=== PATIENT | female | born 1945 | race Two or more races ===

== ENCOUNTER 2016-04-02 14:26 | Emergency (ER) | payer MEDICARE, MEDICAID ==
--- NOTE | 2016-04-02 15:18 | ER Document Report ---
ED Medical Screen (RME) - General Stated Complaint: KIDNEY ISSUES Notes: pt is ESRD in need for dialysis last dialysis treatment was on saturday family states she is switching to Saturday, Saturday and Saturday [employer] Tester- Kelby Boyd in [place] TRAVEL OUTSIDE OF THE [place] IN LAST 30 DAYS: No COUNTRY TRAVELED TO/FROM: [facility] - Related Data Allergies/Adverse Reactions: tuberculin, purified protein deriva [Tuberculin,Purif.Prot.Deriv.] Allergy ( Severe, Verified 05/28/14 16:43) Penicillins Allergy (Mild, Verified 05/16/14 17:42) Pruritis, Swelling Past Medical History - Past Medical History Cardiac Medical History: Reports: Hx Congestive Heart Failure - possibly?, Hx Hypertension Denies: Hx Coronary Artery Disease, Hx Heart Attack Pulmonary Medical History: Denies: Hx Asthma, Hx Bronchitis, Hx COPD, Hx Pneumonia Neurological Medical History: Denies: Hx Cerebrovascular Accident, Hx Seizures Endocrine Medical History: Reports: Hx Diabetes Mellitus Type 2 Renal/ Medical History: Reports: Hx End Stage Renal Disease, Hx Hemodialysis Musculoskeltal Medical History: Reports Hx Arthritis Past Surgical History: Denies: Hx Pacemaker - Immunizations Hx Diphtheria, Pertussis, Tetanus Vaccination: Yes - September
[2016-04-02 18:28] LABS: ABSOLUTE EOSINOPHILS # (AUTO) 0.3 10^3/uL (0.0-0.6); ABSOLUTE LYMPHOCYTES (AUTO) 1.1 10^3/uL (0.5-4.7); ABSOLUTE MONOCYTES (AUTO) 0.4 10^3/uL (0.1-1.4); ABSOLUTE NEUT (AUTO) 3.9 10^3/uL (1.7-8.2); BASOPHILS % (AUTO) 0.7 % (0-2); EOSINOPHILS % (AUTO) 4.7 % (0-6); HEMATOCRIT 22.7 % (36.0-47.0); HGB HCT DIFFERENCE -0.2; LYMPHOCYTES % (AUTO) 19.7 % (13-45); MEAN CORPUSCULAR HEMOGLOBIN 34.7 pg (27.0-33.4); MEAN CORPUSCULAR HGB CONC 33.2 g/dL (32.0-36.0); MEAN CORPUSCULAR VOLUME 105 fl (80-97); MONOCYTES % (AUTO) 6.8 % (3-13); RED BLOOD COUNT 2.17 10^6/uL (3.72-5.28); RED CELL DISTRIBUTION WIDTH 16.1 % (11.5-14.0); SEGMENTED NEUTROPHILS % (AUTO) 68.1 % (42-78); WHITE BLOOD COUNT 5.8 10^3/uL (4.0-10.5)
[2016-04-02 18:31] LABS: HEMOGLOBIN 7.5 g/dL (12.0-15.5)
[2016-04-02 18:46] LABS: ALANINE AMINOTRANSFERASE 23 U/L (9-52); ALBUMIN 3.9 g/dL (3.5-5.0); ALKALINE PHOSPHATASE 188 U/L (38-126); ANION GAP 17 (5-19); ASPARTATE AMINO TRANSFERASE 19 U/L (14-36); BILIRUBIN,TOTAL 0.4 mg/dL (0.2-1.3); BLOOD UREA NITROGEN 109 mg/dL (7-20); CALCIUM 8.9 mg/dL (8.4-10.2); CARBON DIOXIDE 20 mmol/L (22-30); CHLORIDE 104 mmol/L (98-107); CREATININE RESULT 9.74 mg/dL (0.52-1.25); GLUCOSE 83 mg/dL (75-110); POTASSIUM 5.7 mmol/L (3.6-5.0); SODIUM 141.4 mmol/L (137-145); TOTAL PROTEIN 6.2 g/dL (6.3-8.2)
--- NOTE | 2016-04-02 19:05 | ER Document Report ---
ED General - General Chief Complaint: Abnormal Lab Results Stated Complaint: KIDNEY ISSUES Time seen by provider: 19:01 Mode of Arrival: Ambulatory Information source: Patient Notes: This is a 70-year-old female with known end-stage renal disease (hemodialysis Saturday, , Saturday). The patient is previously been dialyzed in [place] and spent 10 months in [facility] and had been receiving her dialysis treatments there. Her last dialysis was Saturday. Patient arrived by plane today from [facility]. She was brought in by the family to get "dialysis set up". The patient's family states they called Dr. Kelby Boyd's office ) and spoken to Augustina who told them to get a chest x-ray, hepatitis B panel and "physician order for dialysis". Patient denies any chest pain or shortness of breath. She states she feels good. TRAVEL OUTSIDE OF THE U[place] IN LAST 30 DAYS: No COUNTRY TRAVELED TO/FROM: [facility] Onset: Last week Onset/Duration: Gradual Quality of pain: No pain Severity: None Pain Level: Denies Associated symptoms: denies: Chills, Fever, Shortness of breath Exacerbated by: Denies Relieved by: Denies Similar symptoms previously: Yes Recently seen / treated by doctor: Yes - Related Data Allergies/Adverse Reactions: tuberculin, purified protein deriva [Tuberculin,Purif.Prot.Deriv.] Allergy ( Severe, Verified 04/02/16 15:18) Penicillins Allergy (Mild, Verified 04/02/16 15:18) Pruritis, Swelling Past Medical History - General Information source: Patient - Social History Smoking Status: Never Smoker Cigarette use (# per day): No Chew tobacco use (# tins/day): No Frequency of alcohol use: None Drug Abuse: None Lives with: Family Family History: Reviewed & Not Pertinent Patient has suicidal ideation: No Patient has homicidal ideation: No - Past Medical History Cardiac Medical History: Reports: Hx Congestive Heart Failure - possibly?, Hx Hypertension Denies: Hx Coronary Artery Disease, Hx Heart Attack Pulmonary Medical History: Denies: Hx Asthma, Hx Bronchitis, Hx COPD, Hx Pneumonia Neurological Medical History: Denies: Hx Cerebrovascular Accident, Hx Seizures Endocrine Medical History: Reports: Hx Diabetes Mellitus Type 2 Renal/ Medical History: Reports: Hx End Stage Renal Disease, Hx Hemodialysis. Denies: Hx Peritoneal Dialysis Musculoskeltal Medical History: Reports Hx Arthritis Past Surgical History: Denies: Hx Pacemaker - Immunizations Hx Diphtheria, Pertussis, Tetanus Vaccination: Yes - September Hx Pneumococcal Vaccination: 06/05/11 Review of Systems - Review of Systems Constitutional: denies: Chills, Fever EENT: No symptoms reported Cardiovascular: No symptoms reported Respiratory: No symptoms reported Gastrointestinal: No symptoms reported Genitourinary: No symptoms reported Female Genitourinary: No symptoms reported Musculoskeletal: No symptoms reported Skin: No symptoms reported Hematologic/Lymphatic: No symptoms reported Neurological/Psychological: No symptoms reported Physical Exam - Vital signs Vitals: Temp Pulse Resp BP Pulse Ox 98.1 F 65 16 141/59 H 98 04/02/16 15:19 04/02/16 15:19 04/02/16 15:19 04/02/16 15:19 04/02/16 15:19 Notes: Physical exam: GENERAL: 70-year-old female, alert and oriented 3, no acute distress HEAD: Atraumatic, normocephalic. EYES: Pupils equal round and reactive to light, extraocular movements intact, sclera anicteric, conjunctiva are normal. ENT: Moist mucous membranes. NECK: Normal range of motion, supple without lymphadenopathy or JVD. LUNGS: Breath sounds clear to auscultation bilaterally and equal. No wheezes rales or rhonchi. HEART: Regular rate and rhythm without murmurs, rubs or gallops. ABDOMEN: Soft, nontender, normoactive bowel sounds. No guarding, no rebound. No masses appreciated. EXTREMITIES: Normal range of motion, no pitting or edema. No clubbing or cyanosis. NEUROLOGICAL: Cranial nerves II through XII grossly intact. Normal speech, normal gait. PSYCH: Normal mood, normal affect. SKIN: Warm, Dry, normal turgor, no rashes or lesions noted. Course - Re-evaluation Re-evalutation: 04/02/16 19:03 Note: I did discuss the labs with the patient. She is anemic (lower than she's been before in the past). She denies any blood in the stool or any active bleeding. She says she has a history of anemia and she is regularly gotten Epogen with dialysis. She is a Jehovah witness and has never had a transfusion 04/02/16 19:15 Note: I discussed case with Dr. Kelby Boyd (page through the ice plant operator zuly Andres [phone]): He is familiar with the patient and stated that they wanted to know where they were as far as the potassium and the fluid status because the patient had suddenly come back from [facility] without any prior notification. I did tell him that the potassium is 5.7, the patient looks good and is asymptomatic and has no shortness of breath and that the chest x-ray was clear. He recommended giving the patient some Kayexalate which we have done. He said that he would fast track the patient to get her dialysis tomorrow. I told him I would give the patient copies of today's x-ray and lab results. I did tell him that the hepatitis panel will not be back tonight (attending) and we do not do the PPD panel in the ER for sees which was originally requested. He understands and will not impact getting the patient in for dialysis. 04/02/16 19:17 - Vital Signs Vital signs: Temp Pulse Resp BP Pulse Ox 98.3 F 68 18 148/44 H 97 04/02/16 19:05 04/02/16 19:05 04/02/16 19:05 04/02/16 19:05 04/02/16 19:05 - Laboratory Result Diagrams: 04/02/16 17:50 04/02/16 17:50 Laboratory results interpreted by me: 04/02/16 04/02/16 17:50 17:50 RBC 2.17 L Hgb 7.5 L Hct 22.7 L MCV 105 H MCH 34.7 H RDW 16.1 H Potassium 5.7 H Carbon Dioxide 20 L BUN 109 H Creatinine 9.74 H Est GFR ( Amer) 5 L Est GFR (Non-Af Amer) 4 L Alkaline Phosphatase 188 H Total Protein 6.2 L 04/02/16 19:17 - Diagnostic Test Radiology reviewed: Image reviewed, Reports reviewed - Chest x-ray shows no infiltrates or effusions. Radiology results interpreted by me: 04/02/16 19:17 Discharge - Discharge Clinical Impression: end-stage renal disease Condition: Stable Disposition: HOME, SELF-CARE Additional Instructions: As we discussed: I was in contact with Dr. Kelby Boyd and he said that the dialysis center will call you at home tomorrow to arrange dialysis for tomorrow. If you have not heard from them by noon, call the dialysis center. When you do go to the dialysis center: Bring a copy of today's x-ray report and labs with you. As always, return to the emergency room for any shortness of breath, chest pain or any concerns that she might be getting worse.
[2016-04-02 19:06] VITALS: BP 148/44
[2016-04-02] MEDS ORDERED: SODIUM POLYSTYRENE SULFONATE 15 GM/60 ML PO ONE (19:10)
== END 2016-04-02 19:37 | disposition home or self-care (01) ==
LOC: ER 14:26
DX: I12.0 Hypertensive chronic kidney disease with stage 5 chronic kidney disease or end stage renal disease (principal); E11.22 Type 2 diabetes mellitus with diabetic chronic kidney disease; N18.6 End stage renal disease; Z99.2 Dependence on renal dialysis; D64.9 Anemia, unspecified; Z88.7 Allergy status to serum and vaccine; Z88.0 Allergy status to penicillin; Z79.899 Other long term (current) drug therapy
CPT/HCPCS: 36415; 71020; 80053; 85025; 86706; 87340; 99284

== ENCOUNTER → 2016-06-07 | Outpatient (CLI) | payer MEDICARE, MEDICAID ==
[~2016-06-07] MED LIST: AMINOPHYLLINE INJ/PF 250 MG/10 ML SDV IV ONE; REGADENOSON INJ 0.4 MG/5 ML DISP.SYRIN IV ONE
--- NOTE | 2016-06-07 16:08 | DRAGON STRESS TEST REPORT ---
INTRAVENOUS LEXISCAN CARDIOLITE STRESS TEST USING SINGLE PHOTON EMMISION COMPUTERIZED TOMOGRAPHIC. DATE OF PROCEDURE: June 07, 2016 INDICATION : Chest pain CARDIAC RISK FACTORS: Hypertension RESTING EKG: Sinus rhythm, no Baseline ST segment changes noted STRESS EKG: No significant changes noted with LexiScan bolus REASON FOR TERMINATION: Protocol. PROCEDURE REPORT: Baseline heart rate 61 beats per minute with blood pressure of 148/68. Patient had no significant complaints. Heart rate at 2 minutes post bolus 79 with a blood pressure of 160/60. 3 minutes post bolus heart rate 71 with blood pressure of 157/62. No significant EKG changes were noted. Patient had no significant complaints during the procedure or postprocedure. Patient injected with Aminophyllin 75 mg at 3 minutes or later after Lexiscan bolus. CONCLUSIONS: Normal EKG and hemodynamic response to IV LexiScan. NUCLEAR DATA: At rest the patient was given 9.33 millicuries of technetium 99 sestamibi injected intravenously. As per protocol rest gated SPECT images were obtained. Subsequently the patient was given intravenous LexiScan at a dose of 0.4 mg in 5 mL intravenously, followed by flush with normal saline. Subsequently the stress dose of 31.6 millicuries of technetium 99 sestamibi was injected intravenously. As per protocol stress gated images were obtained. NUCLEAR INTERPRETATION: Both raw and processed data were used for interpretation. Visual, qualitative, computer-generated quantitative data was used. There was good myocardial uptake of technetium compound. Motion artifact and soft tissue attenuations were noted. Increased visceral uptake was noted. No definitive areas of transient perfusion defect noted. No definitive areas of fixed perfusion defect or scars noted. EKG gated imaging showed LV EF at 62 %, rest and stress gated EF similar visually. T. I D. ratio was 0.98. Lung heart ratio noted to be within normal limits 0.30. No significant extracardiac and abnormal radiotracer activities were noted. RV free wall uptake was noted to be WNL. IMPRESSION: Also refer to comments under nuclear interpretation. Also test results needs to be interpreted in the context of pretest probability. 1. There is no definitive scintigraphic evidence of LexiScan induced myocardial ischemia. 2. There is no definitive scintigraphic evidence of myocardial infarction/scar. 3. EKG gated imaging shows left ejection fraction of approximately 62 %. 4. Clinical correlation requested as occasionally single vessel disease or balanced ischemia could be missed. In approximately 10% of the cases Lexiscan may not cause adequate vasodilatory stress. RECOMMENDATIONS: Aggressive risk factor modification, medical therapy. Clinical correlation with echocardiogram derived ejection fraction. Inability to exercise by itself can lead to increased cardiovascular event risks. Consider cardiology consultation and or follow-up if clinically indicated. I AM AVAILABLE FOR CARDIOLOGY CONSULTATION AND FOLLOWUP IF REQUESTED BY PMD Michael Nicholas M.D., LAURA Process Improvement Engineer database developer, Board certified in cardiovascular diseases, Nuclear cardiology, Echocardiography Cardiac CT and cardiac MRI Ph. [phone] [facility]
== END ==
LOC: RAD 08:10
PROVIDERS: ATTEND Internal Medicine Cardiovascular Disease
DX: R07.9 Chest pain, unspecified (principal); I10 Essential (primary) hypertension
CPT/HCPCS: 93017; 78452; A9500; J2785; J0280; Q9969

== ENCOUNTER 2016-06-15 10:03 | Inpatient (IN) | payer MEDICARE, MEDICAID ==
--- NOTE | 2016-06-15 10:29 | ER Document Report ---
ED Medical Screen (RME) - General Stated Complaint: CHEST PAIN Notes: Patient chooses not to use [employer]. Patient reports through photogrammetric tech she's been having chest pain since 2:00 this morning. Was relieved with nitroglycerin , but pain returns. She has had a previous OH with surgery. Patient is diabetic, has hypertension, and is on dialysis. She was supposed to be dialyzed this morning at 11 AM. Patient's doctor is Dr. Hein. Pain radiates to the arms. Patient complains of body pain. Patient also has shortness of breath. Patient complains of nausea. Patient does not produce urine. I have greeted and performed a rapid initial assessment of this patient. A comprehensive ED assessment and evaluation of the patient, analysis of test results and completion of the medical decision making process will be conducted by additional ED providers. TRAVEL OUTSIDE OF THE [place] IN LAST 30 DAYS: No [facility] Related [facility] Allergies/Adverse Reactions: tuberculin, purified protein deriva [Tuberculin,Purif.Prot.Deriv.] Allergy ( Severe, Verified 06/15/16 10:26) Penicillins Allergy (Mild, Verified 06/15/16 10:26) Pruritis, Swelling Past Medical History - Past Medical History Cardiac Medical History: Reports: Hx Congestive Heart Failure - possibly?, Hx Hypertension Denies: Hx Coronary Artery Disease, Hx Heart Attack Pulmonary Medical History: Denies: Hx Asthma, Hx Bronchitis, Hx COPD, Hx Pneumonia Neurological Medical History: Denies: Hx Cerebrovascular Accident, Hx Seizures Endocrine Medical History: Reports: Hx Diabetes Mellitus Type 2 Renal/ Medical History: Reports: Hx End Stage Renal Disease, Hx Hemodialysis. Denies: Hx Peritoneal Dialysis Musculoskeltal Medical History: Reports Hx Arthritis Past Surgical History: Denies: Hx Pacemaker - Immunizations Hx Diphtheria, Pertussis, Tetanus Vaccination: Yes - September Physical Exam - Vital signs Vitals: Temp Pulse Resp BP Pulse Ox 97.8 F 59 L 18 157/58 H 98 06/15/16 10:06/15/16 10:06/15/16 10:06/15/16 10:06/15/16 10:21 Course - Vital Signs Vital signs: Temp Pulse Resp BP Pulse Ox 97.8 F 59 L 18 157/58 H 98 06/15/16 10:06/15/16 10:06/15/16 10:21 06/15/16 10:21 06/15/16 10:21
--- NOTE | 2016-06-15 10:54 | EKG REPORT ---
SEVERITY:- NORMAL ECG - SINUS RHYTHM : Confirmed by: Michael Nicholas 15-Jun-2016 10:53:18
--- NOTE | 2016-06-15 11:24 | ER Document Report ---
ED General - General Chief Complaint: Chest Pain Stated Complaint: CHEST PAIN Mode of Arrival: Ambulatory Information source: Patient, Relative Notes: 70-year-old female history dialysis who had a stress test on Saturday presents with complaints of chest pain. Patient was given nitroglycerin by her silk screen printer machine, took nitroglycerin results or chest pain. Patient denies any fevers or chills. Patient was most have dialysis today and did not go to it. Patient last had dialysis on Saturday TRAVEL OUTSIDE OF THE [place] IN LAST 30 DAYS: No COUNTRY TRAVELED TO/FROM: [facility] Onset: Just prior to arrival Onset/Duration: Sudden Quality of pain: Pressure Severity: Mild Pain Level: 1 Associated symptoms: Chest pain Exacerbated by: Denies Relieved by: Denies Similar symptoms previously: Yes Recently seen / treated by doctor: Yes - Related Data Allergies/Adverse Reactions: tuberculin, purified protein deriva [Tuberculin,Purif.Prot.Deriv.] Allergy ( Severe, Verified 06/15/16 10:26) Penicillins Allergy (Mild, Verified 06/15/16 10:26) Pruritis, Swelling Past Medical History - Social History Smoking Status: Never Smoker Cigarette use (# per day): No Chew tobacco use (# tins/day): No Smoking Education Provided: No Frequency of alcohol use: None Drug Abuse: None Family History: Reviewed & Not Pertinent Patient has suicidal ideation: No Patient has homicidal ideation: No - Past Medical History Cardiac Medical History: Reports: Hx Congestive Heart Failure - possibly?, Hx Hypertension Denies: Hx Coronary Artery Disease, Hx Heart Attack Pulmonary Medical History: Denies: Hx Asthma, Hx Bronchitis, Hx COPD, Hx Pneumonia Neurological Medical History: Denies: Hx Cerebrovascular Accident, Hx Seizures Endocrine Medical History: Reports: Hx Diabetes Mellitus Type 2 Renal/ Medical History: Reports: Hx End Stage Renal Disease, Hx Hemodialysis. Denies: Hx Peritoneal Dialysis Musculoskeltal Medical History: Reports Hx Arthritis Past Surgical History: Denies: Hx Pacemaker - Immunizations Hx Diphtheria, Pertussis, Tetanus Vaccination: Yes - September Hx Pneumococcal Vaccination: 06/05/11 Review of Systems - Review of Systems Notes: REVIEW OF SYSTEMS: CONSTITUTIONAL : Denies fever, chills, or sweats. Denies recent illness. EENT: Denies eye, ear, throat, or mouth pain or symptoms. Denies nasal or sinus congestion or discharge. Denies throat, tongue, or mouth swelling or difficulty swallowing. CARDIOVASCULAR: Admits chest pain RESPIRATORY: Denies cough, cold, or chest congestion. Denies shortness of breath, difficulty breathing, or wheezing. GASTROINTESTINAL: Denies abdominal pain or distention. Denies nausea, vomiting , or diarrhea. Denies blood in vomitus, stools, or per rectum. Denies black, tarry stools. Denies constipation. GENITOURINARY: Denies difficulty urinating, painful urination, burning, frequency, blood in urine, or discharge. FEMALE GENITOURINARY: Denies vaginal bleeding, heavy or abnormal periods, irregular periods. Denies vaginal discharge or odor. MUSCULOSKELETAL: Denies back or neck pain or stiffness. Denies joint pain or swelling. SKIN: Denies rash, lesions or sores. HEMATOLOGIC : Denies easy bruising or bleeding. LYMPHATIC: Denies swollen, enlarged glands. NEUROLOGICAL: Denies confusion or altered mental status. Denies passing out or loss of consciousness. Denies dizziness or lightheadedness. Denies headache. Denies weakness or paralysis or loss of use of either side. Denies problems with gait or speech. Denies sensory loss, numbness, or tingling. Denies seizures. PSYCHIATRIC: Denies anxiety or stress. Denies depression, suicidal ideation, or homicidal ideation. ALL OTHER SYSTEMS REVIEWED AND NEGATIVE. Dictation was performed using [employer] voice recognition software PHYSICAL EXAMINATION: GENERAL: Well-appearing, well-nourished and in no acute distress. HEAD: Atraumatic, normocephalic. EYES: Pupils equal round and reactive to light, extraocular movements intact, conjunctiva are normal. ENT: Nares patent, oropharynx clear without exudates. Moist mucous membranes. NECK: Normal range of motion, supple without lymphadenopathy LUNGS: Breath sounds clear to auscultation bilaterally and equal. No wheezes rales or rhonchi. HEART: Regular rate and rhythm without murmurs ABDOMEN: Soft, nontender, nondistended abdomen. No guarding, no rebound. No masses appreciated. Female : deferred Musculoskeletal: Normal range of motion, no pitting or edema. No cyanosis. NEUROLOGICAL: Cranial nerves grossly intact. Normal speech, normal gait. Normal sensory, motor exams PSYCH: Normal mood, normal affect. SKIN: Warm, Dry, normal turgor, no rashes or lesions noted. Physical Exam - Vital signs Vitals: Temp Pulse Resp BP Pulse Ox 97.8 F 59 L 18 157/58 H 98 06/15/16 10:21 06/15/16 10:21 06/15/16 10:21 06/15/16 10:21 06/15/16 10:21 Course - Re-evaluation Re-evalutation: 06/15/16 11:23 Very pleasant 70-year-old female who presents with complaints of chest pain. Patient took her own nitroglycerin prior to arrival and notes she is a symptomatic at this time. I did review the stress test which noted no acute abnormalities no ischemic changes no previous scarring. 62% ejection fraction. 06/15/16 13:54 Pt noted ot have a potassium of 8, immediately ordered medications 06/15/16 14:06 Dr Ballesteros with admit, Dr Brenner to dialysis emergently 06/15/16 14:06 - Vital Signs Vital signs: Temp Pulse Resp BP Pulse Ox 97.8 F 59 L 14 141/63 H 97 06/15/16 10:21 06/15/16 10:21 06/15/16 13:17 06/15/16 13:17 06/15/16 13:17 - Laboratory Result Diagrams: 06/15/16 11:30 06/15/16 12:54 Laboratory results interpreted by me: 06/15/16 06/15/16 11:30 12:54 RDW 16.6 H Sodium 135.5 L Potassium 8.0 H* Chloride 95 L Carbon Dioxide 20 L BUN 95 H Creatinine 9.79 H Est GFR ( Amer) 5 L Est GFR (Non-Af Amer) 4 L Calcium 8.0 L Direct Bilirubin 0.5 H AST 39 H Alkaline Phosphatase 186 H - Diagnostic Test Radiology reviewed: Image reviewed, Reports reviewed - EKG Interpretation by Me EKG shows normal: Sinus rhythm, Anderson, Intervals, ST-T Waves - Peaked T waves When compared to previous EKG there are: Changes noted Critical Care Note - Critical Care Note Total time excluding time spent on procedures (mins): 41 Comments: 41 minutes of critical care time spent in direct contact evaluating and reevaluating the patient, treating symptoms, reviewing labs and studies and speaking with family and consultants excluding any procedures Discharge - Discharge Clinical Impression: Hyperkalemia, ESRD on dialysis Chest pain Qualifiers: Chest pain type: unspecified Qualified Code(s): R07.9 - Chest pain, unspecified Condition: Serious Disposition: ADMITTED INPATIENT Admitting Provider: Hospitalist Unit Admitted: ICU Referrals: STEVEN NEUMANN MD [Primary Care Provider] - Follow up as needed
[2016-06-15 12:04] LABS: ABSOLUTE BASOPHILS # (AUTO) 0.1 10^3/uL (0.0-0.2); ABSOLUTE EOSINOPHILS # (AUTO) 0.2 10^3/uL (0.0-0.6); ABSOLUTE MONOCYTES (AUTO) 0.4 10^3/uL (0.1-1.4); ABSOLUTE NEUT (AUTO) 4.5 10^3/uL (1.7-8.2); BASOPHILS % (AUTO) 0.9 % (0-2); EOSINOPHILS % (AUTO) 3.4 % (0-6); HEMATOCRIT 37.2 % (36.0-47.0); HEMOGLOBIN 12.7 g/dL (12.0-15.5); HGB HCT DIFFERENCE 0.9; LYMPHOCYTES % (AUTO) 16.2 % (13-45); MEAN CORPUSCULAR HEMOGLOBIN 31.5 pg (27.0-33.4); MEAN CORPUSCULAR HGB CONC 34.1 g/dL (32.0-36.0); MEAN CORPUSCULAR VOLUME 93 fl (80-97); RED BLOOD COUNT 4.02 10^6/uL (3.72-5.28); RED CELL DISTRIBUTION WIDTH 16.6 % (11.5-14.0); SEGMENTED NEUTROPHILS % (AUTO) 72.5 % (42-78); WHITE BLOOD COUNT 6.3 10^3/uL (4.0-10.5)
[2016-06-15 12:11] LABS: PROTHROMBIN TIME 13.3 SEC (11.4-15.4)
[2016-06-15] MEDS ORDERED: NITROGLYCERIN 0.4 MG/TAB 25 TAB/BOTTLE ONE (12:57)
[2016-06-15] MEDS ORDERED: NITROGLYCERIN 0.4 MG/TAB 25 TAB/BOTTLE SL PRN ×2 (13:08→21:45)
[2016-06-15 13:19] LABS: ALANINE AMINOTRANSFERASE 43 U/L (9-52); ALBUMIN 4.2 g/dL (3.5-5.0); ALKALINE PHOSPHATASE 186 U/L (38-126); ASPARTATE AMINO TRANSFERASE 39 U/L (14-36); BILIRUBIN,DIRECT 0.5 mg/dL (0.0-0.4); BILIRUBIN,TOTAL 0.5 mg/dL (0.2-1.3); BLOOD UREA NITROGEN 95 mg/dL (7-20); CARBON DIOXIDE 20 mmol/L (22-30); CHLORIDE 95 mmol/L (98-107); CREATINE KINASE 108 U/L (30-135); GLUCOSE 94 mg/dL (75-110); SODIUM 135.5 mmol/L (137-145); TOTAL PROTEIN 6.7 g/dL (6.3-8.2)
[2016-06-15] MEDS ORDERED: MORPHINE SULFATE 10 MG/ML INJ IV ONE (13:23)
[2016-06-15 13:25] LABS: CREATININE RESULT 9.79 mg/dL (0.52-1.25)
[2016-06-15 13:31] LABS: CREATINE KINASE MB 1.21 ng/mL (<4.55)
[2016-06-15] MEDS ORDERED: OXYCODONE-ACETAMINOPHEN 5-325 MG TABLET PO ONE (13:33)
[2016-06-15 13:42] LABS: TROPONIN I < 0.012 ng/mL
[2016-06-15] MEDS ORDERED: INSULIN REG, HUMAN 100 UNIT/ML 3 ML VIAL (PYX) IV ONE (13:52)
[2016-06-15] MEDS ORDERED: DEXTROSE 50%-WATER 25 GM/50 ML DISP.SYRIN IV ONE (13:52)
[2016-06-15] MEDS ORDERED: CALCIUM GLUCONATE 1000 MG/10 ML INJ IV ONE (13:52)
[2016-06-15] MEDS ORDERED: ALBUTEROL SULFATE 0.083% NEB 2.5 MG/3 ML AMPUL NEB ONE (13:52)
[2016-06-15 14:09] LABS: ANION GAP 21 (5-19)
[2016-06-15] MEDS ORDERED: ONDANSETRON HCL INJ/PF 4 MG/2 ML SDV IV PRN (14:30)
[2016-06-15] MEDS ORDERED: ACETAMINOPHEN 325 MG TABLET PO PRN (14:30)
[2016-06-15] MEDS ORDERED: OXYCODONE-ACETAMINOPHEN 5-325 MG TABLET PO PRN (14:30)
--- NOTE | 2016-06-15 15:09 | PDOC H&P ---
History of Present Illness Admission Date/PCP: 06/15/16 14:30 STEVEN NEUMANN MD Patient complains of: Chest pain History of Present Illness: NICO BOBO is a 70 year old female with a history of diabetes and chronic renal failure who is a dialysis patient on Wednesdays and Fridays who presents with complaints of chest pain. Patient reports that she began having chest pain yesterday evening. She describes a left-sided substernal chest pressure that did not radiate. There was no associated nausea vomiting or diaphoresis. She denies any palpitations or tachycardia. She does report having some orthopnea but no PND. The patient is and speaks minimal fingers. This interview was done with the daughter at the bedside who translated. The patient fevers or chills or night sweats. She denies any recent travel outside the [place] and denies any immobility. The patient was evaluated by cardiology and had a stress test done about 1 week ago which showed no evidence for ischemia. Patient does have a family history in that her mother from coronary artery disease. She does not smoke and she does not have elevated cholesterol. Past Medical History Cardiac Medical History: Reports: Congestive Heart Failure - possibly?, Hypertension Denies: Coronary Artery Disease, Myocardial Infarction Pulmonary Medical History: Denies: Asthma, Bronchitis, Chronic Obstructive Pulmonary Disease (COPD), Pneumonia Endocrine Medical History: Reports: Diabetes Mellitus Type 2 Renal/ Medical History: Reports: End Stage Renal Disease Musculoskeltal Medical History: Reports: Arthritis Hematology: Denies: Anemia Infectious Medical History: Reports: None Past Surgical History Past Surgical History: Reports: Thyroidectomy - Partial Denies: Pacemaker Social History Information Source: Patient - Daughter was at the bedside who translated. Lives with: Family Smoking Status: Never Smoker Frequency of Alcohol Use: None Hx Recreational Drug Use: No Drugs: None - Advance Directive Resuscitation Status: Full Code Surrogate healthcare decision maker:: Her son Jermain Rock Family History Family History: Mother at age 85 and had coronary artery disease as well as CVA. Father at age 95 and no chronic problems. Parental Family History Reviewed: Yes Children Family History Reviewed: Yes Sibling(s) Family History Reviewed.: No Medication/Allergy Home Medications: Amlodipine Besylate [Norvasc 10 mg Tablet] 10 mg PO DAILY 06/15/16 Carvedilol [Coreg 25 mg Tablet] 25 mg PO DAILY 06/15/16 Hydralazine HCl [Apresoline 25 mg Tablet] 25 mg PO DAILY 06/15/16 Levothyroxine Sodium [Synthroid 0.1 mg Tablet] 0 mg PO DAILY 06/15/16 Nitroglycerin [Nitrostat] 0.4 mg SL Q5M 06/15/16 Allergies/Adverse Reactions: tuberculin, purified protein deriva [Tuberculin,Purif.Prot.Deriv.] Allergy ( Severe, Verified 06/15/16 10:26) Penicillins Allergy (Mild, Verified 06/15/16 10:26) Pruritis, Swelling Review of Systems Constitutional: ABSENT: chills, fever(s), headache(s), weight gain, weight loss Eyes: ABSENT: visual disturbances Ears: ABSENT: hearing changes Cardiovascular: PRESENT: as per HPI Respiratory: PRESENT: dyspnea. ABSENT: cough, hemoptysis Gastrointestinal: ABSENT: abdominal pain, constipation, diarrhea, hematemesis, hematochezia, nausea, vomiting Genitourinary: PRESENT: other - Patient is on dialysis. Musculoskeletal: ABSENT: joint swelling Integumentary: ABSENT: rash, wounds Neurological: PRESENT: other - Abnormal movement at night consistent with restless leg syndrome.. ABSENT: abnormal gait, abnormal speech, confusion, dizziness, focal weakness, syncope Psychiatric: ABSENT: anxiety, depression Endocrine: ABSENT: cold intolerance, heat intolerance, polydipsia, polyuria Hematologic/Lymphatic: ABSENT: easy bleeding, easy bruising Physical Exam Vital Signs: Temp Pulse Resp BP Pulse Ox 97.8 F 59 L 19 169/60 H 93 06/15/16 10:21 06/15/16 10:21 06/15/16 14:47 06/15/16 14:47 06/15/16 14:32 General appearance: PRESENT: no acute distress, well-developed, well-nourished Head exam: PRESENT: atraumatic, normocephalic Eye exam: PRESENT: conjunctiva pink, EOMI, PERRLA. ABSENT: scleral icterus Ear exam: PRESENT: normal external ear exam Mouth exam: PRESENT: moist, tongue midline Neck exam: ABSENT: carotid bruit, JVD, lymphadenopathy, thyromegaly Respiratory exam: PRESENT: clear to auscultation rashmi. ABSENT: rales, rhonchi, wheezes Cardiovascular exam: PRESENT: RRR, systolic murmur. ABSENT: diastolic murmur, rubs GI/Abdominal exam: PRESENT: normal bowel sounds, soft. ABSENT: distended, guarding, mass, organolmegaly, rebound, tenderness Rectal exam: PRESENT: deferred Extremities exam: PRESENT: pedal edema - Trace pedal edema. ABSENT: calf tenderness, clubbing Neurological exam: PRESENT: alert, awake, oriented to person, oriented to place , oriented to time, oriented to situation, CN II-XII grossly intact. ABSENT: motor sensory deficit Psychiatric exam: PRESENT: appropriate affect Skin exam: PRESENT: dry, intact, warm. ABSENT: cyanosis, rash Results Impressions: Chest X-Ray 06/15/16 10:28 IMPRESSION: STABLE APPEARANCE OF THE CHEST. CARDIOMEGALY AND SMALL LEFT PLEURAL EFFUSION UNCHANGED. Assessment & Plan - Diagnosis (1) Chest pain Qualifiers: Chest pain type: unspecified Qualified Code(s): R07.9 - Chest pain, unspecified Is this a current diagnosis for this admission?: YesPlan: Patient has had chest pain for some time now. She had a stress test in a week ago which showed no evidence for ischemia. She does have a family history of heart disease as well as having risk factors of hypertension and diabetes. We will check serial cardiac enzymes and consult cardiology to see whether or not this patient needs to be evaluated by heart catheterization. It Could be that her pain is all related to her hypertension and we'll see how her pain does after dialysis. (2) Hyperkalemia Is this a current diagnosis for this admission?: YesPlan: This is secondary to her chronic renal failure. Patient is to get dialysis today. (3) ESRD on dialysis Is this a current diagnosis for this admission?: YesPlan: Patient normally has dialysis on Wednesdays and Fridays. (4) Diabetes Is this a current diagnosis for this admission?: YesPlan: Patient has controlled her sugars with diet alone. (5) Hypertension Is this a current diagnosis for this admission?: YesPlan: We'll continue with Coreg, Norvasc, hydralazine. (6) Hypothyroidism Is this a current diagnosis for this admission?: YesPlan: Continue with Synthroid. (7) Congestive heart failure Is this a current diagnosis for this admission?: YesPlan: Patient had a normal ejection fraction on stress test so she most likely has diastolic dysfunction. (8) Restless leg syndrome Is this a current diagnosis for this admission?: YesPlan: We'll start the patient on Requip. - Time Time Spent: 50 to 70 Minutes - Inpatient Certification Medical Necessity: Need Close Monitoring Due to Risk of Patient Decompensation - Plan Summary Plan Summary: We'll admit to the intensive care unit for emergent dialysis.
[2016-06-15 17:06] LABS: ANION GAP 18 (5-19); BLOOD UREA NITROGEN 104 mg/dL (7-20); CALCIUM 8.8 mg/dL (8.4-10.2); CARBON DIOXIDE 24 mmol/L (22-30); CHLORIDE 95 mmol/L (98-107); GLUCOSE 56 mg/dL (75-110); SODIUM 137.2 mmol/L (137-145)
[2016-06-15 17:12] LABS: CREATININE RESULT 10.01 mg/dL (0.52-1.25)
[2016-06-15 17:14] LABS: CREATINE KINASE MB 1.01 ng/mL (<4.55)
[2016-06-15 17:22] LABS: POTASSIUM 6.7 mmol/L (3.6-5.0)
[2016-06-15 17:23] LABS: TROPONIN I < 0.012 ng/mL
--- NOTE | 2016-06-15 17:39 | PDOC CONSULTATION ---
Consultation Consult Date: 06/15/16 Consult reason:: For urgent hemodialysis in the setting of severe hyperkalemia of 8+ with EKG changes. History of Present Illness Admission Date/PCP: 06/15/16 14:30 STEVEN NEUMANN MD History of Present Illness: NICO BOBO is a 70 year old female with a history of diabetes and chronic renal failure who is a dialysis patient of [facility] and Dr. Boyd , and dialyzes on Wednesdays and Fridays who presents with complaints of chest pain. Patient reports that she began having chest pain yesterday evening. She describes a left-sided substernal chest pressure that did not radiate. There was no associated nausea vomiting or diaphoresis. She denies any palpitations or tachycardia. She does report having some orthopnea but no PND. The patient is and speaks poor wolof. The patient fevers or chills or night sweats. She denies any recent travel outside the [place] and denies any immobility. The patient was evaluated by cardiology and had a stress test done about 1 week ago which showed no evidence for ischemia. Patient does have a family history in that her mother from coronary artery disease. She does not smoke and she does not have elevated cholesterol. Past Medical History Cardiac Medical History: Reports: Hypertension-primary Denies: Coronary Artery Disease, Myocardial Infarction Pulmonary Medical History: Denies: Asthma, Bronchitis, Chronic Obstructive Pulmonary Disease (COPD), Pneumonia Neurological Medical History: Denies: Seizures Endocrine Medical History: Reports: Diabetes Mellitus Type 2 Renal/ Medical History: Reports: End Stage Renal Disease Musculoskeltal Medical History: Reports: Arthritis Infectious Medical History: Reports: None Hematology Medical History: Reports Anemia of Chronic Kidney Disease Past Surgical History Past Surgical History: Reports: Thyroidectomy - Partial Denies: Pacemaker Social History Lives with: Family Smoking Status: Never Smoker Frequency of Alcohol Use: None Hx Recreational Drug Use: No Drugs: None Hx Prescription Drug Abuse: No - Advance Directive Resuscitation Status: Full Code Family History Parental Family History Reviewed: Yes Children Family History Reviewed: No Sibling(s) Family History Reviewed.: No Medication/Allergy Home Medications: Amlodipine Besylate [Norvasc 10 mg Tablet] 10 mg PO DAILY 06/15/16 Carvedilol [Coreg 25 mg Tablet] 25 mg PO DAILY 06/15/16 Hydralazine HCl [Apresoline 25 mg Tablet] 25 mg PO DAILY 06/15/16 Levothyroxine Sodium [Synthroid 0.1 mg Tablet] 0 mg PO DAILY 06/15/16 Nitroglycerin [Nitrostat] 0.4 mg SL Q5M 06/15/16 Famotidine [Pepcid 20 mg Tablet] 20 mg PO Q12 #60 tablet 06/16/16 Ropinirole HCl [Requip 0.25 mg Tablet] 0.25 mg PO QHS #30 tablet 06/16/16 Allergies/Adverse Reactions: tuberculin, purified protein deriva [Tuberculin,Purif.Prot.Deriv.] Allergy ( Severe, Verified 06/15/16 10:26) Penicillins Allergy (Mild, Verified 06/15/16 10:26) Pruritis, Swelling Review of Systems Review of Systems: Constitutional: PRESENT: as per HPI. ABSENT: chills, fever(s), headache(s), weight gain, weight loss Eyes: ABSENT: visual disturbances Ears: ABSENT: hearing changes Cardiovascular: ABSENT: edema, orthropnea, palpitations Respiratory: ABSENT: cough, hemoptysis Gastrointestinal: ABSENT: abdominal pain, constipation, diarrhea, hematemesis, hematochezia, nausea, vomiting Genitourinary: ABSENT: dysuria, hematuria Musculoskeletal: ABSENT: joint swelling Integumentary: ABSENT: rash, wounds Neurological: ABSENT: abnormal gait, abnormal speech, confusion, dizziness, focal weakness, syncope Psychiatric: ABSENT: anxiety, depression, homicidal ideation, suicidal ideation Endocrine: ABSENT: cold intolerance, heat intolerance, polydipsia, polyuria Hematologic/Lymphatic: ABSENT: easy bleeding, easy bruising, lymphadenopathy Physical Exam Vital Signs: Temp Pulse Resp BP Pulse Ox 97.8 F 59 L 15 174/65 H 93 06/15/16 10:21 06/15/16 10:21 06/15/16 15:46 06/15/16 15:31 06/15/16 15:45 Intake & Output 06/14/16 06/15/16 06/16/16 06:59 06:59 06:59 Output Total 0 Balance 0 General appearance: PRESENT: no acute distress Eye exam: PRESENT: conjunctiva pink, EOMI, PERRLA. ABSENT: nystagmus, scleral icterus Ear exam: PRESENT: normal external ear exam Neck exam: ABSENT: lymphadenopathy, meningismus, tenderness, thyromegaly, tracheal deviation Respiratory exam: PRESENT: clear to auscultation rashmi. ABSENT: crackles, rhonchi Cardiovascular exam: PRESENT: +S1, +S2, systolic murmur GI/Abdominal exam: PRESENT: soft. ABSENT: distended, firm, guarding, organomegaly, tenderness Neurological exam: PRESENT: alert, awake, oriented to person, oriented to place , oriented to time Skin exam: ABSENT: erythema, mottled, rash Results Laboratory Results: 06/15/16 16:37 06/15/16 16:37 Sodium 137.2 Potassium 6.7 H* D Chloride 95 L Carbon Dioxide 24 Anion Gap 18 BUN 104 H Creatinine 10.01 H Est GFR ( Amer) 5 L Est GFR (Non-Af Amer) 4 L Glucose 56 L Calcium 8.8 06/15/16 06/15/16 06/15/16 15:28 15:28 16:37 Creatine Kinase Cancelled 95 CK-MB (CK-2) Cancelled Troponin I Cancelled 06/15/16 16:37 Creatine Kinase CK-MB (CK-2) 1.01 Troponin I < 0.012 Impressions: Chest X-Ray 06/15/16 10:28 IMPRESSION: STABLE APPEARANCE OF THE CHEST. CARDIOMEGALY AND SMALL LEFT PLEURAL EFFUSION UNCHANGED. Assessment & Plan - Diagnosis (1) Chest pain Qualifiers: Chest pain type: unspecified Qualified Code(s): R07.9 - Chest pain, unspecified Is this a current diagnosis for this admission?: YesPlan: As per hospitalist (2) Diabetes Is this a current diagnosis for this admission?: Yes (3) Hyperkalemia Is this a current diagnosis for this admission?: YesPlan: Urgent hemodialysis being instituted for severe hyperkalemia with EKG changes. Discussed with her the ICU with the treating nurse about dietary indiscretions. We also discussed the consequences of high potassium including cardiac arrest. (4) Hypertension Is this a current diagnosis for this admission?: YesPlan: Monitor (5) ESRD on hemodialysis Plan: Urgent hemodialysis instituted because of severe hyperkalemia with EKG changes. Patient seen on hemodialysis. She is undergoing dialysis without any issues. Orders were discussed with treating nurse. She should respond well to appropriate potassium bath to remove excess potassium. Discussed with the patient through the stage settings painter about the consequences of hypertension and dietary indiscretions that she has been doing. We will try to remove 1-2 L of fluid as tolerated.
[2016-06-15] MEDS ORDERED: AMLODIPINE BESYLATE 10 MG TABLET PO ONE (22:00)
[2016-06-15] MEDS ORDERED: FAMOTIDINE 20 MG TABLET PO SCH (22:00)
[2016-06-15] MEDS: HEPARIN SOD (PORCINE) 5,000 UNIT/ML 1 ML SYRINGE SUBCUT SCH (22:00)
[2016-06-15] MEDS ORDERED: ROPINIROLE HCL 0.25 MG TABLET PO SCH (22:00)
[2016-06-15 22:59] LABS: CREATINE KINASE MB 0.89 ng/mL (<4.55); TROPONIN I < 0.012 ng/mL
[2016-06-16 05:39] LABS: HEMATOCRIT 37.9 % (36.0-47.0); HEMOGLOBIN 12.4 g/dL (12.0-15.5); HGB HCT DIFFERENCE -0.7; MEAN CORPUSCULAR HEMOGLOBIN 30.4 pg (27.0-33.4); MEAN CORPUSCULAR HGB CONC 32.8 g/dL (32.0-36.0); MEAN CORPUSCULAR VOLUME 93 fl (80-97); RED BLOOD COUNT 4.09 10^6/uL (3.72-5.28); RED CELL DISTRIBUTION WIDTH 15.9 % (11.5-14.0); WHITE BLOOD COUNT 4.7 10^3/uL (4.0-10.5)
[2016-06-16 06:04] LABS: CREATINE KINASE MB 0.46 ng/mL (<4.55); TROPONIN I 0.019 ng/mL
[2016-06-16 06:20] LABS: ALANINE AMINOTRANSFERASE 43 U/L (9-52); ALBUMIN 3.7 g/dL (3.5-5.0); ALKALINE PHOSPHATASE 175 U/L (38-126); ANION GAP 15 (5-19); ASPARTATE AMINO TRANSFERASE 36 U/L (14-36); BILIRUBIN,DIRECT 0.4 mg/dL (0.0-0.4); BILIRUBIN,TOTAL 0.5 mg/dL (0.2-1.3); CALCIUM 8.2 mg/dL (8.4-10.2); CARBON DIOXIDE 26 mmol/L (22-30); CHLORIDE 97 mmol/L (98-107); CREATININE RESULT 6.14 mg/dL (0.52-1.25); GLUCOSE 75 mg/dL (75-110); SODIUM 138.4 mmol/L (137-145); TOTAL PROTEIN 6.3 g/dL (6.3-8.2)
[2016-06-16] MEDS: HEPARIN SOD (PORCINE) 5,000 UNIT/ML 1 ML SYRINGE SUBCUT SCH (06:31)
[2016-06-16 06:46] LABS: BLOOD UREA NITROGEN 48 mg/dL (7-20); POTASSIUM 4.4 mmol/L (3.6-5.0)
[2016-06-16] MEDS ORDERED: ENOXAPARIN SODIUM INJ 30 MG/0.3 ML DISP.SYRIN SUBCUT SCH (08:00)
[2016-06-16 08:26] VITALS: BP 157/50
[2016-06-16] MEDS ORDERED: AMLODIPINE BESYLATE 10 MG TABLET PO SCH (10:00)
[2016-06-16] MEDS ORDERED: HYDRALAZINE HCL 25 MG TABLET PO SCH (10:00)
[2016-06-16] MEDS ORDERED: CARVEDILOL 12.5 MG TABLET PO SCH (10:00)
--- NOTE | 2016-06-16 11:43 | PDOC DISCHARGE SUMMARY ---
General - Admit/Disc Date/PCP Admission Date/Primary Care Provider: 06/15/16 14:30 STEVEN NEUMANN MD Discharge Date: 06/16/16 - Discharge Diagnosis (1) Chest pain Is this a current diagnosis for this admission?: YesSummary: He had negative cardiac enzymes and a negative stress test a week ago. This probably represents gastroesophageal reflux disease and she is started on Pepcid. Patient was evaluated by cardiology during this hospitalization and they felt that no further workup needed to be done. (2) Hyperkalemia Is this a current diagnosis for this admission?: YesSummary: Resolved with dialysis. (3) ESRD on dialysis Is this a current diagnosis for this admission?: YesSummary: Patient gets dialysis on Saturday (4) Diabetes Is this a current diagnosis for this admission?: YesSummary: Patient is diet control. (5) Hypertension Is this a current diagnosis for this admission?: Yes (6) Hypothyroidism Is this a current diagnosis for this admission?: Yes (7) Congestive heart failure Is this a current diagnosis for this admission?: YesSummary: Patient was euvolemic during this hospitalization. (8) Restless leg syndrome Is this a current diagnosis for this admission?: YesSummary: This is a new diagnosis for the patient. She is started on Requip daily at bedtime - Additional Information Resuscitation Status: Full Code Discharge Diet: Cardiac, Diabetic Discharge Activity: Activity As Tolerated Home Medications: Amlodipine Besylate [Norvasc 10 mg Tablet] 10 mg PO DAILY 06/15/16 Carvedilol [Coreg 25 mg Tablet] 25 mg PO DAILY 06/15/16 Hydralazine HCl [Apresoline 25 mg Tablet] 25 mg PO DAILY 06/15/16 Levothyroxine Sodium [Synthroid 0.1 mg Tablet] 0 mg PO DAILY 06/15/16 Nitroglycerin [Nitrostat] 0.4 mg SL Q5M 06/15/16 Famotidine [Pepcid 20 mg Tablet] 20 mg PO Q12 #60 tablet 06/16/16 Ropinirole HCl [Requip 0.25 mg Tablet] 0.25 mg PO QHS #30 tablet 06/16/16 History of Present Illness History of Present Illness: NICO BOBO is a 70 year old female with a history of diabetes and chronic renal failure who is a dialysis patient on Wednesdays and Fridays who presents with complaints of chest pain. Patient reports that she began having chest pain yesterday evening. She describes a left-sided substernal chest pressure that did not radiate. There was no associated nausea vomiting or diaphoresis. She denies any palpitations or tachycardia. She does report having some orthopnea but no PND. The patient is and speaks minimal fingers. This interview was done with the daughter at the bedside who translated. The patient fevers or chills or night sweats. She denies any recent travel outside the [place] and denies any immobility. The patient was evaluated by cardiology and had a stress test done about 1 week ago which showed no evidence for ischemia. Patient does have a family history in that her mother from coronary artery disease. She does not smoke and she does not have elevated cholesterol. Hospital Course Hospital Course: 70-year-old female who presented with chest pain. The patient had a stress test done 1 week prior to presentation it was normal. Patient was monitored on telemetry and had negative cardiac enzymes. Patient also had a potassium of 8 when she presented. She is a dialysis patient however did not go to dialysis the day of admission because she came to the hospital instead. She was dialyzed emergently and her potassium was corrected. Patient had no further complaints and is felt that she was stable for discharge to home. Patient did have complaints of restless leg syndrome and is started on Requip. Physical Exam Vital Signs: Temp Pulse Resp BP Pulse Ox 98.6 F 64 14 157/50 H 94 06/16/16 08:00 06/16/16 08:00 06/16/16 08:00 06/16/16 08:00 06/16/16 08:00 Intake & Output 06/15/16 06/16/16 06/17/16 06:59 06:59 06:59 Output Total 2300 0 Balance -2300 0 Weight 60 kg General appearance: PRESENT: no acute distress Eye exam: PRESENT: conjunctiva pink. ABSENT: scleral icterus Ear exam: PRESENT: normal external ear exam Mouth exam: PRESENT: moist, tongue midline Neck exam: ABSENT: carotid bruit, JVD, lymphadenopathy, thyromegaly Respiratory exam: PRESENT: clear to auscultation rashmi. ABSENT: rales, rhonchi, wheezes Cardiovascular exam: PRESENT: RRR. ABSENT: diastolic murmur, rubs, systolic murmur GI/Abdominal exam: PRESENT: normal bowel sounds, soft. ABSENT: distended, guarding, mass, organolmegaly, rebound, tenderness Extremities exam: ABSENT: calf tenderness, clubbing, pedal edema Psychiatric exam: PRESENT: appropriate affect Skin exam: PRESENT: dry, intact, warm. ABSENT: cyanosis, rash Results Laboratory Results: 06/16/16 05:07 06/16/16 05:07 06/15/16 06/16/16 06/16/16 16:37 05:07 05:07 WBC 4.7 RBC 4.09 Hgb 12.4 Hct 37.9 MCV 93 MCH 30.4 MCHC 32.8 RDW 15.9 H Plt Count 169 Sodium 137.2 138.4 Potassium 6.7 H* D 4.4 D Chloride 95 L 97 L Carbon Dioxide 24 26 Anion Gap 18 15 BUN 104 H 48 H D Creatinine 10.01 H 6.14 H Est GFR ( Amer) 5 L 8 L Est GFR (Non-Af Amer) 4 L 7 L Glucose 56 L 75 Calcium 8.8 8.2 L Total Bilirubin 0.5 AST 36 ALT 43 Alkaline Phosphatase 175 H Total Protein 6.3 Albumin 3.7 06/15/16 06/15/16 06/15/16 15:28 15:28 16:37 Creatine Kinase Cancelled 95 CK-MB (CK-2) Cancelled Troponin I Cancelled 06/15/16 06/15/16 06/15/16 16:37 22:20 22:20 Creatine Kinase 78 CK-MB (CK-2) 1.01 0.89 Troponin I < 0.012 < 0.012 06/16/16 06/16/16 05:07 05:07 Creatine Kinase 60 CK-MB (CK-2) 0.46 Troponin I 0.019 Impressions: Chest X-Ray 06/15/16 10:28 IMPRESSION: STABLE APPEARANCE OF THE CHEST. CARDIOMEGALY AND SMALL LEFT PLEURAL EFFUSION UNCHANGED. Qualifiers PATEINT BEING DISCHARGED WITH ANY OF THE FOLLOWING DIAGNOSIS?: No Plan Discharge Plan: Patient improved quicker than expected and is discharged home. Will follow up with her primary care doctor in 2 weeks. Time Spent: Less than 30 Minutes
== END 2016-06-16 09:33 | disposition home or self-care (01) | DRG 640 ==
LOC: ER 10:03 → EH 14:05 → UNDOADMIN 14:05 → EH 14:30 → ICU 16:08
PROVIDERS: ADMIT Internal Medicine; ATTEND Internal Medicine
PROC: 5A1D00Z (ICD-10-PCS; principal; 2016-06-15)
DX: E87.5 Hyperkalemia (principal); N18.6 End stage renal disease; I12.0 Hypertensive chronic kidney disease with stage 5 chronic kidney disease or end stage renal disease; K21.9 Gastro-esophageal reflux disease without esophagitis; E11.22 Type 2 diabetes mellitus with diabetic chronic kidney disease; E03.9 Hypothyroidism, unspecified; G25.81 Restless legs syndrome; M19.90 Unspecified osteoarthritis, unspecified site; D63.1 Anemia in chronic kidney disease; Z82.49 Family history of ischemic heart disease and other diseases of the circulatory system; Z99.2 Dependence on renal dialysis; Z88.0 Allergy status to penicillin
CPT/HCPCS: 36415; 71010; 80048; 80053; 82550; 82553; 84484; 85025; 85027; 85610; 93005; 93010; 94640; 96374; 99291; J0610; J1644; J1815; J3490

== ENCOUNTER 2016-07-01 22:34 | Emergency (ER) | payer MEDICARE, MEDICAID ==
--- NOTE | 2016-07-02 02:39 | ER Document Report ---
ED General - General Chief Complaint: General Weakness Stated Complaint: WEAKNESS Mode of Arrival: Ambulatory Information source: Patient TRAVEL OUTSIDE OF THE [place] IN LAST 30 DAYS: No - HPI Patient complains to provider of: swelling Notes: Patient is here with family at the bedside. Family orders are helping interpret as the patient speaks limited Portuguese. Patient is a dialysis patient. She has dialysis Saturday, Saturday, Saturday. Her last dialysis was on Saturday. She arrives today with complaints of leg swelling, chest tightness and shortness of breath when she lays flat. She also concerned that her potassium is elevated as it has been elevated in the past. She complains of some generalized weakness. She denies any chest pain currently. She denies any fevers. She denies any nausea, vomiting, diarrhea. No rash. She is due to due dialysis at 11 PM today. She denies any other complaints at this moment. - Related Data Allergies/Adverse Reactions: tuberculin, purified protein deriva [Tuberculin,Purif.Prot.Deriv.] Allergy ( Severe, Verified 06/15/16 10:26) Penicillins Allergy (Mild, Verified 06/15/16 10:26) Pruritis, Swelling Past Medical History - Social History Smoking Status: Unknown if Ever Smoked Family History: Reviewed & Not Pertinent - Past Medical History Cardiac Medical History: Reports: Hx Congestive Heart Failure - possibly?, Hx Hypertension Denies: Hx Coronary Artery Disease, Hx Heart Attack Pulmonary Medical History: Denies: Hx Asthma, Hx Bronchitis, Hx COPD, Hx Pneumonia Neurological Medical History: Denies: Hx Cerebrovascular Accident, Hx Seizures Endocrine Medical History: Reports: Hx Diabetes Mellitus Type 2 Renal/ Medical History: Reports: Hx End Stage Renal Disease, Hx Hemodialysis. Denies: Hx Peritoneal Dialysis Musculoskeltal Medical History: Reports Hx Arthritis Past Surgical History: Denies: Hx Pacemaker - Immunizations Hx Diphtheria, Pertussis, Tetanus Vaccination: Yes - September Hx Pneumococcal Vaccination: 06/05/11 Review of Systems - Review of Systems -: Yes All other systems reviewed and negative Physical Exam - Vital signs Vitals: Temp Pulse Resp BP Pulse Ox 98.5 F 69 20 142/50 H 97 07/01/16 23:19 07/01/16 23:19 07/01/16 23:19 07/01/16 23:19 07/01/16 23:19 - Notes Notes: GENERAL: alert, cooperative, nontoxic, no distress. HEAD: normocephalic, atraumatic EYES: conjunctiva pink without discharge, no external redness or swelling. EARS: no external swelling, no external redness NOSE: atraumatic, no external swelling MOUTH/THROAT: mucous membranes moist and pink, posterior pharynx without erythema, swelling, exudate. No trismus or drooling. NECK: soft, supple, full range of motion, no meningismus. CHEST: no distress, lungs clear and equal throughout. No wheezing, rales, rhonchi. CARDIAC: regular rate and rhythm, no murmur, normal capillary refill, normal pulses. +2 pitting edema to the bilateral lower extremities ABDOMEN: Soft, nontender. BACK: full range of motion, no CVA tenderness. EXTREMITIES: full range of motion of all extremities. No redness, no tenderness. NEURO: alert and oriented 3, no focal deficits, full range of motion of all extremities. PYSCH: appropriate mood, affect. Patient is cooperative. SKIN: pink, warm, dry, no rash. - Rectal Tenderness: No Stool: See lab result, Other - Done with female tech at the bedside. No tenderness. Light brown stool noted. No obvious gross blood. Course - Re-evaluation Re-evalutation: 07/02/16 04:47 Patient is nontoxic appearing with stable vitals. She is in absolutely no respiratory distress. She is oxygenating well. Patient has complaints of feeling a little short of breath when she lays flat and having increased swelling to her legs. She does have dialysis on Saturday, Saturday, Saturday. She went on Saturday. She is due to have dialysis today at 11 AM. She was also concerned that her potassium may be elevated as it has been elevated in the past. Her exam is very benign. Her lungs are clear. She is noted to have some pitting edema to the bilateral lower extremities. There is no tenderness or redness. Her labs are all unremarkable. EKG shows no acute findings. Chest x-ray shows a stable left-sided pleural effusion. At this point the patient can be discharged home so that she can go to dialysis at 11 which will certainly improve her fluid overload status at this time. Discussed this with her son who related to the patient. They have no further questions and agree with the plan. Patient will be discharged home. The patient is noted to have elevated blood pressure during today's emergency department visit. The patient was informed of this finding. The patient was instructed that this may be related to pre-hypertension and requires further evaluation with a primary care provider. The patient has no hypertensive symptoms at this time. The patient's emergency department workup and current diagnosis were explained to the patient and or family. Follow-up instructions were provided. Medications if prescribed were discussed. Instructions for when to return to the emergency department including specific worrisome symptoms were discussed with the patient and/or family. - Vital Signs Vital signs: Temp Pulse Resp BP Pulse Ox 98.5 F 69 20 142/50 H 97 07/01/16 23:19 07/01/16 23:19 07/01/16 23:19 07/01/16 23:19 07/01/16 23:19 - Laboratory Result Diagrams: 07/02/16 02:58 07/02/16 02:58 Laboratory results interpreted by me: 07/02/16 07/02/16 07/02/16 02:58 02:58 02:58 RBC 3.55 L Hgb 10.8 L Hct 32.3 L RDW 15.7 H Plt Count 146 L Chloride 96 L BUN 83 H Creatinine 9.30 H Est GFR ( Amer) 5 L Est GFR (Non-Af Amer) 4 L Direct Bilirubin 0.6 H Alkaline Phosphatase 167 H NT-Pro-B Natriuret Pep [id number] H - EKG Interpretation by Me EKG shows normal: Sinus rhythm, [place], Intervals, QRS Complexes, ST-T Waves Rate: Normal Discharge - Discharge Clinical Impression: Weakness Chronic renal failure Qualifiers: Chronic kidney disease stage: unspecified stage Qualified Code(s): N18.9 - Chronic kidney disease, unspecified Condition: Stable Disposition: HOME, SELF-CARE Instructions: Kidney Failure ([facility]) Additional Instructions: Sure to go to dialysis as scheduled at 11:00 today. Follow-up sooner if you develop any worsening chest pain, fever, significant difficulty breathing, fevers, or any further concerns. Your blood pressure was elevated during today's visit. Have this rechecked with your doctor. Forms: Elevated Blood Pressure
[2016-07-02 03:15] LABS: ABSOLUTE EOSINOPHILS # (AUTO) 0.2 10^3/uL (0.0-0.6); ABSOLUTE LYMPHOCYTES (AUTO) 1.1 10^3/uL (0.5-4.7); ABSOLUTE MONOCYTES (AUTO) 0.5 10^3/uL (0.1-1.4); ABSOLUTE NEUT (AUTO) 5.3 10^3/uL (1.7-8.2); BASOPHILS % (AUTO) 0.5 % (0-2); EOSINOPHILS % (AUTO) 2.3 % (0-6); HEMATOCRIT 32.3 % (36.0-47.0); HEMOGLOBIN 10.8 g/dL (12.0-15.5); HGB HCT DIFFERENCE 0.1; LYMPHOCYTES % (AUTO) 15.8 % (13-45); MEAN CORPUSCULAR HEMOGLOBIN 30.4 pg (27.0-33.4); MEAN CORPUSCULAR HGB CONC 33.4 g/dL (32.0-36.0); MEAN CORPUSCULAR VOLUME 91 fl (80-97); MONOCYTES % (AUTO) 6.5 % (3-13); RED BLOOD COUNT 3.55 10^6/uL (3.72-5.28); RED CELL DISTRIBUTION WIDTH 15.7 % (11.5-14.0); SEGMENTED NEUTROPHILS % (AUTO) 74.9 % (42-78); WHITE BLOOD COUNT 7.1 10^3/uL (4.0-10.5)
[2016-07-02 03:30] LABS: ALANINE AMINOTRANSFERASE 34 U/L (9-52); ALBUMIN 3.9 g/dL (3.5-5.0); ALKALINE PHOSPHATASE 167 U/L (38-126); ANION GAP 18 (5-19); ASPARTATE AMINO TRANSFERASE 27 U/L (14-36); BILIRUBIN,DIRECT 0.6 mg/dL (0.0-0.4); BILIRUBIN,TOTAL 0.7 mg/dL (0.2-1.3); BLOOD UREA NITROGEN 83 mg/dL (7-20); CALCIUM 8.4 mg/dL (8.4-10.2); CARBON DIOXIDE 25 mmol/L (22-30); CHLORIDE 96 mmol/L (98-107); GLUCOSE 91 mg/dL (75-110); POTASSIUM 4.8 mmol/L (3.6-5.0); SODIUM 138.7 mmol/L (137-145); TOTAL PROTEIN 6.5 g/dL (6.3-8.2)
[2016-07-02 03:46] LABS: TROPONIN I < 0.012 ng/mL
[2016-07-02 04:53] VITALS: BP 143/50
--- NOTE | 2016-07-02 08:41 | EKG REPORT ---
SEVERITY:- ABNORMAL ECG - SINUS RHYTHM CONSIDER LEFT VENTRICULAR HYPERTROPHY : Confirmed by: Michael Nicholas 02-Jul-2016 08:41:14
== END 2016-07-02 04:58 | disposition home or self-care (01) ==
LOC: ER 22:34
DX: R53.1 Weakness (principal); I12.0 Hypertensive chronic kidney disease with stage 5 chronic kidney disease or end stage renal disease; E11.22 Type 2 diabetes mellitus with diabetic chronic kidney disease; N18.6 End stage renal disease; Z99.2 Dependence on renal dialysis; R60.0 Localized edema; J90 Pleural effusion, not elsewhere classified; R07.89 Other chest pain; R06.02 Shortness of breath; Z88.7 Allergy status to serum and vaccine; Z88.0 Allergy status to penicillin
CPT/HCPCS: 36415; 71020; 80053; 82272; 83880; 84484; 85025; 93005; 93010; 99285

== ENCOUNTER 2016-09-22 19:30 | Inpatient (IN) | payer MEDICARE, MEDICAID ==
[2016-09-22] MEDS ORDERED: ASPIRIN 81 MG TABLET, CHEWABLE PO ONE (20:18)
[2016-09-22 20:44] LABS: ABSOLUTE BASOPHILS # (AUTO) 0.1 10^3/uL (0.0-0.2); ABSOLUTE EOSINOPHILS # (AUTO) 0.1 10^3/uL (0.0-0.6); ABSOLUTE LYMPHOCYTES (AUTO) 1.2 10^3/uL (0.5-4.7); ABSOLUTE MONOCYTES (AUTO) 1.1 10^3/uL (0.1-1.4); ABSOLUTE NEUT (AUTO) 9.5 10^3/uL (1.7-8.2); BASOPHILS % (AUTO) 0.6 % (0-2); HEMATOCRIT 34.5 % (36.0-47.0); HGB HCT DIFFERENCE -1.5; LYMPHOCYTES % (AUTO) 9.9 % (13-45); MEAN CORPUSCULAR HEMOGLOBIN 30.3 pg (27.0-33.4); MEAN CORPUSCULAR HGB CONC 31.8 g/dL (32.0-36.0); MEAN CORPUSCULAR VOLUME 95 fl (80-97); MONOCYTES % (AUTO) 9.1 % (3-13); RED BLOOD COUNT 3.63 10^6/uL (3.72-5.28); RED CELL DISTRIBUTION WIDTH 15.6 % (11.5-14.0); SEGMENTED NEUTROPHILS % (AUTO) 79.4 % (42-78); WHITE BLOOD COUNT 11.9 10^3/uL (4.0-10.5)
[2016-09-22 21:01] LABS: ALANINE AMINOTRANSFERASE 40 U/L (9-52); ALBUMIN 3.9 g/dL (3.5-5.0); ALKALINE PHOSPHATASE 140 U/L (38-126); ANION GAP 16 (5-19); ASPARTATE AMINO TRANSFERASE 28 U/L (14-36); BILIRUBIN,DIRECT 0.6 mg/dL (0.0-0.4); BILIRUBIN,TOTAL 0.6 mg/dL (0.2-1.3); BLOOD UREA NITROGEN 83 mg/dL (7-20); CALCIUM 9.7 mg/dL (8.4-10.2); CARBON DIOXIDE 25 mmol/L (22-30); CHLORIDE 93 mmol/L (98-107); CREATINE KINASE 186 U/L (30-135); CREATININE RESULT 7.71 mg/dL (0.52-1.25); GLUCOSE 146 mg/dL (75-110); SODIUM 133.9 mmol/L (137-145); TOTAL PROTEIN 7.1 g/dL (6.3-8.2)
[2016-09-22 21:03] LABS: POTASSIUM 6.7 mmol/L (3.6-5.0)
[2016-09-22 21:12] LABS: CREATINE KINASE MB 2.14 ng/mL (<4.55)
[2016-09-22 21:15] LABS: TROPONIN I 0.058 ng/mL
[2016-09-22] MEDS ORDERED: CALCIUM GLUCONATE 1000 MG/10 ML INJ IV ONE (21:15)
[2016-09-22] MEDS ORDERED: DEXTROSE 50%-WATER 25 GM/50 ML DISP.SYRIN IV ONE (21:15)
[2016-09-22] MEDS ORDERED: SODIUM POLYSTYRENE SULFONATE 15 GM/60 ML PO ONE (21:16)
--- NOTE | 2016-09-22 21:28 | ER Document Report ---
ED General - General Chief Complaint: Shortness Of Breath Stated Complaint: SHORTNESS OF BREATH Time Seen by Provider: 09/22/16 20:56 Notes: Patient is a 71-year-old female with past medical history of CHF, dialysis dependent end-stage renal disease, diabetes, who presents with 8 days of progressively worsening shortness of breath with associated generalized weakness and fatigue. Does report diffuse muscle aching in all areas but notes it is most intense over the left periscapular region. Denies a history of similar symptoms in the past. Nothing improves or worsens her symptoms. She denies any missed dialysis sessions and last had dialysis on Saturday for the full period of time. She has not seen her primary care doctor regarding today' s concerns. States she presented to the emergency department today due to her symptoms failing to resolve despite receiving dialysis on Saturday. Denies any history of pulmonary embolus and denies use of estrogen. No fever or constitutional symptoms. TRAVEL OUTSIDE OF THE [place] IN LAST 30 DAYS: No - Related Data Allergies/Adverse Reactions: tuberculin, purified protein deriva [Tuberculin,Purif.Prot.Deriv.] Allergy ( Severe, Verified 09/22/16 22:39) Penicillins Allergy (Mild, Verified 09/22/16 22:39) Pruritis, Swelling Past Medical History - General Information source: Patient - Social History Smoking Status: Never Smoker Frequency of alcohol use: None Drug Abuse: None Lives with: Family Family History: Reviewed & Not Pertinent Patient has suicidal ideation: No Patient has homicidal ideation: No - Past Medical History Cardiac Medical History: Reports: Hx Congestive Heart Failure - possibly?, Hx Hypertension Denies: Hx Coronary Artery Disease, Hx Heart Attack Pulmonary Medical History: Denies: Hx Asthma, Hx Bronchitis, Hx COPD, Hx Pneumonia Neurological Medical History: Denies: Hx Cerebrovascular Accident, Hx Seizures Endocrine Medical History: Reports: Hx Diabetes Mellitus Type 2 Renal/ Medical History: Reports: Hx End Stage Renal Disease, Hx Hemodialysis, Hx Peritoneal Dialysis Musculoskeltal Medical History: Reports Hx Arthritis Past Surgical History: Denies: Hx Pacemaker - Immunizations Hx Diphtheria, Pertussis, Tetanus Vaccination: Yes - September Hx Pneumococcal Vaccination: 06/05/11 Review of Systems - Review of Systems Notes: Constitutional: Negative for fever. HENT: Negative for sore throat. Eyes: Negative for visual changes. Cardiovascular: Negative for chest pain. Respiratory: Positive for shortness of breath. Gastrointestinal: Negative for abdominal pain, vomiting or diarrhea. Genitourinary: Negative for dysuria. Musculoskeletal: Positive for left periscapular pain Skin: Negative for rash. Neurological: Negative for headaches, weakness or numbness. 10 point ROS negative except as marked above and in HPI. Physical Exam - Vital signs Vitals: Temp Pulse Resp BP Pulse Ox 99.2 F 75 20 153/52 H 95 09/22/16 19:37 09/22/16 19:37 09/22/16 19:37 09/22/16 19:37 09/22/16 19:37 Interpretation: Hypertensive Notes: PHYSICAL EXAMINATION: GENERAL: Well-appearing, well-nourished and in no acute distress. HEAD: Atraumatic, normocephalic. EYES: Pupils equal round and reactive to light, extraocular movements intact, sclera anicteric, conjunctiva are normal. ENT: nares patent, oropharynx clear without exudates. Moist mucous membranes. NECK: Normal range of motion, supple without lymphadenopathy LUNGS: Distant breath sounds at the left base. Scattered wheezing in all lung cano. HEART: Regular rate and rhythm without murmurs ABDOMEN: Soft, nontender, normoactive bowel sounds. No guarding, no rebound. No masses appreciated. EXTREMITIES: Normal range of motion, trace edema in the bilateral lower extremities. No cyanosis. NEUROLOGICAL: No focal neurological deficits. Moves all extremities spontaneously and on command. PSYCH: Normal mood, normal affect. SKIN: Warm, Dry, normal turgor, no rashes or lesions noted. Course - Re-evaluation Re-evalutation: 09/22/16 21:28 Patient presents with 8 days of progressively worsening shortness of breath and orthopnea, found to be severely hyperkalemic at 6.7 without any significant EKG changes. Chest x-ray does demonstrate findings of mild pulmonary edema. Her troponin is noted to be in the indeterminate range at 0.058. No history of a chronically elevated troponin. She denies any active chest pain at this time although states she has been aching all over for the past 8 days. She did not make any urine. No evidence of a pneumonia on chest x-ray. Will proceed with IV insulin, dextrose, Kayexalate per nephrology protocol, calcium gluconate and reassess. She will require admission to the hospital. 09/23/16 2300 I discussed this case with the hospitalist Dr. Carroll who is agreed to admit. I also discussed with Dr. Yony Brenner the reducing salon attendant on-call who agrees the patient does not require emergent dialysis at this time and that she can be treated with Kayexalate and the plan that we have initiated here in the emergency department. - Vital Signs Vital signs: Temp Pulse Resp BP Pulse Ox 98.7 F 69 20 165/60 H 96 09/23/16 01:46 09/23/16 02:00 09/23/16 01:51 09/23/16 01:46 09/23/16 01:51 - Laboratory Result Diagrams: 09/22/16 20:30 09/22/16 20:30 Laboratory results interpreted by me: 09/22/16 09/22/16 20:30 20:30 WBC 11.9 H RBC 3.63 L Hgb 11.0 L Hct 34.5 L MCHC 31.8 L RDW 15.6 H Seg Neutrophils % 79.4 H Lymphocytes % 9.9 L Absolute Neutrophils 9.5 H Sodium 133.9 L Potassium 6.7 H* Chloride 93 L BUN 83 H Creatinine 7.71 H Est GFR ( Amer) 6 L Est GFR (Non-Af Amer) 5 L Glucose 146 H Direct Bilirubin 0.6 H Alkaline Phosphatase 140 H Creatine Kinase 186 H - Diagnostic Test Radiology reviewed: Image reviewed, Reports reviewed Radiology results interpreted by me: 09/23/16 03:16 Chest x-ray: Left pleural effusion, larger than prior x-ray. Trace pulmonary edema bilaterally. - EKG Interpretation by Me Additional EKG results interpreted by me: 09/22/16 21:29 Normal sinus rhythm. Rate 71. No ST elevations or depressions. QTC is 413. Discharge - Discharge Clinical Impression: ESRD on hemodialysis, Hyperkalemia Congestive heart failure Qualifiers: Congestive heart failure type: combined Congestive heart failure chronicity: acute on chronic Qualified Code(s): I50.43 - Acute on chronic combined systolic (congestive) and diastolic (congestive) heart failure Condition: Fair Disposition: ADMITTED INPATIENT Admitting Provider: Polo Carroll Unit Admitted: Telemetry
--- NOTE | 2016-09-22 21:40 | RADIOLOGY REPORT (SQ) ---
EXAM DESCRIPTION: CHEST SINGLE VIEW COMPLETED DATE/TIME: 09/22/2016 9:23 pm REASON FOR STUDY: dyspnea COMPARISON: 07/02/2016 EXAM PARAMETERS: NUMBER OF VIEWS: One view. TECHNIQUE: Single frontal radiographic view of the chest acquired. RADIATION DOSE: NA LIMITATIONS: None. FINDINGS: LUNGS AND PLEURA: Previously described left lung base atelectasis and pleural effusion felecia ear somewhat more conspicuous on today's examination. The lungs are otherwise clear and evenly aerat ed. No pneumothorax. MEDIASTINUM AND HILAR STRUCTURES: No masses. Contour normal. HEART AND VASCULAR STRUCTURES: Stable cardiomegaly. Normal vasculature. BONES: No acute findings. HARDWARE: Right axillary vascular stent. OTHER: No other significant finding. IMPRESSION: Increased conspicuity of chronic left lung base atelectasis and effusion. While these f indings remain nonspecific, this may represent a worsening chronic infectious process. Unilateral fi ndings would be atypical for CHF pattern. TECHNICAL DOCUMENTATION: JOB ID: [id number]
[2016-09-22] MEDS ORDERED: LACTULOSE SYRUP 20 GM/30 ML UDCUP PR ONE (23:00)
[2016-09-22] MEDS ORDERED: ACETAMINOPHEN 325 MG TABLET PO PRN (23:42)
[2016-09-23] MEDS: IPRATROPIUM/ALBUTEROL 0.5-2.5 MG/3 ML AMPUL NEB SCH ×4 (01:45→23:56)
[2016-09-23 05:41] LABS: ABSOLUTE BASOPHILS # (AUTO) 0.1 10^3/uL (0.0-0.2); ABSOLUTE EOSINOPHILS # (AUTO) 0.2 10^3/uL (0.0-0.6); ABSOLUTE LYMPHOCYTES (AUTO) 0.8 10^3/uL (0.5-4.7); ABSOLUTE MONOCYTES (AUTO) 1.1 10^3/uL (0.1-1.4); ABSOLUTE NEUT (AUTO) 9.4 10^3/uL (1.7-8.2); BASOPHILS % (AUTO) 0.5 % (0-2); EOSINOPHILS % (AUTO) 1.5 % (0-6); HEMATOCRIT 31.6 % (36.0-47.0); HEMOGLOBIN 10.2 g/dL (12.0-15.5); LYMPHOCYTES % (AUTO) 6.9 % (13-45); MEAN CORPUSCULAR HEMOGLOBIN 30.2 pg (27.0-33.4); MEAN CORPUSCULAR HGB CONC 32.1 g/dL (32.0-36.0); MEAN CORPUSCULAR VOLUME 94 fl (80-97); MONOCYTES % (AUTO) 9.8 % (3-13); RED BLOOD COUNT 3.37 10^6/uL (3.72-5.28); RED CELL DISTRIBUTION WIDTH 15.9 % (11.5-14.0); SEGMENTED NEUTROPHILS % (AUTO) 81.3 % (42-78); WHITE BLOOD COUNT 11.5 10^3/uL (4.0-10.5)
[2016-09-23 05:56] LABS: ANION GAP 18 (5-19); BLOOD UREA NITROGEN 88 mg/dL (7-20); CALCIUM 9.5 mg/dL (8.4-10.2); CARBON DIOXIDE 22 mmol/L (22-30); CHLORIDE 94 mmol/L (98-107); CREATININE RESULT 8.41 mg/dL (0.52-1.25); GLUCOSE 84 mg/dL (75-110); SODIUM 134.1 mmol/L (137-145)
[2016-09-23] MEDS: HEPARIN SOD (PORCINE) 5,000 UNIT/ML 1 ML SYRINGE SUBCUT SCH ×3 (05:58→21:47)
[2016-09-23] MEDS: SODIUM POLYSTYRENE SULFONATE 15 GM/60 ML PO SCH ×4 (05:58→23:33)
[2016-09-23 06:01] LABS: POTASSIUM 6.2 mmol/L (3.6-5.0)
--- NOTE | 2016-09-23 06:53 | PDOC H&P ---
History of Present Illness Admission Date/PCP: 09/22/16 23:42 DAPHNE JANE MD Patient complains of: Shortness of breath, chest pain and fatigue History of Present Illness: NICO BOBO is a 71 year old female who is Somali-speaking only and a history of diabetes, end-stage renal failure on hemodialysis Saturday and Saturday with Dr. Boyd. Presents after 2 days of left-sided upper chest pain exacerbated by deep breathing and sharp and shortness of breath. She denies fever chills nausea vomiting was found to have leukocytosis, left-sided pleural effusion and potassium of 6.7 without peak T waves. She started on Kayexalate and referred to the hospitalist for admission. Past Medical History Cardiac Medical History: Reports: Congestive Heart Failure - possibly?, Hypertension Denies: Coronary Artery Disease, Myocardial Infarction Pulmonary Medical History: Denies: Asthma, Bronchitis, Chronic Obstructive Pulmonary Disease (COPD), Pneumonia Neurological Medical History: Denies: Seizures Endocrine Medical History: Reports: Diabetes Mellitus Type 2 Renal/ Medical History: Reports: End Stage Renal Disease Musculoskeltal Medical History: Reports: Arthritis Psychiatric Medical History: Denies: Depression Hematology: Denies: Anemia Past Surgical History Past Surgical History: Denies: Pacemaker Social History Information Source: Patient, [facility] Records Lives with: Family Smoking Status: Never Smoker Frequency of Alcohol Use: None Hx Recreational Drug Use: No Drugs: None Hx Prescription Drug Abuse: No - Advance Directive Resuscitation Status: Full Code Family History Family History: Hypertension Parental Family History Reviewed: Yes Children Family History Reviewed: Yes Sibling(s) Family History Reviewed.: Yes Medication/Allergy Home Medications: Amlodipine Besylate [Norvasc 10 mg Tablet] 10 mg PO DAILY 06/15/16 Carvedilol [Coreg 25 mg Tablet] 25 mg PO DAILY 06/15/16 Hydralazine HCl [Apresoline 25 mg Tablet] 25 mg PO DAILY 06/15/16 Levothyroxine Sodium [Synthroid 0.1 mg Tablet] 0 mg PO DAILY 06/15/16 Nitroglycerin [Nitrostat] 0.4 mg SL Q5M 06/15/16 Famotidine [Pepcid 20 mg Tablet] 20 mg PO Q12 #60 tablet 06/16/16 Ropinirole HCl [Requip 0.25 mg Tablet] 0.25 mg PO QHS #30 tablet 06/16/16 Allergies/Adverse Reactions: tuberculin, purified protein deriva [Tuberculin,Purif.Prot.Deriv.] Allergy ( Severe, Verified 09/22/16 22:39) Penicillins Allergy (Mild, Verified 09/22/16 22:39) Pruritis, Swelling Review of Systems Constitutional: ABSENT: chills, fever(s), headache(s), weight gain, weight loss Eyes: ABSENT: visual disturbances Ears: ABSENT: hearing changes Cardiovascular: ABSENT: chest pain, dyspnea on exertion, edema, orthropnea, palpitations Respiratory: ABSENT: cough, hemoptysis Gastrointestinal: ABSENT: abdominal pain, constipation, diarrhea, hematemesis, hematochezia, nausea, vomiting Genitourinary: ABSENT: dysuria, hematuria Musculoskeletal: ABSENT: joint swelling Integumentary: ABSENT: rash, wounds Neurological: ABSENT: abnormal gait, abnormal speech, confusion, dizziness, focal weakness, syncope Psychiatric: ABSENT: anxiety, depression, homidical ideation, suicidal ideation Endocrine: ABSENT: cold intolerance, heat intolerance, polydipsia, polyuria Hematologic/Lymphatic: ABSENT: easy bleeding, easy bruising Physical Exam Vital Signs: Temp Pulse Resp BP Pulse Ox 98.7 F 69 20 165/60 H 96 09/23/16 01:46 09/23/16 02:00 09/23/16 01:51 09/23/16 01:46 09/23/16 01:51 General appearance: PRESENT: cooperative, mild distress Head exam: PRESENT: atraumatic, normocephalic Eye exam: PRESENT: conjunctiva pink, EOMI, PERRLA. ABSENT: scleral icterus Ear exam: PRESENT: normal external ear exam Mouth exam: PRESENT: moist, tongue midline Neck exam: ABSENT: carotid bruit, JVD, lymphadenopathy, thyromegaly Respiratory exam: PRESENT: decreased breath sounds, prolonged expiratory phas, tachypnea, other - Left-sided dullness at the base to percussion Cardiovascular exam: PRESENT: RRR. ABSENT: diastolic murmur, rubs, systolic murmur Pulses: PRESENT: normal dorsalis pedis pul GI/Abdominal exam: PRESENT: normal bowel sounds, soft. ABSENT: distended, guarding, mass, organolmegaly, rebound, tenderness Rectal exam: PRESENT: deferred Extremities exam: PRESENT: full ROM. ABSENT: calf tenderness, clubbing, pedal edema Neurological exam: PRESENT: alert, awake, oriented to person, oriented to place , oriented to time, oriented to situation, CN II-XII grossly intact. ABSENT: motor sensory deficit Psychiatric exam: PRESENT: appropriate affect, normal mood. ABSENT: homicidal ideation, suicidal ideation Skin exam: PRESENT: dry, intact, warm. ABSENT: cyanosis, rash Results Laboratory Results: 09/23/16 04:50 09/23/16 04:50 WBC 11.5 H RBC 3.37 L Hgb 10.2 L Hct 31.6 L MCV 94 MCH 30.2 MCHC 32.1 RDW 15.9 H Plt Count 278 Seg Neutrophils % 81.3 H Lymphocytes % 6.9 L Monocytes % 9.8 Eosinophils % 1.5 Basophils % 0.5 Absolute Neutrophils 9.4 H Absolute Lymphocytes 0.8 Absolute Monocytes 1.1 Absolute Eosinophils 0.2 Absolute Basophils 0.1 09/23/16 00:14 Troponin I 0.053 Impressions: Chest X-Ray 09/22/16 20:18 IMPRESSION: Increased conspicuity of chronic left lung base atelectasis and effusion. While these findings remain nonspecific, this may represent a worsening chronic infectious process. Unilateral findings would be atypical for CHF pattern. Assessment & Plan - Diagnosis (1) Hyperkalemia Is this a current diagnosis for this admission?: YesPlan: Patient is an anuric without peak T waves , she is received calcium gluconate, albuterol, dextrose and insulin. She is receiving Kayexalate will order lactulose reevaluate chemistry (2) Pneumonia Is this a current diagnosis for this admission?: YesPlan: Patient gives history of pleuritic chest pain nonproductive cough with leukocytosis she receives empiric antibiotics, albuterol and Atrovent follow-up CBC and consider chest x-ray. Atelectasis is in the differential diagnosis and she is receiving incentive spirometry (3) ESRD on hemodialysis Plan: Nephrology consulted for dialysis. Low potassium diet, fluid restriction avoiding volume overload (4) Chest pain Qualifiers: Chest pain type: unspecified Qualified Code(s): R07.9 - Chest pain, unspecified Is this a current diagnosis for this admission?: YesPlan: Noncardiac pleuritic in nature atelectasis versus pneumonia. Receiving treatment for pneumonia and incentive spirometry for atelectasis and symptomatic management. Consider follow-up chest x-ray - Time Time Spent: 30 to 50 Minutes - Inpatient Certification Medical Necessity: Need Close Monitoring Due to Risk of Patient Decompensation
--- NOTE | 2016-09-23 07:58 | EKG REPORT ---
SEVERITY:- ABNORMAL ECG - SINUS RHYTHM PROBABLE LEFT ATRIAL ABNORMALITY NONSPECIFIC REPOL ABNORMALITY, LATERAL LEADS : Confirmed by: Gio Santana MD 23-Sep-2016 07:58:21
--- NOTE | 2016-09-23 07:58 | EKG REPORT ---
SEVERITY:- ABNORMAL ECG - SINUS RHYTHM CONSIDER LEFT VENTRICULAR HYPERTROPHY NONSPECIFIC ST-T CHANGES LATERAL LEADS. : Confirmed by: Gio Santana MD 23-Sep-2016 07:58:10
[2016-09-23] MEDS: CEFTRIAXONE 1 GM/D5W RTU 50 ML IV SCH (09:37)
[2016-09-23] MEDS: AZITHROMYCIN 500 MG in DEXTROSE 5%-WATER 250 ML IV SCH (09:39)
[2016-09-23] MEDS: CARVEDILOL 12.5 MG TABLET PO SCH ×2 (09:40→17:36)
[2016-09-23] MEDS: DOCUSATE SODIUM 100 MG CAPSULE PO SCH ×2 (09:41→17:34)
[2016-09-23] MEDS ORDERED: HYDRALAZINE HCL 25 MG TABLET PO SCH (10:00)
[2016-09-23 14:32] LABS: ANION GAP 19 (5-19); BLOOD UREA NITROGEN 93 mg/dL (7-20); CALCIUM 8.7 mg/dL (8.4-10.2); CARBON DIOXIDE 18 mmol/L (22-30); CHLORIDE 95 mmol/L (98-107); CREATININE RESULT 8.96 mg/dL (0.52-1.25); GLUCOSE 237 mg/dL (75-110); POTASSIUM 5.7 mmol/L (3.6-5.0); SODIUM 131.6 mmol/L (137-145)
--- NOTE | 2016-09-23 16:12 | PDOC CONSULTATION ---
Consultation Consult Date: 09/23/16 Consult reason:: Severe hyperkalemia in an ESRD patient History of Present Illness Admission Date/PCP: 09/22/16 23:42 DAPHNE JANE MD History of Present Illness: NICO BOBO is a 71 year old female who is Slovak-speaking only and a history of diabetes, end-stage renal failure on hemodialysis Saturday and Saturday with Dr. Boyd of [place] [facility]. She came to the hospital with a complaint of a2 days of left-sided upper chest pain exacerbated by deep breathing and sharp and shortness of breath. She denies fever chills nausea vomiting was found to have leukocytosis, left-sided pleural effusion and potassium of 6.7 without peak T waves. She was treated with appropriate anti-hyperkalemic measures in the ER including Kayexalate and then admitted under the hospitalist. Patient has had multiple admissions for severe hyperkalemia in the past. This is in spite of numerous advices on the significance of this issues by her etymology teacher and dietitian at [facility]. Past Medical History Cardiac Medical History: Reports: Hypertension-primary Denies: Coronary Artery Disease, Myocardial Infarction Pulmonary Medical History: Denies: Asthma, Bronchitis, Chronic Obstructive Pulmonary Disease (COPD), Pneumonia Neurological Medical History: Denies: Seizures Endocrine Medical History: Reports: Diabetes Mellitus Type 2 Renal/ Medical History: Reports: End Stage Renal Disease, Renal Osteodystropy Musculoskeltal Medical History: Reports: Arthritis Psychiatric Medical History: Denies: Depression Hematology Medical History: Reports Anemia of Chronic Kidney Disease Past Surgical History Past Surgical History: Denies: Pacemaker Social History Lives with: Family Smoking Status: Never Smoker Frequency of Alcohol Use: None Hx Recreational Drug Use: No Drugs: None Hx Prescription Drug Abuse: No - Advance Directive Resuscitation Status: Full Code Family History Parental Family History Reviewed: Yes - Negative for ESRD. Children Family History Reviewed: No Sibling(s) Family History Reviewed.: No Medication/Allergy Home Medications: Amlodipine Besylate [Norvasc 10 mg Tablet] 10 mg PO DAILY 09/23/16 Carvedilol [Coreg 25 mg Tablet] 1 tab PO Q12 09/23/16 Folic Acid/Vit Bcomp,C [Renal Vitamin Tablet] 0.8 mg PO DAILY 09/23/16 Hydralazine HCl [Apresoline 25 mg Tablet] 25 mg PO Q12 09/23/16 Levothyroxine Sodium [Synthroid 0.1 mg Tablet] 0.1 mg PO DAILY 09/23/16 Allergies/Adverse Reactions: tuberculin, purified protein deriva [Tuberculin,Purif.Prot.Deriv.] Allergy ( Severe, Verified 09/22/16 22:39) Penicillins Allergy (Mild, Verified 09/22/16 22:39) Pruritis, Swelling Review of Systems Review of Systems: Constitutional: PRESENT: as per HPI. ABSENT: chills, fever(s), headache(s), weight gain, weight loss Eyes: ABSENT: visual disturbances Ears: ABSENT: hearing changes Cardiovascular: ABSENT: , edema, orthropnea, palpitations Respiratory: ABSENT: cough, hemoptysis Gastrointestinal: ABSENT: abdominal pain, constipation, diarrhea, hematemesis, hematochezia, nausea, vomiting Genitourinary: ABSENT: dysuria, hematuria Musculoskeletal: ABSENT: joint swelling Integumentary: ABSENT: rash, wounds Neurological: ABSENT: abnormal gait, abnormal speech, confusion, dizziness, focal weakness, syncope Psychiatric: ABSENT: anxiety, depression, homicidal ideation, suicidal ideation Endocrine: ABSENT: cold intolerance, heat intolerance, , polydipsia, polyuria Hematologic/Lymphatic: ABSENT: easy bleeding, easy bruising, lymphadenopathy Physical Exam Vital Signs: Temp Pulse Resp BP Pulse Ox 98.9 F 70 18 152/48 H 97 09/23/16 14:56 09/23/16 14:56 09/23/16 14:56 09/23/16 14:56 09/23/16 14:56 Intake & Output 09/22/16 09/23/16 09/24/16 06:59 06:59 06:59 Intake Total 100 Output Total 0 Balance 100 Weight 59.6 kg General appearance: PRESENT: no acute distress Eye exam: PRESENT: conjunctiva pink, EOMI, PERRLA Ear exam: PRESENT: normal external ear exam Mouth exam: PRESENT: moist Neck exam: ABSENT: lymphadenopathy, meningismus, tenderness, thyromegaly, tracheal deviation Respiratory exam: PRESENT: clear to auscultation rashmi. ABSENT: crackles, rhonchi Cardiovascular exam: PRESENT: +S1, +S2 GI/Abdominal exam: PRESENT: normal bowel sounds, soft. ABSENT: organomegaly, tenderness Extremities exam: ABSENT: pedal edema Neurological exam: PRESENT: alert, awake, oriented to person, oriented to place Skin exam: ABSENT: erythema, mottled, rash Results Laboratory Results: 09/23/16 04:50 09/23/16 14:00 09/23/16 09/23/16 09/23/16 04:50 04:50 14:00 WBC 11.5 H RBC 3.37 L Hgb 10.2 L Hct 31.6 L MCV 94 MCH 30.2 MCHC 32.1 RDW 15.9 H Plt Count 278 Seg Neutrophils % 81.3 H Lymphocytes % 6.9 L Monocytes % 9.8 Eosinophils % 1.5 Basophils % 0.5 Absolute Neutrophils 9.4 H Absolute Lymphocytes 0.8 Absolute Monocytes 1.1 Absolute Eosinophils 0.2 Absolute Basophils 0.1 Sodium 134.1 L 131.6 L Potassium 6.2 H* 5.7 H Chloride 94 L 95 L Carbon Dioxide 22 18 L Anion Gap 18 19 BUN 88 H 93 H Creatinine 8.41 H 8.96 H Est GFR ( Amer) 6 L 5 L Est GFR (Non-Af Amer) 5 L 4 L Glucose 84 237 H Calcium 9.5 8.7 09/23/16 00:14 Troponin I 0.053 Impressions: Chest X-Ray 09/22/16 20:18 IMPRESSION: Increased conspicuity of chronic left lung base atelectasis and effusion. While these findings remain nonspecific, this may represent a worsening chronic infectious process. Unilateral findings would be atypical for CHF pattern. Assessment & Plan - Diagnosis (1) ESRD on hemodialysis Plan: Patient's potassium is being appropriately treated as per discussions had done earlier with the ER physician. Patient is on every 8 Kayexalate and this morning potassium is down to 5.7. Discussed at length with the daughter and the patient about the serious consequences of hypertension. Plan for dialysis in the morning and orders have been placed. (2) Hyperkalemia Is this a current diagnosis for this admission?: YesPlan: On appropriate anti-potassium measures. Latest potassium is 5.7. Plan for dialysis while in the morning. Orders placed. Discussed consequences of hypertension including cardiac arrest with the patient and the daughter by the bedside. (3) Pneumonia Is this a current diagnosis for this admission?: YesPlan: On antibiotics and being managed by hospitalist.
[2016-09-23] MEDS: ROPINIROLE HCL 0.25 MG TABLET PO SCH (21:47)
[2016-09-24] MEDS ORDERED: NORMAL SALINE 200 ML IV PRN (05:00)
[2016-09-24 05:26] LABS: HEMATOCRIT 29.9 % (36.0-47.0); HEMOGLOBIN 9.8 g/dL (12.0-15.5); HGB HCT DIFFERENCE -0.5; MEAN CORPUSCULAR HEMOGLOBIN 30.9 pg (27.0-33.4); MEAN CORPUSCULAR HGB CONC 32.8 g/dL (32.0-36.0); MEAN CORPUSCULAR VOLUME 94 fl (80-97); RED BLOOD COUNT 3.17 10^6/uL (3.72-5.28); RED CELL DISTRIBUTION WIDTH 15.8 % (11.5-14.0); WHITE BLOOD COUNT 8.8 10^3/uL (4.0-10.5)
[2016-09-24] MEDS: HEPARIN SOD (PORCINE) 5,000 UNIT/ML 1 ML SYRINGE SUBCUT SCH ×3 (05:35→21:12)
[2016-09-24 05:43] LABS: BLOOD UREA NITROGEN 106 mg/dL (7-20); CALCIUM 8.4 mg/dL (8.4-10.2); CARBON DIOXIDE 21 mmol/L (22-30); GLUCOSE 93 mg/dL (75-110); POTASSIUM 5.1 mmol/L (3.6-5.0)
[2016-09-24 05:52] LABS: ANION GAP 18 (5-19); CHLORIDE 94 mmol/L (98-107); SODIUM 132.9 mmol/L (137-145)
[2016-09-24] MEDS: IPRATROPIUM/ALBUTEROL 0.5-2.5 MG/3 ML AMPUL NEB SCH ×2 (07:42→16:01)
[2016-09-24] MEDS ORDERED: HEPARIN SOD (PORCINE) 1,000 UNIT/ML 10 ML VIAL MC PRN (09:35)
[2016-09-24] MEDS ORDERED: EPOETIN ALFA 5,000 UNIT in SYRINGE, DISPOSABLE, 1 EACH IV PRN (09:37)
--- NOTE | 2016-09-24 09:48 | PROGRESS NOTE E ---
Progress Note NAME: NICO BOBO : 1945 AGE: 71Y DATE: 09/24/2016 ROOM: 333 SUBJECTIVE: The patient is currently on hemodialysis. Spoke with Dr. Brenner as well when seeing the patient. The patient does appear to feel better. Still a little short of breath. She denies any nausea, vomiting, diarrhea. No shortness of breath, dizziness, chest pain. Does admit to chills but no fever. Patient does not voice any other concerns at this time. REVIEW OF SYSTEMS: Rest of the review of systems negative. MEDICATIONS: Have been reviewed. OBJECTIVE: GENERAL: The patient is a 71-year-old female who is awake, alert, and oriented to person, place, time, and situation. She is verbal, conversational, and does not appear to be in acute distress. VITAL SIGNS: Temperature 98.1, pulse 86, respirations 20, blood pressure 174/57, oxygen saturation is 93% on room air. SKIN: Warm and dry. No rash. Not diaphoretic. HEENT: Pupils equal, round, reactive to light and accommodation. Conjunctivae are pink. No JVP. CARDIOVASCULAR: Heart is regular. There is no murmur or rub. CHEST: Clear, symmetrical, unlabored. ABDOMEN: Soft, nontender, nondistended. BACK: No CVA tenderness or sacral edema. EXTREMITIES: No clubbing, cyanosis, or edema. PSYCHIATRIC: Appropriate affect. Pleasant mood. DIAGNOSTICS: Lab values are as follows: Hematology obtained on 09/24/2016: WBCs are 8.8, hemoglobin is 9.8, hematocrit is 29., platelet count is 281,000. Chemistry obtained on 09/24/2016: Sodium is 132, potassium 5.1, chloride is 94, carbon dioxide 21, BUN 106, creatinine is 10.4, glucose 93, calcium is 8.4. IMPRESSION AND PLAN: 1. HYPERKALEMIA. This appears to be due to dietary indiscretion. The patient admits eating a large volume of watermelon. This has been discussed with the patient as well as Dr. Brenner. The patient is getting a low K bath. Will repeat chemistries in the a.m. and follow. 2. BACTERIAL PNEUMONIA. Will continue current antibiotic coverage. Overall the patient is much more improved. Will continue nebs as needed. 3. END-STAGE RENAL DISEASE WITH HEMODIALYSIS. The patient is dialyzing at present. Do appreciate Nephrology input with this. 4. HYPERTENSION. Blood pressures have been elevated. Will resume all home high blood pressure medications. 5. HYPOTHYROIDISM. Will continue levothyroxine. DISPOSITION: The patient is a FULL CODE. Pending patient's symptomatology and diagnostic findings, will reevaluate in the a.m. Time spent on this followup including assessment, plan, physical examination, patient education, and specialty collaboration is 18 minutes. DICTATING PHYSICIAN: WILBERTO PASTOR NP [id number] PHY#: [id number] ID: [id number] JOB#: [id number] ACCT: [id number] cc: > MTDD
[2016-09-24] MEDS ORDERED: VIT BCOMP C PO SCH (10:00)
[2016-09-24] MEDS ORDERED: (PENDING PHARMACY ID) (Carvedilol [Coreg 25 Mg Tablet] 1 TAB) PO SCH (10:00)
[2016-09-24] MEDS ORDERED: FOLIC ACID PO SCH (10:00)
--- NOTE | 2016-09-24 10:39 | PROGRESS NOTE E ---
Progress Note NAME: NICO BOBO : 1945 AGE: 71Y DATE: 09/23/2016 ROOM: 333 SUBJECTIVE: The patient is currently lying in bed. She states that she feels much better than when she came in. Her shortness of breath improved. PHYSICAL EXAMINATION: The patient denies any nausea, vomiting, diarrhea. No dizziness, chest pain, no fevers, chills. Blood pressure has been in a good range. The patient does not voice any other concerns. REVIEW OF SYSTEMS: Review of systems negative. MEDICATIONS: Medications have been reviewed. OBJECTIVE: GENERAL: The patient is a 71-year-old female who is awake, alert and oriented to person, place and time. She is verbal, conversational. Does not appear to be in any acute distress. VITAL SIGNS: Temperature is 97.8, pulse 73, respirations 18, blood pressure 177/55, oxygen saturation 95% on room air. SKIN: Warm and dry. No rashes, non diaphoretic. HEENT: Pupils equal, round, reactive to light and accommodation. Conjunctivae pink. No JVP. CVS: Heart is regular. No murmur or rub. CHEST: Clear, symmetrical, unlabored. ABDOMEN: Soft, nontender, nondistended. BACK: No CVA tenderness. EXTREMITIES: No clubbing, cyanosis, edema. PSYCHIATRIC: Appropriate. Affect pleasant mood. DIAGNOSTICS: are as follows: Hematology 09/23/2016: Hematology is WBCs of 1.5, hemoglobin is 2.2. Hematocrit is 31.6, platelet count 110. Chemistry obtained on 09/23/2016: Sodium is 134, potassium 6.2, chloride is 94, carbon dioxode BUN 88, Capillary refill time is less than 3 seconds x10. is 8.41. Glucose 84, calcium is 9.5. Magnesium is 2.0. IMPRESSION AND PLAN: 1. HYPERKALEMIA. This has trended down nicely with Kayexalate. Will repeat chemistry at noon and follow. 2. BACTERIAL PNEUMONIA. The patient has responded well to antibiotics. Will encourage pulmonary toilet, nebulizers and follow. 3. END-STAGE RENAL DISEASE with dialysis on Mondays, Wednesdays, Fridays. Do appreciate nephrology input with this. 4. HYPERTENSION. The patient's blood pressures are significantly elevated. Will resume the patient's high blood pressure medications. Follow. 5. DVT PROPHYLAXIS. Will continue subcutaneous heparin. DISPOSITION: The patient is a FULL CODE. Pending the patient's symptomatology and diagnostic findings, will reevaluate in the a.m. Time spent on this followup including assessment, plan, physical examination, patient education, and family meeting is 25 minutes. DICTATING PHYSICIAN: WILBERTO PASTOR NP [id number] PHY#: [id number] ID: [id number] JOB#: [id number] ACCT: [id number] cc: > MTDD
[2016-09-24] MEDS ORDERED: PARICALCITOL INJ/PF 5 MCG/1 ML SDV IV ONE (11:15)
[2016-09-24] MEDS: AMLODIPINE BESYLATE 10 MG TABLET PO SCH (12:42)
[2016-09-24] MEDS: FOLIC ACID/VITAMIN B COMP W-C CAPSULE PO SCH (12:42)
[2016-09-24] MEDS: LEVOTHYROXINE SODIUM 0.1 MG TABLET PO SCH (12:43)
[2016-09-24] MEDS: HYDRALAZINE HCL 25 MG TABLET PO SCH ×2 (12:43→21:12)
[2016-09-24] MEDS: CARVEDILOL 12.5 MG TABLET PO SCH ×2 (12:43→21:12)
[2016-09-24] MEDS: CEFTRIAXONE 1 GM/D5W RTU 50 ML IV SCH (12:44)
[2016-09-24] MEDS: DOCUSATE SODIUM 100 MG CAPSULE PO SCH ×2 (12:45→17:03)
[2016-09-24] MEDS: AZITHROMYCIN 500 MG in DEXTROSE 5%-WATER 250 ML IV SCH (12:45)
--- NOTE | 2016-09-24 19:24 | PDOC PROGRESS REPORT ---
Subjective Progress Note for:: 09/24/16 Subjective:: Patient was seen this morning on hemodialysis. She is undergoing dialysis without any issues. She denies any history of chest pain shortness of breath. No history of nausea vomiting. Physical Exam Vital Signs: Temp Pulse Resp BP Pulse Ox 98.9 F 76 16 139/47 H 98 09/24/16 16:00 09/24/16 16:01 09/24/16 16:01 09/24/16 16:00 09/24/16 16:01 Intake & Output 09/23/16 09/24/16 09/25/16 06:59 06:59 06:59 Intake Total 100 545 670 Output Total 0 0 2300 Balance 100 545 -1630 Weight 59.6 kg 62.2 kg General appearance: PRESENT: no acute distress Respiratory exam: PRESENT: clear to auscultation rashmi. ABSENT: rales Cardiovascular exam: PRESENT: +S1, +S2 GI/Abdominal exam: PRESENT: normal bowel sounds, soft. ABSENT: organomegaly, tenderness Neurological exam: PRESENT: alert, awake, oriented to person, oriented to place Results Laboratory Results: 09/24/16 05:15 09/24/16 05:15 09/24/16 09/24/16 05:15 05:15 WBC 8.8 RBC 3.17 L Hgb 9.8 L Hct 29.9 L MCV 94 MCH 30.9 MCHC 32.8 RDW 15.8 H Plt Count 281 Sodium 132.9 L Potassium 5.1 H Chloride 94 L Carbon Dioxide 21 L Anion Gap 18 BUN 106 H Creatinine 10.40 H Est GFR ( Amer) 4 L Est GFR (Non-Af Amer) 4 L Glucose 93 Calcium 8.4 09/23/16 00:14 Troponin I 0.053 Impressions: Chest X-Ray 09/22/16 20:18 IMPRESSION: Increased conspicuity of chronic left lung base atelectasis and effusion. While these findings remain nonspecific, this may represent a worsening chronic infectious process. Unilateral findings would be atypical for CHF pattern. Assessment & Plan - Diagnosis (1) ESRD on hemodialysis Plan: Patient undergoing dialysis without any issues. Dialysis is being monitored to ensure a safe and smooth procedure. Vital signs are stable. She is on appropriate baths to make sure that her potassium is back to normal. Orders were discussed with the treating nurse. (2) Hyperkalemia Is this a current diagnosis for this admission?: YesPlan: Potassium should correct with the dialysis today. Again reiterated about being on a low potassium and the consequences of hypertension. (3) Pneumonia Is this a current diagnosis for this admission?: YesPlan: On antibiotics and being managed by hospitalist. (4) Anemia in CKD (chronic kidney disease) Plan: Adjust erythropoietin.
[2016-09-24] MEDS: ROPINIROLE HCL 0.25 MG TABLET PO SCH (21:12)
[2016-09-25] MEDS: IPRATROPIUM/ALBUTEROL 0.5-2.5 MG/3 ML AMPUL NEB SCH ×2 (00:49→08:43)
[2016-09-25] MEDS: HEPARIN SOD (PORCINE) 5,000 UNIT/ML 1 ML SYRINGE SUBCUT SCH ×2 (05:07→14:13)
[2016-09-25 06:29] LABS: HEMATOCRIT 31.9 % (36.0-47.0); HEMOGLOBIN 10.4 g/dL (12.0-15.5); HGB HCT DIFFERENCE -0.7; MEAN CORPUSCULAR HEMOGLOBIN 30.6 pg (27.0-33.4); MEAN CORPUSCULAR HGB CONC 32.7 g/dL (32.0-36.0); MEAN CORPUSCULAR VOLUME 93 fl (80-97); RED BLOOD COUNT 3.42 10^6/uL (3.72-5.28); RED CELL DISTRIBUTION WIDTH 15.3 % (11.5-14.0); WHITE BLOOD COUNT 7.5 10^3/uL (4.0-10.5)
[2016-09-25 06:55] LABS: ANION GAP 19 (5-19); BLOOD UREA NITROGEN 67 mg/dL (7-20); CALCIUM 9.2 mg/dL (8.4-10.2); CARBON DIOXIDE 26 mmol/L (22-30); CHLORIDE 93 mmol/L (98-107); CREATININE RESULT 7.02 mg/dL (0.52-1.25); GLUCOSE 91 mg/dL (75-110); MAGNESIUM 1.7 mg/dL (1.6-2.3); POTASSIUM 4.5 mmol/L (3.6-5.0); SODIUM 138.1 mmol/L (137-145)
[2016-09-25] MEDS: CARVEDILOL 12.5 MG TABLET PO SCH (10:02)
[2016-09-25] MEDS: HYDRALAZINE HCL 25 MG TABLET PO SCH (10:04)
[2016-09-25] MEDS: LEVOTHYROXINE SODIUM 0.1 MG TABLET PO SCH (10:04)
[2016-09-25] MEDS: CEFTRIAXONE 1 GM/D5W RTU 50 ML IV SCH (10:05)
[2016-09-25] MEDS: FOLIC ACID/VITAMIN B COMP W-C CAPSULE PO SCH (10:05)
[2016-09-25] MEDS: AMLODIPINE BESYLATE 10 MG TABLET PO SCH (10:05)
[2016-09-25] MEDS: DOCUSATE SODIUM 100 MG CAPSULE PO SCH (10:08)
[2016-09-25] MEDS: AZITHROMYCIN 500 MG in DEXTROSE 5%-WATER 250 ML IV SCH (10:09)
[2016-09-25] MEDS ORDERED: AZITHROMYCIN 250 MG TABLET PO ONE (10:45)
[2016-09-25 15:08] VITALS: BP 139/47
--- NOTE | 2016-09-25 20:39 | DISCHARGE SUMMARY E ---
Discharge Summary NAME: NICO BOBO : 1945 AGE: 71Y ADMITTED: 09/22/2016 DISCHARGED: 09/25/2016 CODE STATUS: FULL CODE. CONSULTING PUMP ATTENDANT: Dr. Brenner. OUTPATIENT PUMP ATTENDANT: Dr. Boyd. PRIMARY CARE PROVIDER: Dr. Daphne Greenwood. DISCHARGE DIAGNOSES: 1. Bacterial pneumonia. 2. End-stage renal disease with hemodialysis. 3. Hyperkalemia which is resolved. 4. Hypertension. 5. Hypothyroidism. DISCHARGE MEDICATIONS: 1. Ceftin 500 mg p.o. b.i.d. 14 tablets, 0 refills. 2. Norvasc 10 mg p.o. daily. 3. Coreg 25 mg p.o. q.12 h. 4. Renal capsule 1 daily. 5. Apresoline 25 mg p.o. q.12 h. 6. Synthroid 0.1 mg p.o. daily. DIET: Low potassium, renal. ACTIVITY: As tolerated. HISTORY OF PRESENT ILLNESS: The patient is a very pleasant 71-year-old female with a past medical history of end-stage renal disease. The patient presented to the emergency department with a chief complaint of shortness of breath and fatigue. The patient's normal dialysis is with Dr. Boyd on Saturday, Saturday and Saturday. The patient presented with a 2-day history of left upper chest pain exacerbated by deep breathing and shortness of breath. The patient denied any fever or chills. Was found to have leukocytosis and a left-sided pleural effusion with evidence of pneumonia as well as a potassium of 6.7 without peaked T-waves. The patient was given Kayexalate in the emergency department and was referred to the hospitalist for admission and management. HOSPITAL COURSE: The patient was admitted to [facility]. The patient was seen and evaluated by nephrology and the patient's potassium did improve after dialysis. The patient's symptoms of shortness of breath overall did improve. The patient was treated with Rocephin and Zithromax for community-acquired pneumonia with significant improvement of symptoms. The patient's hyperkalemia was found to be most likely associated with dietary indiscretion, as the patient had consumed a large amount of watermelon prior to her presentation. The patient is oxygenating well on room air and was able to ambulate without issue and feels that she is at her baseline and is quite eager for discharge. DIAGNOSTICS: Lab values are as follows: Hematology obtained on 09/25/2016: WBCs are 7.5, hemoglobin 10.4, hematocrit 31.9, and platelet count is 331,000. Chemistry obtained on 09/25/2016: Sodium is 138, potassium 4.5, chloride 93, carbon dioxide 26, BUN 67, creatinine 7.02, glucose 91, calcium 9.2, magnesium 1.7, bilirubin 0.6, AST 28, ALT 40, alkaline phosphatase 140, CK 186, CK-MB 2.14, total protein 7.1, albumin 3.9. Chest x-ray obtained 09/22/2016 reveals increased of the left lung base, atelectasis, effusion, may represent a worsening infectious process, though unilateral findings are noted. PHYSICAL EXAMINATION: GENERAL: On examination, the patient is a well-developed, well-nourished 71-year-old female who is awake, alert and oriented to person, place, time and situation. She is verbal and conversational, and ambulatory and does not appear to be in any acute distress. VITAL SIGNS: Temperature 98.2, pulse 68, respirations 19, blood pressure 135/51, oxygen saturation is 97% on room air. SKIN: Warm and dry. No rash, not diaphoretic. HEENT: Pupils are equal, round, and reactive to light and accommodation. Conjunctivae is pink. NECK: There is no JVP. CARDIOVASCULAR: Heart is regular. There is no murmur or rub. CHEST: Clear to auscultation symmetrical and unlabored. ABDOMEN: Soft. Nontender, nondistended. BACK: No CVA tenderness or sacral edema. EXTREMITIES: No clubbing, cyanosis or edema. PSYCHIATRIC: Appropriate affect. Pleasant mood. DISCHARGE PLANNIN. The patient is advised to follow up with the primary care provider within 1-2 for hospital followup. 2. The patient is advised to follow up with dialysis tomorrow as already scheduled. Time spent on this discharge including assessment and plan, physical examination, patient education, and family meeting is 25 minutes. DICTATING PHYSICIAN: WILBERTO PASTOR NP [id number] PHY#: [id number] ID: [id number] JOB#: [id number] ACCT: [id number] cc:DAPHNE ALVARADO M.D., MICHAEL NP > KATIE
[2016-09-26] MEDS ORDERED: AZITHROMYCIN 250 MG TABLET PO SCH (10:00)
== END 2016-09-25 15:29 | disposition home or self-care (01) | DRG 193 ==
LOC: ER 19:30 → EH 23:42 → 3S 09-23 01:48
PROVIDERS: ADMIT Internal Medicine; ATTEND Internal Medicine
PROC: 3E0F73Z Introduction of Anti-inflammatory into Respiratory Tract, Via Natural or Artificial Opening (ICD-10-PCS; 2016-09-23)
PROC: 5A1D00Z (ICD-10-PCS; principal; 2016-09-24)
DX: J15.9 Unspecified bacterial pneumonia (principal); N18.6 End stage renal disease; I50.43 Acute on chronic combined systolic (congestive) and diastolic (congestive) heart failure; I13.2 Hypertensive heart and chronic kidney disease with heart failure and with stage 5 chronic kidney disease, or end stage renal disease; E87.5 Hyperkalemia; E11.22 Type 2 diabetes mellitus with diabetic chronic kidney disease; E03.9 Hypothyroidism, unspecified; M19.90 Unspecified osteoarthritis, unspecified site; D63.1 Anemia in chronic kidney disease; Z99.2 Dependence on renal dialysis; Z79.899 Other long term (current) drug therapy; Z88.0 Allergy status to penicillin; Z88.7 Allergy status to serum and vaccine; Z82.49 Family history of ischemic heart disease and other diseases of the circulatory system
CPT/HCPCS: 36415; 71010; 80048; 80053; 82550; 82553; 83735; 84484; 85025; 85027; 93005; 93010; 94640; 94799; 96365; 96372; 96375; 99285; J0456; J0610; J0696; J1644; J2501; J3490; J7060; J7620; Q4081

== ENCOUNTER 2016-10-08 20:46 | Emergency (ER) | payer MEDICARE, MEDICAID ==
--- NOTE | 2016-10-08 21:49 | RADIOLOGY REPORT (SQ) ---
EXAM DESCRIPTION: CHEST SINGLE VIEW COMPLETED DATE/TIME: 10/08/2016 9:42 pm REASON FOR STUDY: dyspnea COMPARISON: 09/22/2016 EXAM PARAMETERS: NUMBER OF VIEWS: One view. TECHNIQUE: Single frontal radiographic view of the chest acquired. RADIATION DOSE: NA LIMITATIONS: None. FINDINGS: LUNGS AND PLEURA: Left pleural effusion and basilar opacity. No improvement. MEDIASTINUM AND HILAR STRUCTURES: No masses. Contour normal. HEART AND VASCULAR STRUCTURES: Heart is enlarged. Mild vascular congestion. BONES: No acute findings. HARDWARE: Right vascular stent. OTHER: No other significant finding. IMPRESSION: No improvement in the left pleural effusion basilar opacity. Cardiac enlargement with mild vascular congestion. TECHNICAL DOCUMENTATION: JOB ID: [id number]
--- NOTE | 2016-10-08 21:51 | ER Document Report ---
ED Respiratory Problem - General TRAVEL OUTSIDE OF THE [place] IN LAST 30 DAYS: No <ROGER JACOBSEN - Last Filed: 10/09/16 06:45> <JENAECIELO - Last Filed: 10/09/16 07:53> - General Chief Complaint: Breathing Difficulty Stated Complaint: DIFFICULTY BREATHING Time Seen by Provider: 10/08/16 21:35 Notes: Patient is a 71-year-old female with a past medical history of end-stage renal disease on dialysis Saturday, diabetes, and congestive heart failure, that comes emergency department for chief complaint of lower extremity and abdominal swelling with shortness of breath. She states she did have dialysis performed earlier today but they only took off 0.8 L instead of the normal 3 L, she states that this happened last week as well, she states they took her off early because she was complaining of cramping, she states she just wanted something for pain. She denies fever, cough, chest pain, she denies any sources of pain, she just states that she is having trouble breathing and she cannot lie flat. Family members at bedside, interpreting on request by patient for patient because she is [place]-speaking. Braker Passenger Train is Dr. Boyd. (DELMARROGER) - Related Data Allergies/Adverse Reactions: tuberculin, purified protein deriva [Tuberculin,Purif.Prot.Deriv.] Allergy ( Severe, Verified 09/22/16 22:39) Penicillins Allergy (Mild, Verified 09/22/16 22:39) Pruritis, Swelling Past Medical History - General Information source: Patient, Relative - Social History Smoking Status: Never Smoker Frequency of alcohol use: None Drug Abuse: None Lives with: Family Family History: Hypertension - Past Medical History Cardiac Medical History: Reports: Hx Congestive Heart Failure - possibly?, Hx Hypertension Denies: Hx Coronary Artery Disease, Hx Heart Attack Pulmonary Medical History: Denies: Hx Asthma, Hx Bronchitis, Hx COPD, Hx Pneumonia Neurological Medical History: Denies: Hx Cerebrovascular Accident, Hx Seizures Endocrine Medical History: Reports: Hx Diabetes Mellitus Type 2 Renal/ Medical History: Reports: Hx End Stage Renal Disease, Hx Hemodialysis, Hx Peritoneal Dialysis Musculoskeltal Medical History: Reports Hx Arthritis Psychiatric Medical History: Denies: Hx Depression Past Surgical History: Denies: Hx Pacemaker - Immunizations Hx Diphtheria, Pertussis, Tetanus Vaccination: Yes - Stephanie Hx Pneumococcal Vaccination: 06/05/11 <ROGER JACOBSEN Last Filed: 10/09/16 06:45> Review of Systems - Review of Systems Constitutional: No symptoms reported EENT: No symptoms reported Cardiovascular: See HPI Respiratory: See HPI Gastrointestinal: No symptoms reported Genitourinary: See HPI Female Genitourinary: No symptoms reported Musculoskeletal: No symptoms reported Skin: No symptoms reported Hematologic/Lymphatic: No symptoms reported Neurological/Psychological: No symptoms reported <DELMARROGER Last Filed: 10/09/16 06:45> Physical Exam - Vital signs Interpretation: Normal - General General appearance: Appears well In distress: None - HEENT Head: Normocephalic, Atraumatic Eyes: Normal Conjunctiva: Normal Extraocular movements intact: Yes Eyelashes: Normal Pupils: PERRL Nasal: Normal Mouth/Lips: Normal Mucous membranes: Normal Pharynx: Normal Neck: Normal - Respiratory Respiratory status: No respiratory distress Chest status: Nontender Breath sounds: Normal. No: Decreased air movement, Wheezing Chest palpation: Normal - Cardiovascular Rhythm: Regular Heart sounds: Normal auscultation Murmur: No - Abdominal Inspection: Normal Distension: No distension Bowel sounds: Normal Tenderness: Nontender - No tenderness over the abdomen, questionable slight swelling/distention Organomegaly: No organomegaly - Back Back: Normal, Nontender - Extremities General upper extremity: Normal inspection, Nontender, Normal strength, Normal temperature General lower extremity: Normal inspection, Nontender, Edema - Bilateral 2+ pitting edema, Normal strength, Normal temperature - Neurological Neuro grossly intact: Yes Cognition: Normal Orientation: AAOx4 Miley Coma Scale Eye Opening: Spontaneous [place] Coma Scale Verbal: Oriented [place] Coma Scale Motor: Obeys Commands [place] Coma Scale Total: 15 Speech: Normal Motor strength normal: LUE, RUE, LLE, RLE Sensory: Normal - Psychological Associated symptoms: Normal affect, Normal mood - Skin Skin Temperature: Warm Skin Moisture: Dry Skin Color: Normal <DELMARROGER Filed: 10/09/16 06:45> Course - Laboratory Result Diagrams: 10/08/16 21:54 10/08/16 21:54 <DELMARROGER Last Filed: 10/09/16 06:45> - Laboratory Result Diagrams: 10/08/16 21:54 10/08/16 21:54 <GALLUPPI,CIELO - Last Filed: 10/09/16 07:53> - Re-evaluation Re-evalutation: Patient is hypertensive, however she has good lung sounds, no tachypnea, no hypoxia, she does not appear to be in distress as long as she is sitting up. When she is lying flat she starts to breathe more rapidly. EKG with no significant change from prior, no peak T waves suggesting hyperkalemia. Chest x -ray shows minimal vascular congestion and unchanged questionable effusion. CBC generally unremarkable, chemistry shows mild hyperkalemia at 5.1, generally unremarkable otherwise, cardiac enzyme indeterminate, patient does not have any pain. Patient given nitroglycerin. Spoke with Dr. Harvey. He recommends consultation with nephrology, nitroglycerin , patient does not need emergent dialysis but she does need dialysis for her symptoms of difficulty breathing, or vascular congestion, and her lower extremity edema. 10/08/16 23:[address] Brenner. Discussed the situation with patient did not receive full dialysis course, discussed symptoms and presentation, discussed history. He recommends that he will page patient's dialysis center to have her get dialysis this morning on a full course for her symptoms and current condition, recommends 2 mg of morphine for symptom management in addition to the nitroglycerin. Patient does not urinate, therefore she will not be given Lasix , this was discussed. Discussed this with family, discussed this with patient, they both state agreement with the plan. Patient will remain here pending contacting for her appointment at [facility] this morning 10/09/16 06:30 Called and spoke to nurse at [facility], she states patient has a chair further for dialysis at 11:50 AM this morning. 10/09/16 06:46 Dr. Brenner called, he recommends patient stay here until just before her appointment and that she leave and get dialysis performed. Patient and relative in agreement with this. (ROGER JACOBSEN) - Vital Signs Vital signs: Temp Pulse Resp BP Pulse Ox 98.3 F 73 16 165/62 H 99 10/08/16 21:25 10/08/16 21:25 10/09/16 07:02 10/09/16 07:02 10/09/16 07:02 - Laboratory Laboratory results interpreted by me: 10/08/16 10/08/16 21:54 21:54 RBC 3.36 L Hgb 10.6 L Hct 31.7 L RDW 15.9 H Lymphocytes % 11.0 L Sodium 136.7 L Potassium 5.1 H Chloride 96 L BUN 47 H Creatinine 5.27 H Est GFR ( Amer) 10 L Est GFR (Non-Af Amer) 8 L AST 38 H Alkaline Phosphatase 147 H Discharge <ROGER JACOBSEN - Last Filed: 10/09/16 06:45> <CIELO EMANUEL - Last Filed: 10/09/16 07:53> - Discharge Clinical Impression: Shortness of breath, ESRD on hemodialysis, Swelling of lower extremity, Pulmonary vascular congestion Condition: Stable Disposition: HOME, SELF-CARE Additional Instructions: Please go directly to [facility] dialysis for your 11:50 appointment. Return to the emergency department for any concerning symptoms. Referrals: STEVEN NEUMANN MD [Primary Care Provider] - Follow up as needed
[2016-10-08 22:04] LABS: ABSOLUTE BASOPHILS # (AUTO) 0.1 10^3/uL (0.0-0.2); ABSOLUTE EOSINOPHILS # (AUTO) 0.3 10^3/uL (0.0-0.6); ABSOLUTE LYMPHOCYTES (AUTO) 0.7 10^3/uL (0.5-4.7); ABSOLUTE MONOCYTES (AUTO) 0.4 10^3/uL (0.1-1.4); ABSOLUTE NEUT (AUTO) 4.8 10^3/uL (1.7-8.2); BASOPHILS % (AUTO) 1.2 % (0-2); EOSINOPHILS % (AUTO) 4.1 % (0-6); HEMATOCRIT 31.7 % (36.0-47.0); HEMOGLOBIN 10.6 g/dL (12.0-15.5); HGB HCT DIFFERENCE 0.1; MEAN CORPUSCULAR HEMOGLOBIN 31.6 pg (27.0-33.4); MEAN CORPUSCULAR HGB CONC 33.4 g/dL (32.0-36.0); MEAN CORPUSCULAR VOLUME 95 fl (80-97); MONOCYTES % (AUTO) 6.5 % (3-13); RED BLOOD COUNT 3.36 10^6/uL (3.72-5.28); RED CELL DISTRIBUTION WIDTH 15.9 % (11.5-14.0); SEGMENTED NEUTROPHILS % (AUTO) 77.2 % (42-78); WHITE BLOOD COUNT 6.3 10^3/uL (4.0-10.5)
[2016-10-08 22:21] LABS: ALANINE AMINOTRANSFERASE 48 U/L (9-52); ALBUMIN 4.1 g/dL (3.5-5.0); ALKALINE PHOSPHATASE 147 U/L (38-126); ANION GAP 12 (5-19); ASPARTATE AMINO TRANSFERASE 38 U/L (14-36); BILIRUBIN,DIRECT 0.4 mg/dL (0.0-0.4); BILIRUBIN,TOTAL 0.5 mg/dL (0.2-1.3); BLOOD UREA NITROGEN 47 mg/dL (7-20); CALCIUM 9.5 mg/dL (8.4-10.2); CARBON DIOXIDE 29 mmol/L (22-30); CHLORIDE 96 mmol/L (98-107); CREATINE KINASE 85 U/L (30-135); CREATININE RESULT 5.27 mg/dL (0.52-1.25); GLUCOSE 94 mg/dL (75-110); POTASSIUM 5.1 mmol/L (3.6-5.0); SODIUM 136.7 mmol/L (137-145); TOTAL PROTEIN 7.3 g/dL (6.3-8.2)
[2016-10-08 22:35] LABS: CREATINE KINASE MB 1.42 ng/mL (<4.55); TROPONIN I 0.017 ng/mL
[2016-10-08] MEDS ORDERED: NITROGLYCERIN 0.4 MG/TAB 25 TAB/BOTTLE SL PRN (22:53)
[2016-10-08] MEDS ORDERED: NITROGLYCERIN 2% OINTMENT 1 GM PACKET TP ONE (22:53)
[2016-10-08] MEDS ORDERED: MORPHINE SULFATE 10 MG/ML INJ IV ONE (23:02)
[2016-10-09 10:05] VITALS: BP 157/61
--- NOTE | 2016-10-09 12:48 | EKG REPORT ---
SEVERITY:- ABNORMAL ECG - SINUS RHYTHM PROBABLE LEFT ATRIAL ABNORMALITY PROBABLE LEFT VENTRICULAR HYPERTROPHY : Confirmed by: Radha Browning MD 09-Oct-2016 12:47:10
== END 2016-10-09 10:19 | disposition home or self-care (01) ==
LOC: ER 20:46
DX: I12.0 Hypertensive chronic kidney disease with stage 5 chronic kidney disease or end stage renal disease (principal); E11.22 Type 2 diabetes mellitus with diabetic chronic kidney disease; N18.6 End stage renal disease; Z99.2 Dependence on renal dialysis; R60.0 Localized edema; E87.5 Hyperkalemia; R09.89 Other specified symptoms and signs involving the circulatory and respiratory systems; R06.02 Shortness of breath
CPT/HCPCS: 93005; 99285; 96374; 36415; 82553; 82550; 85025; 80053; 84484; 71010; 93010; A9270; J2270

== ENCOUNTER 2016-11-28 15:11 | Emergency (ER) | payer MEDICARE, MEDICAID ==
--- NOTE | 2016-11-28 16:12 | RADIOLOGY REPORT (SQ) ---
EXAM DESCRIPTION: CHEST SINGLE VIEW COMPLETED DATE/TIME: 11/28/2016 3:39 pm REASON FOR STUDY: bed 7 cp COMPARISON: Chest films 03/14/2015, 04/02/2016, 06/15/2016, 10/08/2016 EXAM PARAMETERS: NUMBER OF VIEWS: One view. TECHNIQUE: Single frontal radiographic view of the chest acquired. RADIATION DOSE: NA LIMITATIONS: None. FINDINGS: LUNGS AND PLEURA: Small left pleural effusion in the lateral costophrenic sulcus unchanged from 10/08/2016. Mild left basilar atelectasis. Right lung well inflated and clear. No right pleural fluid. No right or left pneumothorax. MEDIASTINUM AND HILAR STRUCTURES: No masses. Contour normal. HEART AND VASCULAR STRUCTURES: Stable moderate cardiomegaly BONES: No acute findings. HARDWARE: Right subclavian venous stent unchanged OTHER: No other significant finding. IMPRESSION: Small left pleural effusion in the lateral costophrenic sulcus, unchanged from 10/08/2016 . Left basilar atelectasis. TECHNICAL DOCUMENTATION: JOB ID: [id number]
[2016-11-28] MEDS ORDERED: METOCLOPRAMIDE HCL ORAL SOLN 10 MG/10 ML UDCUP PO ONE (16:17)
[2016-11-28] MEDS ORDERED: MAG HYDROX/AL HYDROX/SIMETH SUSP 30 ML UDCUP PO ONE (16:17)
--- NOTE | 2016-11-28 16:20 | ER Document Report ---
ED General - General Stated Complaint: CHEST PAIN Time Seen by Provider: 11/28/16 15:40 TRAVEL OUTSIDE OF THE [place] IN LAST 30 DAYS: No - HPI Patient complains to provider of: nausea and epigastric discomfort, burping Onset: This morning - prior to dialysis Onset/Duration: Persistent, Waxing and waning - improves after passing gas and burping Quality of pain: No pain Severity: None Pain Level: Denies Context: Patient ate breakfast late today adn had some gas, went to dialysis who then sent her to the ED for evaluation of chest pain. Associated symptoms: Nausea - improves after burping Exacerbated by: Denies Relieved by: Denies Similar symptoms previously: Yes Recently seen / treated by doctor: No - Related Data Allergies/Adverse Reactions: tuberculin, purified protein deriva [Tuberculin,Purif.Prot.Deriv.] Allergy ( Severe, Verified 09/22/16 22:39) Penicillins Allergy (Mild, Verified 09/22/16 22:39) Pruritis, Swelling Past Medical History - Social History Smoking Status: Never Smoker Family History: Hypertension - Past Medical History Cardiac Medical History: Reports: Hx Congestive Heart Failure - possibly?, Hx Hypertension Denies: Hx Coronary Artery Disease, Hx Heart Attack Pulmonary Medical History: Denies: Hx Asthma, Hx Bronchitis, Hx COPD, Hx Pneumonia Neurological Medical History: Denies: Hx Cerebrovascular Accident, Hx Seizures Endocrine Medical History: Reports: Hx Diabetes Mellitus Type 2 Renal/ Medical History: Reports: Hx End Stage Renal Disease, Hx Hemodialysis, Hx Peritoneal Dialysis Musculoskeltal Medical History: Reports Hx Arthritis Psychiatric Medical History: Denies: Hx Depression Past Surgical History: Denies: Hx Pacemaker - Immunizations Hx Diphtheria, Pertussis, Tetanus Vaccination: Yes - September Hx Pneumococcal Vaccination: 06/05/11 Review of Systems - Review of Systems Constitutional: No symptoms reported EENT: No symptoms reported Cardiovascular: No symptoms reported Respiratory: No symptoms reported Gastrointestinal: See HPI -: Yes All other systems reviewed and negative Physical Exam - Vital signs Vitals: Pulse Ox 98 11/28/16 15:13 - Notes Notes: PHYSICAL EXAM GENERAL: Alert, interacts well. HEAD: Normocephalic, atraumatic. EYES: Pupils equal, round, and reactive to light. Extraocular movements intact. ENT: Oral mucosa moist, tongue midline. NECK: Full range of motion. Supple. Trachea midline. LUNGS: Clear to auscultation bilaterally, no wheezes, rales, or rhonchi. No respiratory distress. HEART: Regular rate and rhythm. No murmurs, gallops, or rubs. ABDOMEN: Soft, nondistended, patient admits to nausea and need to burp with epigastric palpation, otherwise nontender. No guarding, rebound, or rigidity.. Bowel sounds present in all 4 quadrants. EXTREMITIES: Moves all 4 extremities spontaneously. 2+ pitting LE edema, radial and dorsalis pedis pulses 2/4 bilaterally. No cyanosis. NEUROLOGICAL: Alert and oriented x4. Normal speech. PSYCH: Normal affect, normal mood. SKIN: Warm, dry, normal turgor. No rashes or lesions noted. Course - Re-evaluation Re-evalutation: 11/28/16 18:42 Patient is very well in appearance, vitals within normal limits. Presentation is consistent with esophageal reflux. Patient states that her symptoms improved 100% after receiving Maalox and Reglan. She is 100% pain free at this time. No evidence of obstruction noted on abdominal series. Low clinical suspicion for ACS given clinical history, exam, EKG without ST elevations or depressions, and negative initial troponin. HEART score less than or equal to 3. PE also seems unlikely given clinical history, absence of tachycardia or dyspnea. Well's score of 0. CXR without evidence of pneumothorax or pneumonia. No widened mediastinum. Aortic dissection also seems unlikely given history, symmetric pulses, CXR, and vitals. At this time will discharge with return precautions and follow-up recommendations. Verbal discharge instructions given a the bedside and opportunity for questions given. Medication warnings reviewed. Patient is in agreement with this plan and has verbalized understanding of return precautions and the need for primary care follow-up in the next 24-72 hours. Presentation is consistent with esophageal reflux - Vital Signs Vital signs: Temp Pulse Resp BP Pulse Ox 98.8 F 18 160/56 H 98 11/28/16 15:50 11/28/16 18:20 11/28/16 18:20 11/28/16 18:20 - Laboratory Result Diagrams: 11/28/16 16:10 11/28/16 16:10 Laboratory results interpreted by me: 11/28/16 11/28/16 16:10 16:10 RBC 3.44 L Hgb 10.4 L Hct 31.3 L RDW 17.6 H Lymphocytes % 12.7 L Sodium 133.3 L Chloride 95 L BUN 26 H Creatinine 3.43 H Est GFR ( Amer) 16 L Est GFR (Non-Af Amer) 13 L Direct Bilirubin 0.5 H AST 47 H Alkaline Phosphatase 143 H - Diagnostic Test Radiology reviewed: Image reviewed, Reports reviewed Discharge - Discharge Clinical Impression: Acid reflux Qualifiers: Esophagitis presence: without esophagitis Qualified Code(s): K21.9 - Gastro- esophageal reflux disease without esophagitis Condition: Good Disposition: HOME, SELF-CARE Additional Instructions: NORMAL EXAM AND WORKUP: At this time, your examination and workup show no significant abnormality. No significant abnormal physical findings were noted. All laboratory, EKG, and imaging (x-ray, CT scans, ultrasound) studies that were ordered show no significant abnormality. Although your examination and all studies that were ordered showed no significant abnormal finding, there are no examinations and no studies that are 100% accurate. There is always the possibility that some abnormality could exist and not be detected with physical examination or within the limits and capabilities of laboratory and other studies. You should return or follow up as you were instructed on your visit today for further evaluation if your symptoms do not resolve. ACID REFLUX DISEASE (GERD): Gastro-Esophageal Reflux Disease (GERD) is caused by stomach acid refluxing back up into the esophagus. The valve at the end of the esophagus may be weak. This is common in persons with a hiatal hernia. GERD symptoms can include indigestion, chest pain, heartburn, or food "sticking." Certain foods, alcohol, and aspirin can make GERD worse. Treatment depends on the severity. Usually, antacids or acid-suppressing medicines are used. When the esophagus is acutely inflamed, the physician will often prescribe membrane-protective drugs such as Carafate. Some patients benefit from medication such as Reglan that tightens the valve at the top of the stomach. Avoid those foods that bring on your symptoms. For many people, these foods are coffee, chocolate, onions, garlic, and carbonated drinks. Don't use alcohol, aspirin, caffeine, or tobacco. Don't eat late at night -- within 4 hours of bedtime. Don't over-eat. If necessary, elevate the head of your bed about 4 inches so that stomach acid will not roll up into your esophagus. Call the doctor if you develop severe chest pain, inability to swallow fluids, fever, or worsening symptoms. ANTACID THERAPY: You have been instructed to start antacid therapy. Antacids directly neutralize stomach acid. This is useful for acid irritation of the esophagus, gastritis, and ulcers. You should take two tablespoons of antacid one hour after each meal and three hours after each meal. If you are not eating, take the antacid every two hours. If you are using a concentrate (such as Maalox TC), use only one tablespoon. Many antacids affect the bowels. The most common problem is diarrhea. In this case, a pure aluminum hydroxide antacid (such as AlternaGel) can be substituted for some or all doses. If the problem is constipation, add a teaspoon of Milk of Magnesia to each dose. Call the doctor if you experience continued diarrhea or constipation, or if you develop lightheadedness, bloody stool or vomitus, severe abdominal pain, or black stool. PRILOSEC (ACID PUMP INHIBITOR): Prilosec (omeprazole) is an acid-pump inhibitor. It blocks the secretion of hydrogen ions in the acid-producing cells of the stomach. Prilosec keeps your stomach from making acid. Take all medication as prescribed, even after the pain is gone. Regular antacids may be added as needed if you have symptoms while taking this medicine. There are usually no side effects from this medication. Contact your doctor if there is fever, rash, yellow skin color, increasing abdominal pain, weakness, or unusual bruising. Return at once if you develop lightheadedness, black or bloody stool, or bloody vomitus. FOLLOW-UP CARE: If you have been referred to a physician for follow-up care, call the physician s office for an appointment as you were instructed or within the next two days. If you experience worsening or a significant change in your symptoms, notify the physician immediately or return to the Emergency Department at any time for re-evaluation. Prescriptions: Sucralfate [Carafate 1 gm Tablet] 1 gm PO ACHS #120 tablet Referrals: STEVEN NEUMANN MD [Primary Care Provider] - Follow up as needed
[2016-11-28 16:22] LABS: ABSOLUTE BASOPHILS # (AUTO) 0.1 10^3/uL (0.0-0.2); ABSOLUTE EOSINOPHILS # (AUTO) 0.3 10^3/uL (0.0-0.6); ABSOLUTE LYMPHOCYTES (AUTO) 0.8 10^3/uL (0.5-4.7); ABSOLUTE MONOCYTES (AUTO) 0.5 10^3/uL (0.1-1.4); ABSOLUTE NEUT (AUTO) 4.7 10^3/uL (1.7-8.2); BASOPHILS % (AUTO) 0.9 % (0-2); EOSINOPHILS % (AUTO) 4.8 % (0-6); HEMATOCRIT 31.3 % (36.0-47.0); HEMOGLOBIN 10.4 g/dL (12.0-15.5); HGB HCT DIFFERENCE -0.1; LYMPHOCYTES % (AUTO) 12.7 % (13-45); MEAN CORPUSCULAR HEMOGLOBIN 30.2 pg (27.0-33.4); MEAN CORPUSCULAR HGB CONC 33.3 g/dL (32.0-36.0); MEAN CORPUSCULAR VOLUME 91 fl (80-97); MONOCYTES % (AUTO) 8.4 % (3-13); RED BLOOD COUNT 3.44 10^6/uL (3.72-5.28); RED CELL DISTRIBUTION WIDTH 17.6 % (11.5-14.0); SEGMENTED NEUTROPHILS % (AUTO) 73.2 % (42-78); WHITE BLOOD COUNT 6.5 10^3/uL (4.0-10.5)
[2016-11-28 16:43] LABS: ALANINE AMINOTRANSFERASE 40 U/L (9-52); ALBUMIN 3.8 g/dL (3.5-5.0); ALKALINE PHOSPHATASE 143 U/L (38-126); ANION GAP 10 (5-19); ASPARTATE AMINO TRANSFERASE 47 U/L (14-36); BILIRUBIN,DIRECT 0.5 mg/dL (0.0-0.4); BILIRUBIN,TOTAL 0.7 mg/dL (0.2-1.3); BLOOD UREA NITROGEN 26 mg/dL (7-20); CARBON DIOXIDE 28 mmol/L (22-30); CHLORIDE 95 mmol/L (98-107); CREATINE KINASE 53 U/L (30-135); CREATININE RESULT 3.43 mg/dL (0.52-1.25); GLUCOSE 91 mg/dL (75-110); POTASSIUM 3.9 mmol/L (3.6-5.0); SODIUM 133.3 mmol/L (137-145); TOTAL PROTEIN 6.3 g/dL (6.3-8.2)
[2016-11-28 16:54] LABS: CREATINE KINASE MB 1.04 ng/mL (<4.55); TROPONIN I 0.012 ng/mL
--- NOTE | 2016-11-28 17:03 | RADIOLOGY REPORT (SQ) ---
EXAM DESCRIPTION: KUB/ABDOMEN (SINGLE VIEW) COMPLETED DATE/TIME: 11/28/2016 4:53 pm REASON FOR STUDY: nausea, burping COMPARISON: None. NUMBER OF VIEWS: One view. TECHNIQUE: Supine radiographic image of the abdomen acquired. LIMITATIONS: None. FINDINGS: BOWEL GAS PATTERN: Normal bowel gas pattern. No dilated loops. CALCIFICATIONS: No suspicious calcifications. SOFT TISSUES: There is what appears to be a calcified uterine fibroid. HARDWARE: None in the abdomen. BONES: No acute fracture. No worrisome bone lesions. OTHER: No other significant finding. IMPRESSION: NO RADIOGRAPHIC EVIDENCE FOR ACUTE ABDOMINAL DISEASE. TECHNICAL DOCUMENTATION: JOB ID: [id number] [employer]- All Rights Reserved
[2016-11-28 18:23] VITALS: BP 160/56
--- NOTE | 2016-11-28 22:47 | EKG REPORT ---
SEVERITY:- ABNORMAL ECG - SINUS RHYTHM PROBABLE LEFT ATRIAL ABNORMALITY LVH WITH SECONDARY REPOLARIZATION ABNORMALITY : Confirmed by: Michael Nicholas 28-Nov-2016 22:47:06
== END 2016-11-28 18:23 | disposition home or self-care (01) ==
LOC: ER 15:11
DX: K21.9 Gastro-esophageal reflux disease without esophagitis (principal); R07.9 Chest pain, unspecified; R11.0 Nausea; R10.13 Epigastric pain
CPT/HCPCS: 93005; 99285; 36415; 82553; 82550; 85025; 80053; 84484; 71010; 74000; 93010; A9270

== ENCOUNTER 2017-02-13 20:16 | Emergency (ER) | payer MEDICARE, MEDICAID ==
--- NOTE | 2017-02-13 20:42 | ER Document Report ---
ED Medical Screen (RME) - General Chief Complaint: Shortness Of Breath Stated Complaint: DIFFICULTY BREATHING Time Seen by Provider: 02/13/17 20:40 Notes: Patient brought in by family with nausea decreased appetite weakness as well as some chest pain shortness of breath and coughing. Patient is a dialysis patient. She does not make any urine. TRAVEL OUTSIDE OF THE [place] IN LAST 30 DAYS: No - Related Data Allergies/Adverse Reactions: tuberculin, purified protein deriva [Tuberculin,Purif.Prot.Deriv.] Allergy ( Severe, Verified 02/13/17 20:27) Penicillins Allergy (Mild, Verified 02/13/17 20:27) Pruritis, Swelling Past Medical History - Social History Frequency of alcohol use: None - Past Medical History Cardiac Medical History: Reports: Hx Congestive Heart Failure - possibly?, Hx Hypertension Denies: Hx Coronary Artery Disease, Hx Heart Attack Pulmonary Medical History: Denies: Hx Asthma, Hx Bronchitis, Hx COPD, Hx Pneumonia Neurological Medical History: Denies: Hx Cerebrovascular Accident, Hx Seizures Endocrine Medical History: Reports: Hx Diabetes Mellitus Type 2 Renal/ Medical History: Reports: Hx End Stage Renal Disease - dialysis [id number], Hx Hemodialysis. Denies: Hx Peritoneal Dialysis Musculoskeltal Medical History: Reports Hx Arthritis Psychiatric Medical History: Denies: Hx Depression Past Surgical History: Denies: Hx Pacemaker - Immunizations Hx Diphtheria, Pertussis, Tetanus Vaccination: Yes - September Physical Exam - Vital signs Vitals: Temp Pulse Resp BP Pulse Ox 99.9 F 77 20 142/53 H 96 02/13/17 20:28 02/13/17 20:28 02/13/17 20:28 02/13/17 20:28 02/13/17 20:28 Course - Vital Signs Vital signs: Temp Pulse Resp BP Pulse Ox 99.9 F 77 20 142/53 H 96 02/13/17 20:28 02/13/17 20:28 02/13/17 20:28 02/13/17 20:28 02/13/17 20:28
--- NOTE | 2017-02-13 21:45 | RADIOLOGY REPORT (SQ) ---
EXAM DESCRIPTION: CHEST PA/LAT COMPLETED DATE/TIME: 02/13/2017 9:18 pm REASON FOR STUDY: cp COMPARISON: 01/18/2017 EXAM PARAMETERS: NUMBER OF VIEWS: two views TECHNIQUE: Digital Frontal and Lateral radiographic views of the chest acquired. RADIATION DOSE: NA LIMITATIONS: none FINDINGS: LUNGS AND PLEURA: Increased left lower lobe airspace disease -effusion. Nearly completely resolved right upper lobe airspace disease seen previously. No pneumothorax. MEDIASTINUM AND HILAR STRUCTURES: Stable. HEART AND VASCULAR STRUCTURES: Stable cardiomegaly. BONES: No acute findings. HARDWARE: None in the chest. OTHER: No other significant finding. IMPRESSION: Increased left lower lobe airspace disease -effusion. Nearly completely resolved right upper lobe airspace disease seen previously. TECHNICAL DOCUMENTATION: JOB ID: [id number] [place]-72 2010 [employer]- All Rights Reserved
[2017-02-13 21:48] LABS: ABSOLUTE BASOPHILS # (AUTO) 0.1 10^3/uL (0.0-0.2); ABSOLUTE EOSINOPHILS # (AUTO) 0.4 10^3/uL (0.0-0.6); ABSOLUTE LYMPHOCYTES (AUTO) 0.9 10^3/uL (0.5-4.7); ABSOLUTE MONOCYTES (AUTO) 0.5 10^3/uL (0.1-1.4); ABSOLUTE NEUT (AUTO) 5.8 10^3/uL (1.7-8.2); BASOPHILS % (AUTO) 1.2 % (0-2); EOSINOPHILS % (AUTO) 5.2 % (0-6); HEMATOCRIT 31.9 % (36.0-47.0); HEMOGLOBIN 10.7 g/dL (12.0-15.5); HGB HCT DIFFERENCE 0.2; LYMPHOCYTES % (AUTO) 11.3 % (13-45); MEAN CORPUSCULAR HEMOGLOBIN 29.6 pg (27.0-33.4); MEAN CORPUSCULAR HGB CONC 33.4 g/dL (32.0-36.0); MEAN CORPUSCULAR VOLUME 89 fl (80-97); MONOCYTES % (AUTO) 6.5 % (3-13); RED CELL DISTRIBUTION WIDTH 19.3 % (11.5-14.0); SEGMENTED NEUTROPHILS % (AUTO) 75.8 % (42-78); WHITE BLOOD COUNT 7.7 10^3/uL (4.0-10.5)
[2017-02-13 21:49] LABS: VENOUS BLOOD BASE EXCESS 8.6 mmol/L; VENOUS BLOOD HCO3 33.2 mmol/L (20-32); VENOUS BLOOD PCO2 46.1 mmHg (35-63); VENOUS BLOOD PH 7.48 (7.30-7.42)
[2017-02-13 22:04] LABS: ALANINE AMINOTRANSFERASE 26 U/L (9-52); ALBUMIN 3.6 g/dL (3.5-5.0); ALKALINE PHOSPHATASE 120 U/L (38-126); ANION GAP 14 (5-19); ASPARTATE AMINO TRANSFERASE 24 U/L (14-36); BILIRUBIN,DIRECT 0.6 mg/dL (0.0-0.4); BILIRUBIN,TOTAL 0.7 mg/dL (0.2-1.3); BLOOD UREA NITROGEN 41 mg/dL (7-20); CALCIUM 8.6 mg/dL (8.4-10.2); CARBON DIOXIDE 31 mmol/L (22-30); CHLORIDE 96 mmol/L (98-107); CREATININE RESULT 4.03 mg/dL (0.52-1.25); GLUCOSE 112 mg/dL (75-110); POTASSIUM 4.6 mmol/L (3.6-5.0); SODIUM 140.6 mmol/L (137-145); TOTAL PROTEIN 6.3 g/dL (6.3-8.2)
--- NOTE | 2017-02-13 22:45 | ER Document Report ---
ED General - General Chief Complaint: Shortness Of Breath Stated Complaint: DIFFICULTY BREATHING Time Seen by Provider: 02/13/17 20:40 Notes: Patient is a 71-year-old female with a past medical history of dialysis dependence, end-stage renal disease, hypertension, chronic anemia, who presents with approximately 7-10 days of generalized fatigue, decreased energy, and intermittent shortness of breath when lying flat while trying to sleep at night. She was instructed to come here by a dialysis nurse after she told her about her symptoms. Patient states that she had similar symptoms at the beginning of the month and was diagnosed as having a pneumonia. She states she was placed on antibiotics but did not feel that this really improved her symptoms. She denies any shortness of breath at time of evaluation. She denies any chest pain. No fever or constitutional symptoms. No vomiting or diarrhea. She does not make urine. She has not followed up with her primary care doctor regarding today's concerns. She denies any history of DVT or pulmonary embolus. TRAVEL OUTSIDE OF THE [place] IN LAST 30 DAYS: No - Related Data Allergies/Adverse Reactions: tuberculin, purified protein deriva [Tuberculin,Purif.Prot.Deriv.] Allergy ( Severe, Verified 02/13/17 20:27) Penicillins Allergy (Mild, Verified 02/13/17 20:27) Pruritis, Swelling Past Medical History - General Information source: Patient - Social History Smoking Status: Never Smoker Frequency of alcohol use: None Drug Abuse: None Lives with: Family Family History: Hypertension Patient has suicidal ideation: No Patient has homicidal ideation: No - Past Medical History Cardiac Medical History: Reports: Hx Congestive Heart Failure - possibly?, Hx Hypertension Denies: Hx Coronary Artery Disease, Hx Heart Attack Pulmonary Medical History: Denies: Hx Asthma, Hx Bronchitis, Hx COPD, Hx Pneumonia Neurological Medical History: Denies: Hx Cerebrovascular Accident, Hx Seizures Endocrine Medical History: Reports: Hx Diabetes Mellitus Type 2 Renal/ Medical History: Reports: Hx End Stage Renal Disease - dialysis M_W_F, Hx Hemodialysis. Denies: Hx Peritoneal Dialysis Musculoskeltal Medical History: Reports Hx Arthritis Psychiatric Medical History: Denies: Hx Depression Past Surgical History: Denies: Hx Pacemaker - Immunizations Hx Diphtheria, Pertussis, Tetanus Vaccination: Yes - September Hx Pneumococcal Vaccination: 06/05/11 Review of Systems - Review of Systems Notes: Constitutional: Negative for fever. Positive for generalized fatigue HENT: Negative for sore throat. Eyes: Negative for visual changes. Cardiovascular: Negative for chest pain. Respiratory: Positive orthopnea Gastrointestinal: Negative for abdominal pain, vomiting or diarrhea. Genitourinary: Negative for dysuria. Musculoskeletal: Negative for back pain. Skin: Negative for rash. Neurological: Negative for headaches, weakness or numbness. 10 point ROS negative except as marked above and in HPI. Physical Exam - Vital signs Vitals: Temp Pulse Resp BP Pulse Ox 99.9 F 77 20 142/53 H 96 02/13/17 20:28 02/13/17 20:28 02/13/17 20:28 02/13/17 20:28 02/13/17 20:28 Interpretation: Hypertensive Notes: PHYSICAL EXAMINATION: GENERAL: Well-appearing, well-nourished and in no acute distress. HEAD: Atraumatic, normocephalic. EYES: Pupils equal round and reactive to light, extraocular movements intact, sclera anicteric, conjunctiva are normal. ENT: nares patent, oropharynx clear without exudates. Moist mucous membranes. NECK: Normal range of motion, supple without lymphadenopathy LUNGS: Breath sounds diminished at the left base otherwise unremarkable. HEART: Regular rate and rhythm, 3 out of 6 systolic ejection murmur ABDOMEN: Soft, nontender, normoactive bowel sounds. No guarding, no rebound. No masses appreciated. EXTREMITIES: Normal range of motion, no pitting or edema. No cyanosis. NEUROLOGICAL: No focal neurological deficits. Moves all extremities spontaneously and on command. PSYCH: Normal mood, normal affect. SKIN: Warm, Dry, normal turgor, no rashes or lesions noted. Course - Re-evaluation Re-evalutation: 02/13/17 22:42 Patient presents with multiple complaints including nasal congestion, intermittent orthopnea, cough with sputum production, and feeling generally fatigued. Patient is overall nontoxic in appearance, very conversant and polite on examination. Physical examination shows only diminished breath sounds at the left base and is otherwise unremarkable. Her laboratories are unchanged from her prior substance that any evidence of a leukocytosis. She does have chronic anemia. No significant hyperkalemia. Chest x-ray does show a progressively worsening left lower lobe pleural effusion and I do believe this could account for patient's orthoptic symptoms as well as intermittent cough. She states she did receive antibiotics in the past 3 weeks and this did not seem to improve her symptoms. I requested the patient follow with Dr. Wharton with pulmonology as an outpatient for consideration of thoracentesis. I otherwise at this time do not suspect any acute life-threatening pathology. Specifically I do not suspect ACS, pulmonary embolus, occult pneumonia, acute intra-abdominal pathology, or an aortic dissection. At this time will discharge with return precautions and follow-up recommendations. Verbal discharge instructions given a the bedside and opportunity for questions given. Medication warnings reviewed. Patient is in agreement with this plan and has verbalized understanding of return precautions and the need for primary care follow-up in the next 24-72 hours. - Vital Signs Vital signs: Temp Pulse Resp BP Pulse Ox 98.6 F 77 18 117/81 100 02/13/17 22:51 02/13/17 20:28 02/13/17 22:51 02/13/17 22:51 02/13/17 22:51 - Laboratory Result Diagrams: 02/13/17 21:35 02/13/17 21:35 Laboratory results interpreted by me: 02/13/17 02/13/17 02/13/17 21:35 21:35 21:35 RBC 3.60 L Hgb 10.7 L Hct 31.9 L RDW 19.3 H Lymphocytes % 11.3 L VBG pH 7.48 H VBG HCO3 33.2 H Chloride 96 L Carbon Dioxide 31 H BUN 41 H Creatinine 4.03 H Est GFR ( Amer) 13 L Est GFR (Non-Af Amer) 11 L Glucose 112 H Direct Bilirubin 0.6 H - Diagnostic Test Radiology reviewed: Image reviewed, Reports reviewed Radiology results interpreted by me: 02/14/17 03:54 Chest x-ray: Left pleural effusion - EKG Interpretation by Me Additional EKG results interpreted by me: 02/14/17 03:54 Sinus rhythm. Rate 75. No ST elevations or depressions. QTC is 456. Discharge - Discharge Clinical Impression: ESRD on dialysis, Pleural effusion, left Fatigue Qualifiers: Fatigue type: unspecified Qualified Code(s): R53.83 - Other fatigue Condition: Stable Disposition: HOME, SELF-CARE Additional Instructions: Please follow-up with the tipple supervisor Dr. Cortes for evaluation of the fluid collection in your left lung. Please return if you have worsening of your symptoms, fever, persistent vomiting, or any other symptoms that are worrisome to you. Referrals: STEVEN NEUMANN MD [Primary Care Provider] - Follow up as needed LUIS CORTES MD [ACTIVE STAFF] - Follow up in 3-5 days
[2017-02-13 22:59] VITALS: BP 117/81
--- NOTE | 2017-02-14 07:51 | EKG REPORT ---
SEVERITY:- ABNORMAL ECG - SINUS RHYTHM PROBABLE LEFT ATRIAL ABNORMALITY LEFT VENTRICULAR HYPERTROPHY : Confirmed by: Gio Santana MD 14-Feb-2017 07:50:24
== END 2017-02-13 23:00 | disposition home or self-care (01) ==
LOC: ER 20:16
DX: I12.0 Hypertensive chronic kidney disease with stage 5 chronic kidney disease or end stage renal disease (principal); E11.22 Type 2 diabetes mellitus with diabetic chronic kidney disease; N18.6 End stage renal disease; Z99.2 Dependence on renal dialysis; J90 Pleural effusion, not elsewhere classified; D64.9 Anemia, unspecified; R53.83 Other fatigue; R09.81 Nasal congestion; R05 Cough; R06.01 Orthopnea; Z88.7 Allergy status to serum and vaccine; Z88.0 Allergy status to penicillin
CPT/HCPCS: 36415; 71020; 80053; 82803; 83605; 84484; 85025; 87040; 93005; 93010; 99285

== ENCOUNTER 2017-03-25 02:08 | Inpatient (IN) | payer MEDICARE, MEDICAID ==
[2017-03-25] MEDS ORDERED: FUROSEMIDE INJ/PF 40 MG/4 ML SDV IV ONE (02:36)
--- NOTE | 2017-03-25 02:41 | ER Document Report ---
ED Respiratory Problem - General Mode of Arrival: Wheelchair Information source: Patient, Relative TRAVEL OUTSIDE OF THE [place] IN LAST 30 DAYS: No - HPI Patient complains to provider of: Short of breath Onset: Yesterday Context: denies: Recent surgery Associated symptoms: Other - see notes above <MARKO MARAVILLA - Last Filed: 03/25/17 03:55> <EDITHPASCALE ANN - Last Filed: 03/25/17 05:21> - General Chief Complaint: Shortness Of Breath Stated Complaint: DIFFICULTY BREATHING Time Seen by Provider: 03/25/17 02:19 Notes: 71 year old female with history of renal insufficiency (dialyzed MWF) and hypertension presents to the ED accompanied with family complaining of shortness of breath that started last night and worsened recently. Patient was having chest pains earlier last night, but none currently. Patient denies cough or fever. Patient has a history of a thoracentesis in the past. Patient dialyzed at [facility], but only received 2 out of 3 hours of dialysis this past Saturday because of the weather. Cycle Repairer: Dr. Kelby Boyd (MARKO MARAVILLA) - Related Data Allergies/Adverse Reactions: tuberculin, purified protein deriva [Tuberculin,Purif.Prot.Deriv.] Allergy ( Severe, Verified 02/13/17 20:27) Penicillins Allergy (Mild, Verified 02/13/17 20:27) Pruritis, Swelling Past Medical History - General Information source: Patient, Relative - Social History Smoking Status: Unknown if Ever Smoked Family History: Hypertension - Past Medical History Cardiac Medical History: Reports: Hx Congestive Heart Failure - possibly?, Hx Hypertension Denies: Hx Coronary Artery Disease, Hx Heart Attack Pulmonary Medical History: Denies: Hx Asthma, Hx Bronchitis, Hx COPD, Hx Pneumonia Neurological Medical History: Denies: Hx Cerebrovascular Accident, Hx Seizures Endocrine Medical History: Reports: Hx Diabetes Mellitus Type 2 Renal/ Medical History: Reports: Hx End Stage Renal Disease - dialysis M_W_F, Hx Hemodialysis. Denies: Hx Peritoneal Dialysis Musculoskeltal Medical History: Reports Hx Arthritis Psychiatric Medical History: Denies: Hx Depression Past Surgical History: Denies: Hx Pacemaker - Immunizations Hx Diphtheria, Pertussis, Tetanus Vaccination: Yes - September Hx Pneumococcal Vaccination: 06/05/11 <MARKO MARAVILLA - Last Filed: 03/25/17 03:55> Review of Systems - Review of Systems Constitutional: No symptoms reported. denies: Fever EENT: No symptoms reported Cardiovascular: See HPI, Chest pain Respiratory: See HPI, Short of breath. denies: Cough Gastrointestinal: No symptoms reported Genitourinary: No symptoms reported Female Genitourinary: No symptoms reported Musculoskeletal: No symptoms reported Skin: No symptoms reported Hematologic/Lymphatic: No symptoms reported Neurological/Psychological: No symptoms reported -: Yes All other systems reviewed and negative <MARKO MARAVILLA - Last Filed: 03/25/17 03:55> Physical Exam - Vital signs Interpretation: Hypertensive, Hypoxic, Tachypneic - General General appearance: Alert In distress: Moderate - HEENT Head: Normocephalic, Atraumatic Eyes: Normal Pupils: PERRL - Respiratory Respiratory status: Respiratory distress, Retractions, Tachypnea Chest status: Nontender Breath sounds: Rales - at bases b/l Chest palpation: Normal - Cardiovascular Rhythm: Regular Heart sounds: Normal auscultation Murmur: No - Abdominal Inspection: Normal Distension: No distension Bowel sounds: Normal Tenderness: Nontender Organomegaly: No organomegaly - Back Back: Normal, Nontender - Extremities General upper extremity: Normal inspection, Nontender, Normal color, Normal ROM , Normal temperature General lower extremity: Normal inspection, Nontender, Normal color, Normal ROM , Normal temperature, Normal weight bearing. No: Janell's sign - Neurological Neuro grossly intact: Yes Cognition: Normal Orientation: AAOx4 Schuyler Coma Scale Eye Opening: Spontaneous Miley Coma Scale Verbal: Oriented Miley Coma Scale Motor: Obeys Commands Schuyler Coma Scale Total: 15 Speech: Normal Motor strength normal: LUE, RUE, LLE, RLE Sensory: Normal - Psychological Associated symptoms: Normal affect, Normal mood - Skin Skin Temperature: Warm Skin Moisture: Dry Skin Color: Normal <PASCALE SHARMA - Last Filed: 03/25/17 05:21> - Vital signs Vitals: Temp Pulse Resp BP Pulse Ox 98.6 F 75 24 H 207/61 H 95 03/25/17 02:17 03/25/17 02:17 03/25/17 02:17 03/25/17 02:17 03/25/17 02:17 Course - Laboratory Result Diagrams: 03/25/17 02:36 03/25/17 02:36 - Consults Dr. Carroll Time consulted: 02:44 <MARKO MARAVILLA - Last Filed: 03/25/17 03:55> - Laboratory Result Diagrams: 03/25/17 02:36 03/25/17 02:36 - Diagnostic Test Radiology reviewed: Image reviewed, Reports reviewed - EKG Interpretation by Me EKG shows normal: Sinus rhythm Rate: Normal Rhythm: NSR <PASCALE SHARMA - Last Filed: 03/25/17 05:21> - Re-evaluation Re-evalutation: 03/25/17 04:19 Patient is a 71-year-old female who presents with fluid overload. Patient was hypoxic and hypertensive on presentation. Patient was placed on BiPAP, given Lasix and started on nitro drip. She apparently does not make any urine per family. Patient was found to have a potassium of 6.6. She is resting comfortably on BiPAP. No EKG changes. Patient was given calcium gluconate, insulin, and D50. She will be admitted to the ICU and need dialysis emergently. Patient and family are in agreement with this plan. Stable time of admission. (PASCALE SHARMA) - Vital Signs Vital signs: Temp Pulse Resp BP Pulse Ox 98.6 F 75 18 197/68 H 100 03/25/17 02:17 03/25/17 02:17 03/25/17 03:01 03/25/17 03:01 03/25/17 03:01 - Laboratory Laboratory results interpreted by me: 03/25/17 03/25/17 03/25/17 02:36 02:36 02:36 WBC 12.0 H Hgb 11.6 L RDW 19.4 H Seg Neuts % (Manual) 91 H Lymphocytes % (Manual) 4 L Abs Neuts (Manual) 10.9 H Potassium 6.6 H* Anion Gap 21 H BUN 127 H Creatinine 11.33 H Est GFR ( Amer) 4 L Est GFR (Non-Af Amer) 3 L Glucose 133 H POC Glucose Lactic Acid 0.5 L Calcium 10.3 H Direct Bilirubin 0.7 H Alkaline Phosphatase 143 H 03/25/17 03/25/17 02:53 04:03 WBC Hgb RDW Seg Neuts % (Manual) Lymphocytes % (Manual) Abs Neuts (Manual) Potassium Anion Gap BUN Creatinine Est GFR ( Amer) Est GFR (Non-Af Amer) Glucose POC Glucose 123 H 231 H Lactic Acid Calcium Direct Bilirubin Alkaline Phosphatase - Consults Dr. Carroll Reason for consultation: 03/25/17 02:[address] Carroll regarding admitting a dialysis patient and was told to talk to nephrology. 03/25/17 03:[address] Carroll that there is dialysis coverage this morning and agrees to admit the patient. (MARKO MARAVILLA) Critical Care Note - Critical Care Note Total time excluding time spent on procedures (mins): 60 - Evaluation and management of fluid overload, acute hyperkalemia, aspiratory distress, multiple re-evaluations, coordination of admission, counseling of patient and family <PASCALE SHARMA - Last Filed: 03/25/17 05:21> Discharge <MARKO MARAVILLA - Last Filed: 03/25/17 03:55> - Discharge Admitting Provider: Polo Carroll Unit Admitted: ICU <PASCALE SHARMA - Last Filed: 03/25/17 05:21> - Discharge Clinical Impression: ESRD on dialysis, Hyperkalemia Fluid overload, unspecified Qualifiers: Hypervolemia type: unspecified Qualified Code(s): E87.70 - Fluid overload, unspecified Condition: Stable Disposition: ADMITTED INPATIENT Referrals: DAPHNE JANE MD [Primary Care Provider] - Follow up as needed Scribe Attestation: 03/25/17 05:21 I personally performed the services described in the documentation, reviewed and edited the documentation which was dictated to the scribe in my presence, and it accurately records my words and actions. (PASCALE SHARMA) Scribe Documentation - Scribe Written by Innaibe:: Danyel Smith, 03/25/2017 0242 acting as scribe for :: Edith <MARKO MARAVILLA - Last Filed: 03/25/17 03:55>
[2017-03-25 02:57] LABS: VENOUS BLOOD BASE EXCESS -1.9 mmol/L; VENOUS BLOOD HCO3 24.2 mmol/L (20-32); VENOUS BLOOD PCO2 46.4 mmHg (35-63); VENOUS BLOOD PH 7.34 (7.30-7.42)
[2017-03-25 03:15] LABS: ALANINE AMINOTRANSFERASE 31 U/L (9-52); ALBUMIN 4.7 g/dL (3.5-5.0); ALKALINE PHOSPHATASE 143 U/L (38-126); ASPARTATE AMINO TRANSFERASE 32 U/L (14-36); BILIRUBIN,DIRECT 0.7 mg/dL (0.0-0.4); BILIRUBIN,TOTAL 0.8 mg/dL (0.2-1.3); CALCIUM 10.3 mg/dL (8.4-10.2); CARBON DIOXIDE 23 mmol/L (22-30); CHLORIDE 100 mmol/L (98-107); GLUCOSE 133 mg/dL (75-110)
[2017-03-25] MEDS ORDERED: NITROGLYCERIN/D5W 50 MG/250 ML RTUINJ IV PRN ×2 (03:15→03:56)
--- NOTE | 2017-03-25 03:17 | RADIOLOGY REPORT (SQ) ---
EXAM DESCRIPTION: CHEST SINGLE VIEW CLINICAL HISTORY: 71 years, Female, SOB COMPARISON: 02/13/2017. LIMITATIONS: None. FINDINGS: Moderate left lower lobar consolidative opacity, mild patchy right lower lobar opacity, prominent interstitium, moderate-severe enlargement cardiac silhouette, atherosclerosis, right upper lateral thoracic stent material, and intact bony structures. IMPRESSION: Interval worsening includes predominantly left sided lateral lower lobar pneumonia. 2011 [employer]- All Rights Reserved
[2017-03-25 03:27] LABS: BLOOD UREA NITROGEN 127 mg/dL (7-20)
[2017-03-25 03:30] LABS: POTASSIUM 6.6 mmol/L (3.6-5.0)
[2017-03-25] MEDS ORDERED: CALCIUM GLUCONATE 1000 MG/10 ML INJ IV ONE ×2 (03:30→04:21)
[2017-03-25] MEDS ORDERED: INSULIN REG, HUMAN 100 UNIT/ML 3 ML VIAL (PYX) IV ONE (03:30)
[2017-03-25 03:32] LABS: ANION GAP 21 (5-19)
[2017-03-25] MEDS ORDERED: DEXTROSE 50%-WATER 25 GM/50 ML DISP.SYRIN IV ONE (03:32)
[2017-03-25 03:33] LABS: HEMATOCRIT 36.2 % (36.0-47.0); HEMOGLOBIN 11.6 g/dL (12.0-15.5); MEAN CORPUSCULAR HEMOGLOBIN 29.8 pg (27.0-33.4); MEAN CORPUSCULAR VOLUME 93 fl (80-97); PLATELET COUNT 294 10^3/uL (150-450); RED BLOOD COUNT 3.88 10^6/uL (3.72-5.28); RED CELL DISTRIBUTION WIDTH 19.4 % (11.5-14.0)
[2017-03-25 03:37] LABS: ABSOLUTE LYMPHOCYTES# (MANUAL) 0.5 10^3/uL (0.5-4.7); ABSOLUTE MONOCYTES # (MANUAL) 0.4 10^3/uL (0.1-1.4); ABSOLUTE NEUTROPHILS# (MANUAL) 10.9 10^3/uL (1.7-8.2); ANISOCYTOSIS 2+; BASOPHILS % (MANUAL) 0 % (0-2); EOSINOPHILS % (MANUAL) 2 % (0-6); LYMPHOCYTES % (MANUAL) 4 % (13-45); MONOCYTES % (MANUAL) 3 % (3-13); SEGMENTED NEUTROPHILS % (MAN) 91 % (42-78); TOTAL CELLS COUNTED 100; TOXIC VACUOLATION PRESENT
[2017-03-25 03:39] LABS: OVALOCYTES SLIGHT; PLATELET COMMENT ADEQUATE; STOMATOCYTES SLIGHT
[2017-03-25 03:49] LABS: INTERNATIONAL RATION (INR) 0.99; PROTHROMBIN TIME 13.8 SEC (11.4-15.4)
[2017-03-25] MEDS ORDERED: LACTULOSE SYRUP 20 GM/30 ML UDCUP PO ONE (03:55)
[2017-03-25] MEDS ORDERED: HYDRALAZINE HCL INJ/PF 20 MG/1 ML SDV IV PRN (03:55)
[2017-03-25] MEDS ORDERED: IPRATROPIUM/ALBUTEROL 0.5-2.5 MG/3 ML AMPUL NEB PRN (03:55)
[2017-03-25] MEDS ORDERED: ACETAMINOPHEN 325 MG TABLET PO PRN (03:56)
[2017-03-25] MEDS ORDERED: MORPHINE SULFATE 10 MG/ML INJ IV ONE (04:32)
--- NOTE | 2017-03-25 04:40 | PDOC H&P ---
History of Present Illness Admission Date/PCP: DAPHNE JANE MD Patient complains of: Shortness of breath History of Present Illness: NICO BOBO is a 71 year old female who is Citizen Of [place]-speaking only and a history of diabetes, and anuric end-stage renal failure on hemodialysis Saturday with Dr. Boyd. She presents after 24 hours of exceptional shortness of breath and uncontrolled blood pressure. Her last hemodialysis session was shortened secondary to severe weather in the area. In the emergency room her systolic blood pressures over 200, a chest x-ray shows pulmonary edema and chemistry reveals a potassium of 6.6. Patient has had chest tightness denying palpitations nausea or vomiting. She otherwise admits compliance with lifestyle and medication. She started on IV nitroglycerin, calcium gluconate and referred to the hospitalist for admission to ICU. Past Medical History Cardiac Medical History: Reports: Congestive Heart Failure - possibly?, Hypertension Denies: Coronary Artery Disease, Myocardial Infarction Pulmonary Medical History: Denies: Asthma, Bronchitis, Chronic Obstructive Pulmonary Disease (COPD), Pneumonia Neurological Medical History: Denies: Seizures Endocrine Medical History: Reports: Diabetes Mellitus Type 2 Renal/ Medical History: Reports: End Stage Renal Disease - dialysis M_W_F Musculoskeltal Medical History: Reports: Arthritis Psychiatric Medical History: Denies: Depression Hematology: Denies: Anemia Past Surgical History Past Surgical History: Denies: Pacemaker Social History Information Source: Relative, Emergency Med Personnel, [facility] Records Lives with: Family Smoking Status: Unknown if Ever Smoked Frequency of Alcohol Use: None Hx Recreational Drug Use: No Drugs: None Hx Prescription Drug Abuse: No - Advance Directive Resuscitation Status: Full Code Family History Family History: Hypertension Parental Family History Reviewed: Yes Children Family History Reviewed: Yes Sibling(s) Family History Reviewed.: Yes Medication/Allergy Home Medications: Amlodipine Besylate [Norvasc 10 mg Tablet] 10 mg PO DAILY 09/23/16 Carvedilol [Coreg 25 mg Tablet] 1 tab PO Q12 09/23/16 Folic Acid/Vit B Complex and C [Renal Vitamin Tablet] 0.8 mg PO DAILY 09/23/16 Hydralazine HCl [Apresoline 25 mg Tablet] 25 mg PO Q12 09/23/16 Levothyroxine Sodium [Synthroid 0.1 mg Tablet] 0.1 mg PO DAILY 07/09/17 Cefuroxime Axetil [Ceftin 500 mg Tablet] 500 mg PO BID #14 tablet 09/25/16 Sucralfate [Carafate 1 gm Tablet] 1 gm PO ACHS #120 tablet 11/28/16 Cephalexin Monohydrate [Keflex 500 mg Capsule] 500 mg PO BID 10 Days #20 capsule 01/18/17 Hydrocodone Bit/Homatropine [Hycodan Syrup 5-1.5 mg/5 ml Ud Cup] 5 ml PO Q4HP PRN #120 ml 01/18/17 Allergies/Adverse Reactions: tuberculin, purified protein deriva [Tuberculin,Purif.Prot.Deriv.] Allergy ( Severe, Verified 02/13/17 20:27) Penicillins Allergy (Mild, Verified 02/13/17 20:27) Pruritis, Swelling Review of Systems Constitutional: PRESENT: as per HPI, fatigue, weight gain. ABSENT: anorexia, chills, fever(s), headache(s), night sweats Eyes: ABSENT: visual disturbances Ears: ABSENT: hearing changes Cardiovascular: PRESENT: as per HPI, dyspnea on exertion, edema, orthropnea Respiratory: PRESENT: as per HPI, cough, dyspnea. ABSENT: hemoptysis, sputum Gastrointestinal: ABSENT: abdominal pain, constipation, diarrhea, hematemesis, hematochezia, nausea, vomiting Genitourinary: ABSENT: dysuria, hematuria Musculoskeletal: ABSENT: joint swelling Integumentary: ABSENT: rash, wounds Neurological: ABSENT: abnormal gait, abnormal speech, confusion, dizziness, focal weakness, syncope Psychiatric: ABSENT: anxiety, depression, homidical ideation, suicidal ideation Endocrine: ABSENT: cold intolerance, heat intolerance, polydipsia, polyuria Hematologic/Lymphatic: ABSENT: easy bleeding, easy bruising Physical Exam Vital Signs: Temp Pulse Resp BP Pulse Ox 98.6 F 75 18 197/68 H 100 03/25/17 02:17 03/25/17 02:17 03/25/17 03:01 03/25/17 03:01 03/25/17 03:01 General appearance: PRESENT: cooperative, severe distress, well-developed, well- nourished Head exam: PRESENT: atraumatic, normocephalic Eye exam: PRESENT: conjunctiva pink, EOMI, PERRLA. ABSENT: scleral icterus Ear exam: PRESENT: normal external ear exam Mouth exam: PRESENT: moist, tongue midline Neck exam: PRESENT: JVD. ABSENT: carotid bruit, lymphadenopathy, thyromegaly Respiratory exam: PRESENT: accessory muscle use, crackles, prolonged expiratory phas, retraction, symmetrical, tachypnea. ABSENT: rales, rhonchi, wheezes Cardiovascular exam: PRESENT: gallop, RRR, +S1, +S2, systolic murmur. ABSENT: diastolic murmur, rubs Pulses: PRESENT: normal dorsalis pedis pul Vascular exam: PRESENT: normal capillary refill GI/Abdominal exam: PRESENT: normal bowel sounds, soft. ABSENT: distended, guarding, mass, organolmegaly, rebound, tenderness Rectal exam: PRESENT: deferred Extremities exam: PRESENT: full ROM. ABSENT: calf tenderness, clubbing, pedal edema Neurological exam: PRESENT: alert, awake, oriented to person, oriented to place , oriented to time, oriented to situation, CN II-XII grossly intact. ABSENT: motor sensory deficit Psychiatric exam: PRESENT: appropriate affect, normal mood. ABSENT: homicidal ideation, suicidal ideation Skin exam: PRESENT: dry, intact, warm. ABSENT: cyanosis, rash Results Laboratory Results: 03/25/17 02:36 03/25/17 02:36 03/25/17 03/25/17 03/25/17 02:36 02:36 02:36 WBC 12.0 H RBC 3.88 Hgb 11.6 L Hct 36.2 MCV 93 MCH 29.8 MCHC 32.0 RDW 19.4 H Plt Count 294 Seg Neutrophils % Not Reportable Lymphocytes % Not Reportable Monocytes % Not Reportable Eosinophils % Not Reportable Basophils % Not Reportable Absolute Neutrophils Not Reportable Absolute Lymphocytes Not Reportable Absolute Monocytes Not Reportable Absolute Eosinophils Not Reportable Absolute Basophils Not Reportable VBG pH VBG pCO2 VBG HCO3 VBG Base Excess Sodium 144.0 Potassium 6.6 H* Chloride 100 Carbon Dioxide 23 Anion Gap 21 H BUN 127 H Creatinine 11.33 H Est GFR ( Amer) 4 L Est GFR (Non-Af Amer) 3 L Glucose 133 H Lactic Acid 0.5 L Calcium 10.3 H Total Bilirubin 0.8 AST 32 ALT 31 Alkaline Phosphatase 143 H Total Protein 8.0 Albumin 4.7 03/25/17 02:36 WBC RBC Hgb Hct MCV MCH MCHC RDW Plt Count Seg Neutrophils % Lymphocytes % Monocytes % Eosinophils % Basophils % Absolute Neutrophils Absolute Lymphocytes Absolute Monocytes Absolute Eosinophils Absolute Basophils VBG pH 7.34 VBG pCO2 46.4 VBG HCO3 24.2 VBG Base Excess -1.9 Sodium Potassium Chloride Carbon Dioxide Anion Gap BUN Creatinine Est GFR ( Amer) Est GFR (Non-Af Amer) Glucose Lactic Acid Calcium Total Bilirubin AST ALT Alkaline Phosphatase Total Protein Albumin 03/25/17 02:36 Troponin I 0.016 Impressions: Chest X-Ray 03/25/17 02:35 IMPRESSION: Interval worsening includes predominantly left sided lateral lower lobar pneumonia. 2010 [employer]- All Rights Reserved Assessment & Plan - Diagnosis (1) ESRD on dialysis Is this a current diagnosis for this admission?: Yes Plan: ICU admission, nephrology consultation for urgent hemodialysis. Follow-up chemistry for severe hyperkalemia (2) Fluid overload, unspecified Is this a current diagnosis for this admission?: Yes Plan: Anuric, requiring BiPAP as a bridge to dialysis. (3) Hyperkalemia Is this a current diagnosis for this admission?: Yes Plan: Kayexalate and lactulose initiated follow-up chemistry and patient family education (4) Diabetes Is this a current diagnosis for this admission?: Yes Plan: Sliding scale insulin while n.p.o. - Time Time Spent: 50 to 70 Minutes - Inpatient Certification Medical Necessity: Need Close Monitoring Due to Risk of Patient Decompensation
[2017-03-25] MEDS ORDERED: HEPARIN SOD (PORCINE) 5,000 UNIT/ML 1 ML SYRINGE SUBCUT SCH (06:00)
--- NOTE | 2017-03-25 07:30 | EKG REPORT ---
SEVERITY:- ABNORMAL ECG - SINUS RHYTHM LEFT ATRIAL ABNORMALITY PROBABLE LEFT VENTRICULAR HYPERTROPHY NONSPECIFIC T ABNORMALITIES, INFERIOR LEADS : Confirmed by: Gio Santana MD 25-Mar-2017 07:29:48
[2017-03-25] MEDS ORDERED: ONDANSETRON 4 MG TAB.RAPDIS PO ONE (09:53)
[2017-03-25] MEDS ORDERED: HYDRALAZINE HCL 25 MG TABLET PO SCH (10:00)
[2017-03-25] MEDS ORDERED: CARVEDILOL 12.5 MG TABLET PO SCH (10:00)
[2017-03-25 11:21] VITALS: BP 164/60
--- NOTE | 2017-03-25 11:23 | PDOC TRANSFER SUMMARY ---
General Admission Date/PCP: 03/25/17 04:47 DAPHNE JANE MD Transfer Date: 03/25/17 Accepting Facility: [facility] Accepting Physician: Dr. Alexander Resuscitation Status: Full Code - Transfer Diagnosis (1) Fluid overload, unspecified Is this a current diagnosis for this admission?: Yes Diagnosis Summary: Secondary to chronic renal failure. (2) ESRD on dialysis Is this a current diagnosis for this admission?: Yes (3) Hyperkalemia Is this a current diagnosis for this admission?: Yes Diagnosis Summary: Given calcium gluconate in the emergency room. (4) Anemia in CKD (chronic kidney disease) Is this a current diagnosis for this admission?: Yes (5) Congestive heart failure Is this a current diagnosis for this admission?: Yes (6) Diabetes Is this a current diagnosis for this admission?: Yes (7) Hypertension Is this a current diagnosis for this admission?: Yes - Transfer Medications Home Medications: Amlodipine Besylate [Norvasc 10 mg Tablet] 10 mg PO DAILY 03/25/17 Carvedilol [Coreg 25 mg Tablet] 25 mg PO Q12 03/25/17 Levothyroxine Sodium [Synthroid 0.1 mg Tablet] 0.1 mg PO DAILY 03/25/17 Transfer Medications: Current Medications Acetaminophen (Tylenol 325 Mg Tablet) 650 mg PO Q4HP PRN Stop: 04/24/17 03:55 Albuterol/Ipratropium (Duoneb 3 Ml Ampul) 3 ml NEB RTQ4HP PRN Stop: 04/24/17 03:54 Carvedilol (Coreg 12.5 Mg Tablet) 25 mg PO Q12 TITO Stop: 04/24/17 09:59 Last Admin: 03/25/17 09:46 Dose: 25 mg Heparin Sodium (Porcine) (Heparin Inj 5,000 Units/Ml 1 Ml Syringe) 5,000 unit SUBCUT Q8 TITO Stop: 04/24/17 05:59 Last Admin: 03/25/17 06:00 Dose: 5,000 unit Hydralazine HCl (Apresoline Inj/Pf 20 Mg/1 Ml Sdv) 10 mg IV Q6HP PRN PRN Reason: Sbp>160 Stop: 04/24/17 03:54 Hydralazine HCl (Apresoline 25 Mg Tablet) 25 mg PO Q12 TITO Stop: 04/24/17 09:59 Last Admin: 03/25/17 09:46 Dose: 25 mg Nitroglycerin/Dextrose (Ntg Rtu 50 Mg/D5w 250 Ml Iv Premix Bottle) 50 mg in 250 mls @ 0 mls/hr IV CONTINUOUS PRN; Protocol; Titrate PRN Reason: THIS MED IS NOT "PRN" Stop: 04/24/17 03:14 Last Admin: 03/25/17 03:47 Dose: 250 ml Nitroglycerin/Dextrose (Ntg Rtu 50 Mg/D5w 250 Ml Iv Premix Bottle) 50 mg in 250 mls @ 0 mls/hr IV CONTINUOUS PRN; Protocol; Titrate PRN Reason: THIS MED IS NOT "PRN" Stop: 04/24/17 03:55 - Allergies Allergies/Adverse Reactions: tuberculin, purified protein deriva [Tuberculin,Purif.Prot.Deriv.] Allergy ( Severe, Verified 02/13/17 20:27) Penicillins Allergy (Mild, Verified 02/13/17 20:27) Pruritis, Swelling - Diet/Activity Discharge Diet: Cardiac, Diabetic Hospital Course Hospital Course: 71-year-old female who is a end-stage renal disease on dialysis on Wednesdays and Fridays. The patient presented with shortness of breath. She was unable to complete her last dialysis session because of the weather. The patient presented last night and was noted to be short of breath along with being hypertensive with blood pressure of 200/90. Patient was started on BiPAP as well as nitroglycerin drip for control of her blood pressure. This improved her respiratory status but she still showed evidence for volume overload. The patient normally follows with Dr. Boyd for nephrology. I discussed the case with our python programmer hospice liaison Dr. Gregorio who stated that we did not have capacity to do her dialysis today because of other patients that has already been admitted and we did not have the staff to do anymore dialysis because of the weather. Because this it was decided to transfer the patient to [facility] and the case was discussed with Dr. Alexander who graciously agrees to accept the patient in transfer. The patient has been stable since being on her nitroglycerin drip and BiPAP. Physical Exam Vital Signs: Temp Pulse Resp BP Pulse Ox 98.6 F 71 19 142/71 H 99 03/25/17 02:17 03/25/17 08:00 03/25/17 10:31 03/25/17 10:31 03/25/17 10:31 General appearance: PRESENT: mild distress Eye exam: PRESENT: conjunctiva pink. ABSENT: scleral icterus Mouth exam: PRESENT: moist, tongue midline Neck exam: PRESENT: JVD Respiratory exam: PRESENT: crackles - Bibasilar crackles. ABSENT: rales, rhonchi, wheezes Cardiovascular exam: PRESENT: RRR. ABSENT: diastolic murmur, rubs, systolic murmur GI/Abdominal exam: PRESENT: normal bowel sounds, soft. ABSENT: distended, guarding, mass, organolmegaly, rebound, tenderness Extremities exam: PRESENT: pedal edema. ABSENT: calf tenderness, clubbing Neurological exam: PRESENT: alert, awake, oriented to person, oriented to place , oriented to time, oriented to situation, CN II-XII grossly intact. ABSENT: motor sensory deficit Psychiatric exam: PRESENT: appropriate affect Skin exam: PRESENT: dry, intact, warm. ABSENT: cyanosis, rash Results Impressions: Chest X-Ray 03/25/17 02:35 IMPRESSION: Interval worsening includes predominantly left sided lateral lower lobar pneumonia. 2010 [employer]- All Rights Reserved Plan Discharge Plan: Patient is to be transferred to [facility] for dialysis. Dr. Alexander is the accepting physician. Time Spent: Greater than 30 Minutes
== END 2017-03-25 11:30 | disposition short-term general hospital (02) | DRG 640 ==
LOC: ER 02:08 → EH 04:47
PROVIDERS: ADMIT Internal Medicine; ATTEND Internal Medicine
DX: E87.79 Other fluid overload (principal); N18.6 End stage renal disease; J18.9 Pneumonia, unspecified organism; I13.2 Hypertensive heart and chronic kidney disease with heart failure and with stage 5 chronic kidney disease, or end stage renal disease; E11.22 Type 2 diabetes mellitus with diabetic chronic kidney disease; I50.9 Heart failure, unspecified; E87.5 Hyperkalemia; D63.1 Anemia in chronic kidney disease; Z99.2 Dependence on renal dialysis
CPT/HCPCS: 36415; 71045; 80053; 82803; 82962; 83605; 84484; 85025; 85610; 87040; 93005; 93010; 94660; 96365; 96375; 99291; J0610; J1644; J1815; J1940; J2270; J3490; S0119

== ENCOUNTER 2017-04-02 07:41 | Day surgery (SDC) | payer MEDICARE, MEDICAID ==
[2017-04-02 09:15] LABS: HEMOGLOBIN 10.7 g/dL (12.0-15.5); MEAN CORPUSCULAR HEMOGLOBIN 30.3 pg (27.0-33.4); MEAN CORPUSCULAR HGB CONC 32.6 g/dL (32.0-36.0); MEAN CORPUSCULAR VOLUME 93 fl (80-97); PLATELET COUNT 285 10^3/uL (150-450); RED BLOOD COUNT 3.54 10^6/uL (3.72-5.28); RED CELL DISTRIBUTION WIDTH 18.4 % (11.5-14.0); WHITE BLOOD COUNT 5.4 10^3/uL (4.0-10.5)
[2017-04-02 09:43] LABS: BLOOD UREA NITROGEN 54 mg/dL (7-20)
[2017-04-02 09:45] LABS: INTERNATIONAL RATION (INR) 1.01
[2017-04-02 09:47] LABS: PARTIAL THROMBOPLASTIN TIME 32.8 SEC (23.5-35.8)
[2017-04-02 12:49] LABS: ABSOLUTE LYMPHOCYTES# (MANUAL) 0.9 10^3/uL (0.5-4.7); ABSOLUTE MONOCYTES # (MANUAL) 0.3 10^3/uL (0.1-1.4); ABSOLUTE NEUTROPHILS# (MANUAL) 3.7 10^3/uL (1.7-8.2); BASOPHILS % (MANUAL) 0 % (0-2); EOSINOPHILS % (MANUAL) 11 % (0-6); LYMPHOCYTES % (MANUAL) 16 % (13-45); MONOCYTES % (MANUAL) 5 % (3-13); SEGMENTED NEUTROPHILS % (MAN) 68 % (42-78); TOTAL CELLS COUNTED 100
[2017-04-02 12:50] LABS: ANISOCYTOSIS 2+; OVALOCYTES 1+; POIKILOCYTOSIS 1+; SCHISTOCYTES SLIGHT
[2017-04-02 12:51] LABS: PLATELET COMMENT ADEQUATE; TEAR DROP CELLS SLIGHT
[2017-04-02 13:16] LABS: FLUID APPEARANCE SLIGHTLY HAZY; FLUID COLOR YELLOW; FLUID TYPE PLEURAL; FLUID VISCOSITY LIQUID
[2017-04-02 13:17] LABS: TOTAL PROTEIN 6.3 g/dL (6.3-8.2)
--- NOTE | 2017-04-02 13:55 | RADIOLOGY REPORT (SQ) ---
EXAM DESCRIPTION: CHEST SINGLE VIEW COMPLETED DATE/TIME: 04/02/2017 11:57 am REASON FOR STUDY: S/P LT THORACENTESIS COMPARISON: AP chest 03/25/2017 EXAM PARAMETERS: NUMBER OF VIEWS: One view. TECHNIQUE: Single frontal radiographic view of the chest acquired. RADIATION DOSE: NA LIMITATIONS: None. FINDINGS: LUNGS AND PLEURA: Post left thoracentesis. No pneumothorax. There is patchy left lower lobe airspace disease pneumonia versus atelectasis. Right lung well inflated and clear. MEDIASTINUM AND HILAR STRUCTURES: No masses. Contour normal. HEART AND VASCULAR STRUCTURES: Stable moderate to marked cardiomegaly BONES: No acute findings. HARDWARE: Right axillary vascular stent OTHER: No other significant finding. IMPRESSION: Post left thoracentesis. No pneumothorax. Persistent left basilar airspace disease lik pearl atelectasis. Pneumonia could not entirely be excluded. Stable cardiomegaly TECHNICAL DOCUMENTATION: JOB ID: [id number] [employer]- All Rights Reserved
--- NOTE | 2017-04-02 14:05 | RADIOLOGY REPORT (SQ) ---
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 PROCEDURE: Procedure, risks, benefit, and alternative explained to patient who then gave written con sent. The posterior left chest wall was marked using ultrasound guidance. A time-out was called for correct marking verification. Chest prepped and draped using sterile technique. Local anesthesia ac hieved using 7 ml of 1% lidocaine injection. A 6fr Safe-T- Centesis set was introduced into the left pleural space. Fluid was aspirated. The catheter was removed and the entry site was covered with s terile bandage. No immediate complications noted. A total of 500 mL of clear straw-colored fluid was aspirated from the left chest, sent for testing Images acquired during the procedure were stored on PACS. FINDINGS: ENTRY SITE: Left pleural space FLUID VOLUME: 500 mL FLUID ANALYSIS: Yes, sent for testing OTHER: No post procedure complications IMPRESSION: SUCCESSFUL THORACENTESIS USING ULTRASOUND GUIDANCE. COMMENT: Patient medication list reviewed: Yes- Quality ID# [id number]:Eligible professional attests to doc umenting in the medical record they obtained, updated, or reviewed the patient's current medications. Quality ID #[id number]: Final reports for procedures using fluoroscopy that document radiation exposure natalie nano, or exposure time and number of fluorographic images (if radiation exposure indices are not avail able) TECHNICAL DOCUMENTATION: JOB ID: [id number] [employer]- All Rights Reserved
[2017-04-02 15:40] VITALS: BP 145/68
--- NOTE | 2017-04-02 15:45 | RADIOLOGY REPORT (SQ) ---
EXAM DESCRIPTION: CHEST SINGLE VIEW COMPLETED DATE/TIME: 04/02/2017 2:16 pm REASON FOR STUDY: *2 HOUR* LT THORACENTESIS COMPARISON: 04/02/2017, 1138 hours EXAM PARAMETERS: NUMBER OF VIEWS: One view. TECHNIQUE: Single frontal radiographic view of the chest acquired. RADIATION DOSE: NA LIMITATIONS: None. FINDINGS: LUNGS AND PLEURA: No pneumothorax 2 hours post left thoracentesis. There is patchy left basilar airspace disease atelectasis versus pneumonia. No significant residual left pleural fluid. Right hemithorax unremarkable MEDIASTINUM AND HILAR STRUCTURES: No masses. Contour normal. HEART AND VASCULAR STRUCTURES: Stable cardiomegaly BONES: No acute findings. HARDWARE: Unchanged right axillary vascular stent OTHER: No other significant finding. IMPRESSION: No pneumothorax 2 hours post left-sided thoracentesis Persistent left basilar consolidation atelectasis versus pneumonia Stable cardiomegaly TECHNICAL DOCUMENTATION: JOB ID: [id number] [employer]- All Rights Reserved
[2017-04-03 13:27] LABS: TOTAL PROTEIN BODY FLUID 3.5 g/dL (.)
== END 2017-04-02 15:30 | disposition home or self-care (01) ==
LOC: RAD 07:41
PROVIDERS: ATTEND Physician Assistant
PROC: 0W9B3ZZ Drainage of Left Pleural Cavity, Percutaneous Approach (ICD-10-PCS; principal; 2017-04-02)
DX: J90 Pleural effusion, not elsewhere classified (principal); Z79.01 Long term (current) use of anticoagulants; N18.6 End stage renal disease; Z99.2 Dependence on renal dialysis; E11.22 Type 2 diabetes mellitus with diabetic chronic kidney disease; D63.1 Anemia in chronic kidney disease; R06.02 Shortness of breath; R40.0 Somnolence; R06.83 Snoring; D64.9 Anemia, unspecified; E03.9 Hypothyroidism, unspecified; Z78.9 Other specified health status
CPT/HCPCS: 32555; 36415; 71045; 82150; 82565; 82945; 82947; 83615; 84155; 84157; 84520; 85025; 85610; 85730; 87015; 87070; 87075; 87101; 87116; 87205; 87206; 88305; 89050

== ENCOUNTER → 2017-05-16 | Outpatient (CLI) | payer MEDICARE, MEDICAID ==
--- NOTE | 2017-05-16 12:55 | RADIOLOGY REPORT (SQ) ---
EXAM DESCRIPTION: CHEST PA/LATERAL COMPLETED DATE/TIME: 05/16/2017 10:42 am REASON FOR STUDY: PLEURAL EFFUSION, NOT ELSEWHERE CLASSIFIED COMPARISON: 04/02/2017. EXAM PARAMETERS: NUMBER OF VIEWS: two views TECHNIQUE: Digital Frontal and Lateral radiographic views of the chest acquired. RADIATION DOSE: NA LIMITATIONS: none FINDINGS: LUNGS AND PLEURA: Streaky density in the left lung base with small left pleural effusion. Slight increase in pleural fluid since the prior study. Right lung clear. MEDIASTINUM AND HILAR STRUCTURES: No masses or contour abnormalities. HEART AND VASCULAR STRUCTURES: Heart upper limits of normal size. No evidence for failure. BONES: No acute findings. HARDWARE: Right axillary stent. OTHER: No other significant finding. IMPRESSION: STREAKY DENSITY IN THE LEFT LUNG BASE UNCHANGED. THERE IS INCREASE IN THE LEFT PLEURAL EFFUSION. TECHNICAL DOCUMENTATION: JOB ID: [id number] [employer]- All Rights Reserved Reading location - IP/workstation name: [email or web address]
== END ==
LOC: OD 10:29
PROVIDERS: ATTEND Family Medicine
DX: J90 Pleural effusion, not elsewhere classified (principal)
CPT/HCPCS: 71046

== ENCOUNTER → 2017-06-11 | Outpatient (CLI) | payer MEDICARE, MEDICAID ==
--- NOTE | 2017-06-11 14:39 | RADIOLOGY REPORT (SQ) ---
EXAM DESCRIPTION: CHEST PA/LATERAL COMPLETED DATE/TIME: 06/11/2017 1:26 pm REASON FOR STUDY: PLEURAL EFFUSION, NOT ELSEWHERE CLASSIFIED J90 PLEURAL EFFUSION, NOT ELSEWHERE CL ASSIFIED COMPARISON: 05/16/2017 NUMBER OF VIEWS: Two view TECHNIQUE: Frontal and lateral radiographic images of the chest acquired. LIMITATIONS: None. FINDINGS: LUNGS AND PLEURA: Moderate left pleural effusion and associated airspace disease not signi ficantly changed. The right lung is clear. MEDIASTINUM AND HILAR STRUCTURES: Stable heart size and mediastinal structures. HEART AND VASCULAR STRUCTURES: Stable appearance. BONES: No acute findings. HARDWARE: None in the chest. OTHER: No other significant finding. IMPRESSION: Unchanged left pleural effusion. TECHNICAL DOCUMENTATION: JOB ID: [id number] [employer]- All Rights Reserved Reading location - IP/workstation name: [email or web address]
== END ==
LOC: OD 13:10
PROVIDERS: ATTEND Physician Assistant
DX: J90 Pleural effusion, not elsewhere classified (principal); E03.9 Hypothyroidism, unspecified
CPT/HCPCS: 36415; 71046; 84443

== ENCOUNTER → 2017-06-18 | Outpatient (CLI) | payer MEDICARE, MEDICAID ==
[2017-06-18 16:46] LABS: POTASSIUM 4.4 mmol/L (3.6-5.0)
[2017-06-18 17:59] LABS: FOLATE > 20.00 ng/mL (>2.76)
== END ==
LOC: OD 14:46
PROVIDERS: ATTEND Physician Assistant
DX: G47.61 Periodic limb movement disorder (principal)
CPT/HCPCS: 36415; 82306; 82607; 82746; 83735; 84132

== ENCOUNTER 2017-10-01 18:53 | Inpatient (IN) | payer MEDICARE, MEDICAID ==
--- NOTE | 2017-10-01 19:14 | ER Document Report ---
ED Medical Screen (RME) - General Chief Complaint: Breathing Difficulty Stated Complaint: DIFFICULTY BREATHING Time Seen by Provider: 10/01/17 19:06 Notes: RAPID MEDICAL EVALUATION DISCLOSURE I have seen this patient as part of a Rapid Medical Evaluation and, if applicable, placed any initially appropriate orders. The patient will be seen and fully evaluated, including a full history and physical exam, by a provider ( in Main ED or Fast Track) when a room becomes available. 72-year-old female PMH ESRD here with complaints of shortness of breath and left upper back pain ongoing for the past few days. Her doctor told her to go in today and have an extra 2 hours of dialysis thinking it would help however her symptoms persist so she was told to come here to rule out pneumonia. She does not have any chest pain fevers cough. She does have a history of pneumonia several months ago. EXAM CTAB RRR TRAVEL OUTSIDE OF THE [place] IN LAST 30 DAYS: No - Related Data Allergies/Adverse Reactions: tuberculin, purified protein deriva [Tuberculin,Purif.Prot.Deriv.] Allergy ( Severe, Verified 04/02/17 08:02) Penicillins Allergy (Mild, Verified 04/02/17 08:02) Pruritis, Swelling Past Medical History - Past Medical History Cardiac Medical History: Reports: Hx Congestive Heart Failure - possibly?, Hx Hypertension Denies: Hx Coronary Artery Disease, Hx Heart Attack Pulmonary Medical History: Denies: Hx Asthma, Hx Bronchitis, Hx COPD, Hx Pneumonia Neurological Medical History: Denies: Hx Cerebrovascular Accident, Hx Seizures Endocrine Medical History: Reports: Hx Diabetes Mellitus Type 2 Renal/ Medical History: Reports: Hx End Stage Renal Disease - dialysis M_W_F, Hx Hemodialysis. Denies: Hx Peritoneal Dialysis Musculoskeltal Medical History: Reports Hx Arthritis Psychiatric Medical History: Denies: Hx Depression Past Surgical History: Denies: Hx Pacemaker - Immunizations Hx Diphtheria, Pertussis, Tetanus Vaccination: Yes - September History of Influenza Vaccine for 12/2016 - 05/2017 Season: Unknown Physical Exam - Vital signs Vitals: Temp Pulse Resp BP Pulse Ox 98.6 F 66 20 171/57 H 95 10/01/17 18:59 10/01/17 18:59 10/01/17 18:59 10/01/17 18:59 10/01/17 18:59 Course - Vital Signs Vital signs: Temp Pulse Resp BP Pulse Ox 98.6 F 66 20 171/57 H 95 10/01/17 18:59 10/01/17 18:59 10/01/17 18:59 10/01/17 18:59 10/01/17 18:59 Doctor's Discharge - Discharge Referrals: DELORIS REECE, PAConsueloC [Primary Care Provider] - Follow up as needed
[2017-10-01 20:15] LABS: ALANINE AMINOTRANSFERASE 17 U/L (9-52); ALBUMIN 4.2 g/dL (3.5-5.0); ALKALINE PHOSPHATASE 143 U/L (38-126); ASPARTATE AMINO TRANSFERASE 22 U/L (14-36); BILIRUBIN,DIRECT 0.6 mg/dL (0.0-0.4); BILIRUBIN,TOTAL 0.6 mg/dL (0.2-1.3); CALCIUM 9.6 mg/dL (8.4-10.2); GLUCOSE 92 mg/dL (75-110); POTASSIUM 5.1 mmol/L (3.6-5.0); TOTAL PROTEIN 7.4 g/dL (6.3-8.2)
[2017-10-01 20:17] LABS: ABSOLUTE BASOPHILS # (AUTO) 0.1 10^3/uL (0.0-0.2); ABSOLUTE EOSINOPHILS # (AUTO) 0.2 10^3/uL (0.0-0.6); ABSOLUTE LYMPHOCYTES (AUTO) 1.2 10^3/uL (0.5-4.7); ABSOLUTE MONOCYTES (AUTO) 0.6 10^3/uL (0.1-1.4); ABSOLUTE NEUT (AUTO) 4.5 10^3/uL (1.7-8.2); BASOPHILS % (AUTO) 1.2 % (0-2); EOSINOPHILS % (AUTO) 3.6 % (0-6); HEMOGLOBIN 13.6 g/dL (12.0-15.5); MEAN CORPUSCULAR HEMOGLOBIN 31.2 pg (27.0-33.4); MEAN CORPUSCULAR HGB CONC 33.1 g/dL (32.0-36.0); MEAN CORPUSCULAR VOLUME 94 fl (80-97); MONOCYTES % (AUTO) 9.5 % (3-13); PLATELET COUNT 271 10^3/uL (150-450); RED BLOOD COUNT 4.35 10^6/uL (3.72-5.28); RED CELL DISTRIBUTION WIDTH 15.7 % (11.5-14.0); SEGMENTED NEUTROPHILS % (AUTO) 67.7 % (42-78); TOTAL CELLS COUNTED % (AUTO) 100 %; WHITE BLOOD COUNT 6.7 10^3/uL (4.0-10.5)
[2017-10-01 20:30] LABS: BLOOD UREA NITROGEN 78 mg/dL (7-20)
[2017-10-01 20:32] LABS: ANION GAP 22 (5-19); CARBON DIOXIDE 22 mmol/L (22-30); CHLORIDE 97 mmol/L (98-107); SODIUM 141.3 mmol/L (137-145)
[2017-10-01 20:47] LABS: TROPONIN I 0.013 ng/mL
--- NOTE | 2017-10-01 20:49 | RADIOLOGY REPORT (SQ) ---
EXAM DESCRIPTION: CHEST 2 VIEWS COMPLETED DATE/TIME: 10/01/2017 8:25 pm REASON FOR STUDY: SOB back pain; pneumonia etc? COMPARISON: 06/11/2017. TECHNIQUE: Frontal and lateral radiographic views of the chest acquired. NUMBER OF VIEWS: Two view. LIMITATIONS: None. FINDINGS: LUNGS AND PLEURA: Chronic but progressive left pleural effusion, now moderate-large. Asso ciated consolidation and volume loss throughout the lower half of the left lung. No pneumothorax. S light shift of mediastinal structures to the right. MEDIASTINUM AND HILAR STRUCTURES: No contour abnormalities. HEART AND VASCULAR STRUCTURES: Heart normal size. No evidence for failure. BONES: No acute findings. HARDWARE: None in the chest. OTHER: No other significant finding. IMPRESSION: 1. Since May, the chronic pleural effusion has progressed in size, now moderate to la rge. TECHNICAL DOCUMENTATION: JOB ID: [id number] [employer]- All Rights Reserved Reading location - IP/workstation name: [email or web address]
--- NOTE | 2017-10-01 20:55 | ER Document Report ---
ED Respiratory Problem - General Chief Complaint: Breathing Difficulty Stated Complaint: DIFFICULTY BREATHING Time Seen by Provider: 10/01/17 19:06 Notes: Patient is a 72-year-old female that comes emergency department for chief complaint of progressive shortness of breath and dyspnea on exertion for the past 2 weeks. She states now she has gotten bad enough that she cannot lie flat and she cannot walk across the room without feeling very fatigued and out of breath. She denies chest pain, fever, cough. Past medical history includes end-stage renal disease on Saturday dialysis, she told her tanker service attendant Dr. Boyd about her shortness of breath and she had an extra 2 hours of dialysis done today but she states she does not feel improved. The past medical history includes CHF, type 2 diabetes. Patient states she is also been told that she had a right pleural effusion, she had this drained several months ago, uncertain of cause. TRAVEL OUTSIDE OF THE [place] IN LAST 30 DAYS: No - Related Data Allergies/Adverse Reactions: tuberculin, purified protein deriva [Tuberculin,Purif.Prot.Deriv.] Allergy ( Severe, Verified 04/02/17 08:02) Penicillins Allergy (Mild, Verified 04/02/17 08:02) Pruritis, Swelling Past Medical History - General Information source: Patient - Social History Smoking Status: Never Smoker Frequency of alcohol use: None Drug Abuse: None Lives with: Family Family History: Hypertension Patient has suicidal ideation: No Patient has homicidal ideation: No - Past Medical History Cardiac Medical History: Reports: Hx Congestive Heart Failure - possibly?, Hx Hypertension Denies: Hx Coronary Artery Disease, Hx Heart Attack Pulmonary Medical History: Denies: Hx Asthma, Hx Bronchitis, Hx COPD, Hx Pneumonia Neurological Medical History: Denies: Hx Cerebrovascular Accident, Hx Seizures Endocrine Medical History: Reports: Hx Diabetes Mellitus Type 2 Renal/ Medical History: Reports: Hx End Stage Renal Disease - dialysis M_W_F, Hx Hemodialysis. Denies: Hx Peritoneal Dialysis Musculoskeletal Medical History: Reports Hx Arthritis Psychiatric Medical History: Denies: Hx Depression Past Surgical History: Denies: Hx Pacemaker - Immunizations Hx Diphtheria, Pertussis, Tetanus Vaccination: Yes - September Hx Pneumococcal Vaccination: 06/05/11 Review of Systems - Review of Systems Constitutional: No symptoms reported EENT: No symptoms reported Cardiovascular: See HPI Respiratory: See HPI Gastrointestinal: No symptoms reported Genitourinary: No symptoms reported Female Genitourinary: No symptoms reported Musculoskeletal: No symptoms reported Skin: No symptoms reported Hematologic/Lymphatic: No symptoms reported Neurological/Psychological: No symptoms reported Physical Exam - Vital signs Vitals: Temp Pulse Resp BP Pulse Ox 98.6 F 66 20 171/57 H 95 10/01/17 18:59 10/01/17 18:59 10/01/17 18:59 10/01/17 18:59 10/01/17 18:59 - Notes Notes: GENERAL: Alert, interacts well. No acute distress. HEAD: Normocephalic, atraumatic. EYES: Pupils equal, round, and reactive to light. Extraocular movements intact. ENT: Oral mucosa moist, tongue midline. NECK: Full range of motion. Supple. Trachea midline. LUNGS: Significantly decreased breath sounds on the left compared to the right especially in the lower lobe. Patient becomes very short of breath when she is placed in a flat position. Otherwise unremarkable lung exam. No tachypnea or respiratory distress. HEART: Regular rate and rhythm. No murmur ABDOMEN: Soft, non-tender. Non-distended. Bowel sounds present in all 4 quadrants. EXTREMITIES: Moves all 4 extremities spontaneously. No edema, normal radial and dorsalis pedis pulses bilaterally. No cyanosis. BACK: no cervical, thoracic, lumbar midline tenderness. No saddle anesthesia, normal distal neurovascular exam. NEUROLOGICAL: Alert and oriented x3. Normal speech. [cranial nerves II through XII grossly intact]. PSYCH: Normal affect, normal mood. SKIN: Warm, dry, normal turgor. No rashes or lesions noted. Course - Re-evaluation Re-evalutation: Patient is well-appearing on exam, especially when placed on 2 L nasal cannula, she does not tolerate lying flat, she can only walk a very short distance before becoming very short of breath. Decreased breath sounds on the left, chest x-ray shows a large pleural effusion which is much worse compared to prior. General laboratory workup unremarkable, consistent with end-stage renal disease. Vital signs unremarkable except hypertension. Patient just had additional dialysis performed without any improvement of her symptoms. Will likely need thoracentesis performed. I discussed this with family and patient, after discussion they state agreement with this plan. Will discuss for admission to the hospital to have this performed in the morning. We do have nephrology airfreight operations agent for the next few days. Discussed with Dr. Penaloza. Discussed with hospitalist Dr. Louie, patient will be admitted to telemetry full admission. - Vital Signs Vital signs: Temp Pulse Resp BP Pulse Ox 97.9 F 66 18 193/55 H 98 10/02/17 00:40 10/02/17 00:40 10/02/17 00:40 10/02/17 00:40 10/02/17 00:40 - Laboratory Result Diagrams: 10/01/17 20:00 10/01/17 19:40 Laboratory results interpreted by me: 10/01/17 10/01/17 10/01/17 19:40 20:00 20:00 RDW 15.7 H Potassium 5.1 H Chloride 97 L Anion Gap 22 H BUN 78 H Creatinine 7.08 H Est GFR ( Amer) 7 L Est GFR (Non-Af Amer) 6 L Lactic Acid 0.6 L Direct Bilirubin 0.6 H Alkaline Phosphatase 143 H NT-Pro-B Natriuret Pep 10/01/17 20:00 RDW Potassium Chloride Anion Gap BUN Creatinine Est GFR ( Amer) Est GFR (Non-Af Amer) Lactic Acid Direct Bilirubin Alkaline Phosphatase NT-Pro-B Natriuret Pep 19401 H Discharge - Discharge Clinical Impression: Pleural effusion, Dyspnea on exertion, Shortness of breath Condition: Stable Disposition: ADMITTED INPATIENT Admitting Provider: Hospitalist Unit Admitted: Telemetry
--- NOTE | 2017-10-01 22:12 | EKG REPORT ---
SEVERITY:- ABNORMAL ECG - SINUS RHYTHM ATRIAL PREMATURE COMPLEX NONSPECIFIC T ABNORMALITIES, LATERAL LEADS LVH : Confirmed by: Michael Nicholas 01-Oct-2017 22:11:22
[2017-10-01] MEDS ORDERED: IPRATROPIUM/ALBUTEROL 0.5-2.5 MG/3 ML AMPUL NEB PRN (23:23)
[2017-10-01] MEDS ORDERED: DEXTROSE 50%-WATER 25 GM/50 ML DISP.SYRIN IV PRN ×2 (23:23)
[2017-10-01] MEDS ORDERED: DEXTROSE 40% GEL 15 GM TUBE PO PRN ×2 (23:23)
[2017-10-01] MEDS ORDERED: ACETAMINOPHEN 325 MG TABLET PO PRN (23:23)
[2017-10-01] MEDS ORDERED: GLUCAGON,HUMAN RECOMB 1 MG INJ SUBCUT PRN (23:23)
[2017-10-02] MEDS ORDERED: AMLODIPINE BESYLATE 10 MG TABLET PO ONE (02:00)
[2017-10-02] MEDS ORDERED: CARVEDILOL 12.5 MG TABLET PO ONE (02:00)
[2017-10-02] MEDS ORDERED: INSULIN REG, HUMAN 100 UNIT/ML 3 ML VIAL (PYX) SUBCUT PRN (02:27)
[2017-10-02] MEDS ORDERED: DEXTROSE 50%-WATER 25 GM/50 ML DISP.SYRIN IV PRN ×2 (02:27)
[2017-10-02] MEDS ORDERED: DEXTROSE 40% GEL 15 GM TUBE PO PRN ×2 (02:27)
[2017-10-02] MEDS ORDERED: GLUCAGON,HUMAN RECOMB 1 MG INJ IM PRN (02:27)
--- NOTE | 2017-10-02 02:45 | PDOC H&P ---
History of Present Illness Admission Date/PCP: 10/01/17 23:07 DAPHNE JANE MD Patient complains of: Shortness of breath History of Present Illness: NICO BOBO is a 72 year old female ESRD on hemodialysis Saturday, Saturday, Saturday. Comes to the emergency department complaining of progressive shortness of breath and left back pain. Symptoms started about 2 weeks ago and has been progressing, associated with fatigue mild wheezing and agitation. Positive orthopnea. 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 The patient had a thoracentesis last year for a left pleural effusion at it was suspected since, she was sent to the emergency department. In the emergency department chest x-ray positive for large left side pleural effusion the patient will be admitted for IR thoracentesis. Patient denies fever, she is always cold, denies cough, has some chronic whitish sputum, denies chest pain, abdominal pain, changes in her urine or bowel movements. Past Medical History Cardiac Medical History: Reports: Congestive Heart Failure - possibly?, Hypertension Denies: Coronary Artery Disease, Myocardial Infarction Pulmonary Medical History: Denies: Asthma, Bronchitis, Chronic Obstructive Pulmonary Disease (COPD), Pneumonia Neurological Medical History: Denies: Seizures Endocrine Medical History: Reports: Diabetes Mellitus Type 2 Renal/ Medical History: Reports: End Stage Renal Disease - dialysis M_W_F Musculoskeltal Medical History: Reports: Arthritis Psychiatric Medical History: Denies: Depression Hematology: Denies: Anemia Past Surgical History Past Surgical History: Denies: Pacemaker Social History Information Source: Relative Smoking Status: Never Smoker Frequency of Alcohol Use: None Hx Recreational Drug Use: No Drugs: None Hx Prescription Drug Abuse: No Family History Family History: Hypertension Parental Family History Reviewed: No Children Family History Reviewed: NA Sibling(s) Family History Reviewed.: NA Medication/Allergy Home Medications: Amlodipine Besylate [Norvasc 10 mg Tablet] 10 mg PO QHS 03/25/17 Carvedilol [Coreg 25 mg Tablet] 25 mg PO Q12 03/25/17 Levothyroxine Sodium [Synthroid 0.1 mg Tablet] 0.1 mg PO DAILY 03/25/17 Allergies/Adverse Reactions: tuberculin, purified protein deriva [Tuberculin,Purif.Prot.Deriv.] Allergy ( Severe, Verified 04/02/17 08:02) Penicillins Allergy (Mild, Verified 04/02/17 08:02) Pruritis, Swelling Review of Systems Review of Systems: As outlined in the HPI, others negative Physical Exam Vital Signs: Temp Pulse Resp BP Pulse Ox 97.9 F 66 18 193/55 H 98 10/02/17 00:40 10/02/17 00:40 10/02/17 00:40 10/02/17 00:40 10/02/17 00:40 Intake & Output 09/30/17 10/01/17 10/02/17 06:59 06:59 06:59 Weight 60.3 kg Additional comments: General appearance: Well-developed, well-nourished, alert and cooperative, and appears to be in no acute distress Head: Normocephalic Eyes: PEERL, EOMI, vision is grossly intact. Ears: External auditory canal and tympanic membranes clear, hearing grossly intact. Nose: No nasal discharge. Throat: Oral cavity and pharynx normal. No inflammation, swelling, exudate or lesions. Neck: Neck supple, nontender without lymphadenopathy, masses or thyromegaly. Cardiac: Normal S1 and S2. No S3, S4 or murmurs. Rhythm is regular. 1+ peripheral edema, no cyanosis or pallor. Extremities are warm and well perfused. Capillary refill is less than 2 seconds. No carotid bruits. Lungs: Decreased breath sounds in the left lower lobe, not appreciate rales, rhonchi, mild expiratory wheezing. Not using accessory muscles. Abdomen: Positive bowel sounds. Soft. Nondistended, nontender. No guarding or rebound. No masses. No hepatosplenomegaly Extremities: No significant deformity or joint abnormality. Peripheral pulses decreased in lower extremities. Mild varicosities. Right arm AV fistula with good thrill Neurological: Cranial nerves II through XII grossly intact. Strength and sensation symmetric and intact throughout. Reflexes 2+ throughout. Skin: Skin normal color, texture and turgor with no lesions or eruptions, warm and dry. Psychiatric: The mental examination revealed the patient was oriented to person , place, and time. The patient was able to demonstrate good judgment on recent , without hallucinations, abnormal affect or abnormal behaviors. Results Laboratory Results: 10/01/17 10/01/17 10/01/17 19:40 20:00 20:00 WBC 6.7 Hgb 13.6 Hct 41.0 Plt Count 271 Lymphocytes % 18.0 Sodium 141.3 Potassium 5.1 H Chloride 97 L BUN 78 H Creatinine 7.08 H Glucose 92 Troponin I 0.013 NT-Pro-B Natriuret Pep 62911 H Impressions: Chest X-Ray 10/01/17 19:11 IMPRESSION: 1. Since May, the chronic pleural effusion has progressed in size, now moderate to large. Assessment & Plan - Diagnosis (1) Recurrent left pleural effusion Is this a current diagnosis for this admission?: Yes Plan: With a large left pleural effusion in the chest x-ray which did not improved after extra hemodialysis given today. Patient may need a thoracentesis as she had one a year ago. I placed an order for IR thoracentesis. Continue oxygen via nasal cannula. (2) ESRD on dialysis Plan: Patient ESRD on hemodialysis Saturday, today, extra dialysis on Saturday. Patient very compliant with her hemodialysis. Has an AV fistula in the right upper extremity. Will call nephrology consultation Dr. Yony Brenner. (3) Hyperkalemia Plan: Potassium mildly elevated at 5.1. Will reassess in the morning. (4) Hypertension Is this a current diagnosis for this admission?: Yes Plan: Uncontrolled hypertension in the ED, blood pressure 171/51, 1 the patient was transferred to the floor the blood pressure was even more elevated. I am asking to give her night blood pressure pills she missed those in the ED. - Inpatient Certification Based on my medical assessment, after consideration of the patient's comorbidities, presenting symptoms, or acuity I expect that the services needed warrant INPATIENT care.: Yes I certify that my determination is in accordance with my understanding of Medicare's requirements for reasonable and necessary INPATIENT services [42 CFR 412.3e].: Yes Medical Necessity: Significant Comorbidiites Make Outpatient Treatment Too Risky - Plan Summary Plan Summary: PCP DR. Schroeder
[2017-10-02] MEDS: HEPARIN SOD (PORCINE) 5,000 UNIT/ML 1 ML SYRINGE SUBCUT SCH ×3 (03:23→22:34)
[2017-10-02] MEDS: LEVOTHYROXINE SODIUM 0.1 MG TABLET PO SCH (06:19)
[2017-10-02 06:57] LABS: HEMATOCRIT 37.4 % (36.0-47.0); HEMOGLOBIN 12.5 g/dL (12.0-15.5); MEAN CORPUSCULAR HEMOGLOBIN 31.4 pg (27.0-33.4); MEAN CORPUSCULAR HGB CONC 33.3 g/dL (32.0-36.0); MEAN CORPUSCULAR VOLUME 94 fl (80-97); PLATELET COUNT 245 10^3/uL (150-450); RED BLOOD COUNT 3.97 10^6/uL (3.72-5.28); RED CELL DISTRIBUTION WIDTH 15.7 % (11.5-14.0); WHITE BLOOD COUNT 6.7 10^3/uL (4.0-10.5)
[2017-10-02 09:23] LABS: INTERNATIONAL RATION (INR) 1.03
[2017-10-02 09:24] LABS: PARTIAL THROMBOPLASTIN TIME 33.2 SEC (23.5-35.8)
[2017-10-02 09:46] LABS: BLOOD UREA NITROGEN 92 mg/dL (7-20); CALCIUM 9.1 mg/dL (8.4-10.2); CARBON DIOXIDE 22 mmol/L (22-30); CHLORIDE 99 mmol/L (98-107); GLUCOSE 81 mg/dL (75-110); POTASSIUM 5.7 mmol/L (3.6-5.0); SODIUM 141.2 mmol/L (137-145)
[2017-10-02 09:47] LABS: ANION GAP 19 (5-19)
[2017-10-02] MEDS: CARVEDILOL 12.5 MG TABLET PO SCH ×2 (10:09→22:34)
[2017-10-02] MEDS ORDERED: LIDOCAINE 1% INJ-PF (10 MG/ML) 30 ML SDV ONE (10:12)
--- NOTE | 2017-10-02 11:31 | RADIOLOGY REPORT (SQ) ---
EXAM DESCRIPTION: CHEST SINGLE VIEW COMPLETED DATE/TIME: 10/02/2017 11:20 am REASON FOR STUDY: S/P LEFT CHEST TUBE PLACEMENT COMPARISON: Ultrasound-guided chest tube placement/left thoracentesis earlier today Chest films 10/01/2017, 06/11/2017, 05/16/2017 EXAM PARAMETERS: NUMBER OF VIEWS: One view. TECHNIQUE: Single frontal radiographic view of the chest acquired. RADIATION DOSE: NA LIMITATIONS: None. FINDINGS: LUNGS AND PLEURA: Post ultrasound-guided left chest tube placement with 8 Estonian locking p igtail catheter in the lower left pleural space. There is trace left apical pneumothorax. Persisten t large left pleural effusion with lingular and left lower lobe collapse. Right lung well inflated and clear. No right pleural effusion. No right pneumothorax. MEDIASTINUM AND HILAR STRUCTURES: No masses. Contour normal. HEART AND VASCULAR STRUCTURES: Stable cardiomegaly BONES: No acute findings. HARDWARE: 8 Estonian locking pigtail catheter left pleural space. Right subclavian vein stent. OTHER: No other significant finding. IMPRESSION: Trace left apical pneumothorax post left chest tube placement. Persistent large left pl eural effusion. Follow-up film in 2 hours. TECHNICAL DOCUMENTATION: JOB ID: [id number] [employer]- All Rights Reserved Reading location - IP/workstation name: [email or web address]
--- NOTE | 2017-10-02 11:43 | RADIOLOGY REPORT (SQ) ---
EXAM DESCRIPTION: U/S THORACENTESIS W/CHEST TUBE COMPLETED DATE/TIME: 10/02/2017 11:24 am REASON FOR STUDY: Left pleural effusion COMPARISON: Chest films 10/01/2017, 06/11/2017, 05/16/2017 FLUORO TIME: Ultrasound guidance, no fluoro time 1 series of ultrasound images saved to PACS. TECHNIQUE: Image guided chest tube placement using sterile technique. LIMITATIONS: None FINDINGS: After written consent was obtained and explaining the risks and benefits of chest tube ashley cement, the patient was placed upright on the ultrasound gurney. A time out was then called for site verification. An entry site was then marked using ultrasound guidance. The left posterior chest wall was then prepped and draped in a sterile fashion. The site was then anesthetized using 7 ml of 1% l idocaine solution. An 11 blade scalpel was used to make a small skin incision. A 18g -7cm needle wa s advanced into the chest wall. A.038 guidewire was passed through the needle. The tract was then d ilated using a 8 Yemeni dilator. A 8 Yemeni fr drain was then placed over the wire. The catheter wa s then attached to the collection device. The entry site was covered with a sterile bandage. The left pleural space pigtail catheter was hooked to a Pleur-evac to 20 cm of water suction. Post p rocedure chest x-ray dictated separately demonstrates a trace left apical pneumothorax. This was asy mptomatic. Documentation face to face time, the performing proceduralist, spent monitoring the patient: 10minute s. Specimen of pleural fluid was sent to the lab for testing. IMPRESSION: SUCCESSFUL PLACEMENT OF A LEFT SIDED 8 Yemeni locking pigtail CHEST TUBE to Pleur-Evac U SING ULTRASOUND GUIDANCE. Specimen of pleural fluid was sent to the lab for testing. COMMENT: Patient medication list reviewed: Yes- Quality ID# [id number]:Eligible professional attests to do cumenting in the medical record they obtained, updated, or reviewed the patient's current medications . Quality ID 145: Final reports for procedures using fluoroscopy that document radiation exposure natalie nano, or exposure time and number of fluorographic images (if radiation exposure indices are not avail able) TECHNICAL DOCUMENTATION: JOB ID: [id number] [email or web address]- All Rights Reserved rev Reading location - IP/workstation name: [email or web address] [id number]
[2017-10-02 11:59] LABS: FLUID SOURCE LUNG; FLUID TYPE PLEURAL
[2017-10-02 12:00] LABS: FLUID APPEARANCE CLOUDY; FLUID COLOR AMBER; FLUID VISCOSITY LIQUID
[2017-10-02] MEDS ORDERED: HYDROCODONE/ACETAMINOPHEN 5-325 MG TABLET ONE (13:54)
[2017-10-02] MEDS ORDERED: ONDANSETRON 4 MG TAB.RAPDIS PO PRN (13:59)
[2017-10-02] MEDS ORDERED: HYDROCODONE/ACETAMINOPHEN 5-325 MG TABLET PO PRN (14:01)
[2017-10-02] MEDS ORDERED: MORPHINE SULFATE 10 MG/ML INJ IV PRN (14:05)
--- NOTE | 2017-10-02 17:08 | RADIOLOGY REPORT (SQ) ---
EXAM DESCRIPTION: CHEST SINGLE VIEW COMPLETED DATE/TIME: 10/02/2017 1:12 pm REASON FOR STUDY: 2 HOURS S/P LEFT CHEST TUBE PLACEMENT COMPARISON: Chest film 10/02/2017, 1117 hours EXAM PARAMETERS: NUMBER OF VIEWS: One view. TECHNIQUE: Single frontal radiographic view of the chest acquired. RADIATION DOSE: NA LIMITATIONS: None. FINDINGS: LUNGS AND PLEURA: The left 8 Wallisian pleural space pigtail catheter has been on [address] suction for 2 hours. The left pleural effusion has resolved. There is a small basilar pneumotho rax adjacent to the tube. Consolidation in the periphery of the left lower lobe is present, likely a telectasis. These findings were called to Bethany Reed, 1330 hours 10/02/2017. Right lung well inflated and grossly clear. No right pleural effusion or pneumothorax. MEDIASTINUM AND HILAR STRUCTURES: No masses. Contour normal. HEART AND VASCULAR STRUCTURES: Stable cardiomegaly. BONES: No acute findings. HARDWARE: New unchanged left pleural space pigtail catheter and right subclavian venous stent. OTHER: No other significant finding. IMPRESSION: Resolved left pleural effusion. The left pleural space 8 Wallisian pigtail catheters present with small adjacent basilar pneumothorax. There is a rind of consolidation around the periphery of the left lower lobe, likely atelectasis. TECHNICAL DOCUMENTATION: JOB ID: [id number] [employer]- All Rights Reserved Reading location - IP/workstation name: [email or web address]
[2017-10-02] MEDS ORDERED: AMLODIPINE BESYLATE 10 MG TABLET PO SCH (22:00)
[2017-10-03] MEDS: HEPARIN SOD (PORCINE) 5,000 UNIT/ML 1 ML SYRINGE SUBCUT SCH ×2 (06:33→17:34)
[2017-10-03] MEDS: LEVOTHYROXINE SODIUM 0.1 MG TABLET PO SCH (06:33)
[2017-10-03 06:38] LABS: ABSOLUTE BASOPHILS # (AUTO) 0.1 10^3/uL (0.0-0.2); ABSOLUTE EOSINOPHILS # (AUTO) 0.2 10^3/uL (0.0-0.6); ABSOLUTE LYMPHOCYTES (AUTO) 1.1 10^3/uL (0.5-4.7); ABSOLUTE MONOCYTES (AUTO) 0.7 10^3/uL (0.1-1.4); ABSOLUTE NEUT (AUTO) 5.6 10^3/uL (1.7-8.2); BASOPHILS % (AUTO) 0.9 % (0-2); EOSINOPHILS % (AUTO) 2.9 % (0-6); HEMATOCRIT 38.2 % (36.0-47.0); HEMOGLOBIN 12.8 g/dL (12.0-15.5); LYMPHOCYTES % (AUTO) 14.5 % (13-45); MEAN CORPUSCULAR HEMOGLOBIN 31.5 pg (27.0-33.4); MEAN CORPUSCULAR HGB CONC 33.5 g/dL (32.0-36.0); MEAN CORPUSCULAR VOLUME 94 fl (80-97); PLATELET COUNT 263 10^3/uL (150-450); RED BLOOD COUNT 4.07 10^6/uL (3.72-5.28); RED CELL DISTRIBUTION WIDTH 15.6 % (11.5-14.0); SEGMENTED NEUTROPHILS % (AUTO) 72.7 % (42-78); TOTAL CELLS COUNTED % (AUTO) 100 %; WHITE BLOOD COUNT 7.6 10^3/uL (4.0-10.5)
[2017-10-03 06:58] LABS: ALANINE AMINOTRANSFERASE 20 U/L (9-52); ALBUMIN 3.5 g/dL (3.5-5.0); ALKALINE PHOSPHATASE 123 U/L (38-126); ANION GAP 17 (5-19); ASPARTATE AMINO TRANSFERASE 14 U/L (14-36); BILIRUBIN,DIRECT 0.4 mg/dL (0.0-0.4); BILIRUBIN,TOTAL 0.5 mg/dL (0.2-1.3); CALCIUM 8.7 mg/dL (8.4-10.2); CARBON DIOXIDE 27 mmol/L (22-30); CHLORIDE 97 mmol/L (98-107); GLUCOSE 91 mg/dL (75-110); POTASSIUM 5.1 mmol/L (3.6-5.0); SODIUM 140.5 mmol/L (137-145); TOTAL PROTEIN 6.1 g/dL (6.3-8.2)
[2017-10-03 07:19] LABS: BLOOD UREA NITROGEN 65 mg/dL (7-20)
--- NOTE | 2017-10-03 08:46 | PDOC PROGRESS REPORT ---
Subjective Progress Note for:: 10/02/17 Subjective:: The patient had a chest tube placed this morning for recurrent left pleural effusion. It is unclear how much they actually christal off during the thoracentesis but she has put out over a liter of fluids and she is returned to the room. I spoke at length to the patient's family at the bedside. The patient just lost her son this week and the is scheduled for Saturday. The patient's family would like to drain this effusion get her out of the hospital to go to the and then she could follow-up as an outpatient. The patient states that her shortness of breath is much improved. She is having some pain at the site of the chest tube. She does not have a cough. No fever or shaking chills. No nausea vomiting or diarrhea. No urinary complaints. She is going to have dialysis this afternoon. Reason For Visit: LEFT PLEURAL EFFUSION Physical Exam Vital Signs: Temp Pulse Resp BP Pulse Ox 98.5 F 67 16 162/53 H 96 10/03/17 07:17 10/03/17 08:30 10/03/17 08:30 10/03/17 07:17 10/03/17 08:30 Intake & Output 10/02/17 10/03/17 10/04/17 06:59 06:59 06:59 Intake Total 0 822 Output Total 2851 Balance 0 -2028 Weight 60.3 kg 60.6 kg General appearance: PRESENT: no acute distress, well-developed, well-nourished, other - She is receiving oxygen via nasal cannula Head exam: PRESENT: atraumatic, normocephalic Respiratory exam: PRESENT: clear to auscultation rashmi, other - She is diminished in the left lower base. ABSENT: rales, rhonchi, wheezes Cardiovascular exam: PRESENT: RRR. ABSENT: diastolic murmur, rubs, systolic murmur GI/Abdominal exam: PRESENT: normal bowel sounds, soft. ABSENT: distended, guarding, mass, organolmegaly, rebound, tenderness Rectal exam: PRESENT: deferred Extremities exam: PRESENT: full ROM. ABSENT: calf tenderness, clubbing, pedal edema Neurological exam: PRESENT: alert, awake, oriented to person, oriented to place , oriented to time, oriented to situation, CN II-XII grossly intact. ABSENT: motor sensory deficit Psychiatric exam: PRESENT: appropriate affect, normal mood. ABSENT: homicidal ideation, suicidal ideation Skin exam: PRESENT: dry, intact, warm. ABSENT: cyanosis, rash Results Laboratory Results: 10/03/17 06:05 10/03/17 06:05 10/02/17 10/02/17 10/02/17 08:34 08:34 10:57 WBC RBC Hgb Hct MCV MCH MCHC RDW Plt Count Seg Neutrophils % Lymphocytes % Monocytes % Eosinophils % Basophils % Absolute Neutrophils Absolute Lymphocytes Absolute Monocytes Absolute Eosinophils Absolute Basophils Sodium 141.2 Potassium 5.7 H Chloride 99 Carbon Dioxide 22 Anion Gap 19 BUN 92 H Creatinine 8.58 H Est GFR ( Amer) 5 L Est GFR (Non-Af Amer) 5 L Glucose 81 Calcium 9.1 Phosphorus 8.4 H Magnesium Total Bilirubin AST ALT Alkaline Phosphatase Total Protein Albumin Fluid Type PLEURAL Fluid Source LUNG Fluid Color INES Fluid Appearance CLOUDY Fluid Viscosity LIQUID Fluid WBC 75 Fluid RBC 8300 10/03/17 10/03/17 06:05 06:05 WBC 7.6 RBC 4.07 Hgb 12.8 Hct 38.2 MCV 94 MCH 31.5 MCHC 33.5 RDW 15.6 H Plt Count 263 Seg Neutrophils % 72.7 Lymphocytes % 14.5 Monocytes % 9.0 Eosinophils % 2.9 Basophils % 0.9 Absolute Neutrophils 5.6 Absolute Lymphocytes 1.1 Absolute Monocytes 0.7 Absolute Eosinophils 0.2 Absolute Basophils 0.1 Sodium 140.5 Potassium 5.1 H Chloride 97 L Carbon Dioxide 27 Anion Gap 17 BUN 65 H D Creatinine 6.84 H Est GFR ( Amer) 7 L Est GFR (Non-Af Amer) 6 L Glucose 91 Calcium 8.7 Phosphorus Magnesium 2.0 Total Bilirubin 0.5 AST 14 ALT 20 Alkaline Phosphatase 123 Total Protein 6.1 L Albumin 3.5 Fluid Type Fluid Source Fluid Color Fluid Appearance Fluid Viscosity Fluid WBC Fluid RBC Impressions: Chest X-Ray 10/02/17 00:00 IMPRESSION: Resolved left pleural effusion. The left pleural space 8 Kittitian pigtail catheters present with small adjacent basilar pneumothorax. There is a rind of consolidation around the periphery of the left lower lobe, likely atelectasis. Thoracentesis Ultrasound 10/02/17 00:00 IMPRESSION: SUCCESSFUL PLACEMENT OF A LEFT SIDED 8 Kittitian locking pigtail CHEST TUBE to Pleur-Evac USING ULTRASOUND GUIDANCE. Specimen of pleural fluid was sent to the lab for testing. Assessment & Plan - Diagnosis (1) Acute respiratory failure with hypoxia Is this a current diagnosis for this admission?: Yes Plan: Secondary to recurrent pleural effusion. Improving. She will remain with chest tube in place today. (2) Recurrent left pleural effusion Is this a current diagnosis for this admission?: Yes Plan: Currently with chest tube in place. She is already drained a liter of fluid since she came back from the room. Hopefully we can get her stabilized so that she can go home on Saturday for her son's on Saturday. (3) Volume overload Is this a current diagnosis for this admission?: Yes Plan: She will be dialyzed today. Dr. Brenner has been consulted (4) End stage renal disease Is this a current diagnosis for this admission?: Yes Plan: She follows with Dr. Boyd in [place]. This is the third day in a row that she is received dialysis (5) Hyperkalemia Is this a current diagnosis for this admission?: Yes Plan: She will be dialyzed today (6) Hypertension Is this a current diagnosis for this admission?: Yes Plan: Continue home regimen (7) Diabetes mellitus Is this a current diagnosis for this admission?: Yes Plan: Well-controlled on current regimen (8) Full code status Is this a current diagnosis for this admission?: Yes - Time Time Spent with patient: 25-34 minutes - Inpatient Certification Medical Necessity: Other - Inpatient hospitalization remains necessary. The patient has a chest tube in place and is still acutely hypoxic. Timing of disposition will be determined by her clinical course
--- NOTE | 2017-10-03 09:16 | PDOC CONSULTATION ---
Consultation Consult Date: 10/02/17 Consult reason:: Hemodialysis. History of Present Illness Admission Date/PCP: 10/01/17 23:07 DAPHNE JANE MD History of Present Illness: NICO BOBO is a 72 year old female With a history of ESRD on hemodialysis who is a patient of Dr. Kelby Boyd [facility] was admitted with history of progressive shortness of breath. Evaluations in the ER revealed that she had a large left pleural effusion. She has undergone a large volume thoracentesis and is feeling better. Currently being seen on hemodialysis. She is currently undergoing dialysis without any issues. Vital signs are stable. She denies any history of fever or chills or chest pains. Orders were reviewed with the treating dialysis nurse. Past Medical History Cardiac Medical History: Reports: Hypertension-primary Denies: Coronary Artery Disease, Myocardial Infarction Pulmonary Medical History: Denies: Asthma, Bronchitis, Chronic Obstructive Pulmonary Disease (COPD), Pneumonia Neurological Medical History: Denies: Seizures Endocrine Medical History: Reports: Diabetes Mellitus Type 2 Renal/ Medical History: Reports: End Stage Renal Disease - dialysis M_W_F, Secondary Hyperparathyroidism Musculoskeltal Medical History: Reports: Arthritis Psychiatric Medical History: Denies: Depression Hematology Medical History: Reports Anemia of Chronic Kidney Disease Past Surgical History Past Surgical History: Denies: Pacemaker Social History Lives with: Family Smoking Status: Never Smoker Frequency of Alcohol Use: None Hx Recreational Drug Use: No Drugs: None Hx Prescription Drug Abuse: No Family History Parental Family History Reviewed: No Children Family History Reviewed: No Sibling(s) Family History Reviewed.: No Medication/Allergy Home Medications: Amlodipine Besylate [Norvasc 10 mg Tablet] 10 mg PO QHS 03/25/17 Carvedilol [Coreg 25 mg Tablet] 25 mg PO Q12 03/25/17 Levothyroxine Sodium [Synthroid 0.1 mg Tablet] 0.1 mg PO DAILY 03/25/17 Allergies/Adverse Reactions: tuberculin, purified protein deriva [Tuberculin,Purif.Prot.Deriv.] Allergy ( Severe, Verified 04/02/17 08:02) Penicillins Allergy (Mild, Verified 04/02/17 08:02) Pruritis, Swelling Review of Systems Constitutional: PRESENT: fatigue. ABSENT: anorexia, chills, fever(s), headache( s), night sweats, weakness Nose, Mouth, and Throat: ABSENT: mouth pain, sore throat Cardiovascular: PRESENT: dyspnea on exertion. ABSENT: chest pain, edema, orthropnea Respiratory: ABSENT: hemoptysis Gastrointestinal: ABSENT: coffee ground emesis, constipation, diarrhea, hematemesis, hematochezia Neurological: ABSENT: abnormal gait, confusion, convulsions, focal weakness Hematologic/Lymphatic: ABSENT: easy bruising, lymphadenopathy Physical Exam Vital Signs: Temp Pulse Resp BP Pulse Ox 97.8 F 58 L 16 150/50 H 99 10/02/17 07:00 10/02/17 07:00 10/02/17 07:00 10/02/17 07:00 10/02/17 07:00 Intake & Output 10/01/17 10/02/17 10/03/17 06:59 06:59 06:59 Intake Total 0 Balance 0 Weight 60.3 kg General appearance: PRESENT: no acute distress Eye exam: PRESENT: conjunctiva pink, EOMI, PERRLA Ear exam: PRESENT: normal external ear exam Mouth exam: PRESENT: moist, neck supple Neck exam: ABSENT: lymphadenopathy, meningismus, tenderness, thyromegaly, tracheal deviation Respiratory exam: PRESENT: clear to auscultation rashmi, decreased breath sounds. ABSENT: crackles, rhonchi Cardiovascular exam: PRESENT: +S1, +S2 GI/Abdominal exam: PRESENT: normal bowel sounds, soft. ABSENT: organomegaly, tenderness Extremities exam: PRESENT: pedal edema Neurological exam: PRESENT: alert, awake, oriented to person, oriented to place Skin exam: ABSENT: cyanosis, erythema, mottled, rash Results Laboratory Results: 10/02/17 06:45 10/02/17 08:34 10/02/17 10/02/17 10/02/17 06:45 08:34 08:34 WBC 6.7 RBC 3.97 Hgb 12.5 Hct 37.4 MCV 94 MCH 31.4 MCHC 33.3 RDW 15.7 H Plt Count 245 Sodium 141.2 Potassium 5.7 H Chloride 99 Carbon Dioxide 22 Anion Gap 19 BUN 92 H Creatinine 8.58 H Est GFR ( Amer) 5 L Est GFR (Non-Af Amer) 5 L Glucose 81 Calcium 9.1 Phosphorus 8.4 H Fluid Type Fluid Source Fluid Color Fluid Appearance Fluid Viscosity Fluid WBC Fluid RBC 10/02/17 10:57 WBC RBC Hgb Hct MCV MCH MCHC RDW Plt Count Sodium Potassium Chloride Carbon Dioxide Anion Gap BUN Creatinine Est GFR ( Amer) Est GFR (Non-Af Amer) Glucose Calcium Phosphorus Fluid Type PLEURAL Fluid Source LUNG Fluid Color INES Fluid Appearance CLOUDY Fluid Viscosity LIQUID Fluid WBC 75 Fluid RBC 8300 Impressions: Thoracentesis Ultrasound 10/02/17 00:00 IMPRESSION: SUCCESSFUL PLACEMENT OF A LEFT SIDED 8 British locking pigtail CHEST TUBE to Pleur-Evac USING ULTRASOUND GUIDANCE. Specimen of pleural fluid was sent to the lab for testing. Assessment & Plan - Diagnosis (1) ESRD on dialysis Plan: Seen on dialysis. Currently undergoing dialysis without any issues Vital signs are stable. Dialysis is being supervised to ensure a safe and smooth procedure. Plan to remove 1-2 L as tolerated. Orders were discussed with treating cashier [employer] service [employer]. (2) Dyspnea on exertion Plan: Secondary to large left pleural effusion.Now s/p thoracentesis and feeling better (3) Pleural effusion Plan: s/p thoracentesis Management as per hospitalist (4) Diabetes Plan: Adv tight control (5) Hypertension Is this a current diagnosis for this admission?: Yes Plan: Stable.
--- NOTE | 2017-10-03 09:48 | RADIOLOGY REPORT (SQ) ---
EXAM DESCRIPTION: CHEST 2 VIEWS COMPLETED DATE/TIME: 10/03/2017 8:43 am REASON FOR STUDY: pleural effusion f/u COMPARISON: Chest films 10/02/2017, 09/21/2017, 06/11/2017 EXAM PARAMETERS: NUMBER OF VIEWS: two views TECHNIQUE: Digital Frontal and Lateral radiographic views of the chest acquired. RADIATION DOSE: NA LIMITATIONS: none FINDINGS: LUNGS AND PLEURA: Trace left apical and basilar pneumothorax. Unchanged left pleural spac e pigtail catheter. Rind of chronic atelectasis at the left lung base laterally. Right lung well inflated and clear. No right pleural effusion or pneumothorax. MEDIASTINUM AND HILAR STRUCTURES: No masses or contour abnormalities. HEART AND VASCULAR STRUCTURES: Stable cardiomegaly BONES: No acute findings. HARDWARE: Left pleural space pigtail catheter unchanged. Right axillary/ subclavian venous stent unc hanged. OTHER: No other significant finding. IMPRESSION: Trace left apical and basilar pneumothorax. Left chest tube unchanged. Chronic atelect asis periphery left lung base. No gross re-accumulation of left pleural effusion. TECHNICAL DOCUMENTATION: JOB ID: [id number] [employer]- All Rights Reserved Reading location - IP/workstation name: [email or web address]
[2017-10-03] MEDS: CARVEDILOL 12.5 MG TABLET PO SCH (10:32)
--- NOTE | 2017-10-03 13:17 | RADIOLOGY REPORT (SQ) ---
EXAM DESCRIPTION: CHEST 2 VIEWS COMPLETED DATE/TIME: 10/03/2017 12:47 pm REASON FOR STUDY: pelural effusion f/u COMPARISON: 10/03/2017, 10/02/2017 EXAM PARAMETERS: NUMBER OF VIEWS: two views TECHNIQUE: Digital Frontal and Lateral radiographic views of the chest acquired. RADIATION DOSE: NA LIMITATIONS: none FINDINGS: LUNGS AND PLEURA: Chest tube has been on water seal for 2 hours. There is no change in th e tiny left apical and left basilar pneumothorax. Again, a rind of atelectasis is present around the periphery of the left lower lobe. Right lung well inflated and clear. No right pleural effusion or pneumothorax. MEDIASTINUM AND HILAR STRUCTURES: No masses or contour abnormalities. HEART AND VASCULAR STRUCTURES: Stable cardiomegaly BONES: No acute findings. HARDWARE: Left pleural space pigtail catheter unchanged OTHER: No other significant finding. IMPRESSION: No change in appearance of the chest, after 2 hours of water seal on left pleural space pigtail catheter. TECHNICAL DOCUMENTATION: JOB ID: [id number] [employer]- All Rights Reserved Reading location - IP/workstation name: [email or web address]
--- NOTE | 2017-10-03 13:20 | RADIOLOGY REPORT (SQ) ---
EXAM DESCRIPTION: CHEST SINGLE VIEW COMPLETED DATE/TIME: 10/03/2017 12:47 pm REASON FOR STUDY: POST CHEST TUBE REMOVAL COMPARISON: 10/03/2017 EXAM PARAMETERS: NUMBER OF VIEWS: One view. TECHNIQUE: Single frontal radiographic view of the chest acquired. RADIATION DOSE: NA LIMITATIONS: None. FINDINGS: LUNGS AND PLEURA: Tiny left apical pneumothorax is identified status post removal of the p leural drainage catheter on the left. Previously described left basilar densities are stable. The r ight lung remains clear and well expanded. MEDIASTINUM AND HILAR STRUCTURES: No masses. Contour normal. HEART AND VASCULAR STRUCTURES: The configuration of the heart mediastinal structures is unchanged BONES: No acute findings. HARDWARE: Left pleural drainage catheter has been removed since the previous study. Vascular stent i s again identified overlying the left axillary region OTHER: No other significant finding. IMPRESSION: Tiny left apical pneumothorax status post removal of the pleural drainage catheter on th e left. This was present on the previous study. Other findings as noted above TECHNICAL DOCUMENTATION: JOB ID: [id number] [employer]- All Rights Reserved Reading location - IP/workstation name: [email or web address]
--- NOTE | 2017-10-03 13:49 | PDOC PROGRESS REPORT ---
Subjective Progress Note for:: 10/03/17 Subjective:: Patient was seen at bedside with her family. She recently had a chest tube placed and currently is sore around where it was placed. According to her she feels much better. She denies SOB. She also denies fevers, chills, n/v/d/c. Reason For Visit: LEFT PLEURAL EFFUSION Physical Exam Vital Signs: Temp Pulse Resp BP Pulse Ox 98.8 F 69 16 134/52 H 96 10/03/17 11:02 10/03/17 11:02 10/03/17 11:02 10/03/17 11:02 10/03/17 11:02 Intake & Output 10/02/17 10/03/17 10/04/17 06:59 06:59 06:59 Intake Total 0 822 Output Total 2851 Balance 0 -2028 Weight 60.3 kg 60.6 kg General appearance: PRESENT: no acute distress, well-developed, well-nourished Head exam: PRESENT: atraumatic, normocephalic Eye exam: PRESENT: conjunctiva pink, EOMI, PERRLA. ABSENT: scleral icterus Ear exam: PRESENT: normal external ear exam Mouth exam: PRESENT: moist, neck supple Neck exam: PRESENT: full ROM. ABSENT: carotid bruit, JVD, lymphadenopathy, thyromegaly Respiratory exam: PRESENT: chest wall tenderness, crackles, rales. ABSENT: accessory muscle use, wheezes Cardiovascular exam: PRESENT: +S1, +S2 Pulses: PRESENT: normal dorsalis pedis pul, +2 pedal pulses bilateral Vascular exam: PRESENT: normal capillary refill GI/Abdominal exam: PRESENT: soft. ABSENT: tenderness Rectal exam: PRESENT: deferred Extremities exam: ABSENT: pedal edema, tenderness, +1 edema, +2 edema Musculoskeletal exam: PRESENT: normal inspection. ABSENT: tenderness Neurological exam: PRESENT: alert, awake, oriented to person, oriented to place , oriented to time, oriented to situation Psychiatric exam: PRESENT: appropriate affect, normal mood Skin exam: PRESENT: dry, intact, warm. ABSENT: cyanosis Results Laboratory Results: 10/03/17 06:05 10/03/17 06:05 10/03/17 10/03/17 06:05 06:05 WBC 7.6 RBC 4.07 Hgb 12.8 Hct 38.2 MCV 94 MCH 31.5 MCHC 33.5 RDW 15.6 H Plt Count 263 Seg Neutrophils % 72.7 Lymphocytes % 14.5 Monocytes % 9.0 Eosinophils % 2.9 Basophils % 0.9 Absolute Neutrophils 5.6 Absolute Lymphocytes 1.1 Absolute Monocytes 0.7 Absolute Eosinophils 0.2 Absolute Basophils 0.1 Sodium 140.5 Potassium 5.1 H Chloride 97 L Carbon Dioxide 27 Anion Gap 17 BUN 65 H D Creatinine 6.84 H Est GFR ( Amer) 7 L Est GFR (Non-Af Amer) 6 L Glucose 91 Calcium 8.7 Magnesium 2.0 Total Bilirubin 0.5 AST 14 ALT 20 Alkaline Phosphatase 123 Total Protein 6.1 L Albumin 3.5 Impressions: Thoracentesis Ultrasound 10/02/17 00:00 IMPRESSION: SUCCESSFUL PLACEMENT OF A LEFT SIDED 8 Mohawk locking pigtail CHEST TUBE to Pleur-Evac USING ULTRASOUND GUIDANCE. Specimen of pleural fluid was sent to the lab for testing. Chest X-Ray 10/03/17 12:00 IMPRESSION: No change in appearance of the chest, after 2 hours of water seal on left pleural space pigtail catheter. Assessment & Plan - Diagnosis (1) End stage renal disease Is this a current diagnosis for this admission?: Yes Plan: will look to arrange for dialysis tomorrow morning if she remains in the hospital (2) Dyspnea on exertion Plan: improved since having a thoracentesis (3) Pleural effusion Plan: improving, had a thoracentesis and recently had a chest tube placed (4) Hyperkalemia Is this a current diagnosis for this admission?: Yes Plan: advised on proper low potassium diet (5) Hypertension Is this a current diagnosis for this admission?: Yes Plan: controlled (6) Diabetes mellitus Is this a current diagnosis for this admission?: Yes Plan: controlled
--- NOTE | 2017-10-03 15:56 | PDOC DISCHARGE SUMMARY ---
General - Admit/Disc Date/PCP Admission Date/Primary Care Provider: 10/01/17 23:07 DAPHNE JANE MD Potato Bucker: Adalgisa Winters Bridge Operator Slip: Dr. Boyd Discharge Date: 10/03/17 - Discharge Diagnosis (1) Acute respiratory failure with hypoxia Is this a current diagnosis for this admission?: Yes Summary: Secondary to large pleural effusion. She is status post chest tube. This was successfully removed and her acute respiratory failure has resolved. (2) Recurrent left pleural effusion Is this a current diagnosis for this admission?: Yes Summary: I did discuss with the family potentially seen a cardiothoracic surgeon for consideration of pleurodesis. The patient recently lost her son and the is day after tomorrow. At this point they just wanted the effusion drained and further workup can be obtained as an outpatient. (3) Volume overload Is this a current diagnosis for this admission?: Yes Summary: She will resume her usual dialysis schedule. She did not have any evidence of CHF. (4) End stage renal disease Is this a current diagnosis for this admission?: Yes Summary: She will resume her usual dialysis schedule. She was dialyzed while she was here in the hospital by Dr. Brenner (5) Hyperkalemia Is this a current diagnosis for this admission?: Yes Summary: Managed by dialysis. (6) Hypertension Is this a current diagnosis for this admission?: Yes Summary: Stable (7) Diabetes mellitus Is this a current diagnosis for this admission?: Yes Summary: Stable (8) Full code status Is this a current diagnosis for this admission?: Yes - Additional Information Discharge Diet: Other (Comments) - renal Discharge Activity: Activity As Tolerated, Balance Activity w/Rest, Slowly Increase Activity Home Medications: Amlodipine Besylate [Norvasc 10 mg Tablet] 10 mg PO QHS 03/25/17 Carvedilol [Coreg 25 mg Tablet] 25 mg PO Q12 03/25/17 Levothyroxine Sodium [Synthroid 0.1 mg Tablet] 0.1 mg PO DAILY 03/25/17 History of Present Illness History of Present Illness: NICO BOBO is a 72 year old female who presented to the emergency room with increased shortness of breath. Hospital Course Hospital Course: The patient is an extremely pleasant 72-year-old female with a past medical history significant for end-stage renal disease on hemodialysis Saturday and Saturday with Dr. Boyd in [place]. The patient presented to the emergency room with increased shortness of breath. She had been receiving extra dialysis sessions to try to help with the shortness of breath. Last year the patient had a thoracentesis for a left pleural effusion. Due to concerns for reaccumulating of effusion she was sent to the emergency room. Imaging studies revealed a large left pleural effusion. She had a thoracentesis and chest tube placed. The patient put out over 2 L of fluid from her chest tube. Initially discussions were had with the family about potential options regarding recurrent pleural effusion. They did not wish to have any aggressive workup or consultations or transfers during this hospitalization the patient's son had this week and his is this Saturday. They wanted us to get her pleural effusion drained so that she would feel well and be able to attend her son's . This morning her chest tube was removed. The patient has had serial x-rays and has no significant pneumothorax. It is felt that she can safely be discharged home with close outpatient follow-up. She will resume her usual dialysis schedule and follow-up with her doctors. I am making her an appointment with her primary care physician as well as needle board repairer at the time of discharge. Physical Exam Vital Signs: Temp Pulse Resp BP Pulse Ox 98.8 F 69 16 134/52 H 96 10/03/17 11:02 10/03/17 11:02 10/03/17 11:02 10/03/17 11:02 10/03/17 11:02 Intake & Output 10/02/17 10/03/17 10/04/17 06:59 06:59 06:59 Intake Total 0 822 Output Total 2851 Balance 0 -2028 Weight 60.3 kg 60.6 kg General appearance: PRESENT: no acute distress Head exam: PRESENT: atraumatic, normocephalic Eye exam: PRESENT: conjunctiva pink, EOMI, PERRLA. ABSENT: scleral icterus Mouth exam: PRESENT: moist, tongue midline Neck exam: ABSENT: carotid bruit, JVD, lymphadenopathy, thyromegaly Respiratory exam: PRESENT: clear to auscultation rashmi, decreased breath sounds - She is diminished in the left lower base. ABSENT: rales, rhonchi, wheezes Cardiovascular exam: PRESENT: RRR. ABSENT: diastolic murmur, rubs, systolic murmur GI/Abdominal exam: PRESENT: normal bowel sounds, soft. ABSENT: distended, guarding, mass, organolmegaly, rebound, tenderness Rectal exam: PRESENT: deferred Extremities exam: PRESENT: full ROM. ABSENT: calf tenderness, clubbing, pedal edema Musculoskeletal exam: PRESENT: ambulatory - he just going through the motions Neurological exam: PRESENT: alert, awake, oriented to person, oriented to place , oriented to time, oriented to situation, CN II-XII grossly intact. ABSENT: motor sensory deficit Psychiatric exam: PRESENT: appropriate affect, normal mood. ABSENT: homicidal ideation, suicidal ideation Skin exam: PRESENT: dry, intact, warm. ABSENT: cyanosis, rash Results Laboratory Results: 10/03/17 06:05 10/03/17 06:05 10/03/17 10/03/17 06:05 06:05 WBC 7.6 RBC 4.07 Hgb 12.8 Hct 38.2 MCV 94 MCH 31.5 MCHC 33.5 RDW 15.6 H Plt Count 263 Seg Neutrophils % 72.7 Lymphocytes % 14.5 Monocytes % 9.0 Eosinophils % 2.9 Basophils % 0.9 Absolute Neutrophils 5.6 Absolute Lymphocytes 1.1 Absolute Monocytes 0.7 Absolute Eosinophils 0.2 Absolute Basophils 0.1 Sodium 140.5 Potassium 5.1 H Chloride 97 L Carbon Dioxide 27 Anion Gap 17 BUN 65 H D Creatinine 6.84 H Est GFR ( Amer) 7 L Est GFR (Non-Af Amer) 6 L Glucose 91 Calcium 8.7 Magnesium 2.0 Total Bilirubin 0.5 AST 14 ALT 20 Alkaline Phosphatase 123 Total Protein 6.1 L Albumin 3.5 Impressions: Thoracentesis Ultrasound 10/02/17 00:00 IMPRESSION: SUCCESSFUL PLACEMENT OF A LEFT SIDED 8 [place]gasque locking pigtail CHEST TUBE to Pleur-Evac USING ULTRASOUND GUIDANCE. Specimen of pleural fluid was sent to the lab for testing. Chest X-Ray 10/03/17 12:00 IMPRESSION: No change in appearance of the chest, after 2 hours of water seal on left pleural space pigtail catheter. Qualifiers - * PATIENT BEING DISCHARGED WITH ANY OF THE FOLLOWING DIAGNOSIS: No Plan Discharge Plan: She will be discharged home today in stable condition with close outpatient follow-up. Resume her usual dialysis schedule. Time Spent: Greater than 30 Minutes
--- NOTE | 2017-10-03 16:16 | RADIOLOGY REPORT (SQ) ---
EXAM DESCRIPTION: CHEST SINGLE VIEW COMPLETED DATE/TIME: 10/03/2017 3:42 pm REASON FOR STUDY: f/u chest tube COMPARISON: 10/03/2017 EXAM PARAMETERS: NUMBER OF VIEWS: One view. TECHNIQUE: Single frontal radiographic view of the chest acquired. RADIATION DOSE: NA LIMITATIONS: None. FINDINGS: LUNGS AND PLEURA: Tiny left apical pneumothorax is again identified. I cannot exclude a s mall basilar component of pneumothorax. Previously described atelectatic changes in the left lung ba se appears stable. Right lung remains clear and well expanded. MEDIASTINUM AND HILAR STRUCTURES: No masses. Contour normal. HEART AND VASCULAR STRUCTURES: The configuration of the heart mediastinal structures is unchanged BONES: No acute findings. HARDWARE: Vascular sheath is again identified in the right axillary region. OTHER: No other significant finding. IMPRESSION: Tiny left apical pneumothorax is again identified. I cannot exclude a small basilar com ponent of pneumothorax. Other findings as noted above TECHNICAL DOCUMENTATION: JOB ID: [id number] [employer]- All Rights Reserved Reading location - IP/workstation name: [email or web address]
[2017-10-03 17:42] VITALS: BP 154/50
[2017-10-04 03:26] LABS: TOTAL PROTEIN BODY FLUID 4.4 g/dL (.)
== END 2017-10-03 20:06 | disposition home or self-care (01) | DRG 186 ==
LOC: ER 18:53 → EH 23:07 → 4S 10-02 00:42
PROVIDERS: ADMIT Internal Medicine; ATTEND Internal Medicine
PROC: 0W9B30Z Drainage of Left Pleural Cavity with Drainage Device, Percutaneous Approach (ICD-10-PCS; principal; 2017-10-02)
PROC: 3E0F73Z Introduction of Anti-inflammatory into Respiratory Tract, Via Natural or Artificial Opening (ICD-10-PCS; 2017-10-02)
PROC: 5A1D70Z Performance of Urinary Filtration, Intermittent, Less than 6 Hours Per Day (ICD-10-PCS; 2017-10-02)
DX: J90 Pleural effusion, not elsewhere classified (principal); J96.01 Acute respiratory failure with hypoxia; N18.6 End stage renal disease; I13.11 Hypertensive heart and chronic kidney disease without heart failure, with stage 5 chronic kidney disease, or end stage renal disease; N25.81 Secondary hyperparathyroidism of renal origin; J93.9 Pneumothorax, unspecified; E87.5 Hyperkalemia; E11.22 Type 2 diabetes mellitus with diabetic chronic kidney disease; Z99.2 Dependence on renal dialysis; M19.90 Unspecified osteoarthritis, unspecified site; D63.1 Anemia in chronic kidney disease; Z88.0 Allergy status to penicillin; Z88.7 Allergy status to serum and vaccine; Z82.49 Family history of ischemic heart disease and other diseases of the circulatory system
CPT/HCPCS: 32557; 36415; 71045; 71046; 80048; 80053; 82150; 82945; 82962; 83605; 83615; 83735; 83880; 84100; 84157; 84484; 85025; 85027; 85610; 85730; 87040; 87070; 87075; 87205; 88305; 88341; 88342; 89050; 93005; 93010; 99285; J1644; J3490

== ENCOUNTER 2018-01-06 04:20 | Emergency (ER) | payer MEDICARE, MEDICAID ==
[2018-01-06] MEDS ORDERED: NORMAL SALINE 500 ML IV ONE (04:51)
[2018-01-06] MEDS ORDERED: ONDANSETRON HCL INJ/PF 4 MG/2 ML SDV IV ONE (04:52)
[2018-01-06] MEDS ORDERED: FENTANYL CITRATE INJ/PF 100 MCG/2 ML AMPUL IV ONE ×2 (04:52→09:10)
--- NOTE | 2018-01-06 04:54 | ER Document Report ---
Doctor's Note Notes: 01/06/18 04:53 I performed a quick triage evaluation of the patient. Patient is a pleasant 72- year-old female presents with complaint of right upper quadrant abdominal pain and right abdominal pain with vomiting and diarrhea. Patient has recent history and placed on clindamycin due to a an abscessed tooth. The abscess has improved. She still has a somewhat numbness type sensation over the right upper lip where the abscess was before. Said today she started having vomiting and diarrhea and the pain. She no had previous history of cholecystectomy. No history of C. difficile. On exam patient has pain mainly over right upper quadrant. Some mild pain in her right lower quadrant. Left-sided abdomen is nontender. Patient is not currently septic appearing. I have ordered blood work as well as ultrasound the gallbladder. I also ordered stool cultures testing for C. difficile being that the patient has been on clindamycin for approximately 5 days now. Dictation of this chart was performed using voice recognition software; therefore, there may be some unintended grammatical errors.
[2018-01-06 06:00] LABS: ABSOLUTE BASOPHILS # (AUTO) 0.1 10^3/uL (0.0-0.2); ABSOLUTE EOSINOPHILS # (AUTO) 0.2 10^3/uL (0.0-0.6); ABSOLUTE LYMPHOCYTES (AUTO) 0.9 10^3/uL (0.5-4.7); ABSOLUTE MONOCYTES (AUTO) 0.4 10^3/uL (0.1-1.4); BASOPHILS % (AUTO) 1.1 % (0-2); EOSINOPHILS % (AUTO) 1.7 % (0-6); HEMATOCRIT 36.4 % (36.0-47.0); LYMPHOCYTES % (AUTO) 8.7 % (13-45); MEAN CORPUSCULAR VOLUME 94 fl (80-97); MONOCYTES % (AUTO) 3.7 % (3-13); PLATELET COUNT 307 10^3/uL (150-450); RED BLOOD COUNT 3.87 10^6/uL (3.72-5.28); RED CELL DISTRIBUTION WIDTH 16.7 % (11.5-14.0); SEGMENTED NEUTROPHILS % (AUTO) 84.8 % (42-78); TOTAL CELLS COUNTED % (AUTO) 100 %; WHITE BLOOD COUNT 10.6 10^3/uL (4.0-10.5)
[2018-01-06 06:20] LABS: ALANINE AMINOTRANSFERASE 29 U/L (9-52); ALBUMIN 4.3 g/dL (3.5-5.0); ALKALINE PHOSPHATASE 218 U/L (38-126); ASPARTATE AMINO TRANSFERASE 36 U/L (14-36); BILIRUBIN,DIRECT 0.5 mg/dL (0.0-0.4); BILIRUBIN,TOTAL 0.7 mg/dL (0.2-1.3); BLOOD UREA NITROGEN 109 mg/dL (7-20); CALCIUM 8.5 mg/dL (8.4-10.2); CHLORIDE 94 mmol/L (98-107); GLUCOSE 124 mg/dL (75-110); LIPASE 202.7 U/L (23-300); TOTAL PROTEIN 7.2 g/dL (6.3-8.2)
[2018-01-06 06:26] LABS: ANION GAP 19 (5-19); CARBON DIOXIDE 21 mmol/L (22-30); SODIUM 134.3 mmol/L (137-145)
[2018-01-06] MEDS ORDERED: DEXTROSE 50%-WATER 25 GM/50 ML DISP.SYRIN IV ONE (06:34)
[2018-01-06] MEDS ORDERED: CALCIUM GLUCONATE 1000 MG/10 ML INJ IV ONE (06:34)
[2018-01-06] MEDS ORDERED: INSULIN REG, HUMAN 100 UNIT/ML 3 ML VIAL (PYX) IV ONE (06:34)
[2018-01-06] MEDS ORDERED: SODIUM POLYSTYRENE SULFONATE 15 GM/60 ML PO ONE (06:42)
--- NOTE | 2018-01-06 06:42 | RADIOLOGY REPORT (SQ) ---
CLINICAL HISTORY: RUQ pain COMPARISON: None. TECHNIQUE: US ABDOMEN DOPPLER LIMITED on 01/06/2018 4:52 AM CDT FINDINGS: Liver is normal in echotexture. Portal vein is patent. Gallbladder contains a gallstone. There is moderate thickening of the bladder wall measuring almost 13 mm. Common bile duct measures 4 mm Right kidney measures 8.2 cm and is atrophic. IMPRESSION: Cholelithiasis with thickening gallbladder wall. Cholecystitis is not excluded.
--- NOTE | 2018-01-06 06:52 | ER Document Report ---
ED General - General Chief Complaint: Vomiting Stated Complaint: VOMITING,STOMACH PAIN Time Seen by Provider: 01/06/18 04:51 TRAVEL OUTSIDE OF THE [place] IN LAST 30 DAYS: No - HPI Notes: Patient is a 72-year-old female that presents to the emergency department for chief complaint of nausea and vomiting. Patient started vomiting around 2 AM this morning. She reports the sensation to have to use the bathroom but denies actually having diarrhea. She reports a diffuse abdominal pain that is crampy in nature. She denies any aggravating or relieving factors to her pain. She is currently taking clindamycin for a dental infection and has 3 doses left. She states her dental infection has improved. She does not make urine. Her last dialysis was Saturday. She denies missing any dialysis. She denies cough, congestion, fevers, chills. Past Medical History: CKD Past Surgical History: Right upper arm AV fistula Social History: Denies drugs alcohol and tobacco Family History: Reviewed and noncontributory for presenting illness Allergies: Reviewed, see documented allergy list. REVIEW OF SYSTEMS: CONSTITUTIONAL : No fever No chills No diaphoresis No recent illness EENT: No vision changes No congestion No sore throat CARDIOVASCULAR: No chest pain No palpitations RESPIRATORY: No shortness of breath No cough No difficulty breathing GASTROINTESTINAL: abdominal pain nausea vomiting No diarrhea GENITOURINARY: No dysuria No hematuria No difficulty urinating MUSCULOSKELETAL: No back pain No leg pain No arm pain SKIN: No rashes No lesions LYMPHATIC: No swollen, enlarged glands. NEUROLOGICAL: No lightheadedness No headache No weakness No paresthesias PSYCHIATRIC: No anxiety No depression PHYSICAL EXAMINATION: Vital signs reviewed, nursing noted reviewed. GENERAL: Well-appearing, well-nourished and in no acute distress. HEAD: Atraumatic, normocephalic. EYES: Eyes appear normal, extraocular movements intact, sclera anicteric, conjunctiva are normal. ENT: nares patent, oropharynx clear without exudates. Moist mucous membranes. NECK: Normal range of motion, supple without lymphadenopathy LUNGS: Breath sounds clear to auscultation bilaterally and equal. No wheezes rales or rhonchi. HEART: Regular rate and rhythm without murmurs ABDOMEN: Soft, mild right upper quadrant tenderness, normoactive bowel sounds. Mild distention. No rebound, guarding, or rigidity. No masses appreciated. EXTREMITIES: Nontender, good range of motion, no pitting or edema. Right upper extremity AV fistula good bruit and thrill NEUROLOGICAL: No focal neurological deficits. Moves all extremities spontaneously Motor and sensory grossly intact on exam. PSYCH: Normal mood, normal affect. SKIN: Warm, Dry, normal turgor, no rashes or lesions noted on exposed skin - Related Data Allergies/Adverse Reactions: tuberculin, purified protein deriva [Tuberculin,Purif.Prot.Deriv.] Allergy ( Severe, Verified 04/02/17 08:02) Penicillins Allergy (Mild, Verified 04/02/17 08:02) Pruritis, Swelling Past Medical History - Social History Smoking Status: Former Smoker Chew tobacco use (# tins/day): No Frequency of alcohol use: None Drug Abuse: None Family History: Hypertension Patient has suicidal ideation: No Patient has homicidal ideation: No - Past Medical History Cardiac Medical History: Reports: Hx Congestive Heart Failure - possibly?, Hx Hypertension Denies: Hx Coronary Artery Disease, Hx Heart Attack Pulmonary Medical History: Denies: Hx Asthma, Hx Bronchitis, Hx COPD, Hx Pneumonia Neurological Medical History: Denies: Hx Cerebrovascular Accident, Hx Seizures Endocrine Medical History: Reports: Hx Diabetes Mellitus Type 2 Renal/ Medical History: Reports: Hx End Stage Renal Disease - dialysis M_W_F, Hx Hemodialysis. Denies: Hx Peritoneal Dialysis Musculoskeletal Medical History: Reports Hx Arthritis Psychiatric Medical History: Denies: Hx Depression Past Surgical History: Denies: Hx Pacemaker - Immunizations Hx Diphtheria, Pertussis, Tetanus Vaccination: Yes - September Hx Pneumococcal Vaccination: 06/05/11 Review of Systems - Review of Systems Notes: Dictated Physical Exam - Vital signs Vitals: Temp Pulse Resp BP Pulse Ox 97.7 F 57 L 23 H 151/63 H 96 01/06/18 04:26 01/06/18 04:26 01/06/18 04:26 01/06/18 04:26 01/06/18 04:26 - Notes Notes: Dictated Course - Re-evaluation Re-evalutation: 01/06/18 06:51 Vitals reviewed. Nursing notes reviewed. Patient has hyperkalemia with a potassium of 8.0. She was given insulin, D50, Kayexalate and calcium for her hyperkalemia. EKG shows new hyper acute T waves compared to prior. Patient will be transferred to [facility] for emergent dialysis Laboratory 01/06/18 01/06/18 05:35 05:35 WBC 10.6 H RBC 3.87 Hgb 12.0 Hct 36.4 MCV 94 MCH 31.0 MCHC 33.0 RDW 16.7 H Plt Count 307 Seg Neutrophils % 84.8 H Lymphocytes % 8.7 L Monocytes % 3.7 Eosinophils % 1.7 Basophils % 1.1 Absolute Neutrophils 9.0 H Absolute Lymphocytes 0.9 Absolute Monocytes 0.4 Absolute Eosinophils 0.2 Absolute Basophils 0.1 Sodium 134.3 L Potassium 8.0 H* Chloride 94 L Carbon Dioxide 21 L Anion Gap 19 BUN 109 H Creatinine 8.77 H Est GFR ( Amer) 5 L Est GFR (Non-Af Amer) 4 L Glucose 124 H Calcium 8.5 Total Bilirubin 0.7 Direct Bilirubin 0.5 H Neonat Total Bilirubin Not Reportable Neonat Direct Bilirubin Not Reportable Neonat Indirect Bili Not Reportable AST 36 ALT 29 Alkaline Phosphatase 218 H Total Protein 7.2 Albumin 4.3 Lipase 202.7 01/06/18 07:54 Ultrasound results show possible early cholecystitis. Patient was started on Zosyn. On reevaluation her abdominal pain is well controlled after the pain medicine she had received. I discussed her care with Dr. Gutierrez, nephrology, at [facility]. He will arrange for dialysis today. I also discussed her care with Dr. English, critical care at [facility] who accepted transfer. Patient and family are in agreement with this plan. She was stable at time of transport. Abdomen Ultrasound 01/06/18 04:52 IMPRESSION: Cholelithiasis with thickening gallbladder wall. Cholecystitis is not excluded. - Vital Signs Vital signs: Temp Pulse Resp BP Pulse Ox 97.7 F 57 L 23 H 151/63 H 96 01/06/18 04:26 01/06/18 04:26 01/06/18 04:26 01/06/18 04:26 01/06/18 04:26 - Laboratory Result Diagrams: 01/06/18 05:35 01/06/18 05:35 Laboratory results interpreted by me: 01/06/18 01/06/18 05:35 05:35 WBC 10.6 H RDW 16.7 H Seg Neutrophils % 84.8 H Lymphocytes % 8.7 L Absolute Neutrophils 9.0 H Sodium 134.3 L Potassium 8.0 H* Chloride 94 L Carbon Dioxide 21 L BUN 109 H Creatinine 8.77 H Est GFR ( Amer) 5 L Est GFR (Non-Af Amer) 4 L Glucose 124 H Direct Bilirubin 0.5 H Alkaline Phosphatase 218 H - EKG Interpretation by Me Additional EKG results interpreted by me: 01/06/18 07:30 0640: Normal sinus rhythm, rate 57, normal axis, no ectopy, new hyperacute T waves laterally Discharge - Discharge Clinical Impression: Hyperkalemia, Abdominal pain in female, Cholecystitis Nausea and vomiting Qualifiers: Vomiting type: unspecified Vomiting Intractability: non-intractable Qualified Code(s): R11.2 - Nausea with vomiting, unspecified Condition: Stable Disposition: [facility]
[2018-01-06] MEDS ORDERED: PIPERACILLIN/TAZOBACTAM 3.375 GM VIAL IV ONE (07:30)
--- NOTE | 2018-01-06 08:08 | EKG REPORT ---
SEVERITY:- ABNORMAL ECG - SINUS RHYTHM NONSPECIFIC T ABNORMALITIES, LATERAL LEADS : Confirmed by: Michael Nicholas 06-Jan-2018 08:08:32
[2018-01-06] MEDS ORDERED: ONDANSETRON HCL INJ/PF 4 MG/2 ML SDV ONE (08:17)
[2018-01-06 08:43] VITALS: BP 155/58
== END 2018-01-06 09:19 | disposition short-term general hospital (02) ==
LOC: ER 04:20
DX: K81.9 Cholecystitis, unspecified (principal); E87.5 Hyperkalemia; R11.2 Nausea with vomiting, unspecified; R10.9 Unspecified abdominal pain
CPT/HCPCS: 93005; 36415; 87040; 83690; 85025; 80053; 76705; 93976; 93010; J0610; J3490; J3010; A9270; J2405; J7040; J2543; J1815

== ENCOUNTER 2018-04-25 17:09 | Emergency (ER) | payer MEDICARE, MEDICAID ==
[2018-04-25] MEDS ORDERED: ASPIRIN 81 MG TABLET, CHEWABLE PO ONE (20:33)
--- NOTE | 2018-04-25 20:36 | ER Document Report ---
ED Medical Screen (RME) - General Chief Complaint: Chest Pain Stated Complaint: CHEST PAIN Time Seen by Provider: 04/25/18 20:32 Primary Care Provider: DAPHNE JANE MD [Primary Care Provider] - Follow up as needed Notes: 72 year old female that comes to the Emergency Department for chief complaint of chest pain since yesterday, states she went to primary care and was referred to Dr. Hein cardiology who she saw today, she states she was told to come to the emergency department "for a murmur in the neck and for the chest pain". She denies current chest pain, she states this resolved after she took a nitrogly cerin, she denies headache, focal numbness or weakness, or any other complaints. Negative stress test 2 years ago, denies history of [place]. She is on dialysis, had it today. TRAVEL OUTSIDE OF THE [place] IN LAST 30 DAYS: No - Related Data Allergies/Adverse Reactions: tuberculin, purified protein deriva [Tuberculin,Purif.Prot.Deriv.] Allergy (Severe, Verified 04/02/17 08:02) Penicillins Allergy (Mild, Verified 04/02/17 08:02) Pruritis, Swelling Past Medical History - Social History Frequency of alcohol use: None Drug Abuse: None - Past Medical History Cardiac Medical History: Reports: Hx Congestive Heart Failure - possibly?, Hx Hypertension Denies: Hx Coronary Artery Disease, Hx Heart Attack Pulmonary Medical History: Denies: Hx Asthma, Hx Bronchitis, Hx COPD, Hx Pneumonia Neurological Medical History: Denies: Hx Cerebrovascular Accident, Hx Seizures Endocrine Medical History: Reports: Hx Diabetes Mellitus Type 2 Renal/ Medical History: Reports: Hx End Stage Renal Disease - dialysis [id number], Hx Hemodialysis. Denies: Hx Peritoneal Dialysis Musculoskeltal Medical History: Reports Hx Arthritis Psychiatric Medical History: Denies: Hx Depression Past Surgical History: Denies: Hx Pacemaker - Immunizations Hx Diphtheria, Pertussis, Tetanus Vaccination: Yes - September History of Influenza Vaccine for 12/2016 - 05/2017 Season: Unknown Physical Exam - Vital signs Vitals: Temp Pulse Resp BP Pulse Ox 98.9 F 64 14 167/45 H 96 04/25/18 17:41 04/25/18 17:41 04/25/18 17:41 04/25/18 17:41 04/25/18 17:41 - Cardiovascular Rhythm: Regular. No: Extrasystoles, Tachycardia Heart sounds: Normal auscultation, S1 appreciated, S2 appreciated Murmur: Yes Course - Vital Signs Vital signs: Temp Pulse Resp BP Pulse Ox 98.9 F 64 14 167/45 H 96 04/25/18 17:41 04/25/18 17:41 04/25/18 17:41 04/25/18 17:41 04/25/18 17:41 Doctor's Discharge - Discharge Referrals: DAPHNE JANE MD [Primary Care Provider] - Follow up as needed
--- NOTE | 2018-04-25 21:21 | RADIOLOGY REPORT (SQ) ---
EXAM DESCRIPTION: XR CHEST 1 VIEW COMPLETED DATE/TME: 04/25/2018 20:32 CLINICAL HISTORY: 72 years Female chest pain COMPARISON: 10/03/2017 FINDINGS: Mild cardiac enlargement. Atelectasis and/or infiltrate in the left lung base with blunting of the costophrenic angle which may reflect residual effusion or scarring. Vascular stent in the subclavian region on the right. No pneumothorax. IMPRESSION: Nodularity and blunting along the left costophrenic angle which appears similar to the previous study and is likely related to scarring with probable atelectasis or scarring in the left lung base Right lung is clear
[2018-04-25 21:28] LABS: ABSOLUTE BASOPHILS # (AUTO) 0.1 10^3/uL (0.0-0.2); ABSOLUTE EOSINOPHILS # (AUTO) 0.2 10^3/uL (0.0-0.6); ABSOLUTE MONOCYTES (AUTO) 0.5 10^3/uL (0.1-1.4); ABSOLUTE NEUT (AUTO) 4.3 10^3/uL (1.7-8.2); HEMATOCRIT 37.9 % (36.0-47.0); HEMOGLOBIN 12.8 g/dL (12.0-15.5); LYMPHOCYTES % (AUTO) 17.1 % (13-45); MEAN CORPUSCULAR HEMOGLOBIN 33.2 pg (27.0-33.4); MEAN CORPUSCULAR HGB CONC 33.9 g/dL (32.0-36.0); MEAN CORPUSCULAR VOLUME 98 fl (80-97); MONOCYTES % (AUTO) 7.5 % (3-13); PLATELET COUNT 235 10^3/uL (150-450); RED BLOOD COUNT 3.86 10^6/uL (3.72-5.28); RED CELL DISTRIBUTION WIDTH 15.8 % (11.5-14.0); SEGMENTED NEUTROPHILS % (AUTO) 70.4 % (42-78); TOTAL CELLS COUNTED % (AUTO) 100 %; WHITE BLOOD COUNT 6.1 10^3/uL (4.0-10.5)
[2018-04-25 22:00] LABS: ANION GAP 11 (5-19); BLOOD UREA NITROGEN 30 mg/dL (7-20); CARBON DIOXIDE 28 mmol/L (22-30); CHLORIDE 101 mmol/L (98-107); GLUCOSE 92 mg/dL (75-110); POTASSIUM 5.2 mmol/L (3.6-5.0); SODIUM 140.3 mmol/L (137-145)
--- NOTE | 2018-04-26 02:57 | ER Document Report ---
ED General - General Chief Complaint: Chest Pain Stated Complaint: CHEST PAIN Time Seen by Provider: 04/25/18 20:32 Primary Care Provider: DAPHNE JANE MD [Primary Care Provider] - Follow up as needed Notes: Patient is a 72 year old female that comes to the Emergency Department for chief complaint of chest pain yesterday, states she went to primary care and was referred to Dr. Hein cardiology who she saw today, she states she was told to come to the emergency department "for a murmur in the neck and for the chest pain". When pain was present it was described as an aching, constant discomfort over the left side of her chest. She denies current chest pain, she states this resolved after she took a nitroglycerin, she denies headache, focal numbness or weakness, or any other complaints. Has not had chest pain for at least the past 36 hours by her report. Negative stress test 2 years ago, denies history of ME. She is on dialysis, had it today. The history and physical exam was obtained by the provider using [place] [employer]. A formal hospital auto suspension and steering mechanic was offered to the patient and any family at the [facility] at the beginning of the encounter and was declined. TRAVEL OUTSIDE OF THE [place] IN LAST 30 DAYS: No - Related Data Allergies/Adverse Reactions: tuberculin, purified protein deriva [Tuberculin,Purif.Prot.Deriv.] Allergy (Severe, Verified 04/26/18 02:04) Penicillins Allergy (Mild, Verified 04/26/18 02:04) Pruritis, Swelling Past Medical History - General Information source: Patient, Relative - Social History Smoking Status: Never Smoker Frequency of alcohol use: None Drug Abuse: None Lives with: Family Family History: Hypertension Patient has suicidal ideation: No Patient has homicidal ideation: No - Past Medical History Cardiac Medical History: Reports: Hx Congestive Heart Failure, Hx Hypertension Denies: Hx Coronary Artery Disease, Hx Heart Attack Pulmonary Medical History: Denies: Hx Asthma, Hx Bronchitis, Hx COPD, Hx Pneumonia Neurological Medical History: Denies: Hx Cerebrovascular Accident, Hx Seizures Endocrine Medical History: Reports: Hx Diabetes Mellitus Type 2 Renal/ Medical History: Reports: Hx End Stage Renal Disease, Hx Hemodialysis. Denies: Hx Peritoneal Dialysis Musculoskeletal Medical History: Reports Hx Arthritis Psychiatric Medical History: Denies: Hx Depression Past Surgical History: Denies: Hx Pacemaker - Immunizations Hx Diphtheria, Pertussis, Tetanus Vaccination: Yes - September Hx Pneumococcal Vaccination: 06/05/11 Review of Systems - Review of Systems Notes: Constitutional: Negative for fever. HENT: Negative for sore throat. Eyes: Negative for visual changes. Cardiovascular: Negative for chest pain. Respiratory: Negative for shortness of breath. Gastrointestinal: Negative for abdominal pain, vomiting or diarrhea. Genitourinary: Negative for dysuria. Musculoskeletal: Negative for back pain. Skin: Negative for rash. Neurological: Negative for headaches, weakness or numbness. 10 point ROS negative except as marked above and in HPI. Physical Exam - Vital signs Vitals: Temp Pulse Resp BP Pulse Ox 98.9 F 64 14 167/45 H 96 04/25/18 17:41 04/25/18 17:41 04/25/18 17:41 04/25/18 17:41 04/25/18 17:41 Interpretation: Hypertensive Notes: PHYSICAL EXAMINATION: GENERAL: Well-appearing, well-nourished and in no acute distress. HEAD: Atraumatic, normocephalic. EYES: Pupils equal round and reactive to light, extraocular movements intact, sclera anicteric, conjunctiva are normal. ENT: nares patent, oropharynx clear without exudates. Moist mucous membranes. NECK: Normal range of motion, supple without lymphadenopathy, carotid bruit on the right, absent on left. Carotid bruit almost completely goes away with compression of the AV fistula in the right proximal upper extremity LUNGS: Breath sounds clear to auscultation bilaterally and equal. No wheezes rales or rhonchi. HEART: Regular rate and rhythm, precordial murmur associated with AV fistula present ABDOMEN: Soft, nontender, normoactive bowel sounds. No guarding, no rebound. No masses appreciated. EXTREMITIES: Normal range of motion, no pitting or edema. No cyanosis. NEUROLOGICAL: No focal neurological deficits. Moves all extremities spontaneously and on command. PSYCH: Normal mood, normal affect. SKIN: Warm, Dry, normal turgor, no rashes or lesions noted. Course - Re-evaluation Re-evalutation: 04/26/18 02:57 Patient presents with report chest pain that has not been present for over 36 hours, states last time she had it was on the seventh. No history of coronary artery disease. 2 troponins negative. The primary reason the patient was referred to the emergency department was apparently as her primary care doctor and generation engineer were both worried about a asymptomatic right-sided carotid bruit. This bruit is coming from the patient having a right sided brachial AV fistula. This bruit does go away almost completely with compression of the fistula site. Patient has no neck pain, no swelling, I do not believe there is any indication for formal imaging of the area given the probable nature of this coming from the AV fistula. In regards the patient's chest pain she has not had this in over a day and a half. Her workup is otherwise unremarkable. I do not clinically suspect acute myocardial infarction, pulmonary embolus, dissection. At this time will discharge with return precautions and follow-up recommendations. Verbal discharge instructions given a the bedside and opportunity for questions given. Medication warnings reviewed. Patient is in agreement with this plan and has verbalized understanding of return precautions and the need for primary care follow-up in the next 24-72 hours. - Vital Signs Vital signs: Temp Pulse Resp BP Pulse Ox 98.9 F 64 15 206/56 H 96 04/25/18 17:41 04/25/18 17:41 04/26/18 02:01 04/26/18 02:01 04/26/18 02:01 - Laboratory Result Diagrams: 04/25/18 20:55 04/25/18 20:55 Laboratory results interpreted by me: 04/25/18 04/25/18 20:55 20:55 MCV 98 H RDW 15.8 H Potassium 5.2 H BUN 30 H Creatinine 4.09 H Est GFR ( Amer) 13 L Est GFR (Non-Af Amer) 11 L - Diagnostic Test Radiology reviewed: Image reviewed, Reports reviewed Radiology results interpreted by me: 04/26/18 02:59 Chest x-ray: No acute findings Discharge - Discharge Clinical Impression: ESRD on dialysis, Right carotid bruit, Chest discomfort Condition: Stable Disposition: HOME, SELF-CARE Additional Instructions: The sound in your right neck vessel is due to the AV fistula in your right upper extremity. This is actually quite normal in people who have AV fistulas. Your labs are otherwise reassuring. Please follow-up with your primary care doctor in the next several days who may wish to order a carotid Doppler ultrasound to further clarify any additional concerns they may have. Referrals: DAPHNE JANE MD [Primary Care Provider] - Follow up as needed
[2018-04-26] MEDS ORDERED: AMLODIPINE BESYLATE 10 MG TABLET PO ONE (02:59)
[2018-04-26 03:27] VITALS: BP 210/63
--- NOTE | 2018-04-26 20:06 | EKG REPORT ---
SEVERITY:- ABNORMAL ECG - SINUS RHYTHM LEFT VENTRICULAR HYPERTROPHY : Confirmed by: Michael Nicholas 26-Apr-2018 20:04:32
== END 2018-04-26 03:27 | disposition home or self-care (01) ==
LOC: ER 17:09
DX: R07.9 Chest pain, unspecified (principal); I12.0 Hypertensive chronic kidney disease with stage 5 chronic kidney disease or end stage renal disease; E11.22 Type 2 diabetes mellitus with diabetic chronic kidney disease; N18.6 End stage renal disease; Z99.2 Dependence on renal dialysis; R09.89 Other specified symptoms and signs involving the circulatory and respiratory systems; Z88.7 Allergy status to serum and vaccine; Z88.0 Allergy status to penicillin
CPT/HCPCS: 93005; 99285; 36415; 85025; 80048; 84484; 71045; 93010; A9270

== ENCOUNTER 2018-07-30 08:13 | Inpatient (IN) | payer MEDICARE, MEDICAID ==
[2018-07-30] MEDS ORDERED: ONDANSETRON HCL INJ/PF 4 MG/2 ML SDV IV ONE (08:49)
--- NOTE | 2018-07-30 09:18 | ER Document Report ---
Entered by SAURABH HERRERA SCRIBE 07/30/18 0854 Acting as scribe for:MICHAEL POLO MD ED General - General Chief Complaint: Vomiting/Diarrhea Stated Complaint: DIARRHEA Time Seen by Provider: 07/30/18 08:39 Primary Care Provider: DAPHNE JANE MD [Primary Care Provider] - Follow up as needed Mode of Arrival: Ambulatory Information source: Patient Notes: Patient is a 72 year old female with ESRD (MWF dialysis), HTN, CHF, type 2 diabetes presents to the emergency department accompanied by daughter complaining of diffuse abdominal pain with associated symptoms of nausea, vomiting and diarrhea. Patient states the symptoms were onset at 0100 this morning and reports having episodes of diarrhea every hour. She also complains of diaphoresis. She denies any fevers. Patient's signing agent is Dr. Boyd. TRAVEL OUTSIDE OF THE [place] IN LAST 30 DAYS: No - Related Data Allergies/Adverse Reactions: tuberculin, purified protein deriva [Tuberculin,Purif.Prot.Deriv.] Allergy (Severe, Verified 07/30/18 08:15) Penicillins Allergy (Mild, Verified 07/30/18 08:15) Pruritis, Swelling Past Medical History - General Information source: Patient - Social History Smoking Status: Never Smoker Cigarette use (# per day): No Chew tobacco use (# tins/day): No Smoking Education Provided: No Frequency of alcohol use: None Family History: Hypertension - Past Medical History Cardiac Medical History: Reports: Hx Congestive Heart Failure, Hx Hypertension Endocrine Medical History: Reports: Hx Diabetes Mellitus Type 2 Renal/ Medical History: Reports: Hx End Stage Renal Disease, Hx Hemodialysis Musculoskeletal Medical History: Reports Hx Arthritis - Immunizations Hx Diphtheria, Pertussis, Tetanus Vaccination: Yes - September Hx Pneumococcal Vaccination: 06/05/11 Review of Systems - Review of Systems Constitutional: No symptoms reported EENT: No symptoms reported Cardiovascular: No symptoms reported Respiratory: No symptoms reported Gastrointestinal: See HPI, Abdominal pain, Diarrhea, Nausea, Vomiting Genitourinary: No symptoms reported Female Genitourinary: No symptoms reported Musculoskeletal: No symptoms reported Skin: No symptoms reported Hematologic/Lymphatic: No symptoms reported Neurological/Psychological: No symptoms reported -: Yes All other systems reviewed and negative Physical Exam - Vital signs Vitals: Temp Pulse Resp BP Pulse Ox 98.5 F 65 18 188/47 H 99 07/30/18 08:20 07/30/18 08:20 07/30/18 08:20 07/30/18 08:20 07/30/18 08:20 - Notes Notes: GENERAL: Alert, interacts well. No acute distress. HEAD: Normocephalic, atraumatic. EYES: Pupils equal, round, and reactive to light. Extraocular movements intact. ENT: Oral mucosa moist, tongue midline. NECK: Full range of motion. Supple. Trachea midline. LUNGS: Clear to auscultation bilaterally, no wheezes, rales, or rhonchi. No respiratory distress. HEART: Regular rate and rhythm. 2/6 holosystolic murmur. No gallops or rubs. ABDOMEN: Soft. Slightly distended. Diffusely tender to palpation. Abdomen dull to percussion, decreased bowel sounds. No guarding, rigidity, or rebound. EXTREMITIES: Moves all 4 extremities spontaneously. No edema, radial and dorsalis pedis pulses 2/4 bilaterally. No cyanosis. NEUROLOGICAL: Alert and oriented x3. Normal speech. PSYCH: Normal affect, normal mood. SKIN: Warm, dry, normal turgor. No rashes or lesions noted. Course - Re-evaluation Re-evalutation: 07/30/18 13:37 The patient's stool was negative for WBCs and negative for C. difficile toxins. A repeat Chem-7 was ordered to see what the potassium level is after the Kayexalate. - Vital Signs Vital signs: Temp Pulse Resp BP Pulse Ox 98.5 F 65 17 187/61 H 94 07/30/18 08:20 07/30/18 08:20 07/30/18 13:00 07/30/18 10:33 07/30/18 13:00 - Laboratory Result Diagrams: 07/30/18 09:30 07/30/18 09:30 Laboratory results interpreted by me: 07/30/18 07/30/18 09:30 09:30 WBC 12.4 H MCV 99 H RDW 15.4 H Seg Neuts % (Manual) 94 H Lymphocytes % (Manual) 3 L Abs Neuts (Manual) 11.7 H Abs Lymphs (Manual) 0.4 L Potassium 6.6 H* Carbon Dioxide 20 L BUN 77 H Creatinine 8.95 H Est GFR ( Amer) 5 L Est GFR (Non-Af Amer) 4 L Glucose 124 H Alkaline Phosphatase 185 H - Diagnostic Test Radiology reviewed: Image reviewed, Reports reviewed - CT scan abdomen pelvis does not show an acute process. - EKG Interpretation by Me EKG shows normal: Sinus rhythm - Acute abdominal series shows nothing acute, no obstruction., [place], Intervals, QRS Complexes, ST-T Waves Rate: Normal - 68 Rhythm: NSR Voltage: Consistant with LVH Discharge - Discharge Clinical Impression: Nausea, vomiting and diarrhea, Hyperkalemia, End stage renal disease Abdominal pain Qualifiers: Abdominal location: unspecified location Qualified Code(s): R10.9 - Unspecified abdominal pain Condition: Stable Disposition: HOME, SELF-CARE Referrals: DAPHNE JANE MD [Primary Care Provider] - Follow up as needed Scribe Attestation: 07/30/18 09:37 I personally performed the services described in the documentation, reviewed and edited the documentation which was dictated to the scribe in my presence, and it accurately records my words and actions. I personally performed the services described in the documentation, reviewed and edited the documentation which was dictated to the scribe in my presence, and it accurately records my words and actions.
[2018-07-30 09:43] LABS: HEMATOCRIT 38.3 % (36.0-47.0); HEMOGLOBIN 12.4 g/dL (12.0-15.5); MEAN CORPUSCULAR HEMOGLOBIN 32.1 pg (27.0-33.4); MEAN CORPUSCULAR HGB CONC 32.3 g/dL (32.0-36.0); MEAN CORPUSCULAR VOLUME 99 fl (80-97); PLATELET COUNT 208 10^3/uL (150-450); RED BLOOD COUNT 3.87 10^6/uL (3.72-5.28); RED CELL DISTRIBUTION WIDTH 15.4 % (11.5-14.0); WHITE BLOOD COUNT 12.4 10^3/uL (4.0-10.5)
[2018-07-30 10:02] LABS: ABSOLUTE LYMPHOCYTES# (MANUAL) 0.4 10^3/uL (0.5-4.7); ABSOLUTE MONOCYTES # (MANUAL) 0.4 10^3/uL (0.1-1.4); ABSOLUTE NEUTROPHILS# (MANUAL) 11.7 10^3/uL (1.7-8.2); BASOPHILS % (MANUAL) 0 % (0-2); EOSINOPHILS % (MANUAL) 0 % (0-6); LYMPHOCYTES % (MANUAL) 3 % (13-45); MONOCYTES % (MANUAL) 3 % (3-13); SEGMENTED NEUTROPHILS % (MAN) 94 % (42-78); TOTAL CELLS COUNTED 100
[2018-07-30 10:03] LABS: ANISOCYTOSIS SLIGHT; OVALOCYTES SLIGHT; POIKILOCYTOSIS SLIGHT; SCHISTOCYTES SLIGHT; TEAR DROP CELLS SLIGHT; TOXIC VACUOLATION PRESENT
[2018-07-30 10:04] LABS: PLATELET COMMENT ADEQUATE
--- NOTE | 2018-07-30 10:07 | RADIOLOGY REPORT (SQ) ---
EXAM DESCRIPTION: ACUTE ABDOMEN SERIES COMPLETED DATE/TIME: 07/30/2018 9:55 am REASON FOR STUDY: Nausea vomiting diarrhea abdominal pain COMPARISON: None. NUMBER OF VIEWS: Three views. TECHNIQUE: Frontal chest, supine abdomen and upright/decubitus abdomen radiographic images acquired. LIMITATIONS: None. FINDINGS: CHEST: Persistent left retrocardiac opacity and blunting of the left costophrenic angle, s imilar to priors. Unremarkable right hemithorax. Stable enlarged cardiac silhouette. Aortic athero sclerosis. Vascular stent is overlie right axillary and subclavian veins. Right basilar granuloma. FREE AIR: None. No abnormal gas collections. BOWEL GAS PATTERN: No pathologically dilated loops of bowel identified. CALCIFICATIONS: Scattered calcifications overlie the pelvis. No radiopaque stones overlie kidneys. HARDWARE: None in the abdomen. SOFT TISSUES: No gross mass or suggestion of organomegaly. BONES: No acute fracture. No worrisome bone lesions. OTHER: No other significant finding. IMPRESSION: 1. Left retrocardiac opacity and blunting of the costophrenic angle, similar to multipl e priors. Findings most likely represent chronic scarring at the left lung base. 2. No evidence of intestinal obstruction or other acute intra-abdominal process. TECHNICAL DOCUMENTATION: JOB ID: [id number] [email or web address]- All Rights Reserved Reading location - IP/workstation name: [email or web address]
[2018-07-30 10:10] LABS: ALANINE AMINOTRANSFERASE 46 U/L (9-52); ALBUMIN 4.4 g/dL (3.5-5.0); ALKALINE PHOSPHATASE 185 U/L (38-126); ANION GAP 17 (5-19); ASPARTATE AMINO TRANSFERASE 35 U/L (14-36); BILIRUBIN,DIRECT 0.4 mg/dL (0.0-0.4); BILIRUBIN,TOTAL 0.4 mg/dL (0.2-1.3); BLOOD UREA NITROGEN 77 mg/dL (7-20); CARBON DIOXIDE 20 mmol/L (22-30); CHLORIDE 102 mmol/L (98-107); CREATINE KINASE 61 U/L (30-135); GLUCOSE 124 mg/dL (75-110); SODIUM 138.9 mmol/L (137-145); TOTAL PROTEIN 6.9 g/dL (6.3-8.2)
[2018-07-30 10:14] LABS: POTASSIUM 6.6 mmol/L (3.6-5.0)
[2018-07-30] MEDS ORDERED: SODIUM POLYSTYRENE SULFONATE 15 GM/60 ML PO ONE (10:20)
[2018-07-30] MEDS ORDERED: CALCIUM GLUCONATE 1000 MG/10 ML INJ IV ONE (10:20)
[2018-07-30] MEDS ORDERED: INSULIN REG, HUMAN 100 UNIT/ML 3 ML VIAL (PYX) IV ONE (10:41)
[2018-07-30] MEDS ORDERED: DEXTROSE 50%-WATER 25 GM/50 ML DISP.SYRIN IV ONE (10:41)
--- NOTE | 2018-07-30 11:16 | RADIOLOGY REPORT (SQ) ---
EXAM DESCRIPTION: CT ABD/PELVIS NO ORAL OR IV COMPLETED DATE/TIME: 07/30/2018 10:45 am REASON FOR STUDY: N,V,D leukocytosis, abd pain, CRF-hyperkalemia COMPARISON: 07/30/2018, CT 03/26/2018 TECHNIQUE: CT scan of the abdomen and pelvis performed without intravenous or oral contrast. Images reviewed with lung, soft tissue, and bone windows. Reconstructed coronal and sagittal MPR images revi ewed. All images stored on PACS. All CT scanners at this facility use dose modulation, iterative reconstruction, and/or weight based d osing when appropriate to reduce radiation dose to as low as reasonably achievable (ALARA). [facility]: Dose Right [facility]: CareDose [facility]: Dose Right [facility]: Teradose 4D [facility]: Smart Radio Systemes [employer] RADIATION DOSE: CT Rad equipment meets quality standard of care and radiation dose reduction techniq ues were employed. CTDIvol: 7.7 mGy. DLP: 403 mGy-cm.mGy. LIMITATIONS: None. FINDINGS: LOWER CHEST: Persistent ovoid consolidation within the left posterior basilar hemithorax m easuring approximately 5.8 x 2.8 cm (series 3, image 16) additional adjacent pleural thickening and p arenchymal scarring. Small left effusion. Right basilar calcified granuloma with scattered subcentim eter additional nodules, largest measuring 8 mm (series 3, image 5). Enlarged heart. Scattered larisa nary atherosclerosis. NON-CONTRASTED LIVER, SPLEEN, ADRENALS: Evaluation limited by lack of IV contrast. No identified sign ificant masses. PANCREAS: No masses. No peripancreatic inflammatory changes. GALLBLADDER: No radiopaque gallstones. No pericholecystic fluid or inflammatory change. Questionabl e gallbladder wall thickening measuring up to 4.5 mm. RIGHT KIDNEY AND URETER: Atrophic. No mass. No hydronephrosis or nephrolithiasis. LEFT KIDNEY AND URETER: Atrophic. No mass. No hydronephrosis or nephrolithiasis. AORTA AND RETROPERITONEUM: No aneurysm. No retroperitoneal masses or adenopathy. BOWEL AND PERITONEAL CAVITY: Scattered colonic diverticula. No evidence of intestinal obstruction. No focal bowel wall thickening. APPENDIX: Normal. PELVIS, BLADDER, AND ABDOMINAL WALL:No abnormal masses. No free fluid. Bladder normal. BONES: No acute bony abnormality. Sclerotic focus within the right acetabulum, likely bone island. No additional discrete lytic or blastic osseous lesions. OTHER: No other significant finding. IMPRESSION: 1. Persistent ovoid consolidation within the left posterior basilar hemithorax measurin g approximately 5.8 x 2.8 cm. Findings may represent consolidation/airspace disease although underly ing lesion is not entirely excluded. Recommend continued follow-up to ensure resolution. Small left pleural effusion. 2. Mild gallbladder wall thickening without distention, radiopaque stones or pericholecystic fluid, a nonspecific finding. Recommend correlation with symptomatology. 3. No evidence of bowel obstruction. Gas fluid levels throughout the colon which can be seen with d iarrheal illness or cathartic use. Findings discussed with Dr. Mcclellan at the time of interpretation. COMMENT: Quality ID # [id number]: Final reports with documentation of one or more dose reduction techniques (e.g., Automated exposure control, adjustment of the mA and/or kV according to patient size, use of iterative reconstruction technique) TECHNICAL DOCUMENTATION: JOB ID: [id number] [employer]- All Rights Reserved Reading location - IP/workstation name: [email or web address]
[2018-07-30 14:02] LABS: ANION GAP 18 (5-19); BLOOD UREA NITROGEN 80 mg/dL (7-20); CALCIUM 9.3 mg/dL (8.4-10.2); CARBON DIOXIDE 18 mmol/L (22-30); CHLORIDE 104 mmol/L (98-107); GLUCOSE 111 mg/dL (75-110); POTASSIUM 5.8 mmol/L (3.6-5.0); SODIUM 139.8 mmol/L (137-145)
--- NOTE | 2018-07-30 14:34 | EKG REPORT ---
SEVERITY:- ABNORMAL ECG - SINUS RHYTHM LEFT VENTRICULAR HYPERTROPHY NONSPECIFIC ST-T CHANGES LATERAL LEADS. : Confirmed by: Gio Santana MD 30-Jul-2018 14:33:39
--- NOTE | 2018-07-30 14:38 | ER Document Report ---
ED GI/ - General Chief Complaint: Vomiting/Diarrhea Stated Complaint: DIARRHEA Time Seen by Provider: 07/30/18 08:39 Primary Care Provider: DAPHNE JANE MD [Primary Care Provider] - Follow up as needed Mode of Arrival: Ambulatory Information source: Patient, Relative Notes: This 72-year-old dialysis patient comes emergency room complaining of abdominal pain with nausea vomiting and diarrhea since 1 AM this morning. She is supposed to be at dialysis today, she goes on Saturday. She reports having diarrhea about once every hour. There has been no fever or chills. The abdominal pain is mid to upper abdomen. TRAVEL OUTSIDE OF THE [place] IN LAST 30 DAYS: No - Related Data Allergies/Adverse Reactions: tuberculin, purified protein deriva [Tuberculin,Purif.Prot.Deriv.] Allergy (S evere, Verified 07/30/18 08:15) Penicillins Allergy (Mild, Verified 07/30/18 08:15) Pruritis, Swelling Past Medical History - General Information source: Patient, Relative, [facility] Records - Social History Smoking Status: Never Smoker Cigarette use (# per day): No Chew tobacco use (# tins/day): No Smoking Education Provided: No Frequency of alcohol use: None Drug Abuse: None Occupation: Retired Lives with: Family Family History: Hypertension Patient has suicidal ideation: No Patient has homicidal ideation: No - Past Medical History Cardiac Medical History: Reports: Hx Congestive Heart Failure, Hx Hypertension Endocrine Medical History: Reports: Hx Diabetes Mellitus Type 2, Hx Hypothyroidism Renal/ Medical History: Reports: Hx End Stage Renal Disease, Hx Hemodialysis Musculoskeletal Medical History: Reports Hx Arthritis Past Surgical History: Reports: Hx Cardiac Catheterization - Negative cardiac cath, Hx Vascular Surgery - Right upper arm AV fistula - Immunizations Hx Diphtheria, Pertussis, Tetanus Vaccination: Yes - September Hx Pneumococcal Vaccination: 06/05/11 Review of Systems - Review of Systems Constitutional: No symptoms reported EENT: No symptoms reported Cardiovascular: No symptoms reported Respiratory: No symptoms reported Gastrointestinal: See HPI Genitourinary: No symptoms reported Female Genitourinary: Post menopausal Musculoskeletal: No symptoms reported Skin: No symptoms reported Hematologic/Lymphatic: No symptoms reported Neurological/Psychological: No symptoms reported Physical Exam - Vital signs Vitals: Temp Pulse Resp BP Pulse Ox 98.5 F 65 18 188/47 H 99 07/30/18 08:20 07/30/18 08:20 07/30/18 08:20 07/30/18 08:20 07/30/18 08:20 Interpretation: Normal - General General appearance: Appears well, Alert In distress: Mild - Has some mild discomfort from her abdominal pain - HEENT Head: Normocephalic, Atraumatic Eyes: Normal Pupils: PERRL Mucous membranes: Normal Neck: Normal - Respiratory Respiratory status: No respiratory distress Breath sounds: Normal - Cardiovascular Rhythm: Regular Heart sounds: Normal auscultation Murmur: Yes - Abdominal Inspection: Normal Bowel sounds: Hyperactive Tenderness: Tender - Diffusely mildly tender, Other - There is a fluid dull sound on percussing over the intestines. Acute abdominal series confirms very little gas in the small bowel.. No: Guarding, Rebound - Back Back: Normal - Extremities General upper extremity: Other - Right upper arm AV fistula General lower extremity: Normal inspection - Neurological Neuro grossly intact: Yes - Psychological Associated symptoms: Normal affect, Normal mood - Skin Skin Temperature: Warm Skin Moisture: Dry Skin Color: Normal Course - Re-evaluation Re-evalutation: 07/30/18 14:45 The patient's initial potassium was 6.6. On repeat testing it was 5.8 after receiving Kayexalate. The patient's stool was negative for WBCs and negative for C differential toxins. Acute abdominal series does not show air-fluid levels, there is not a lot of gas in the small bowel, consistent with her history of nausea vomiting and diarrhea. CT scan of the abdomen pelvis without contrast is unremarkable. She does continue to her upper abdomen and complained of pain, however the abdomen remains soft and is minimally tender at this time. Earlier today I was told that we cannot accept any patients that might need dialysis. 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 She was transferred there and December 2017 when she was seen here with a potassium of 8.8 and needed dialysis. At this time there is no clear explanation for the patient's abdominal pain, other than possibly her gastroenteritis. I am uncomfortable sending her home despite getting her potassium level down, because of the unresolved abdominal pain and the risk that the potassium could climb back to an even higher level before she would be able to dialyze again. - Vital Signs Vital signs: Temp Pulse Resp BP Pulse Ox 98.5 F 65 17 187/61 H 94 07/30/18 08:20 07/30/18 08:20 07/30/18 13:00 07/30/18 10:33 07/30/18 13:00 - Laboratory Result Diagrams: 07/30/18 09:30 07/30/18 13:35 Laboratory results interpreted by me: 07/30/18 07/30/18 07/30/18 09:30 09:30 13:35 WBC 12.4 H MCV 99 H RDW 15.4 H Seg Neuts % (Manual) 94 H Lymphocytes % (Manual) 3 L Abs Neuts (Manual) 11.7 H Abs Lymphs (Manual) 0.4 L Potassium 6.6 H* 5.8 H Carbon Dioxide 20 L 18 L BUN 77 H 80 H Creatinine 8.95 H 8.96 H Est GFR ( Amer) 5 L 5 L Est GFR (Non-Af Amer) 4 L 4 L Glucose 124 H 111 H Alkaline Phosphatase 185 H - Diagnostic Test Radiology reviewed: Image reviewed, Reports reviewed - Acute abdominal series does not show air-fluid levels or signs of obstruction. CT scan of the abdomen and pelvis without contrast does not show an acute process. There is a mass appearance in the left lower chest which is a chronic unchanged finding. - EKG Interpretation by Me EKG shows normal: Sinus rhythm, [place], Intervals, QRS Complexes, ST-T Waves Rate: Normal - 68 Rhythm: NSR Voltage: Consistant with LVH When compared to previous EKG there are: No significant change - Consults Dr. Maldonado Time consulted: 14:25 Consulted provider: other - Will accept at [facility]. - Transfer of Care Care transferred to following provider: Dr. Jesus Notes: 07/30/18 14:54 Patient is waiting on transport to [facility]. Critical Care Note - Critical Care Note Total time excluding time spent on procedures (mins): 40 Discharge - Discharge Clinical Impression: Nausea, vomiting and diarrhea, Hyperkalemia, ESRD on dialysis Abdominal pain Qualifiers: Abdominal location: unspecified location Qualified Code(s): R10.9 - Unspecified abdominal pain Hypertension Qualifiers: Hypertension type: essential hypertension Qualified Code(s): I10 - Essential (primary) hypertension Condition: Good Disposition: [facility] Referrals: DAPHNE JANE MD [Primary Care Provider] - Follow up as needed
[2018-07-30 15:03] LABS: LIPASE 179.6 U/L (23-300)
[2018-07-30] MEDS ORDERED: TEMAZEPAM 7.5 MG CAPSULE PO PRN (20:37)
[2018-07-30] MEDS ORDERED: MAGNESIUM HYDROXIDE SUSP 30 ML UDCUP PO PRN (20:37)
[2018-07-30] MEDS ORDERED: MAG HYDROX/AL HYDROX/SIMETH SUSP 30 ML UDCUP PO PRN (20:37)
[2018-07-30] MEDS ORDERED: ONDANSETRON HCL INJ/PF 4 MG/2 ML SDV IV PRN (20:37)
[2018-07-30] MEDS ORDERED: MORPHINE SULFATE 10 MG/ML INJ IV PRN ×5 (20:43→21:30)
[2018-07-30] MEDS ORDERED: ACETAMINOPHEN 325 MG TABLET PO PRN (20:43)
[2018-07-30] MEDS ORDERED: DEXTROSE 40% GEL 15 GM TUBE PO PRN ×2 (20:44)
[2018-07-30] MEDS ORDERED: GLUCAGON,HUMAN RECOMB 1 MG INJ IM PRN (20:44)
[2018-07-30] MEDS ORDERED: DEXTROSE 50%-WATER 25 GM/50 ML DISP.SYRIN IV PRN ×2 (20:44)
[2018-07-30] MEDS: HYDRALAZINE HCL INJ/PF 20 MG/1 ML SDV IV PRN (21:03)
[2018-07-30] MEDS ORDERED: INSULIN REG, HUMAN 100 UNIT/ML 3 ML VIAL (PYX) SUBCUT SCH (22:00)
[2018-07-30 22:29] LABS: CREATINE KINASE MB 0.71 ng/mL (<4.55); TROPONIN I 0.016 ng/mL
[2018-07-30] MEDS: CARVEDILOL 12.5 MG TABLET PO SCH (22:55)
[2018-07-30] MEDS: HEPARIN SOD (PORCINE) 5,000 UNIT/ML 1 ML SYRINGE SUBCUT SCH (22:56)
[2018-07-30] MEDS: PANTOPRAZOLE SODIUM 40 MG VIAL IV SCH (22:57)
[2018-07-30] MEDS: METOCLOPRAMIDE HCL INJ/PF 10 MG/2 ML SDV IV SCH (22:58)
[2018-07-30] MEDS: NORMAL SALINE 1000 ML 1,000 ML IV PRN (22:59)
--- NOTE | 2018-07-31 00:06 | PDOC H&P ---
History of Present Illness Admission Date/PCP: 07/30/18 19:46 DAPHNE JANE MD Patient complains of: Nausea vomiting diarrhea and abdominal pain History of Present Illness: NICO BOBO is a 72 year old female presented to the emergency room with acute nausea, vomiting, diarrhea and abdominal pain. Patient admits that she developed nausea, vomiting (x1 episode only), diarrhea and abdominal pain at approximately 1 AM on the morning of admission. She has been experiencing loose watery diarrhea stools every 1-2 hours since the onset of her acute illness. She further admits that the abdominal pain is intermittent, generalized in the mid and upper abdomen and is of a moderate to severe cramping/colicky nature without radiation. She admits prior similar episodes though this is the most severe episode in recent memory. She has not identified any aggravating or ameliorating factors for her diarrhea, nausea, vomiting and abdominal pain. She an end-stage renal disease patient to would have been scheduled for hemodialysis today however she missed her appointment. Her potassium was controlled in the emergency room and her symptoms seem to improve slightly with treatment. An abdominal CT and a ultrasound of the right upper quadrant revealed no obvious pathology. Her white blood count was mildly elevated at 12,800 and her serum potassium had initially been 6.7 but has been reduced to 5.8 by the time of admission. Patient was subsequently admitted hospital for further evaluation and treatment, Dr. Gregorio will be consulted for nephrology input. Past Medical History Cardiac Medical History: Reports: Congestive Heart Failure, Hypertension Denies: Coronary Artery Disease, Myocardial Infarction Pulmonary Medical History: Denies: Asthma, Bronchitis, Chronic Obstructive Pulmonary Disease (COPD), Pneumonia EENT Medical History: Denies: Cataracts, Ears - Hearing aids Neurological Medical History: Denies: Hemorrhagic CVA, Ischemic CVA, Seizures Endocrine Medical History: Reports: Hypothyroidism Denies: Diabetes Mellitus Type 1, Diabetes Mellitus Type 2, Hyperthyroidism Renal/ Medical History: Reports: End Stage Renal Disease - On hemodialysis 3 days/week Denies: Nephrolithiasis Malignancy Medical History: Reports: None GI Medical History: Denies: Cirrhosis, Hepatitis Musculoskeltal Medical History: Reports: Arthritis Denies: Gout Skin Medical History: Denies: Eczema, Psoriasis Psychiatric Medical History: Denies: Alcohol Dependency, Substance Abuse, Tobacco Dependency Traumatic Medical History: Reports: None Hematology: Denies: Anemia, Bleeding Tendencies Infectious Medical History: Reports: None Past Surgical History Past Surgical History: Reports: Cardiac Catheterization - Negative cardiac cath, Thyroidectomy, Vascular Surgery - Right upper arm AV fistula Social History Information Source: Patient, Relative Lives with: Family Smoking Status: Never Smoker Frequency of Alcohol Use: None Hx Recreational Drug Use: No Drugs: None Hx Prescription Drug Abuse: No - Advance Directive Resuscitation Status: Full Code Surrogate healthcare decision maker:: Estephania Reid her daughter Family History Family History: CAD, Hypertension. denies: DM, Malignancy Parental Family History Reviewed: Yes Children Family History Reviewed: No Sibling(s) Family History Reviewed.: Yes Medication/Allergy Home Medications: Amlodipine Besylate [Norvasc 10 mg Tablet] 10 mg PO DAILY 07/30/18 Calcium Carbonate/Vitamin D3 [Calcium 600 + Vit D Tablet] 2 tab PO BID 07/30/18 Carvedilol [Coreg 25 mg Tablet] 25 mg PO BID 07/30/18 Folic Acid/Vitamin B Comp W-C [Siria-Mary Tablet] 0.8 mg PO DAILY 07/30/18 Levothyroxine Sodium 100 mcg PO Q6AM 07/30/18 Allergies/Adverse Reactions: tuberculin, purified protein deriva [Tuberculin,Purif.Prot.Deriv.] Allergy (Severe, Verified 07/30/18 08:15) Penicillins Allergy (Mild, Verified 07/30/18 08:15) Pruritis, Swelling Review of Systems Constitutional: ABSENT: chills, fever(s) Eyes: ABSENT: visual disturbances, other - Ocular pain Ears: ABSENT: hearing changes, other - Ear pain Nose, Mouth, and Throat: ABSENT: mouth pain, sore throat Cardiovascular: ABSENT: chest pain, palpitations Respiratory: ABSENT: cough, dyspnea Gastrointestinal: PRESENT: as per HPI, abdominal pain, diarrhea, nausea, vomiting. ABSENT: constipation, hematemesis, hematochezia Genitourinary: ABSENT: dysuria, hematuria Musculoskeletal: ABSENT: back pain, joint swelling, muscle weakness Integumentary: ABSENT: pruritus, rash Neurological: ABSENT: confusion, convulsions, focal weakness, memory loss, syncope Psychiatric: ABSENT: anxiety, depression Endocrine: ABSENT: cold intolerance, heat intolerance Hematologic/Lymphatic: ABSENT: easy bleeding, easy bruising Physical Exam Vital Signs: Temp Pulse Resp BP Pulse Ox 98.3 F 65 14 187/63 H 96 07/30/18 20:04 07/30/18 08:20 07/30/18 20:04 07/30/18 20:04 07/30/18 20:04 Intake & Output 07/28/18 07/29/18 07/30/18 23:59 23:59 23:59 Weight 60.3 kg General appearance: PRESENT: no acute distress, cooperative Head exam: PRESENT: atraumatic, normocephalic Eye exam: ABSENT: conjunctival injection, nystagmus, scleral icterus Ear exam: PRESENT: normal external ear exam. ABSENT: bleeding, drainage Mouth exam: PRESENT: dry mucosa, neck supple Neck exam: ABSENT: thyromegaly, tracheal deviation Respiratory exam: PRESENT: clear to auscultation rashmi, symmetrical, unlabored Cardiovascular exam: PRESENT: RRR. ABSENT: clicks, gallop, rubs Pulses: PRESENT: normal radial pulses, normal dorsalis pedis pul, other - Right upper extremity hemodialysis fistula noted Vascular exam: PRESENT: normal capillary refill. ABSENT: pallor GI/Abdominal exam: PRESENT: distended - Mild gaseous distention, hypoactive bowel sounds, soft, tenderness - Mild generalized tenderness in the mid and upper abdomen bilaterally, other - Tympanitic transmission noted on percussion. Rectal exam: PRESENT: deferred Extremities exam: ABSENT: joint swelling, pedal edema Musculoskeletal exam: ABSENT: deformity, dislocation Neurological exam: PRESENT: alert, oriented to person, oriented to place, oriented to time, oriented to situation, CN II-XII grossly intact. ABSENT: motor sensory deficit Psychiatric exam: PRESENT: appropriate affect, normal mood Skin exam: PRESENT: dry, intact, warm. ABSENT: jaundice, rash, urticaria Results Laboratory Results: 07/30/18 09:30 07/30/18 13:35 07/30/18 07/30/18 07/30/18 09:30 09:30 11:19 WBC 12.4 H RBC 3.87 Hgb 12.4 Hct 38.3 MCV 99 H MCH 32.1 MCHC 32.3 RDW 15.4 H Plt Count 208 Seg Neutrophils % Not Reportable Lymphocytes % Not Reportable Monocytes % Not Reportable Eosinophils % Not Reportable Basophils % Not Reportable Absolute Neutrophils Not Reportable Absolute Lymphocytes Not Reportable Absolute Monocytes Not Reportable Absolute Eosinophils Not Reportable Absolute Basophils Not Reportable Sodium 138.9 Potassium 6.6 H* Chloride 102 Carbon Dioxide 20 L Anion Gap 17 BUN 77 H Creatinine 8.95 H Est GFR ( Amer) 5 L Est GFR (Non-Af Amer) 4 L Glucose 124 H Calcium 9.0 Total Bilirubin 0.4 AST 35 ALT 46 Alkaline Phosphatase 185 H Total Protein 6.9 Albumin 4.4 Lipase Stool for White Cells NO WBCs SEEN 07/30/18 07/30/18 13:35 13:35 WBC RBC Hgb Hct MCV MCH MCHC RDW Plt Count Seg Neutrophils % Lymphocytes % Monocytes % Eosinophils % Basophils % Absolute Neutrophils Absolute Lymphocytes Absolute Monocytes Absolute Eosinophils Absolute Basophils Sodium 139.8 Potassium 5.8 H Chloride 104 Carbon Dioxide 18 L Anion Gap 18 BUN 80 H Creatinine 8.96 H Est GFR ( Amer) 5 L Est GFR (Non-Af Amer) 4 L Glucose 111 H Calcium 9.3 Total Bilirubin AST ALT Alkaline Phosphatase Total Protein Albumin Lipase 179.6 Stool for White Cells 07/30/18 07/30/18 09:30 09:30 Creatine Kinase 61 Troponin I 0.014 Impressions: Acute Abdomen Series 07/30/18 08:48 IMPRESSION: 1. Left retrocardiac opacity and blunting of the costophrenic angle, similar to multiple priors. Findings most likely represent chronic scarring at the left lung base. 2. No evidence of intestinal obstruction or other acute intra-abdominal process. Abdomen/Pelvis CT 07/30/18 10:22 IMPRESSION: 1. Persistent ovoid consolidation within the left posterior basilar hemithorax measuring approximately 5.8 x 2.8 cm. Findings may represent consolidation/airspace disease although underlying lesion is not entirely excluded. Recommend continued follow-up to ensure resolution. Small left pleural effusion. 2. Mild gallbladder wall thickening without distention, radiopaque stones or pericholecystic fluid, a nonspecific finding. Recommend correlation with symptomatology. 3. No evidence of bowel obstruction. Gas fluid levels throughout the colon which can be seen with diarrheal illness or cathartic use. Findings discussed with Dr. Mcclellan at the time of interpretation. Assessment and Plan - Diagnosis (1) Acute gastroenteritis Is this a current diagnosis for this admission?: Yes Plan: Patient will be treated with gentle IV fluid rehydration and careful monitoring with daily CBCs, metabolic profiles and magnesium levels. Dr. Gregorio will be consulted for assistance in management. (2) Hyperkalemia Is this a current diagnosis for this admission?: Yes Plan: Patient's hypokalemia will be monitored with daily metabolic profiles and magnesium levels. Dr. Gregorio will be consulted for nephrology input and management. (3) Abdominal pain Qualifiers: Abdominal location: generalized Qualified Code(s): R10.84 - Generalized abdominal pain Is this a current diagnosis for this admission?: Yes Plan: Patient's abdominal pain will be managed with morphine sulfate 2 to 4 mg IV every 2 hours on a as needed basis using a sliding scale. (4) ESRD on dialysis Is this a current diagnosis for this admission?: Yes Plan: Dr. Gregorio will be consulted for nephrologic management and possible inpatient dialysis if required. - Time Time Spent with patient: 25-34 minutes Medications reviewed and adjusted accordingly: Yes Anticipated discharge: Home - Inpatient Certification Based on my medical assessment, after consideration of the patient's comorbidities, presenting symptoms, or acuity I expect that the services needed warrant INPATIENT care.: Yes I certify that my determination is in accordance with my understanding of Medicare's requirements for reasonable and necessary INPATIENT services [42 CFR 412.3e].: Yes Medical Necessity: Significant Comorbidiites Make Outpatient Treatment Too Risky, Need Close Monitoring Due to Risk of Patient Decompensation, Need For IV Fluids, Need For Continuous Telemetry Monitoring, Risk of Complication if Not Cared For in Hospital, Risk of Diagnosis Which Will Require Inpatient Eval/Care/Monitoring
[2018-07-31] MEDS ORDERED: AMLODIPINE BESYLATE 10 MG TABLET PO ONE ×2 (00:08→03:00)
[2018-07-31 04:13] LABS: ABSOLUTE EOSINOPHILS # (AUTO) 0.1 10^3/uL (0.0-0.6); ABSOLUTE LYMPHOCYTES (AUTO) 0.4 10^3/uL (0.5-4.7); ABSOLUTE MONOCYTES (AUTO) 0.4 10^3/uL (0.1-1.4); ABSOLUTE NEUT (AUTO) 5.5 10^3/uL (1.7-8.2); BASOPHILS % (AUTO) 0.3 % (0-2); HEMATOCRIT 33.4 % (36.0-47.0); HEMOGLOBIN 11.1 g/dL (12.0-15.5); LYMPHOCYTES % (AUTO) 5.9 % (13-45); MEAN CORPUSCULAR HEMOGLOBIN 32.4 pg (27.0-33.4); MEAN CORPUSCULAR HGB CONC 33.1 g/dL (32.0-36.0); MEAN CORPUSCULAR VOLUME 98 fl (80-97); MONOCYTES % (AUTO) 6.7 % (3-13); PLATELET COUNT 176 10^3/uL (150-450); RED BLOOD COUNT 3.41 10^6/uL (3.72-5.28); SEGMENTED NEUTROPHILS % (AUTO) 86.1 % (42-78); TOTAL CELLS COUNTED % (AUTO) 100 %; WHITE BLOOD COUNT 6.4 10^3/uL (4.0-10.5)
[2018-07-31 04:24] LABS: BLOOD UREA NITROGEN 87 mg/dL (7-20); CALCIUM 8.8 mg/dL (8.4-10.2); CHOLESTEROL 190.05 mg/dL (0-200); GLUCOSE 90 mg/dL (75-110); PHOSPHORUS 7.5 mg/dL (2.5-4.5); POTASSIUM 5.5 mmol/L (3.6-5.0); TRIGLYCERIDES 84 mg/dL (<150)
[2018-07-31 04:29] LABS: ANION GAP 19 (5-19); CARBON DIOXIDE 16 mmol/L (22-30); CHLORIDE 104 mmol/L (98-107); SODIUM 139.2 mmol/L (137-145)
[2018-07-31 04:34] LABS: DIRECT LDL 73 mg/dL (<100)
[2018-07-31 04:35] LABS: CREATINE KINASE MB 0.86 ng/mL (<4.55); TROPONIN I 0.033 ng/mL
[2018-07-31 04:41] LABS: FREE T3 2.01 pg/mL (2.77-5.27); FREE T4 (FREE THYROXINE) 1.25 ng/dL (0.78-2.19)
[2018-07-31 04:54] LABS: THYROID STIMULATING HORMONE 2.09 uIU/mL (0.47-4.68)
[2018-07-31] MEDS: LEVOTHYROXINE SODIUM 0.1 MG TABLET PO SCH (06:27)
[2018-07-31] MEDS: HEPARIN SOD (PORCINE) 5,000 UNIT/ML 1 ML SYRINGE SUBCUT SCH ×3 (06:27→22:13)
[2018-07-31] MEDS: DOCUSATE SODIUM 100 MG CAPSULE PO SCH ×2 (11:00→17:02)
[2018-07-31] MEDS: CALCIUM CARBONATE 250 MG/VITAMIN D3 125 UNIT TABLET PO SCH ×2 (11:00→17:02)
[2018-07-31] MEDS: AMLODIPINE BESYLATE 10 MG TABLET PO SCH (11:01)
[2018-07-31] MEDS: PANTOPRAZOLE SODIUM 40 MG VIAL IV SCH ×2 (11:01→22:14)
[2018-07-31] MEDS: CARVEDILOL 12.5 MG TABLET PO SCH ×2 (11:01→22:12)
[2018-07-31] MEDS: NORMAL SALINE 1000 ML 1,000 ML IV PRN (11:04)
[2018-07-31 11:13] LABS: CREATINE KINASE MB 0.99 ng/mL (<4.55); TROPONIN I 0.035 ng/mL
[2018-07-31] MEDS: METOCLOPRAMIDE HCL INJ/PF 10 MG/2 ML SDV IV SCH ×4 (11:13→22:17)
[2018-07-31] MEDS ORDERED: ACETAMINOPHEN 325 MG TABLET PO PRN (14:16)
[2018-07-31] MEDS ORDERED: ONDANSETRON HCL INJ/PF 4 MG/2 ML SDV IV PRN (14:30)
[2018-07-31] MEDS: FOLIC ACID/VITAMIN B COMP W-C CAPSULE PO SCH (15:20)
--- NOTE | 2018-07-31 17:27 | PDOC PROGRESS REPORT ---
Subjective Progress Note for:: 07/31/18 Subjective:: No adverse events overnight. She is feeling better this morning. She says she has had 3 bouts of diarrhea this morning. No chest pain or palpitations. Her nausea and vomiting has resolved. She is eating and drinking without difficulty. She says she still has some vague and poorly localized abdominal discomfort but no outright pain. Reason For Visit: ACUTE GASTROENTERITIS Physical Exam Vital Signs: Temp Pulse Resp BP Pulse Ox 99.2 F 67 18 150/44 H 95 07/30/18 23:24 07/31/18 14:00 07/30/18 20:50 07/30/18 23:24 07/30/18 23:24 Intake & Output 07/30/18 07/31/18 08/01/18 06:59 06:59 06:59 Intake Total 1000 Balance 1000 Weight 60 kg General appearance: PRESENT: no acute distress, cooperative Respiratory exam: PRESENT: clear to auscultation rashmi, symmetrical, unlabored. ABSENT: accessory muscle use, crackles, prolonged expiratory phas, rhonchi, tachypnea, wheezes Cardiovascular exam: PRESENT: RRR, +S1, +S2 Pulses: PRESENT: normal carotid pulses Vascular exam: PRESENT: normal capillary refill GI/Abdominal exam: PRESENT: normal bowel sounds, soft. ABSENT: distended, guarding, rebound, tenderness Extremities exam: ABSENT: clubbing, pedal edema Musculoskeletal exam: PRESENT: normal inspection. ABSENT: deformity Neurological exam: PRESENT: alert, awake, oriented to person, oriented to place, oriented to situation Psychiatric exam: PRESENT: appropriate affect, normal mood Skin exam: PRESENT: dry, warm Results Laboratory Results: 07/31/18 03:56 07/31/18 03:56 07/31/18 07/31/18 07/31/18 03:56 03:56 03:56 WBC 6.4 RBC 3.41 L Hgb 11.1 L Hct 33.4 L MCV 98 H MCH 32.4 MCHC 33.1 RDW 15.0 H Plt Count 176 Seg Neutrophils % 86.1 H Lymphocytes % 5.9 L Monocytes % 6.7 Eosinophils % 1.0 Basophils % 0.3 Absolute Neutrophils 5.5 Absolute Lymphocytes 0.4 L Absolute Monocytes 0.4 Absolute Eosinophils 0.1 Absolute Basophils 0.0 Sodium 139.2 Potassium 5.5 H Chloride 104 Carbon Dioxide 16 L Anion Gap 19 BUN 87 H Creatinine 10.28 H Est GFR ( Amer) 4 L Est GFR (Non-Af Amer) 4 L Glucose 90 Calcium 8.8 Phosphorus 7.5 H Magnesium 1.9 Triglycerides 84 Cholesterol 190.05 LDL Cholesterol Direct 73 VLDL Cholesterol 17.0 HDL Cholesterol 94 TSH 2.09 Free T4 1.25 Free T3 pg/mL 2.01 L 07/30/18 11:19 Stool - Stool - Final 07/30/18 07/30/18 07/30/18 02:00 09:30 09:30 Creatine Kinase 61 CK-MB (CK-2) 0.71 Troponin I 0.016 0.014 07/30/18 07/31/18 07/31/18 21:30 03:56 03:56 Creatine Kinase 43 44 CK-MB (CK-2) 0.86 Troponin I 0.033 07/31/18 07/31/18 10:28 10:28 Creatine Kinase 49 CK-MB (CK-2) 0.99 Troponin I 0.035 Impressions: Acute Abdomen Series 07/30/18 08:48 IMPRESSION: 1. Left retrocardiac opacity and blunting of the costophrenic angle, similar to multiple priors. Findings most likely represent chronic scarring at the left lung base. 2. No evidence of intestinal obstruction or other acute intra-abdominal process. Abdomen/Pelvis CT 07/30/18 10:22 IMPRESSION: 1. Persistent ovoid consolidation within the left posterior bas ilar hemithorax measuring approximately 5.8 x 2.8 cm. Findings may represent consolidation/airspace disease although underlying lesion is not entirely excluded. Recommend continued follow-up to ensure resolution. Small left pleural effusion. 2. Mild gallbladder wall thickening without distention, radiopaque stones or pericholecystic fluid, a nonspecific finding. Recommend correlation with sym ptomatology. 3. No evidence of bowel obstruction. Gas fluid levels throughout the colon which can be seen with diarrheal illness or cathartic use. Findings discussed with Dr. Mcclellan at the time of interpretation. Assessment and Plan - Diagnosis (1) Acute gastroenteritis Is this a current diagnosis for this admission?: Yes Plan: Resolving. Likely viral in etiology. She has no more nausea and vomiting, but she still having a few scattered bouts of diarrhea. We will continue to watch her fluid intake. (2) ESRD on dialysis Is this a current diagnosis for this admission?: Yes Plan: She was seen in consultation by Dr. Gregorio, after having missed hemodialysis yesterday. Dr. Gregorio said she does not think the patient needs to be dialyzed today, and can wait to be dialyzed until tomorrow. (3) Hyperkalemia Is this a current diagnosis for this admission?: Yes Plan: Improved with some acute measures, down to 5.5. This will be accounted for with her dialysis treatment tomorrow. - Time Time Spent with patient: 15-24 minutes
--- NOTE | 2018-07-31 18:48 | PDOC CONSULTATION ---
Consultation Consult Date: 07/31/18 Provider Consulted: TIFFANIE MCDONOUGH Consult reason:: I was asked to see the patient due to hyperkalemia in a patient who had ESRD. History of Present Illness Admission Date/PCP: 07/30/18 19:46 DAPHNE JANE MD History of Present Illness: NICO BOBO is a 72 year old female with history of ESRD on maintenance hemodialysis on MWF, congestive heart failure, hypertension, and hypothyroidism who presented to the emergency room yesterday because of persistent nausea, vomiting, diarrhea and abdominal pain. Patient said that the symptoms started around Saturday night. She had visitors during this evaluation who speak [place] and was able to translate for me. Patient related that she was having loose stools every 3 hours since it started. She admitted eating to restaurants over the weekend and last Saturday she ate some ice cream. Today she still has no n ausea, diarrhea and some abdominal discomfort. So far she has not vomited yet. Her C. difficile was negative. She had a CT scan of the abdomen on admission which showed absence of obstruction, mild gallbladder wall thickening and a persistent ovoid consolidation within the left posterior basilar hemithorax. She is managed conservatively with supportive measures. Patient's last dialysis was Saturday. She has missed her dialysis yesterday due to above symptoms. Her initial potassium was 6.7 so she was given Kayexalate of 15 g in the emergency room. Initially she was being transferred to [facility] who are her usual residential care facility manager, Dr. Boyd has privileges. However subsequent repeat potassium went down to 5.8 and today it went down further to 5.5. Due to this the emergency room physician contacted me to see if we can keep the patient. The patient did not have any signs of fluid overload. Since there is no more need for any emergent dialysis treatment I recommended that we keep the patient for further management here. Past Medical History Cardiac Medical History: Reports: CHF-Diastolic, Hypertension-primary Endocrine Medical History: Reports: Hypothyroidism Renal/ Medical History: Reports: End Stage Renal Disease - On hemodialysis 3 days/week Musculoskeltal Medical History: Reports: Arthritis Hematology Medical History: Reports Anemia of Chronic Kidney Disease Past Surgical History Past Surgical History: Reports: Cardiac Catheterization - Negative cardiac cath, Dialysis Access Surgery AVF, Thyroidectomy Social History Information Source: Patient, [facility] Records Lives with: Family Smoking Status: Never Smoker Frequency of Alcohol Use: None Hx Recreational Drug Use: No Drugs: None Hx Prescription Drug Abuse: No - Advance Directive Resuscitation Status: Full Code Family History Family History: CAD, Hypertension Parental Family History Reviewed: Yes Children Family History Reviewed: Unknown Sibling(s) Family History Reviewed.: Yes Medication/Allergy Home Medications: Amlodipine Besylate [Norvasc 10 mg Tablet] 10 mg PO DAILY 07/30/18 Calcium Carbonate/Vitamin D3 [Calcium 600 + Vit D Tablet] 2 tab PO BID 07/30/18 Carvedilol [Coreg 25 mg Tablet] 25 mg PO BID 07/30/18 Folic Acid/Vitamin B Comp W-C [Siria-Mary Tablet] 0.8 mg PO DAILY 07/30/18 Levothyroxine Sodium 100 mcg PO Q6AM 07/30/18 Allergies/Adverse Reactions: tuberculin, purified protein deriva [Tuberculin,Purif.Prot.Deriv.] Allergy (Severe, Verified 07/30/18 08:15) Penicillins Allergy (Mild, Verified 07/30/18 08:15) Pruritis, Swelling Review of Systems All systems: reviewed and no additional remarkable complaints except as stated Review of Systems: Constitutional: ABSENT: chills, fatigue, fever(s), headache(s), weight gain, weight loss Eyes: ABSENT: visual disturbances Ears: ABSENT: hearing changes Cardiovascular: ABSENT: chest pain, dyspnea on exertion, edema, orthropnea, palpitations Respiratory: ABSENT: cough, dyspnea, hemoptysis Gastrointestinal: ABSENT: constipation, hematemesis, hematochezia; admits diarrhea, abdominal pain, nausea, and vomiting Genitourinary: ABSENT: dysuria, hematuria Musculoskeletal: ABSENT: joint swelling Integumentary: ABSENT: rash, wounds Neurological: ABSENT: abnormal gait, abnormal speech, confusion, dizziness, focal weakness, numbness, syncope Psychiatric: ABSENT: anxiety, depression Endocrine: ABSENT: cold intolerance, heat intolerance, polydipsia, polyuria Hematologic/Lymphatic: ABSENT: easy bleeding, easy bruising, lymphadenopathy Physical Exam Vital Signs: Temp Pulse Resp BP Pulse Ox 99.2 F 67 18 150/44 H 95 07/30/18 23:24 07/31/18 14:00 07/30/18 20:50 07/30/18 23:24 07/30/18 23:24 Intake & Output 07/30/18 07/31/18 08/01/18 06:59 06:59 06:59 Intake Total 1000 Balance 1000 Weight 60 kg Exam: General appearance: No acute distress, cooperative, well-developed, well- nourished Head exam: PRESENT: atraumatic, normocephalic Eye exam: PRESENT: Conjunctiva [place], EOMI, PERRLA. ABSENT: conjunctival injection, scleral icterus Mouth exam: PRESENT: moist, neck supple, tongue midline Neck exam: PRESENT: full ROM. ABSENT: carotid bruit, JVD, lymphadenopathy, thyromegaly Respiratory exam: PRESENT: clear to auscultation bilaterally. ABSENT: rales, rhonchi, stridor, wheezes Cardiovascular exam: PRESENT: RRR, +S1, +S2. ABSENT: systolic murmur Pulses: PRESENT: normal radial pulses, normal dorsalis pedis pulses GI/Abdominal exam: PRESENT: normal bowel sounds, soft. Positive tenderness on the right upper quadrant and epigastric area ABSENT: guarding, mass Rectal exam: Deferred Extremities exam: PRESENT: full ROM. ABSENT: calf tenderness, pedal edema Musculoskeletal: PRESENT: full ROM. ABSENT: deformity Neurological exam: PRESENT: alert, Awake, Oriented to person, Oriented to place, Oriented to time, reflexes normal, CN II-XII grossly intact. ABSENT: motor sensory deficit Psychiatric exam: PRESENT: appropriate affect, normal mood. ABSENT: homicidal ideation, suicidal ideation Skin exam: PRESENT: intact, dry, warm. ABSENT: rash Results Laboratory Results: 07/31/18 03:56 07/31/18 03:56 07/31/18 07/31/18 07/31/18 03:56 03:56 03:56 WBC 6.4 RBC 3.41 L Hgb 11.1 L Hct 33.4 L MCV 98 H MCH 32.4 MCHC 33.1 RDW 15.0 H Plt Count 176 Seg Neutrophils % 86.1 H Lymphocytes % 5.9 L Monocytes % 6.7 Eosinophils % 1.0 Basophils % 0.3 Absolute Neutrophils 5.5 Absolute Lymphocytes 0.4 L Absolute Monocytes 0.4 Absolute Eosinophils 0.1 Absolute Basophils 0.0 Sodium 139.2 Potassium 5.5 H Chloride 104 Carbon Dioxide 16 L Anion Gap 19 BUN 87 H Creatinine 10.28 H Est GFR ( Amer) 4 L Est GFR (Non-Af Amer) 4 L Glucose 90 Calcium 8.8 Phosphorus 7.5 H Magnesium 1.9 Triglycerides 84 Cholesterol 190.05 LDL Cholesterol Direct 73 VLDL Cholesterol 17.0 HDL Cholesterol 94 TSH 2.09 Free T4 1.25 Free T3 pg/mL 2.01 L 07/30/18 11:19 Stool - Stool - Final 07/30/18 07/30/18 07/30/18 02:00 09:30 09:30 Creatine Kinase 61 CK-MB (CK-2) 0.71 Troponin I 0.016 0.014 07/30/18 07/31/18 07/31/18 21:30 03:56 03:56 Creatine Kinase 43 44 CK-MB (CK-2) 0.86 Troponin I 0.033 07/31/18 07/31/18 10:28 10:28 Creatine Kinase 49 CK-MB (CK-2) 0.99 Troponin I 0.035 Impressions: Acute Abdomen Series 07/30/18 08:48 IMPRESSION: 1. Left retrocardiac opacity and blunting of the costophrenic angle, similar to multiple priors. Findings most likely represent chronic scarring at the left lung base. 2. No evidence of intestinal obstruction or other acute intra-abdominal proc ess. Abdomen/Pelvis CT 07/30/18 10:22 IMPRESSION: 1. Persistent ovoid consolidation within the left posterior basilar hemithorax measuring approximately 5.8 x 2.8 cm. Findings may represent consolidation/airspace disease although underlying lesion is not entirely exc luded. Recommend continued follow-up to ensure resolution. Small left pleural effusion. 2. Mild gallbladder wall thickening without distention, radiopaque stones or pericholecystic fluid, a nonspecific finding. Recommend correlation with symptomatology. 3. No evidence of bowel obstruction. Gas fluid levels throughout the colon which can be seen with diarrheal illness or cathartic use. Findings discussed with Dr. Mcclellan at the time of interpretation. Assessment & Plan - Diagnosis (1) Acute gastroenteritis Is this a current diagnosis for this admission?: Yes Plan: Possibly viral versus lactose intolerance. Continue supportive measures. Continue very cautious rehydration. (2) ESRD on dialysis Is this a current diagnosis for this admission?: Yes Plan: No emergent indication for hemodialysis today. We will plan for dialysis tomorrow. (3) Hyperkalemia Is this a current diagnosis for this admission?: Yes Plan: Initial elevated potassium has improved. We will dialyze her tomorrow. (4) Hypertension Qualifiers: Hypertension type: essential hypertension Qualified Code(s): I10 - Essential (primary) hypertension (5) Anemia in CKD (chronic kidney disease) Is this a current diagnosis for this admission?: Yes - Notes Notes: Thank you very much for this consultation. Discussed with Dr. Booker. - Time Time Spent: 50 to 70 Minutes
[2018-08-01] MEDS: HYDRALAZINE HCL INJ/PF 20 MG/1 ML SDV IV PRN (00:50)
[2018-08-01] MEDS ORDERED: LOPERAMIDE HCL 2 MG CAPSULE PO ONE (01:30)
[2018-08-01] MEDS ORDERED: NORMAL SALINE 1000 ML 1,000 ML IV PRN (05:00)
[2018-08-01] MEDS: HEPARIN SOD (PORCINE) 5,000 UNIT/ML 1 ML SYRINGE SUBCUT SCH ×3 (05:23→22:42)
[2018-08-01] MEDS: LEVOTHYROXINE SODIUM 0.1 MG TABLET PO SCH (05:23)
[2018-08-01 06:39] LABS: ABSOLUTE EOSINOPHILS # (AUTO) 0.1 10^3/uL (0.0-0.6); ABSOLUTE LYMPHOCYTES (AUTO) 0.7 10^3/uL (0.5-4.7); ABSOLUTE MONOCYTES (AUTO) 0.4 10^3/uL (0.1-1.4); ABSOLUTE NEUT (AUTO) 3.2 10^3/uL (1.7-8.2); BASOPHILS % (AUTO) 0.4 % (0-2); EOSINOPHILS % (AUTO) 1.4 % (0-6); HEMATOCRIT 30.5 % (36.0-47.0); HEMOGLOBIN 10.2 g/dL (12.0-15.5); LYMPHOCYTES % (AUTO) 15.6 % (13-45); MEAN CORPUSCULAR HEMOGLOBIN 33.1 pg (27.0-33.4); MEAN CORPUSCULAR HGB CONC 33.3 g/dL (32.0-36.0); MEAN CORPUSCULAR VOLUME 99 fl (80-97); MONOCYTES % (AUTO) 8.9 % (3-13); PLATELET COUNT 157 10^3/uL (150-450); RED BLOOD COUNT 3.07 10^6/uL (3.72-5.28); SEGMENTED NEUTROPHILS % (AUTO) 73.7 % (42-78); TOTAL CELLS COUNTED % (AUTO) 100 %; WHITE BLOOD COUNT 4.3 10^3/uL (4.0-10.5)
[2018-08-01 07:02] LABS: ANION GAP 19 (5-19); BLOOD UREA NITROGEN 97 mg/dL (7-20); CALCIUM 8.7 mg/dL (8.4-10.2); CARBON DIOXIDE 13 mmol/L (22-30); CHLORIDE 104 mmol/L (98-107); GLUCOSE 89 mg/dL (75-110); PHOSPHORUS 8.3 mg/dL (2.5-4.5); SODIUM 136.4 mmol/L (137-145)
[2018-08-01] MEDS: CARVEDILOL 12.5 MG TABLET PO SCH ×2 (09:38→22:37)
[2018-08-01] MEDS: DOCUSATE SODIUM 100 MG CAPSULE PO SCH ×2 (09:39→17:26)
[2018-08-01] MEDS: AMLODIPINE BESYLATE 10 MG TABLET PO SCH (09:39)
[2018-08-01] MEDS: CALCIUM CARBONATE 250 MG/VITAMIN D3 125 UNIT TABLET PO SCH ×2 (09:39→17:26)
[2018-08-01] MEDS: PANTOPRAZOLE SODIUM 40 MG VIAL IV SCH ×2 (09:39→22:39)
[2018-08-01] MEDS: METOCLOPRAMIDE HCL INJ/PF 10 MG/2 ML SDV IV SCH ×4 (09:47→22:39)
[2018-08-01] MEDS: FOLIC ACID/VITAMIN B COMP W-C CAPSULE PO SCH (15:53)
--- NOTE | 2018-08-01 16:41 | PDOC PROGRESS REPORT ---
Subjective Progress Note for:: 08/01/18 Subjective:: No adverse events overnight. No new complaints. Patient was seen this morning while she was on dialysis. She was in good spirits. She denied abdominal pain. She denied nausea. She said she had only one bowel movement this morning and it was loose but not watery. She has been eating and drinking without difficulty. No chest pain or palpitations. Reason For Visit: ACUTE GASTROENTERITIS Physical Exam Vital Signs: Temp Pulse Resp BP Pulse Ox 98.1 F 64 14 157/46 H 96 08/01/18 08:13 08/01/18 08:13 08/01/18 08:13 08/01/18 08:13 08/01/18 08:13 Intake & Output 07/31/18 08/01/18 08/02/18 06:59 06:59 06:59 Intake Total 2570 Balance 2570 Weight 60 kg 62.9 kg General appearance: PRESENT: no acute distress, cooperative Respiratory exam: PRESENT: clear to auscultation rashmi, symmetrical, unlabored. ABSENT: accessory muscle use, crackles, prolonged expiratory phas, rhonchi, t achypnea, wheezes Cardiovascular exam: PRESENT: RRR, +S1, +S2 Pulses: PRESENT: normal carotid pulses Vascular exam: PRESENT: normal capillary refill GI/Abdominal exam: PRESENT: normal bowel sounds, soft. ABSENT: distended, guarding, rebound, tenderness Extremities exam: ABSENT: clubbing, pedal edema Musculoskeletal exam: PRESENT: normal inspection. ABSENT: deformity Neurological exam: PRESENT: alert, awake, oriented to person, oriented to place, oriented to situation Psychiatric exam: PRESENT: appropriate affect, normal mood Skin exam: PRESENT: dry, warm Results Laboratory Results: 08/01/18 06:09 08/01/18 06:09 08/01/18 08/01/18 06:09 06:09 WBC 4.3 RBC 3.07 L Hgb 10.2 L Hct 30.5 L MCV 99 H MCH 33.1 MCHC 33.3 RDW 15.0 H Plt Count 157 Seg Neutrophils % 73.7 Lymphocytes % 15.6 Monocytes % 8.9 Eosinophils % 1.4 Basophils % 0.4 Absolute Neutrophils 3.2 Absolute Lymphocytes 0.7 Absolute Monocytes 0.4 Absolute Eosinophils 0.1 Absolute Basophils 0.0 Sodium 136.4 L Potassium 6.0 H* Chloride 104 Carbon Dioxide 13 L Anion Gap 19 BUN 97 H Creatinine 12.23 H Est GFR ( Amer) 4 L Est GFR (Non-Af Amer) 3 L Glucose 89 Calcium 8.7 Phosphorus 8.3 H Magnesium 2.1 07/30/18 11:19 Stool - Stool - Final 07/30/18 07/30/18 07/30/18 02:00 09:30 09:30 Creatine Kinase 61 CK-MB (CK-2) 0.71 Troponin I 0.016 0.014 07/30/18 07/31/18 07/31/18 21:30 03:56 03:56 Creatine Kinase 43 44 CK-MB (CK-2) 0.86 Troponin I 0.033 07/31/18 07/31/18 10:28 10:28 Creatine Kinase 49 CK-MB (CK-2) 0.99 Troponin I 0.035 Impressions: Acute Abdomen Series 07/30/18 08:48 IMPRESSION: 1. Left retrocardiac opacity and blunting of the costophrenic angle, similar to multiple priors. Findings most likely represent chronic scarring at the left lung base. 2. No evidence of intestinal obstruction or other acute intra-abdominal process. Abdomen/Pelvis CT 07/30/18 10:22 IMPRESSION: 1. Persistent ovoid consolidation within the left posterior basilar hemithorax measuring approximately 5.8 x 2.8 cm. Findings may represent consolidation/airspace disease although underlying lesion is not entirely excluded. Recommend continued follow-up to ensure resolution. Small left pleural effusion. 2. Mild gallbladder wall thickening without distention, radiopaque stones or pericholecystic fluid, a nonspecific finding. Recommend correlation with symptomatology. 3. No evidence of bowel obstruction. Gas fluid levels throughout the colon which can be seen with diarrheal illness or cathartic use. Findings discussed with Dr. Mcclellan at the time of interpretation. Assessment and Plan - Diagnosis (1) Acute gastroenteritis Is this a current diagnosis for this admission?: Yes Plan: Seems to have resolved with conservative measures. No more nausea or vomiting. No more diarrhea. (2) ESRD on dialysis Is this a current diagnosis for this admission?: Yes Plan: She was seen in consultation by Dr. Gregorio, receiving her usual scheduled dialysis today. (3) Hyperkalemia Is this a current diagnosis for this admission?: Yes Plan: Potassium was back up to 6 this morning, being adjusted on dialysis. - Time Time Spent with patient: 15-24 minutes - Plan Summary Plan Summary: If she is doing okay in the morning of her potassium has corrected, she will be discharged home.
--- NOTE | 2018-08-01 20:07 | PDOC PROGRESS REPORT ---
Subjective Progress Note for:: 08/01/18 Subjective:: I saw the patient on dialysis this afternoon. She was looking better and reports that she is feeling better. She said her last bowel movement was in early a.m. today and has not had any since. She denies any nausea or vomiting nor abdominal pain. She is feeling much better and was able to eat. She tolerated dialysis without any problems or complication. Reason For Visit: ACUTE GASTROENTERITIS Physical Exam Vital Signs: Temp Pulse Resp BP Pulse Ox 98.1 F 64 14 157/46 H 96 08/01/18 08:13 08/01/18 08:13 08/01/18 08:13 08/01/18 08:13 08/01/18 08:13 Intake & Output 07/31/18 08/01/18 08/02/18 06:59 06:59 06:59 Intake Total 2570 Balance 2570 Weight 60 kg 62.9 kg Vitals during dialysis: Blood pressure 135/56, heart rate of 58, blood flow rate of 435 mL/min and dialysate flow rate of 800 mL/min. Exam: General appearance: PRESENT: no acute distress, cooperative, well-developed, well-nourished Head exam: PRESENT: atraumatic, normocephalic Eye exam: PRESENT: conjunctiva pink, PERRLA. ABSENT: scleral icterus Neck exam: ABSENT: JVD Respiratory exam: PRESENT: Normal breath sounds. ABSENT: crackles, rales, rhonchi, unlabored, wheezes Cardiovascular exam: PRESENT: Regular rate rhythm -+S1, +S2. ABSENT: diastolic murmur, systolic murmur GI/Abdominal exam: PRESENT: normal bowel sounds, soft. ABSENT: guarding, mass, tenderness Extremities exam: ABSENT: No edema Neurological exam: PRESENT: alert, awake, oriented to person, place and time. Skin exam: PRESENT: dry, warm, Results Laboratory Results: 08/01/18 06:09 08/01/18 06:09 08/01/18 08/01/18 06:09 06:09 WBC 4.3 RBC 3.07 L Hgb 10.2 L Hct 30.5 L MCV 99 H MCH 33.1 MCHC 33.3 RDW 15.0 H Plt Count 157 Seg Neutrophils % 73.7 Lymphocytes % 15.6 Monocytes % 8.9 Eosinophils % 1.4 Basophils % 0.4 Absolute Neutrophils 3.2 Absolute Lymphocytes 0.7 Absolute Monocytes 0.4 Absolute Eosinophils 0.1 Absolute Basophils 0.0 Sodium 136.4 L Potassium 6.0 H* Chloride 104 Carbon Dioxide 13 L Anion Gap 19 BUN 97 H Creatinine 12.23 H Est GFR ( Amer) 4 L Est GFR (Non-Af Amer) 3 L Glucose 89 Calcium 8.7 Phosphorus 8.3 H Magnesium 2.1 07/30/18 11:19 Stool - Stool - Final 07/30/18 07/30/18 07/30/18 02:00 09:30 09:30 Creatine Kinase 61 CK-MB (CK-2) 0.71 Troponin I 0.016 0.014 07/30/18 07/31/18 07/31/18 21:30 03:56 03:56 Creatine Kinase 43 44 CK-MB (CK-2) 0.86 Troponin I 0.033 07/31/18 07/31/18 10:28 10:28 Creatine Kinase 49 CK-MB (CK-2) 0.99 Troponin I 0.035 Impressions: Acute Abdomen Series 07/30/18 08:48 IMPRESSION: 1. Left retrocardiac opacity and blunting of the costophrenic angle, similar to multiple priors. Findings most likely represent chronic scarring at the left lung base. 2. No evidence of intestinal obstruction or other acute intra-abdominal process. Abdomen/Pelvis CT 07/30/18 10:22 IMPRESSION: 1. Persistent ovoid consolidation within the left posterior basilar hemithorax measuring approximately 5.8 x 2.8 cm. Findings may represent consolidation/airspace disease although underlying lesion is not entirely excluded. Recommend continued follow-up to ensure resolution. Small left pleural effusion. 2. Mild gallbladder wall thickening without distention, radiopaque stones or pericholecystic fluid, a nonspecific finding. Recommend correlation with symptomatology. 3. No evidence of bowel obstruction. Gas fluid levels throughout the colon which can be seen with diarrheal illness or cathartic use. Findings discussed with Dr. Mcclellan at the time of interpretation. Assessment & Plan - Diagnosis (1) ESRD on dialysis Is this a current diagnosis for this admission?: Yes Plan: We did dialysis today for 3 hours, using the patient's AV fistula, with 1 potassium bath for 1 hour followed by 2 potassium bath, blood flow rate of 400- 450 mL per minute, dialysate flow rate of 800 mL per minute, ultrafiltration 2 to 3 L as tolerated, no heparin and no Procrit. Patient was able to tolerate ultrafiltration without any problems. She was monitored throughout dialysis treatment. (2) Acute gastroenteritis Is this a current diagnosis for this admission?: Yes Plan: Resolving with supportive measures. (3) Hyperkalemia Is this a current diagnosis for this admission?: Yes Plan: Dialysis done today. (4) Hypertension Qualifiers: Hypertension type: essential hypertension Qualified Code(s): I10 - Essential (primary) hypertension Is this a current diagnosis for this admission?: Yes (5) Anemia in CKD (chronic kidney disease) Is this a current diagnosis for this admission?: Yes - Notes Notes: From nephrology standpoint I think patient can be discharged home over the weekend. If discharge patient will continue to follow her regular outpatient dialysis schedule at [facility]. - Time Time with patient: 15-25 minutes
[2018-08-01] MEDS: LOPERAMIDE HCL 2 MG CAPSULE PO PRN ×2 (20:48→22:37)
[2018-08-02] MEDS: LEVOTHYROXINE SODIUM 0.1 MG TABLET PO SCH (05:19)
[2018-08-02] MEDS: HEPARIN SOD (PORCINE) 5,000 UNIT/ML 1 ML SYRINGE SUBCUT SCH (05:20)
[2018-08-02 06:07] LABS: ABSOLUTE EOSINOPHILS # (AUTO) 0.1 10^3/uL (0.0-0.6); ABSOLUTE LYMPHOCYTES (AUTO) 0.8 10^3/uL (0.5-4.7); ABSOLUTE MONOCYTES (AUTO) 0.6 10^3/uL (0.1-1.4); ABSOLUTE NEUT (AUTO) 3.3 10^3/uL (1.7-8.2); BASOPHILS % (AUTO) 0.4 % (0-2); EOSINOPHILS % (AUTO) 1.1 % (0-6); HEMATOCRIT 32.4 % (36.0-47.0); LYMPHOCYTES % (AUTO) 17.2 % (13-45); MEAN CORPUSCULAR HEMOGLOBIN 32.9 pg (27.0-33.4); MEAN CORPUSCULAR HGB CONC 33.8 g/dL (32.0-36.0); MEAN CORPUSCULAR VOLUME 97 fl (80-97); MONOCYTES % (AUTO) 12.1 % (3-13); PLATELET COUNT 150 10^3/uL (150-450); RED BLOOD COUNT 3.33 10^6/uL (3.72-5.28); RED CELL DISTRIBUTION WIDTH 14.8 % (11.5-14.0); SEGMENTED NEUTROPHILS % (AUTO) 69.2 % (42-78); TOTAL CELLS COUNTED % (AUTO) 100 %; WHITE BLOOD COUNT 4.7 10^3/uL (4.0-10.5)
[2018-08-02 06:45] LABS: ANION GAP 14 (5-19); CALCIUM 7.8 mg/dL (8.4-10.2); CHLORIDE 100 mmol/L (98-107); GLUCOSE 87 mg/dL (75-110); SODIUM 137.7 mmol/L (137-145)
[2018-08-02 07:02] LABS: BLOOD UREA NITROGEN 53 mg/dL (7-20); CARBON DIOXIDE 24 mmol/L (22-30); PHOSPHORUS 5.9 mg/dL (2.5-4.5); POTASSIUM 4.5 mmol/L (3.6-5.0)
[2018-08-02] MEDS: AMLODIPINE BESYLATE 10 MG TABLET PO SCH (09:16)
[2018-08-02] MEDS: CARVEDILOL 12.5 MG TABLET PO SCH (09:16)
[2018-08-02] MEDS: DOCUSATE SODIUM 100 MG CAPSULE PO SCH (09:17)
[2018-08-02] MEDS: METOCLOPRAMIDE HCL INJ/PF 10 MG/2 ML SDV IV SCH ×2 (09:17→11:00)
[2018-08-02] MEDS: CALCIUM CARBONATE 250 MG/VITAMIN D3 125 UNIT TABLET PO SCH (09:17)
[2018-08-02] MEDS: PANTOPRAZOLE SODIUM 40 MG VIAL IV SCH (09:17)
[2018-08-02 14:17] VITALS: BP 130/42
--- NOTE | 2018-08-02 17:25 | PDOC DISCHARGE SUMMARY ---
General - Admit/Disc Date/PCP Admission Date/Primary Care Provider: 07/30/18 19:46 DAPHNE JANE MD Discharge Date: 08/02/18 - Discharge Diagnosis (1) Acute gastroenteritis Is this a current diagnosis for this admission?: Yes Summary: Resolved with supportive care. A viral etiology is suspected. (2) ESRD on dialysis Is this a current diagnosis for this admission?: Yes Summary: She missed her Saturday dialysis, and her potassium was low elevated, but she looked okay, so we held off until doing her regular scheduled dialysis session on Saturday and she tolerated it well. She was seen in consultation by Dr. Mercy laughlin. (3) Hyperkalemia Is this a current diagnosis for this admission?: Yes Summary: This improved after she was dialyzed. - Additional Information Resuscitation Status: Full Code Discharge Diet: As Tolerated, Other (Comments) Discharge Activity: Activity As Tolerated Prescriptions: Ondansetron HCl [Zofran 4 mg Tablet] 1 - 2 tab PO Q4H PRN #20 tablet PRN Reason: Home Medications: Amlodipine Besylate [Norvasc 10 mg Tablet] 10 mg PO DAILY 07/30/18 Calcium Carbonate/Vitamin D3 [Calcium 600 + Vit D Tablet] 2 tab PO BID 07/30/18 Carvedilol [Coreg 25 mg Tablet] 25 mg PO BID 07/30/18 Folic Acid/Vitamin B Comp W-C [Siria-Mary Tablet] 0.8 mg PO DAILY 07/30/18 Levothyroxine Sodium 100 mcg PO Q6AM 07/30/18 Ondansetron HCl [Zofran 4 mg Tablet] 1 - 2 tab PO Q4H PRN #20 tablet 08/02/18 History of Present Illness History of Present Illness: NICO BOBO is a 72 year old female presented to the emergency room with acute nausea, vomiting, diarrhea and abdominal pain. Patient admits that she developed nausea, vomiting (x1 episode only), diarrhea and abdominal pain at approximately 1 AM on the morning of admission. She has been experiencing loose watery diarrhea stools every 1-2 hours since the onset of her acute illness. She further admits that the abdominal pain is intermittent, generalized in the mid and upper abdomen and is of a moderate to severe cramping/colicky nature without radiation. She admits prior similar episodes though this is the most severe episode in recent memory. She has not identified any aggravating or ameliorating factors for her diarrhea, nausea, vomiting and abdominal pain. She an end-stage renal disease patient to would have been scheduled for hemodialysis today however she missed her appointment. Her potassium was controlled in the emergency room and her symptoms seem to improve slightly with treatment. An abdominal CT and a ultrasound of the right upper quadrant revealed no obvious p athology. Her white blood count was mildly elevated at 12,800 and her serum potassium had initially been 6.7 but has been reduced to 5.8 by the time of admission. Patient was subsequently admitted hospital for further evaluation and treatment, Dr. Gregorio will be consulted for nephrology input. Hospital Course Hospital Course: She responded very quickly with supportive measures, mainly IV fluids and antiemetics. Her nausea and vomiting resolved rapidly and she was eating full meals by her next day in the hospital. Her diarrhea slowed down substantially. When she was discharged she had had one episode that morning and that was it. She had missed a dialysis session on Saturday because she was not feeling well, but she did not require emergent hemodialysis. Her potassium was up a bit, but after she got dialysis during her regularly scheduled time on Saturday her potassium went back down to normal. Spoke with her family at length today. Physical Exam Vital Signs: Temp Pulse Resp BP Pulse Ox 98.9 F 59 L 14 144/42 H 94 08/02/18 12:28 08/02/18 12:28 08/02/18 12:28 08/02/18 12:28 08/02/18 12:28 Intake & Output 08/01/18 08/02/18 08/03/18 06:59 06:59 06:59 Intake Total 2570 520 Output Total 2800 Balance 2570 -2280 Weight 62.9 kg 60.8 kg General appearance: PRESENT: no acute distress, cooperative Respiratory exam: PRESENT: clear to auscultation rashmi, symmetrical, unlabored. ABSENT: accessory muscle use, crackles, prolonged expiratory phas, rhonchi, tachypnea, wheezes Cardiovascular exam: PRESENT: RRR, +S1, +S2 Pulses: PRESENT: normal carotid pulses Vascular exam: PRESENT: normal capillary refill GI/Abdominal exam: PRESENT: normal bowel sounds, soft. ABSENT: distended, gu arding, rebound, tenderness Extremities exam: ABSENT: clubbing, pedal edema Musculoskeletal exam: PRESENT: normal inspection. ABSENT: deformity Neurological exam: PRESENT: alert, awake, oriented to person, oriented to place, oriented to situation Psychiatric exam: PRESENT: appropriate affect, normal mood Skin exam: PRESENT: dry, warm Results Laboratory Results: 08/02/18 05:40 08/02/18 05:40 08/02/18 08/02/18 05:40 05:40 WBC 4.7 RBC 3.33 L Hgb 11.0 L Hct 32.4 L MCV 97 MCH 32.9 MCHC 33.8 RDW 14.8 H Plt Count 150 Seg Neutrophils % 69.2 Lymphocytes % 17.2 Monocytes % 12.1 Eosinophils % 1.1 Basophils % 0.4 Absolute Neutrophils 3.3 Absolute Lymphocytes 0.8 Absolute Monocytes 0.6 Absolute Eosinophils 0.1 Absolute Basophils 0.0 Sodium 137.7 Potassium 4.5 D Chloride 100 Carbon Dioxide 24 D Anion Gap 14 BUN 53 H D Creatinine 7.45 H Est GFR ( Amer) 6 L Est GFR (Non-Af Amer) 5 L Glucose 87 Calcium 7.8 L Phosphorus 5.9 H D Magnesium 2.0 07/30/18 11:19 Stool - Stool - Final 07/30/18 07/30/18 07/30/18 02:00 09:30 09:30 Creatine Kinase 61 CK-MB (CK-2) 0.71 Troponin I 0.016 0.014 07/30/18 07/31/18 07/31/18 21:30 03:56 03:56 Creatine Kinase 43 44 CK-MB (CK-2) 0.86 Troponin I 0.033 07/31/18 07/31/18 10:28 10:28 Creatine Kinase 49 CK-MB (CK-2) 0.99 Troponin I 0.035 Impressions: Acute Abdomen Series 07/30/18 08:48 IMPRESSION: 1. Left retrocardiac opacity and blunting of the costophrenic angle, similar to multiple priors. Findings most likely represent chronic scarring at the left lung base. 2. No evidence of intestinal obstruction or other acute intra-abdominal process. Abdomen/Pelvis CT 07/30/18 10:22 IMPRESSION: 1. Persistent ovoid consolidation within the left posterior basilar hemithorax measuring approximately 5.8 x 2.8 cm. Findings may represent consolidation/airspace disease although underlying lesion is not entirely excluded. Recommend continued follow-up to ensure resolution. Small left pleural effusion. 2. Mild gallbladder wall thickening without distention, radiopaque stones or pericholecystic fluid, a nonspecific finding. Recommend correlation with symptomatology. 3. No evidence of bowel obstruction. Gas fluid levels throughout the colon which can be seen with diarrheal illness or cathartic use. Findings discussed with Dr. Mcclellan at the time of interpretation. Qualifiers - * PATIENT BEING DISCHARGED WITH ANY OF THE FOLLOWING DIAGNOSIS: No Acute Heart Failure Is this a Heart Failure Patient?: No
== END 2018-08-02 14:20 | disposition home or self-care (01) | DRG 640 ==
LOC: ER 08:13 → EH 19:46 → 4S 20:47
PROVIDERS: ADMIT Emergency Medicine; ATTEND Emergency Medicine
PROC: 5A1D70Z Performance of Urinary Filtration, Intermittent, Less than 6 Hours Per Day (ICD-10-PCS; principal; 2018-07-30)
DX: E87.5 Hyperkalemia (principal); N18.6 End stage renal disease; I13.2 Hypertensive heart and chronic kidney disease with heart failure and with stage 5 chronic kidney disease, or end stage renal disease; I50.30 Unspecified diastolic (congestive) heart failure; E11.22 Type 2 diabetes mellitus with diabetic chronic kidney disease; D63.1 Anemia in chronic kidney disease; K52.9 Noninfective gastroenteritis and colitis, unspecified; Z99.2 Dependence on renal dialysis; M19.90 Unspecified osteoarthritis, unspecified site; E89.0 Postprocedural hypothyroidism; Z88.7 Allergy status to serum and vaccine; Z88.0 Allergy status to penicillin; Z82.49 Family history of ischemic heart disease and other diseases of the circulatory system
CPT/HCPCS: 36415; 74022; 74176; 80048; 80053; 80061; 82550; 82553; 82962; 83036; 83690; 83735; 84100; 84439; 84443; 84481; 84484; 85025; 87045; 87077; 87186; 87205; 87493; 89055; 93005; 93010; 96374; 96375; 99285; J0360; J0610; J1644; J1815; J2270; J2405; J2765; J3490; J7030; S0164

== ENCOUNTER → 2019-02-24 | Outpatient (CLI) | payer MEDICARE, MEDICAID ==
--- NOTE | 2019-02-24 08:19 | WOMENS IMAGING REPORT ---
EXAM DESCRIPTION: U/S ABDOMEN LIMITED COMPLETED DATE/TIME: 02/24/2019 8:07 am REASON FOR STUDY: R18.8 OTHER ASCITES R18.8 OTHER ASCITES COMPARISON: 01/06/2019 TECHNIQUE: Limited Static and real time scott scale imaging performed of the 4 abdominal quadrants an d the midline. LIMITATIONS: None. FINDINGS: ASCITES: None identified. OTHER: No other significant finding. IMPRESSION: No significant ascites. TECHNICAL DOCUMENTATION: JOB ID: [id number] [employer]- All Rights Reserved Reading location - IP/workstation name: [email or web address]
== END ==
LOC: WI 07:50
PROVIDERS: ATTEND Internal Medicine Nephrology
DX: R18.8 Other ascites (principal)
CPT/HCPCS: 76705

== ENCOUNTER → 2019-04-07 | Outpatient (CLI) | payer MEDICARE, MEDICAID ==
--- NOTE | 2019-04-07 14:07 | RADIOLOGY REPORT (SQ) ---
EXAM DESCRIPTION: CT ABD/PELVIS NO ORAL OR IV COMPLETED DATE/TIME: 04/07/2019 10:05 am REASON FOR STUDY: RLQ ABD PAIN (R10.31) R10.31 RIGHT LOWER QUADRANT PAIN COMPARISON: 07/30/2018. TECHNIQUE: CT scan of the abdomen and pelvis performed without intravenous or oral contrast. Images reviewed with lung, soft tissue, and bone windows. Reconstructed coronal and sagittal MPR images revi ewed. All images stored on PACS. All CT scanners at this facility use dose modulation, iterative reconstruction, and/or weight based d osing when appropriate to reduce radiation dose to as low as reasonably achievable (ALARA). [facility]: Dose Right [facility]: CareDose [facility]: Dose Right [facility]: Teradose 4D [facility]: Smart Technologies RADIATION DOSE: CT Rad equipment meets quality standard of care and radiation dose reduction techniq ues were employed. CTDIvol: 5.8 mGy. DLP: 309 mGy-cm.mGy. LIMITATIONS: None. FINDINGS: LOWER CHEST: Persistent ovoid density in the left lung base, measuring 2.5 x 5.5 cm. Coordinator Of Rehabilitation Services josemanuel eventration of the right hemidiaphragm. NON-CONTRASTED LIVER, SPLEEN, ADRENALS: Evaluation limited by lack of IV contrast. No identified sign ificant masses. PANCREAS: No masses. No peripancreatic inflammatory changes. GALLBLADDER: No identified stones by CT criteria. There does appear to be gallbladder wall thickenin g. RIGHT KIDNEY AND URETER: Chronic atrophy. Cortical cysts. No suspicious masses. Assessment limited by lack of IV contrast. No significant calcifications. No hydronephrosis or hydroureter. LEFT KIDNEY AND URETER: Chronic atrophy. Cortical cysts. No suspicious masses. Assessment limited b y lack of IV contrast. No significant calcifications. No hydronephrosis or hydroureter. AORTA AND RETROPERITONEUM: No aneurysm. No retroperitoneal masses or adenopathy. BOWEL AND PERITONEAL CAVITY: Diverticuli in the descending and sigmoid colon. No obvious masses or i nflammatory changes. No free fluid. APPENDIX: Normal. PELVIS, BLADDER, AND ABDOMINAL WALL:Calcified uterine fibroids. No abnormal masses. No free fluid. B ladder normal. BONES: No significant findings. OTHER: No other significant finding. IMPRESSION: 1. INDISTINCT GALLBLADDER WALL THICKENING. CONSIDER FOLLOW-UP ULTRASOUND OF THE GALLBLADDER. 2. COLONIC DIVERTICULOSIS. NO CT FINDINGS OF ACUTE DIVERTICULITIS. 3. CHRONIC ATROPHY OF THE KIDNEYS. 4. PERSISTENT OVOID DENSITY IN THE LEFT LUNG BASE, UNCHANGED SINCE JULY 2018. FOLLOW-UP CLINICALLY INDICATED. 5. NO OTHER SIGNIFICANT OR ACUTE PROCESS IN THE ABDOMEN OR PELVIS. COMMENT: Quality ID # [id number]: Final reports with documentation of one or more dose reduction techniques (e.g., Automated exposure control, adjustment of the mA and/or kV according to patient size, use of iterative reconstruction technique) TECHNICAL DOCUMENTATION: JOB ID: [id number] [employer]- All Rights Reserved Reading location - IP/workstation name: [email or web address]-
== END ==
LOC: RAD 09:40
PROVIDERS: ATTEND Nurse Practitioner Primary Care
DX: R10.31 Right lower quadrant pain (principal)
CPT/HCPCS: 74176

== ENCOUNTER 2019-04-14 08:06 | Day surgery (SDC) | payer MEDICARE, MEDICAID ==
[~2019-04-14 08:06] MED LIST changes: -AMINOPHYLLINE INJ/PF 250 MG/10 ML SDV IV ONE; +DIAZEPAM 5 MG TABLET PO PRN; +OXYCODONE-ACETAMINOPHEN 5-325 MG TABLET PO PRN; -REGADENOSON INJ 0.4 MG/5 ML DISP.SYRIN IV ONE
[2019-04-14 09:48] LABS: HEMATOCRIT 30.6 % (36.0-47.0); HEMOGLOBIN 10.5 g/dL (12.0-15.5); MEAN CORPUSCULAR HEMOGLOBIN 33.3 pg (27.0-33.4); MEAN CORPUSCULAR HGB CONC 34.2 g/dL (32.0-36.0); MEAN CORPUSCULAR VOLUME 97 fl (80-97); PLATELET COUNT 255 10^3/uL (150-450); RED BLOOD COUNT 3.14 10^6/uL (3.72-5.28); RED CELL DISTRIBUTION WIDTH 14.3 % (11.5-14.0); WHITE BLOOD COUNT 5.5 10^3/uL (4.0-10.5)
[2019-04-14] MEDS ORDERED: LIDOCAINE 0.5% INJ-PF (5 MG/ML) 50 ML SDV ONE (09:53)
[2019-04-14] MEDS ORDERED: FENTANYL CITRATE INJ/PF 100 MCG/2 ML AMPUL ONE (09:54)
[2019-04-14] MEDS ORDERED: MIDAZOLAM 2 MG/2 ML INJ ONE (09:54)
[2019-04-14] MEDS ORDERED: HEPARIN SOD (PORCINE) 5,000 UNIT/ML 1 ML VIAL ONE (09:54)
[2019-04-14 10:13] LABS: ANION GAP 16 (5-19); BLOOD UREA NITROGEN 42 mg/dL (7-20); CALCIUM 9.9 mg/dL (8.4-10.2); CARBON DIOXIDE 26 mmol/L (22-30); CHLORIDE 97 mmol/L (98-107); GLUCOSE 90 mg/dL (75-110)
--- NOTE | 2019-04-14 11:09 | PDOC H&P ---
General Chief Complaint: Inadequate, problematic dialysis is been noted the patient is referred across for angiogram and possible angioplasty. - Diagnosis (1) Dialysis AV fistula malfunction Is this a Current Diagnosis?: Yes (2) ESRD on dialysis Is this a Current Diagnosis?: Yes (3) Diabetes mellitus Is this a Current Diagnosis?: Yes (4) Hypertension Is this a Current Diagnosis?: Yes - Current Medications/Allergies Home Medications: Amlodipine Besylate [Norvasc 10 mg Tablet] 10 mg PO DAILY 07/30/18 Calcium Carbonate/Vitamin D3 [Calcium 600 + Vit D Tablet] 2 tab PO BID 07/30/18 Carvedilol [Coreg 25 mg Tablet] 25 mg PO BID 07/30/18 Levothyroxine Sodium 100 mcg PO Q6AM 07/30/18 Hydralazine HCl [Apresoline 25 mg Tablet] 1 tab PO DAILY 04/14/19 Milk Thistle 150 mg PO DAILY 04/14/19 Nitroglycerin 0.4 mg SUBCON 04/14/19 Omeprazole 20 mg PO DAILY 04/14/19 Vit B Comp No.3/Folic/C/Biotin [Siria-Mary Rx Tablet] 1 tab PO DAILY 04/14/19 Allergies/Adverse Reactions: tuberculin, purified protein deriva [Tuberculin,Purif.Prot.Deriv.] Allergy (Severe, Verified 07/30/18 08:15) Penicillins Allergy (Mild, Verified 07/30/18 08:15) Pruritis, Swelling Past Medical History Cardiac Medical History: Reports: Congestive Heart Failure, Hypertension Denies: Coronary Artery Disease, Myocardial Infarction Pulmonary Medical History: Denies: Asthma, Bronchitis, Chronic Obstructive Pulmonary Disease (COPD), Pneumonia Neurological Medical History: Denies: Seizures Endocrine Medical History: Reports: Hypothyroidism Denies: Diabetes Mellitus Type 1, Diabetes Mellitus Type 2, Hyperthyroidism Renal/ Medical History: Reports: End Stage Renal Disease - On hemodialysis 3 days/week GI Medical History: Denies: Cirrhosis, Hepatitis Musculoskeltal Medical History: Reports: Arthritis Denies: Gout Skin Medical History: Denies: Eczema, Psoriasis Psychiatric Medical History: Denies: Depression Hematology: Denies: Anemia, Bleeding Tendencies Past Surgical History Past Surgical History: Reports: Cardiac Catheterization - Negative cardiac cath, Vascular Surgery - Right upper arm AV fistula Denies: Pacemaker Family History Family History: CAD, Hypertension Parental Family History Reviewed: No Children Family History Reviewed: No Sibling(s) Family History Reviewed.: No Social History Smoking Status: Unknown if Ever Smoked Frequency of Alcohol Use: None Hx Recreational Drug Use: No Drugs: None Hx Prescription Drug Abuse: No Physical Exam Vital Signs: Temp Pulse Resp BP Pulse Ox 98.1 F 58 L 17 139/85 H 97 04/14/19 09:00 04/14/19 09:00 04/14/19 09:00 04/14/19 09:00 04/14/19 09:00 Intake & Output 04/13/19 04/14/19 04/15/19 06:59 06:59 06:59 Weight 62.596 kg Additional comments: Constitutional: Well-developed well-nourished lady. No apparent acute distress. Eyes: Mucous membranes pink and moist, pupils equal and reactive to light. Conjunctiva normal. Cornea normal. ENT: Hearing grossly normal. External pinna normal to inspection. Tongue normal to inspection. Cardiac: Heart sounds 1 and 2 normal. Respiratory: breath sounds are present bilaterally, normal. Normal respiratory effort. . Psychiatric: Judgment, memory, insight seem normal. Mood is pleasant and appropriate. Extremities: Upper extremities show normal range of movement. Pulses present noted to the radial arteries. Capillary refill normal. No cyanosis noted. No muscle wasting noted. Right-sided brachiobasilic fistula in place. Very firm suggesting cephalad stenosis. Impression/Plan Plan: In this patient with a functioning right-sided brachiobasilic fistula comes consistent with cephalad stenosis, angiogram and possible angioplasty are recommended. The patient is agreeable and we will proceed.
--- NOTE | 2019-04-14 11:12 | Discharge Summary ---
Discharge Summary (SDC) - Discharge Final Diagnosis: #1 right brachiocephalic AV fistula malfunction. 2. End-stage renal disease on hemodialysis. 3. Diabetes mellitus type 2. 4. Hypertension. Date of Surgery: 04/14/19 Discharge Date: 04/14/19 Condition: Fair Treatment or Instructions: Discharge home [after recovery per ASU criteria]. Diet , [renal],as tolerated, when fully awake advance as tolerated. Activities within moderation encouraged. Follow up in my office by appointment in about [1 month. Call for appointment. Leave wounds [covered], [keep clean and dry, until dialysis. Meds per med rec. May shower [in 48 hrs], [try to keep operated area as dry as possible]. Referrals: DENICE CALZADA, [facility] [Primary Care Provider] - Discharge Diet: Other (Comments) - Renal, diabetic. Respiratory Treatments at Home: Deep Breathing/Coughing Discharge Activity: Activity As Tolerated Report the Following to Your Physician Immediately: Shortness of Breath, Unusual Bleeding
--- NOTE | 2019-04-14 11:16 | Operative Report ---
Operative Report DATE OF SURGERY: 04/14/19 PREOPERATIVE DIAGNOSIS: #1 right brachiocephalic AV fistula malfunction. 2. E nd-stage renal disease on hemodialysis. 3. Diabetes mellitus type 2. 4. Hypertension. POSTOPERATIVE DIAGNOSIS: #1 right brachiocephalic AV fistula malfunction. 2. End-stage renal disease on hemodialysis. 3. Diabetes mellitus type 2. 4. Hypertension. OPERATION: 1. Needle access into the fistula. 2. Fistula angioplasty in central system. 3. Angiogram and interpretation. SURGEON: WILLIAM ECHEVERRIA DRYING MACHINE OPERATOR PACKAGE YARNS: None. ANESTHESIA: Moderate Sedation TISSUE REMOVED OR ALTERED: Not applicable. COMPLICATIONS: None. ESTIMATED BLOOD LOSS: 2 mL. INTRAOPERATIVE FINDINGS: Of a very firm AV fistula suggestive of cephalad stenosis. Brisk backbleeding from entry point confirmed suggestion. This is further confirmed by the presence of 90 degrees stenosis, short segment in the mid subclavian, in-stent. Completely eradicated by angioplasty with an 8 mm balloon. A second area of stenosis in the cephalic is also dressed with similar results. And evaluation of the fistula by palpation shows shows it to be much softer suggesting appropriate hemodynamic improvement. Consideration to be given to a drug-eluting balloon if this recurs within a short time. PROCEDURE: PROCEDURE: After verifying the procedure and having obtained informed consent, the patient's right arm was prepared with Chlorhexidine and draped out with sterile linen. Local anesthesia infiltrated. Percutaneous access into the fistula ,[ antegrade], obtained about [4 cm] from the arteriovenous anastomosis using a micro puncture needle followed by micro puncture wire and then a micro puncture catheter. A 0.035 Rome wire was inserted, and over this, a 6 Amharic short introducer was placed. , Angiogram demonstrated the aforementioned findings. Angioplasty was elected. this was followed by a [8 -mm] angioplasty balloon . Angioplasty was Done at the 2 culprit areas forearm 2 minutes each. Inflating with a 3 mils syringe.]. Completion angiogram demonstrated [satisfactory result]. The instrumentation was now withdrawn over hand pressure for 10 minutes. Dressings applied. Procedure concluded. Exposure time: 0.5 minutes. Radiation: 3.39 mGy. Contrast: 5 mils of Isovue-300, low osmolality. DICTATING PHYSICIAN: WILLIAM HILTON M.D. cc: WILLIAM HILTON M.D. ([id number]) >>
[2019-04-14 12:39] VITALS: BP 155/50
--- NOTE | 2019-04-14 13:15 | RADIOLOGY REPORT (SQ) ---
EXAM DESCRIPTION: FISTULAGRAM W/PLASTY; FISTULAPLASTY CENTRAL COMPLETED DATE/TIME: 04/14/2019 11:02 am REASON FOR STUDY: T82.858A T82.858A STENOSIS OF OTHER VASCULAR PROSTH DEV/GRFT, INIT COMPARISON: 03/28/2015 FLUOROSCOPY TIME: 0.5 minutes 6 series of digital angiographic images saved to PACS. TECHNIQUE: Intra-operative images acquired during surgical procedure to evaluate progress. NUMBER OF IMAGES: 6 series of digital images LIMITATIONS: None. FINDINGS: Intra procedural imaging and fluoro during evaluation and plasty of right upper extremity dialysis access by Dr. Marino. Please see the operative report for further details IMPRESSION: Intra procedural imaging and fluoro COMMENT: Quality ID [id number]: Final reports for procedures using fluoroscopy that document radiation exp osure indices, or exposure time and number of fluorographic images (if radiation exposure indices are not available) Please consult full operative report of the attending physician for description of the procedure. TECHNICAL DOCUMENTATION: JOB ID: [id number] [employer]- All Rights Reserved Reading location - IP/workstation name: [email or web address]
--- NOTE | 2019-04-14 13:15 | RADIOLOGY REPORT (SQ) ---
EXAM DESCRIPTION: FISTULAGRAM W/PLASTY; FISTULAPLASTY CENTRAL COMPLETED DATE/TIME: 04/14/2019 11:02 am REASON FOR STUDY: T82.858A T82.858A STENOSIS OF OTHER VASCULAR PROSTH DEV/GRFT, INIT COMPARISON: 03/28/2015 FLUOROSCOPY TIME: 0.5 minutes 6 series of digital angiographic images saved to PACS. TECHNIQUE: Intra-operative images acquired during surgical procedure to evaluate progress. NUMBER OF IMAGES: 6 series of digital images LIMITATIONS: None. FINDINGS: Intra procedural imaging and fluoro during evaluation and plasty of right upper extremity dialysis access by Dr. Marino. Please see the operative report for further details IMPRESSION: Intra procedural imaging and fluoro COMMENT: Quality ID [id number]: Final reports for procedures using fluoroscopy that document radiation exp osure indices, or exposure time and number of fluorographic images (if radiation exposure indices are not available) Please consult full operative report of the attending physician for description of the procedure. TECHNICAL DOCUMENTATION: JOB ID: [id number] [employer]- All Rights Reserved Reading location - IP/workstation name: [email or web address]
== END 2019-04-14 13:19 | disposition home or self-care (01) ==
LOC: CCL 08:06
PROVIDERS: ATTEND Surgery
DX: T82.858A Stenosis of other vascular prosthetic devices, implants and grafts, initial encounter (principal); Y83.2 Surgical operation with anastomosis, bypass or graft as the cause of abnormal reaction of the patient, or of later complication, without mention of misadventure at the time of the procedure; E10.22 Type 1 diabetes mellitus with diabetic chronic kidney disease; I13.2 Hypertensive heart and chronic kidney disease with heart failure and with stage 5 chronic kidney disease, or end stage renal disease; N18.6 End stage renal disease; Z99.2 Dependence on renal dialysis; Z79.899 Other long term (current) drug therapy; Z88.0 Allergy status to penicillin; E03.9 Hypothyroidism, unspecified
CPT/HCPCS: 36415; 85027; 80048; 36907; 36902; C1725; C1752; Q9967; C1769; J1644 ×2; A9270 ×2; J3490; J2250; J3010

== ENCOUNTER 2019-04-29 16:15 | Emergency (ER) | payer MEDICARE, MEDICAID ==
--- NOTE | 2019-04-29 17:12 | RADIOLOGY REPORT (SQ) ---
EXAM DESCRIPTION: CHEST SINGLE VIEW COMPLETED DATE/TIME: 04/29/2019 4:58 pm REASON FOR STUDY: bed 5 chest pain COMPARISON: 04/25/2018. CT abdomen dated 04/07/2019 and 07/30/2018. EXAM PARAMETERS: NUMBER OF VIEWS: One view. TECHNIQUE: Single frontal radiographic view of the chest acquired. RADIATION DOSE: NA LIMITATIONS: None. FINDINGS: LUNGS AND PLEURA: Chronic eventration of the right hemidiaphragm. Irregular nodular mass in the left lung base, unchanged from prior studies. Mild blunting of the left costophrenic angle se condary to pleural scar versus small left pleural effusion. MEDIASTINUM AND HILAR STRUCTURES: No masses. Contour normal. HEART AND VASCULAR STRUCTURES: Stable cardiomegaly. BONES: No acute findings. HARDWARE: Vascular stents in the right subclavian and axillary region. OTHER: No other significant finding. IMPRESSION: STABLE CHRONIC FINDINGS ABOVE. CARDIOMEGALY. NODULAR MASS IN THE LEFT LUNG BASE, [place] ESENT ON PRIOR CT SCANS. SMALL LEFT PLEURAL EFFUSION VERSUS PLEURAL SCAR. NO ACUTE FINDINGS. TECHNICAL DOCUMENTATION: JOB ID: [id number] [employer]- All Rights Reserved Reading location - IP/workstation name: [email or web address]
[2019-04-29 18:09] LABS: ABSOLUTE BASOPHILS # (AUTO) 0.1 10^3/uL (0.0-0.2); ABSOLUTE EOSINOPHILS # (AUTO) 0.2 10^3/uL (0.0-0.6); ABSOLUTE MONOCYTES (AUTO) 0.5 10^3/uL (0.1-1.4); ABSOLUTE NEUT (AUTO) 3.3 10^3/uL (1.7-8.2); BASOPHILS % (AUTO) 1.1 % (0-2); EOSINOPHILS % (AUTO) 4.7 % (0-6); HEMATOCRIT 30.1 % (36.0-47.0); HEMOGLOBIN 10.4 g/dL (12.0-15.5); LYMPHOCYTES % (AUTO) 19.8 % (13-45); MEAN CORPUSCULAR HEMOGLOBIN 33.5 pg (27.0-33.4); MEAN CORPUSCULAR HGB CONC 34.7 g/dL (32.0-36.0); MEAN CORPUSCULAR VOLUME 96 fl (80-97); MONOCYTES % (AUTO) 10.2 % (3-13); PLATELET COUNT 231 10^3/uL (150-450); RED BLOOD COUNT 3.12 10^6/uL (3.72-5.28); RED CELL DISTRIBUTION WIDTH 14.7 % (11.5-14.0); SEGMENTED NEUTROPHILS % (AUTO) 64.2 % (42-78); TOTAL CELLS COUNTED % (AUTO) 100 %; WHITE BLOOD COUNT 5.2 10^3/uL (4.0-10.5)
[2019-04-29 18:28] LABS: ALKALINE PHOSPHATASE 117 U/L (38-126); ANION GAP 10 (5-19); ASPARTATE AMINO TRANSFERASE 23 U/L (14-36); BILIRUBIN,DIRECT 0.4 mg/dL (0.0-0.4); BILIRUBIN,TOTAL 0.5 mg/dL (0.2-1.3); BLOOD UREA NITROGEN 16 mg/dL (7-20); CALCIUM 8.8 mg/dL (8.4-10.2); CARBON DIOXIDE 31 mmol/L (22-30); CHLORIDE 95 mmol/L (98-107); CREATINE KINASE 48 U/L (30-135); GLUCOSE 78 mg/dL (75-110); POTASSIUM 3.6 mmol/L (3.6-5.0); TOTAL PROTEIN 6.9 g/dL (6.3-8.2)
[2019-04-29 18:40] LABS: CREATINE KINASE MB 0.93 ng/mL (<4.55); TROPONIN I 0.025 ng/mL
--- NOTE | 2019-04-29 18:58 | ER Document Report ---
ED General - General Stated Complaint: CHEST PAIN Time Seen by Provider: 04/29/19 18:14 Primary Care Provider: FEDERICO HEIN MD [ACTIVE PROVISIONAL STAFF] - Follow up in 3-5 days Notes: Patient declined using [facility] and would rather use family members at bedside. 73-year-old female with history of end-stage renal disease on dialysis presents for chest pain that started while she was at dialysis. Patient states she had mild dyspnea. Patient was given aspirin 324 at dialysis and 3 sprays of nitroglycerin by EMS. Patient states that her pain did improve. Patient states the last time she had chest pain like this it was due to her potassium being elevated. Patient's radiologic electronic specialist is Dr. Federico Hein. And her primary care doctor is Yesika. Patient also states she is having some abdominal pain and constipation. Denies nausea/vomiting, diarrhea. Patient denies any history of stent or CABG. Denies any history of cardiac disease. TRAVEL OUTSIDE OF THE [place] IN LAST 30 DAYS: No - Related Data Allergies/Adverse Reactions: tuberculin, purified protein deriva [Tuberculin,Purif.Prot.Deriv.] Allergy (Severe, Verified 07/30/18 08:15) Penicillins Allergy (Mild, Verified 07/30/18 08:15) Pruritis, Swelling Past Medical History - Social History Smoking Status: Unknown if Ever Smoked Family History: CAD, Hypertension Patient has suicidal ideation: No Patient has homicidal ideation: No - Past Medical History Cardiac Medical History: Reports: Hx Congestive Heart Failure, Hx Hypertension Denies: Hx Coronary Artery Disease, Hx Heart Attack Pulmonary Medical History: Denies: Hx Asthma, Hx Bronchitis, Hx COPD, Hx Pneumonia Neurological Medical History: Denies: Hx Cerebrovascular Accident, Hx Seizures Endocrine Medical History: Reports: Hx Hypothyroidism. Denies: Hx Diabetes Mellitus Type 1, Hx Diabetes Mellitus Type 2, Hx Hyperthyroidism Renal/ Medical History: Reports: Hx End Stage Renal Disease - On hemodialysis 3 days/week, Hx Hemodialysis. Denies: Hx Peritoneal Dialysis GI Medical History: Denies: Hx Cirrhosis, Hx Hepatitis Musculoskeletal Medical History: Reports Hx Arthritis, Denies Hx Gout Skin Medical History: Denies Hx Eczema, Denies Hx Psoriasis Psychiatric Medical History: Denies: Hx Depression Infectious Medical History: Denies: Hx Hepatitis Past Surgical History: Reports: Hx Cardiac Catheterization - Negative cardiac cath, Hx Vascular Surgery - Right upper arm AV fistula. Denies: Hx Pacemaker - Immunizations Hx Diphtheria, Pertussis, Tetanus Vaccination: Yes - September Hx Pneumococcal Vaccination: 06/05/11 Review of Systems - Review of Systems Notes: Constitutional: Negative for fever. HENT: Negative for sore throat. Eyes: Negative for visual changes. Cardiovascular: Positive for chest pain. Respiratory: Positive for shortness of breath. Gastrointestinal: Positive for abdominal pain and constipation. Negative for vomiting or diarrhea. Genitourinary: Negative for dysuria. Musculoskeletal: Negative for back pain. Skin: Negative for rash. Neurological: Negative for headaches, weakness or numbness. 10 point ROS negative except as marked above and in HPI. Physical Exam - Vital signs Vitals: Temp 97.4 F 04/29/19 16:52 - Notes Notes: GENERAL: Well-appearing, well-nourished and in no acute distress. HEAD: Atraumatic, normocephalic. EYES: Extraocular movements intact, sclera anicteric, conjunctiva are normal. NECK: Normal range of motion, supple without lymphadenopathy or JVD. LUNGS: Breath sounds clear to auscultation bilaterally and equal. No wheezes rales or rhonchi. HEART: Regular rate and rhythm without murmurs, rubs or gallops. ABDOMEN: Soft, mildly diffuse tender abdomen. No guarding, no rebound. No masses appreciated. EXTREMITIES: Normal range of motion, no pitting or edema. No clubbing or cyanosis. NEUROLOGICAL: Cranial nerves II through XII grossly intact. Normal speech, normal gait. PSYCH: Normal mood, normal affect. SKIN: Warm, Dry, normal turgor, no rashes or lesions noted. Course - Re-evaluation Re-evalutation: 04/29/19 73 y/o female presents with chest pain and constipation. Pt's chest pain started over 4-6 hours ago and has resolved at this time. Pt had negative stress test 3 years ago. Pt's initial trop is 0.025 and 3-hour repeat is 0.028. Pt's trop has been higher than this in past with highest at 0.058. CXR neg. EKG shows no STEMI and is unchanged from previous. 04/29/19 19:55 Pt is having muscle cramps in legs. Morphine ordered. KUB shows constipation. Magnesium citrate ordered. 04/29/19 20:55 RN states pt declined morphine. Requested water and mustard, states that will help. Refusing to drink all of magnesium citrate due to dialysis limiting fluid intake. Instructed RN to given 03/19. 04/29/19 21:48 Discussed with attending, Dr. Santacruz, who also reviewed chart and EKG. Discussed all results with pt and pt's family at length. Pt given close follow up with her radiologic electronic specialist. Strict return precautions given. Pt and pt's family voice understanding and agree with plan of care. - Vital Signs Vital signs: Temp Pulse Resp BP Pulse Ox 97.4 F 13 167/57 H 100 04/29/19 16:52 04/29/19 19:01 04/29/19 19:01 04/29/19 19:01 - Laboratory Result Diagrams: 04/29/19 17:30 04/29/19 17:30 Laboratory results interpreted by me: 04/29/19 04/29/19 17:30 17:30 RBC 3.12 L Hgb 10.4 L Hct 30.1 L MCH 33.5 H RDW 14.7 H Sodium 136.3 L Chloride 95 L Carbon Dioxide 31 H Creatinine 2.93 H Est GFR ( Amer) 19 L Est GFR (MDRD) Non-Af 16 L Discharge - Discharge Clinical Impression: Chest pain Qualifiers: Chest pain type: unspecified Qualified Code(s): R07.9 - Chest pain, unspecified Constipation Qualifiers: Constipation type: unspecified constipation type Qualified Code(s): K59.00 - Constipation, unspecified Condition: Stable Disposition: HOME, SELF-CARE Instructions: Constipation ([facility]), Chest Pain of Unclear Cause ([facility]) Additional Instructions: Your abdomen x-ray showed constipation. You were seen today for chest pain. The exact cause of your pain is unclear. However, based on your cardiac enzyme testing, chest x-ray, and EKG it does not appear that it is from an immediately life-threatening cause at this time. Although your testing here is normal is critical that you follow-up with your primary care physician for continued evaluation of this chest pain and possible stress testing. I recommended you see your physician within the next 24-48 hours to be evaluated for consideration of a stress test. Please return to emergency department immediately if you have worsening of your chest pain, shortness of breath, vomiting, become unable to exert yourself due to pain or difficulty breathing, you pass out, or have any pain that radiates into your arms, jaw, or back. Please also return if you have any additional symptoms that are concerning to you. Referrals: FEDERICO HEIN MD [ACTIVE PROVISIONAL STAFF] - Follow up in 3-5 days
--- NOTE | 2019-04-29 19:43 | RADIOLOGY REPORT (SQ) ---
EXAM DESCRIPTION: KUB/ABDOMEN (SINGLE VIEW) COMPLETED DATE/TIME: 04/29/2019 7:28 pm REASON FOR STUDY: abd pain, constipation COMPARISON: 07/30/2018 NUMBER OF VIEWS: One view. TECHNIQUE: Supine radiographic image of the abdomen acquired. LIMITATIONS: None. FINDINGS: BOWEL GAS PATTERN: Nonobstructive gas pattern. Moderate retained stool. CALCIFICATIONS: No suspicious calcifications. SOFT TISSUES: No gross mass or suggestion of organomegaly. HARDWARE: None in the abdomen. BONES: No acute fracture. No worrisome bone lesions. OTHER: No other significant finding. IMPRESSION: Constipation. TECHNICAL DOCUMENTATION: JOB ID: [id number] 2010 [employer]- All Rights Reserved Reading location - IP/workstation name: [email or web address]
[2019-04-29] MEDS ORDERED: MORPHINE SULFATE 10 MG/ML INJ IV ONE (19:55)
[2019-04-29] MEDS ORDERED: MAGNESIUM CITRATE 296 ML BOTTLE PO ONE (19:55)
--- NOTE | 2019-04-29 20:12 | EKG REPORT ---
SEVERITY:- ABNORMAL ECG - SINUS RHYTHM BORDERLINE RIGHT AXIS DEVIATION CONSIDER LEFT VENTRICULAR HYPERTROPHY NONSPECIFIC ST-T CHANGES- ANTERIOR LEADS : Confirmed by: Gio Santana MD 29-Apr-2019 20:11:06
[2019-04-29 22:29] VITALS: BP 169/53
== END 2019-04-29 22:31 | disposition home or self-care (01) ==
LOC: ER 16:15
DX: R07.9 Chest pain, unspecified (principal); K59.00 Constipation, unspecified; R10.9 Unspecified abdominal pain; I13.2 Hypertensive heart and chronic kidney disease with heart failure and with stage 5 chronic kidney disease, or end stage renal disease; N18.6 End stage renal disease; I50.9 Heart failure, unspecified; Z99.2 Dependence on renal dialysis; Z88.0 Allergy status to penicillin
CPT/HCPCS: 93005; 99285; 36415; 82553; 82550; 85025; 80053; 84484; 71045; 74018; 93010; A9270; J3490

== ENCOUNTER → 2019-07-23 | Outpatient (CLI) | payer MEDICARE, MEDICAID ==
--- NOTE | 2019-07-23 14:38 | RADIOLOGY REPORT (SQ) ---
EXAM DESCRIPTION: CHEST 2 VIEWS IMAGES COMPLETED DATE/TIME: 07/23/2019 1:37 pm REASON FOR STUDY: SOB COMPARISON: 04/29/2019 EXAM PARAMETERS: NUMBER OF VIEWS: two views TECHNIQUE: Digital Frontal and Lateral radiographic views of the chest acquired. RADIATION DOSE: NA LIMITATIONS: none FINDINGS: LUNGS AND PLEURA: Persistent blunting of left costophrenic angle consistent with scar and/ or residual effusion. Minimal left basilar atelectasis. MEDIASTINUM AND HILAR STRUCTURES: No masses or contour abnormalities. HEART AND VASCULAR STRUCTURES: Heart remains enlarged. No failure. BONES: No acute findings. HARDWARE: Vascular stent is in place on the right. OTHER: No other significant finding. IMPRESSION: 1. Stable cardiomegaly. 2. Stable blunting of left cardiophrenic angle consistent with pleural thickening and/or residual ef fusion. 3. Minimal left basilar airspace disease either atelectasis or scar. TECHNICAL DOCUMENTATION: JOB ID: [id number] 2010 [employer]- All Rights Reserved Reading location - IP/workstation name: [email or web address]
--- NOTE | 2019-07-23 15:14 | RADIOLOGY REPORT (SQ) ---
EXAM DESCRIPTION: VENOUS UNILATERAL LOWER IMAGES COMPLETED DATE/TIME: 07/23/2019 2:57 pm REASON FOR STUDY: RLE SWELLING R22.42 LOCALIZED SWELLING, MASS AND LUMP, LEFT LOWER LIMB M79.604 P AIN IN RIGHT LEG COMPARISON: None. TECHNIQUE: Dynamic and static scott scale and color images acquired of the right leg venous system. S elected spectral images acquired with additional compression and augmentation maneuvers. The contrala teral common femoral vein and saphenofemoral junction were also imaged. Images stored on PACS. LIMITATIONS: None. FINDINGS: COMMON FEMORAL: Normal phasicity, compression and augmentation. No visualized echogenic ma terial on scott scale. No defects on color images. FEMORAL: Normal compression and augmentation. No visualized echogenic material on scott scale. No defe cts on color images. POPLITEAL: Normal compression, augmentation. No visualized echogenic material on scott scale. No defec ts on color images. CALF VESSELS: Normal compression, augmentation. No visualized echogenic material on scott scale. No de fects on color images. GSV and SSV: Normal compression, augmentation. No visualized echogenic material on scott scale. No def ects on color images. ANY DEEP VENOUS INSUFFICIENCY: Not evaluated. ANY EVIDENCE OF POPLITEAL CYST: No. OTHER: No other significant finding. CONTRALATERAL COMMON FEMORAL VEIN AND SAPHENOFEMORAL JUNCTION: Normal phasicity, compression and augmentation. No visualized echogenic material on scott scale. No de fects on color images. IMPRESSION: NO EVIDENCE DVT OR SVT IN THE RIGHT LEG. TECHNICAL DOCUMENTATION: JOB ID: [id number] 2010 [employer]- All Rights Reserved Reading location - IP/workstation name: [email or web address]
== END ==
LOC: SP 13:30
PROVIDERS: ATTEND Internal Medicine Nephrology
DX: R22.42 Localized swelling, mass and lump, left lower limb (principal); M79.604 Pain in right leg; R06.02 Shortness of breath; I51.7 Cardiomegaly
CPT/HCPCS: 71046; 93971

== ENCOUNTER → 2019-08-04 | Outpatient (CLI) | payer MEDICARE, MEDICAID ==
--- NOTE | 2019-08-04 11:46 | RADIOLOGY REPORT (SQ) ---
EXAM DESCRIPTION: CTA ABD AORTA AND EXTREMITY IMAGES COMPLETED DATE/TIME: 08/04/2019 10:56 am REASON FOR STUDY: (I74.3)EMBOLISM AND THROMBOSIS OF ARTERIES OF THE LOWER EXTREMITIES I74.5 EMBOLIS M AND THROMBOSIS OF ILIAC ARTERY I74.3 EMBOLISM AND THROMBOSIS OF ARTERIES OF THE LOWER EXTRE COMPARISON: None. TECHNIQUE: CT scan of the body and lower extremities performed with and without intravenous contrast using helical scanning technique with dynamic intravenous contrast injection. Images reviewed with l neil, soft tissue, and bone windows. Reconstructed coronal and sagittal MPR images reviewed. All image s stored on PACS. Advanced 3D imaging as volume-rendering, MIPs, SSD performed? yes All CT scanners at this facility use dose modulation, iterative reconstruction, and/or weight based d osing when appropriate to reduce radiation dose to as low as reasonably achievable (ALARA). [facility]: Dose Right [facility]: CareDose [facility]: Dose Right [facility]: Teradose 4D [facility]: ACTIVE Network CONTRAST TYPE AND DOSE: contrast/concentration: Isovue 300.00 mg/ml; Total Contrast Delivered: 100.0 ml; Total Saline Delivered: 100.0 ml RENAL FUNCTION: Creatinine 5.2. Patient on dialysis. LIMITATIONS: None. FINDINGS: AORTA AND VESSELS: Scattered aortoiliac atherosclerosis without aneurysm. Celiac, SMA rashmi ateral renals and ROSANGELA are well opacified without high-grade stenosis. LUNG BASES: Peripheral ovoid basilar consolidation within the left lung base measuring up to 5.1 x 2. 2 cm, similar to exam dated 04/07/2019. Enlarged heart. Scattered coronary atherosclerosis. LIVER: Normal size. No masses or dilated ducts. SPLEEN: Normal size. No focal lesions. PANCREAS: No masses. No significant calcifications. No adjacent inflammation or peripancreatic fluid collections. Pancreatic duct not dilated. GALLBLADDER: Cholelithiasis with circumferential gallbladder wall thickening, similar prior exams and measuring up to 4.6 mm. No pericholecystic inflammatory change. ADRENAL GLANDS: No significant masses or asymmetry. RIGHT KIDNEY AND URETER: Atrophic kidneys. Grossly stable multiple cystic renal lesions, some which are incompletely characterize. No definitive solid masses. No nephrolithiasis. No hydronephrosis. LEFT KIDNEY AND URETER: Atrophic kidneys. Grossly stable multiple cystic renal lesions, some which a re incompletely characterize secondary to size. No definite solid masses. No hydronephrosis. No ne phrolithiasis. RETROPERITONEUM: No retroperitoneal adenopathy. Shotty retroperitoneal nodes. No retroperitoneal ma ss or hemorrhage. BOWEL AND PERITONEAL CAVITY: No evidence of intestinal obstruction. No focal bowel wall thickening. Multiple scattered colonic diverticula. APPENDIX: Normal. ABDOMINAL WALL: No masses. No hernias. BONY STRUCTURES: No acute bony abnormality. No suspicious lytic or blastic osseous lesions. Sclerot ic foci within the right acetabulum and left proximal femur, stable and likely bone islands. No disc rete lytic lesions. 3-D IMAGING: Confirms the above findings. OTHER: Multiple calcified uterine fibroids. LOWER EXTREMITIES: RIGHT LEG: ILIAC ARTERIES: Scattered bilateral plaque throughout the iliac arteries without high-grade luminal stenosis. FEMORAL ARTERIES: Common femoral artery is widely patent with scattered plaque along the posterior wa ll. Profunda origin and visualized branches are widely patent. SFA is widely patent throughout with out focal high-grade stenosis. No aneurysm. POPLITEAL ARTERY: Popliteal demonstrates minimal scattered plaque without significant luminal stenosi s. No aneurysm. TIBIOPERONEAL TRUNK AND RUNOFF VESSELS: Tibioperoneal trunk is patent. Anterior tibial artery, poste rior tibial artery and peroneal arteries are patent to the level of the foot without occlusion or hig h-grade stenosis. OTHER: No other significant finding. LEFT LEG: ILIAC ARTERIES: Scattered bilateral plaque throughout the iliac arteries. [id number] narrowin g of the mid common iliac artery. No additional high-grade stenosis. FEMORAL ARTERIES: Common femoral artery is widely patent with mild plaque along the posterior wall. Profunda origin and visualized branches are widely patent. SFA demonstrates mild scattered plaque an d luminal stenosis at the proximal aspect. No high-grade narrowing. No aneurysm. POPLITEAL ARTERY: Popliteal is widely patent. No aneurysm. TIBIOPERONEAL TRUNK AND RUNOFF VESSELS: Tibioperoneal trunk is patent. Anterior tibial and peroneal arteries are well opacified to the level of the foot. The posterior tibial artery is diminutive. OTHER: Moderate knee joint effusion. IMPRESSION: 1. Scattered multifocal atherosclerosis without aneurysm. No high-grade stenosis. Lef t lower extremity demonstrates [id number] narrowing of the mid common iliac artery. Additional mid SFA mild stenosis. Three-vessel runoff on the right. Two-vessel runoff on the left via the ant erior tibial and peroneal arteries. 2. Cholelithiasis with unchanged circumferential gallbladder wall thickening measuring up to 4.6 mm. No pericholecystic inflammatory change. Recommend correlation with physical exam. Ultrasound coul d be considered for further evaluation. 3. Grossly stable left basilar peripheral consolidation compared to priors. 4. Additional chronic findings as above. TECHNICAL DOCUMENTATION: JOB ID: [id number] Quality ID # [id number]: Final reports with documentation of one or more dose reduction techniques (e.g., Au tomated exposure control, adjustment of the mA and/or kV according to patient size, use of iterative reconstruction technique) 2010 [employer]- All Rights Reserved Reading location - IP/workstation name: [email or web address]
== END ==
LOC: RAD 09:55
PROVIDERS: ATTEND Internal Medicine Nephrology
DX: I74.5 Embolism and thrombosis of iliac artery (principal); I74.3 Embolism and thrombosis of arteries of the lower extremities
CPT/HCPCS: 75635; 82565

== ENCOUNTER 2019-12-23 11:00 | Day surgery (SDC) | payer MEDICARE, MEDICAID ==
[~2019-12-23 11:00] MED LIST changes: +CHONDR SU A NA/HYALUR INTRAOC KIT (SURGICARE) ONE; -DIAZEPAM 5 MG TABLET PO PRN; +DORZOLAMIDE HCL 2%/TIMOLOL MALEAT 0.5% OPH SOLN 10 ML OD PRN; +EPINEPHRINE INJ/PF 1 MG/1 ML AMPULE ONE; +FENTANYL CITRATE INJ/PF 100 MCG/2 ML AMPUL ONE; +KETOROLAC TROMETHAMINE 0.45% 4 DROP/0.4 ML DROPERETTE OD PRN; +LIDOCAINE 1%/PHENYLEPHRINE 1.5% 1 ML VIAL ONE; +MIDAZOLAM 2 MG/2 ML INJ ONE; +ONDANSETRON HCL INJ/PF 4 MG/2 ML SDV ONE; -OXYCODONE-ACETAMINOPHEN 5-325 MG TABLET PO PRN; +PREDNISOLONE ACETATE 1% OPH SUSP 5 ML OD PRN
[2019-12-23] MEDS: TETRACAINE HCL 0.5% OPH SOLN 4 ML OD PRN ×3 (11:22→12:02)
[2019-12-23] MEDS: CYCLOPENTOLATE 0.2%/PHENYLEPHRINE 1% OPH SOLN 2 ML OD PRN ×3 (11:23→11:46)
[2019-12-23] MEDS: BESIFLOXACIN HCL 0.6% OPH SUSP 5 ML BOTTLE OD PRN ×3 (11:23→12:24)
[2019-12-23] MEDS: TROPICAMIDE 1% OPH SOLN 15 ML OD PRN ×3 (11:23→11:46)
--- NOTE | 2019-12-23 15:17 | Operative Report ---
Operative Report-[facility] Operative Report: DATE OF SURGERY: December 23, 2019 PREOPERATIVE DIAGNOSIS: NUCLEAR CATARACT, RIGHT EYE. POSTOPERATIVE DIAGNOSIS: NUCLEAR CATARACT, RIGHT EYE. PROCEDURE PERFORMED: PHACOEMULSIFICATION WITH POSTERIOR CHAMBER INTRAOCULAR LENS IMPLANT, RIGHT EYE. SURGEON: Edward Rebollar DO MEDICATIONS AND ANESTHESIA: Versed: IV Versed Tetracaine drops: 1 to 2 drops given as needed COMPLICATION: None INDICATIONS FOR SURGERY: Medical necessity: Best corrected visual acuity worse than 20/40 secondary to cataracts with impairment of ability to carry out needs or desired activities, blurred vision, visual distortion, reduced contrast sensitivity and/or glare with association functional impairment and supporting documentation/testing, and cataracts causing symptomatic impairment of visual functions not corrected with tolerable changes in glasses or contact lenses interfering with activities of daily life. PROCEDURE: Consent: The risks, benefits and alternatives of this procedures was discussed with the patient. The patient read and signed the consent forms, was identified and was seated in the exam chair. IOL: MX 60 E 24.5 IOL Diopters: Phacoemulsification with posterior chamber intraocular lens implant: The face was prepped with 5% povidone iodine solution, and a few drops of 5% povidone iodine solution was instilled into the inferior fornix. A non-fenestrated drape was placed over the eye and the lids were parted with the speculum. A paracentesis was made with a 15 degree blade, and 1% lidocaine MPF followed by viscoelastic was injected into the anterior chamber. A 2.4 mm metal micro- keratome was used to create a temporal clear corneal incision. A circular anterior capsulorrhexis was created, followed by hydro-dissection and hydro- delineation. The phacoemulsification hand piece was inserted and the nucleus was removed with the Phaco chop technique. The irrigation-aspiration hand piece was used to remove the residual cortex, and vacuum the posterior capsule. The capsular bag was inflated and viscoelastic and the above-mentioned IOL was injected into the eye with care to insert both leaning and trailing haptics in the capsular bag. The irrigation/aspiration hand piece was reinserted to remove residual viscoelastic from the capsular bag and anterior chamber. The corneal incision was hydrated, and anterior chamber was inflated with sterile BSS via the paracentesis site, and found to be watertight. Postop medication: 1 drop of prednisolone into operative by followed by 1 drop of Cosopt into operative eye followed by 1 drop of Besivance intraoperative by other:
== END 2019-12-23 13:00 ==
LOC: SC 11:00
PROVIDERS: ATTEND Ophthalmology
DX: H25.11 Age-related nuclear cataract, right eye (principal); E03.9 Hypothyroidism, unspecified; M06.9 Rheumatoid arthritis, unspecified; I13.2 Hypertensive heart and chronic kidney disease with heart failure and with stage 5 chronic kidney disease, or end stage renal disease; N18.6 End stage renal disease; I50.9 Heart failure, unspecified; Z99.2 Dependence on renal dialysis
CPT/HCPCS: 66984; V2632; J2250; J3490 ×2; A9270; J0171; J2405; J3010

== ENCOUNTER 2020-01-06 07:44 | Day surgery (SDC) | payer MEDICARE, MEDICAID ==
[~2020-01-06 07:44] MED LIST changes: -DORZOLAMIDE HCL 2%/TIMOLOL MALEAT 0.5% OPH SOLN 10 ML OD PRN; -FENTANYL CITRATE INJ/PF 100 MCG/2 ML AMPUL ONE; -KETOROLAC TROMETHAMINE 0.45% 4 DROP/0.4 ML DROPERETTE OD PRN; +KETOROLAC TROMETHAMINE 0.45% 4 DROP/0.4 ML DROPERETTE OS PRN; -MIDAZOLAM 2 MG/2 ML INJ ONE; -ONDANSETRON HCL INJ/PF 4 MG/2 ML SDV ONE; -PREDNISOLONE ACETATE 1% OPH SUSP 5 ML OD PRN
[2020-01-06] MEDS ORDERED: ONDANSETRON HCL INJ/PF 4 MG/2 ML SDV ONE (07:58)
[2020-01-06] MEDS ORDERED: MIDAZOLAM 2 MG/2 ML INJ ONE (07:58)
[2020-01-06] MEDS ORDERED: FENTANYL CITRATE INJ/PF 100 MCG/2 ML AMPUL ONE (07:58)
[2020-01-06] MEDS: TETRACAINE HCL 0.5% OPH SOLN 4 ML OS PRN ×4 (08:15→09:08)
[2020-01-06] MEDS: CYCLOPENTOLATE 0.2%/PHENYLEPHRINE 1% OPH SOLN 2 ML OS PRN ×3 (08:15→08:45)
[2020-01-06] MEDS: TROPICAMIDE 1% OPH SOLN 15 ML OS PRN ×3 (08:15→08:45)
[2020-01-06] MEDS: BESIFLOXACIN HCL 0.6% OPH SUSP 5 ML BOTTLE OS PRN ×4 (08:15→09:29)
[2020-01-06] MEDS: PREDNISOLONE ACETATE 1% OPH SUSP 5 ML OS PRN ×2 (09:29)
[2020-01-06] MEDS: DORZOLAMIDE HCL 2%/TIMOLOL MALEAT 0.5% OPH SOLN 10 ML OS PRN ×2 (09:29)
--- NOTE | 2020-01-06 13:01 | Operative Report ---
Operative Report-[facility] Operative Report: DATE OF SURGERY: January 06, 2020 PREOPERATIVE DIAGNOSIS: NUCLEAR CATARACT, LEFT EYE. POSTOPERATIVE DIAGNOSIS: NUCLEAR CATARACT, LEFT EYE. PROCEDURE PERFORMED: PHACOEMULSIFICATION WITH POSTERIOR CHAMBER INTRAOCULAR LENS IMPLANT, LEFT EYE. SURGEON: Edward Rebollar DO MEDICATIONS AND ANESTHESIA: Versed: IV Versed Tetracaine drops: 1 to 2 drops given as needed COMPLICATION: None INDICATIONS FOR SURGERY: Medical necessity: Best corrected visual acuity worse than 20/40 secondary to cataracts with impairment of ability to carry out needs or desired activities, blurred vision, visual distortion, reduced contrast sensitivity and/or glare with association functional impairment and supporting documentation/testing, and cataracts causing symptomatic impairment of visual functions not corrected with tolerable changes in glasses or contact lenses interfering with activities of daily life. PROCEDURE: Consent: The risks, benefits and alternatives of this procedures was discussed with the patient. The patient read and signed the consent forms, was identified and was seated in the exam chair. IOL: MX 60 E 24.0 IOL Diopters: Phacoemulsification with posterior chamber intraocular lens implant: The face was prepped with 5% povidone iodine solution, and a few drops of 5% povidone iodine solution was instilled into the inferior fornix. A non-fenestrated drape was placed over the eye and the lids were parted with the speculum. A paracentesis was made with a 15 degree blade, and 1% lidocaine MPF followed by viscoelastic was injected into the anterior chamber. A 2.4 mm metal micro- keratome was used to create a temporal clear corneal incision. A circular anterior capsulorrhexis was created, followed by hydro-dissection and hydro- delineation. The phacoemulsification hand piece was inserted and the nucleus was removed with the Phaco chop technique. The irrigation-aspiration hand piece was used to remove the residual cortex, and vacuum the posterior capsule. The capsular bag was inflated and viscoelastic and the above-mentioned IOL was injected into the eye with care to insert both leaning and trailing haptics in the capsular bag. The irrigation/aspiration hand piece was reinserted to remove residual viscoelastic from the capsular bag and anterior chamber. The corneal incision was hydrated, and anterior chamber was inflated with sterile BSS via the paracentesis site, and found to be watertight. Postop medication:1 drop of prednisolone into operative by followed by 1 drop of Cosopt into operative eye followed by 1 drop of Besivance intraoperative by Other:
== END 2020-01-06 10:04 ==
LOC: SC 07:44
PROVIDERS: ATTEND Ophthalmology
DX: H25.12 Age-related nuclear cataract, left eye (principal); Z98.41 Cataract extraction status, right eye; E03.9 Hypothyroidism, unspecified; M06.9 Rheumatoid arthritis, unspecified; I13.2 Hypertensive heart and chronic kidney disease with heart failure and with stage 5 chronic kidney disease, or end stage renal disease; N18.6 End stage renal disease; I50.9 Heart failure, unspecified; Z99.2 Dependence on renal dialysis
CPT/HCPCS: 66984; J2250; J3490 ×2; A9270; J0171; J2405; J3010; V2632

== ENCOUNTER 2020-02-23 07:19 | Day surgery (SDC) | payer MEDICARE, MEDICAID ==
[~2020-02-23 07:19] MED LIST changes: +CEFAZOLIN 2 GM/D5W RTU 2 GM/50 ML RTUPB IV ONE; +CEFAZOLIN 2 GM/D5W RTU 2 GM/50 ML RTUPB IV PRN; -CHONDR SU A NA/HYALUR INTRAOC KIT (SURGICARE) ONE; -EPINEPHRINE INJ/PF 1 MG/1 ML AMPULE ONE; -KETOROLAC TROMETHAMINE 0.45% 4 DROP/0.4 ML DROPERETTE OS PRN; -LIDOCAINE 1%/PHENYLEPHRINE 1.5% 1 ML VIAL ONE
[2020-02-23] MEDS ORDERED: LIDOCAINE 1% INJ-PF (10 MG/ML) 30 ML SDV ONE (08:06)
[2020-02-23] MEDS ORDERED: MIDAZOLAM 2 MG/2 ML INJ ONE (08:11)
[2020-02-23] MEDS ORDERED: FENTANYL CITRATE INJ/PF 100 MCG/2 ML AMPUL ONE (08:11)
[2020-02-23] MEDS ORDERED: HEPARIN SOD (PORCINE) 1,000 UNIT/ML 10 ML VIAL ONE ×2 (08:13→08:20)
[2020-02-23] MEDS ORDERED: HEPARIN SOD (PORCINE) 5,000 UNIT/ML 1 ML VIAL ONE (08:16)
--- NOTE | 2020-02-23 10:01 | Operative Report ---
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 Given IV sedation using 2 mg of Versed. The right arm and axilla were prepped and draped in usual sterile fashion. Using 1% lidocaine plain a small skin wheal was made over the cephalic vein AV fistula. Micropuncture needle was then utilized to gain access to the fistula and a wire was placed through the needle and the needle was removed. The working dilator sheath was placed over the wire into the fistula. The wire was removed. A preoperative angiogram was obtained which showed a stenosis of the subclavian vein at the junction of the proximal distal previously placed stents. There is also a's mild stenosis of the subclavian vein just at the proximal aspect of the proximal stent. By 6 sheath was utilized for the procedure. The wire was then replaced after the angiogram was obtained and then a balloon dilator 8 x 8 was placed over the wire through the sheath to the end of the most proximal stent. The balloon was dilated and left in place for 2 minutes. Upon deflation of the balloon a repeat angiogram was obtained which showed good dilation of the stenosis at the midportion of the subclavian vein where the 2 stents there were previously placed met. We then redilated the balloon for the most proximal area of narrowing. Again it was left up for 2 minutes and then deflated and removed a post procedure angiogram was obtained which showed good results at the junction of the 2 stents where the previous stenosis was noted and a moderate result at the most proximal end of the vein where the first stent ended. There was good flow through the fistula with a good thrill and the fascia was markedly softer on palpation after the termination of the procedure. The sheath and wire were then removed and pressure was held over the puncture site with good hemostasis. Should be noted that the fistula was heparinized with a heparinized saline solution at the termination of the procedure. A sterile dressing was applied which completed the procedure. Estimated blood loss was approximately 20 cc sponge needle counts were correct x2
--- NOTE | 2020-02-23 10:05 | Discharge Summary ---
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 Date of Surgery: 02/23/20 Discharge Date: 02/23/20 Condition: Good Forms: Sedation D/C Instructions, Discharge POC-Surgical Service Treatment or Instructions: Okay to remove the dressing tomorrow afternoon Referrals: ASH NGUYEN MD [ACTIVE STAFF] - 03/01/20 9:15 am Discharge Diet: As Tolerated Discharge Activity: Activity As Tolerated Report the Following to Your Physician Immediately: Shortness of Breath, Increase in Pain, Unusual Bleeding - Patient can follow-up with [facility]. Follow-up in surgical clinic as needed.
--- NOTE | 2020-02-23 10:56 | RADIOLOGY REPORT (SQ) ---
EXAM DESCRIPTION: FISTULAGRAM W/PLASTY IMAGES COMPLETED DATE/TIME: 02/23/2020 9:49 am REASON FOR STUDY: T82.858A T82.858A STENOSIS OF OTHER VASCULAR PROSTH DEV/GRFT, INIT N18.6 END STA GE RENAL DISEASE COMPARISON: None. FLUOROSCOPY TIME: 3.5 minutes. 49 images saved to PACS. TECHNIQUE: Intra-operative images acquired during surgical procedure to evaluate progress. NUMBER OF IMAGES: 49 images. LIMITATIONS: None. FINDINGS: Imaging in fluoroscopy during right upper extremity dialysis access evaluation and plasty by Dr. West . Please refer to the operative report for further details. IMPRESSION: INTRA PROCEDURAL IMAGING ABOVE . COMMENT: Quality ID [id number]: Final reports for procedures using fluoroscopy that document radiation exp osure indices, or exposure time and number of fluorographic images (if radiation exposure indices are not available) Please consult full operative report of the attending physician for description of the procedure. TECHNICAL DOCUMENTATION: JOB ID: [id number] 2010 [email or web address]- All Rights Reserved Reading location - IP/workstation name: [email or web address]
[2020-02-23 11:02] VITALS: BP 155/55
== END 2020-02-23 10:55 | disposition home or self-care (01) ==
LOC: CCL 07:19
PROVIDERS: ATTEND Surgery
DX: T82.858A Stenosis of other vascular prosthetic devices, implants and grafts, initial encounter (principal); Y83.2 Surgical operation with anastomosis, bypass or graft as the cause of abnormal reaction of the patient, or of later complication, without mention of misadventure at the time of the procedure; E11.22 Type 2 diabetes mellitus with diabetic chronic kidney disease; I12.0 Hypertensive chronic kidney disease with stage 5 chronic kidney disease or end stage renal disease; N18.6 End stage renal disease; E78.00 Pure hypercholesterolemia, unspecified; E03.9 Hypothyroidism, unspecified; Z79.899 Other long term (current) drug therapy; Z79.82 Long term (current) use of aspirin
CPT/HCPCS: 36415; 84132; 36902; C1725; C1752; Q9967; C1769; J2250; J3010; J3490; J1644; J0690